=== PATIENT | male | born 1960 | race Caucasian/White ===

== ENCOUNTER 2023-06-03 16:00 | Inpatient (IN) | payer MEDICAID, OTHER, SELFPAY ==
[2023-06-03] VITALS (7 sets, daily range): BP systolic 136–180; BP diastolic 74–108; PULSE 70–84; RESP 14–16; TEMP 36.2–36.4; O2SAT 95–100; BMI 36.8
--- NOTE | ~2023-06-03 | XR_ITS ---
EXAMINATION: XR CHEST CLINICAL INFORMATION: Chest pain COMPARISON: None available. TECHNIQUE: 2 views of the chest were obtained. FINDINGS: The lungs are well-expanded and clear. The heart size and pulmonary vascularity is normal. No gross bony abnormality seen. XR/XR chest 2V IMPRESSION: Unremarkable chest exam.
--- NOTE | ~2023-06-03 | CT_ITS ---
EXAMINATION: CT ANGIOGRAM HEAD CT ANGIOGRAM NECK CLINICAL INFORMATION: Dizziness. COMPARISON: None available. TECHNIQUE: Initial noncontrast shoe laster imaging of the head and neck was performed. Noncontrast head CT was also performed. Test bolus sequences followed by intravenous administration 70 mL of Omnipaque 350. Helical imaging was performed in the axial plane from the aortic arch to the skull vertex. Delayed postcontrast imaging of the head was also performed. The data was processed at the lead technologist in cytogenetics's workstation for generation of MIP sequences. Angled MIPs and volume rendered reformatted images were also generated at an offline 3D workstation. Stenoses are assessed in accordance with NASCET criteria unless otherwise indicated. This CT examination was performed using dose optimization techniques as appropriate, variously including the following: *Automated exposure control. *Adjustment of mA and/or kV according to patient size (this includes techniques or standardized protocols for targeted exams where dose is matched to indication/reason for exam; i.e. extremities or head). *Use of iterative reconstruction technique. DLP: 2266 mGy-cm FINDINGS: CT Head: There is no evidence of acute intracranial hemorrhage or edematous territorial infarction. Lacunar infarct in the left thalamus. No additional loss of machuca-white matter differentiation. A few foci of hypoattenuation in the periventricular and deep white matter are consistent with mild microangiopathy. Proportional prominence of the ventricles and sulcal spaces without evidence of obstructive hydrocephalus. No abnormal mass effect or midline shift. No extra-axial fluid collections. No pathologic intra-axial enhancement or regional oligemia. No acute soft tissue or osseous abnormalities. Mild mucosal thickening of the paranasal sinuses. The mastoid air cells and middle ear cavities are clear. Extensive multifocal odontogenic enamel erosions and periapical lucencies. CT Neck: The thyroid gland and remaining cervical soft tissues are within normal limits. Diffuse demineralization. Reversal the normal cervical lordosis centered on C5-C6. Partial degenerative loss of C5 vertebral body height. Ankylosis of the right-sided C3-C4 facets. Advanced degenerative disc disease at C5-C6 and C6-C7. Mild to moderate degenerative disc disease at all additional cervical levels. CT Upper Chest: The visualized lung apices and upper mediastinum are within normal limits. Neck CTA: Aortic Arch: Normal contour and caliber with mild calcific atherosclerotic disease. Classic 3 vessel branching pattern of the aortic arch. Great Vessel Origins: No significant stenosis of the branch origins. Right Common Carotid Artery: No focal stenosis or occlusion. Cervical Right Internal Carotid Artery: Mild calcific atherosclerotic disease of the carotid bulb and proximal internal carotid artery without flow-limiting stenosis. Ectasia of the proximal internal carotid artery. Left Common Carotid Artery: No focal stenosis or occlusion. Cervical Left Internal Carotid Artery: Mild calcific atherosclerotic disease of the carotid bulb and proximal internal carotid artery without flow-limiting stenosis. Ectasia of the proximal internal carotid artery. Cervical Right Vertebral Artery: Dominant. No focal stenosis or occlusion. Cervical Left Vertebral Artery: Atherosclerotic disease causes mild stenosis of the origin. No focal stenosis or occlusion. Brain CTA: Intracranial Internal Carotid Arteries: Calcific atherosclerotic disease of the intracranial internal carotid arteries without occlusion or flow-limiting stenosis. Right Anterior Cerebral Artery: Normal A1 segment. Normal opacification of the distal JUAN M segments. Left Anterior Cerebral Artery: Normal A1 segment. Normal opacification of the distal JUAN M segments. Anterior Communicating Artery: Normal. Right Middle Cerebral Artery: Mild stenosis of the M1 segment of the MCA without occlusion. Normal arborization of the distal segments. Left Middle Cerebral Artery: Moderate stenosis of the M1 segment of the MCA without occlusion. Normal arborization of the distal segments. Right Vertebral Artery: Normal V4 segment. The posterior inferior cerebellar artery is not well opacified; however, there is no CT evidence of acute occlusion. Left Vertebral Artery: Extradural origin of the posterior inferior cerebellar artery. Normal opacification of the proximal segments of the PICA. There is occlusion of the proximal-mid V4 segment. Partial reconstitution of the distal V4 segment. Basilar Artery: Normal without focal stenosis or occlusion. Normal appearance of the proximal superior cerebellar arteries. Right Posterior Cerebral Artery: Normal P1 segment. Mild irregular stenoses of the distal HUM[employer] segments. Left Posterior Cerebral Artery: Normal P1 segment. Mild irregular stenoses of the distal [employer] segments. Normal opacification of the superior sagittal, straight, transverse, and sigmoid sinuses. CT/CT angio head neck IMPRESSION: 1. No evidence of acute intracranial hemorrhage or edematous territorial infarction. Mild underlying microangiopathy and generalized cerebral volume loss. Lacunar infarct in the left thalamus. 2. Occlusion of the proximal-mid V4 segment of the left vertebral artery. 3. CTA of the head and neck without additional proximal occlusion. 4. Moderate multilevel degenerative spondyloarthropathy of the cervical spine. 5. Extensive odontogenic disease.
--- NOTE | ~2023-06-03 | MR_ITS ---
EXAMINATION: MR BRAIN WITHOUT CONTRAST CLINICAL INFORMATION: Posterior circulation cerebrovascular accident. COMPARISON: CTA head and neck from 06/03/2023. TECHNIQUE: MRI of the brain was obtained using routine sequences without contrast. FINDINGS: Small region of restricted diffusion within the left lateral medullary. Associated T2 FLAIR hyperintensity. No evidence of hemorrhagic transformation. No additional restricted diffusion. No evidence of acute or chronic hemorrhagic products on heme-sensitive imaging. Small region of encephalomalacia in the subcortical white matter of the left parietal lobe. Chronic lacunar infarct within the left thalamus. Scattered periventricular and deep white matter T2 FLAIR hyperintensities consistent with mild underlying microangiopathy. Proportional prominence of the ventricles and sulcal spaces without evidence of obstructive hydrocephalus. No abnormal mass effect. No midline shift. Normal appearance of the pituitary gland. Normal positioning of the cerebellar tonsils. Diminished flow-related signal within the V3 and V4 segments of the left vertebral artery, correlating with finding on recent CTA. Otherwise, normal arterial and venous vascular flow voids are present. Normal, homogeneous marrow signal. Mild mucosal thickening of the paranasal sinuses. No signal abnormalities within the mastoids. MR/MR head/brain wo con IMPRESSION: 1. Small acute infarct of the left lateral medullary. Associated occlusion of the V4 segment of the left vertebral artery. No evidence of hemorrhagic transformation. 2. Small region of encephalomalacia in the subcortical white matter of the left parietal lobe. Chronic lacunar infarct of the left thalamus. Mild underlying microangiopathy and generalized cerebral volume loss.
--- NOTE | 2023-06-03 16:10 | PC.NURSE ---
Patient from [facility] with new onsent htn, received clonadine and lisiopril today with no effect. Patient with unsteady gait d/t dizziness.
--- NOTE | 2023-06-03 16:19 | ED_ITS ---
HPI - General Adult General Chief complaint: General Medical Stated complaint: HYPERTENTION & DIZZY, SECT. 12 SI Time Seen by Provider: 06/03/23 16:06 Source: patient Mode of arrival: EMS History of Present Illness HPI narrative: Pt is a 63yo male who presesnts to the ED with dizziness since last night (approx 8pm). Pt was transfered from [facility] after multiple high BP readings. Pt was treated with lisinopril and clonidine prior to arrival to ED. EMS reported a BP of 189/110. Pt states he suddenly became very dizzy as if he was being pulled and pushed around . He also notes 6-7 episodes of vomiting late last night-cop breaker. He reports no current nausea, diarrhea, fever/chills, or abdominal pain. Pt denies vision changes associated with dizziness and notes the dizziness is better laying down. He notes that the past few nights he has had trouble sleeping as he has been at [facility] since last Saturday for depression w/ SI. Pt denies current SI. States he was started on mirtazipine and melatonin, and denies any other medications. Pt reports having not seen a doctor since childhood. Related Data Home Medications Medication Instructions Recorded Confirmed acetaminophen 325 mg tablet 650 mg PO Q4H PRN Pain (Scale 06/04/23 06/04/23 Score 1-3) benzocaine-menthol lozenges 1 xiao PO Q2H PRN Sore Throat 06/04/23 06/04/23 calcium carbonate 500 mg calcium 500 mg PO Q4H PRN Heartburn 06/04/23 06/04/23 (1,250 mg) chewable tablet hydroxyzine pamoate 50 mg capsule 50 mg PO QID PRN Anxiety 06/04/23 06/04/23 lisinopril 5 mg tablet 5 mg PO DAILY 06/04/23 06/04/23 melatonin 3 mg tablet 6 mg PO BEDTIME PRN Sleep 06/04/23 06/04/23 mirtazapine 7.5 mg tablet 7.5 mg PO BEDTIME 06/04/23 06/04/23 nicotine (polacrilex) 2 mg gum 2 mg buccal Q2H PRN Nicotine 06/04/23 06/04/23 Cravings Allergies Allergy/AdvReac Type Severity Reaction Status Date / Time No Known Allergies Allergy Verified 06/03/23 16:42 Review of Systems 2 Constitutional: Constitutional: Denies chills, Reports difficulty sleeping, Denies fever(s) and Denies headache(s) Eyes: Eyes: Denies change in vision ENT: Reports dizziness, Reports dry mouth and Denies headache(s) Cardiovascular: Cardiovascular: Denies chest pain, Reports leg edema (chronic) and Denies dyspnea Respiratory: Respiratory: Denies cough and Denies dyspnea Gastrointestinal: Gastrointestinal: Denies constipation, Denies diarrhea, Denies nausea, Reports vomiting and Denies hematemesis Neurologic: Reports dizziness, Denies headache(s) and Denies focal weakness Psychiatric: Psychiatric: Denies homicidal ideation and Denies suicidal ideation [facility] Social History Social History Patient Tobacco Use Status: Tobacco use Unknown Physical Exam ED Vital Signs: Vital Signs - 24 hr 06/03/23 16:28 06/03/23 19:29 06/03/23 19:31 Temperature 97.5 F Pulse Rate 77 74 70 Respiratory Rate 14 16 Blood Pressure 142/80 H 136/80 146/74 H Pulse Oximetry 100 99 Oxygen Delivery Method Room Air Room Air 06/03/23 19:32 06/03/23 19:35 06/03/23 21:46 Temperature 97.1 F Pulse Rate 75 84 74 Respiratory Rate 15 Blood Pressure 158/88 H 148/84 H 137/75 Pulse Oximetry 98 Oxygen Delivery Method Room Air 06/04/23 00:16 06/04/23 04:58 Temperature Pulse Rate 68 67 Respiratory Rate 16 17 Blood Pressure 140/69 H 146/81 H Pulse Oximetry 98 98 Oxygen Delivery Method Room Air Room Air BMI result Body Mass Index 36.8 Const General: cooperative, comfortable, no acute distress, alert and awake Orientation/consciousness: patient oriented x3 HENMT Head: Yes normal to inspection Ears: hearing grossly normal bilaterally General nose exam: Normal external nose present Eyes Eyelids: Yes eyelid abnormality (slight upper lid droop of left eye) Pupils: Equal, round and reactive pupils present Direct Ophthalmoscopy: normal light reflex Resp Effort & Inspection: normal respiratory effort Auscultation: clear to auscultation bilaterally Cardio Rate: regular rate Rhythm: regular rhythm Heart sounds: S1 normal heart sound present and S2 normal heart sound present GI Palpation (GI): nontender Neuro General: patient oriented x3 Cranial nerves: Yes CN's II-XII intact bilaterally and Yes Equal, round and reactive pupils present Motor exam (neuro): 5/5 motor strength present throughout and Pronator motor function not present Coordination: [id number] test normal NIH Stroke Scale Internal: Initial- Upon Arrival Time: 16:10 Level of Consciousness: Alert Level of Consciousness Questions: Answers both questions correctly Level of Consciousness Commands: Performs both tasks correctly Best Gaze: Normal Visual: No visual loss Facial Palsy: Minor paralyis Motor Arm (Right): No drift Motor Arm (Left): No drift Motor Leg (Right): No drift Motor Leg (Left): No drift Limb Ataxia: Present in one limb Sensory: Normal Best Language: No aphasia Dysarthia: Normal Extinction and Inattention: No abnormality Score: 2 Course Reevaluation(s) Reevaluation #1: Received call from [facility], the patient has an V4 proximal vertebral artery occlusion. Will discuss with Neurology. Patient is well outside the window for TNK/tPA or large vessel clot evacuation Time: 00:01 Medications Administered Generic Name Dose Route Start Last Admin Trade Name Freq PRN Reason Stop Dose Admin Atorvastatin Calcium 80 mg 06/04/23 09:00 06/04/23 09:53 Atorvastatin Calcium 80 Mg Tablet PO 80 mg DAILY JOE Administration Clopidogrel Bisulfate 75 mg 06/04/23 09:00 06/04/23 09:53 Clopidogrel Bisulfate 75 Mg Tablet PO 75 mg DAILY JOE Administration Enoxaparin Sodium 40 mg 06/04/23 06:00 06/04/23 05:44 Enoxaparin Sodium 40 Mg/0.4 Ml Syringe SUBCUT 40 mg Q24H JOE Administration Sodium Chloride 3 ml 06/04/23 08:00 06/04/23 15:57 0.9 % Sodium Chloride Flush 3 Ml Syringe IVFLUSH 3 ml QSHIFT JOE Administration Discontinued Medications Generic Name Dose Route Start Last Admin Trade Name Freq PRN Reason Stop Dose Admin Aspirin 324 mg 06/04/23 00:01 06/04/23 00:18 Aspirin 81 Mg Tab.Chew PO 06/04/23 00:02 324 mg ONCE ONE Administration Iohexol 70 ml 06/03/23 22:54 06/03/23 22:54 Iohexol 350 Mg/Ml 100 Ml Infus..Btl IV 06/03/23 22:55 70 ml ONCE ONE Administration Meclizine HCl 25 mg 06/03/23 16:42 06/03/23 18:13 Meclizine Hcl 25 Mg Tablet PO 06/03/23 16:43 Not Given ONCE ONE Medical Decision Making Medical Decision Making [facility] Narrative: 63-year-old male presents for evaluation of a complaints of dizziness and vomiting. Weight is describing sounds consistent with peripheral vertigo. He has no difficulty finger to nose testing, no pronator drift. His last known well time is approximately 21 hours prior to presentation. Have a very low suspicion for CVA. Plan for basic labs, will get a CT scan of the head. Get EKG, orthostatic vital signs. His blood pressure improved after receiving clonidine and lisinopril from [facility] to prior to arrival to the ED. Differential Diagnosis Differential Diagnoses: The differential diagnosis associated with the presentation includes (HTN urgency, peripheral vertigo, medication induced dizziness, acute onset CHF, vertebral stroke, orthostatics) Admission/Observation Consideration of admission/observation: Escalation of care including admission/observation considered Patient has vertebral artery occlusion Lab Data [facility] Lab Attestation statement: I reviewed the patient's lab results. Mild leukocytosis to 14.3 K. No evidence of infection. No anemia. No electrolyte abnormalities. Normal renal function 06/04/23 07:58 06/03/23 17:58 Labs: Lab Results 06/03/23 06/03/23 Range/Units 17:58 18:55 WBC 14.3 H (4.8-10.8) X10*3/uL RBC 5.05 (4.60-5.80) X10*6/uL Hgb 14.6 (14.0-18.0) g/dl Hct 43.7 (42.0-52.0) % MCV 86.5 (80.0-98.0) fL MCH 28.9 (27.0-33.0) pg MCHC 33.4 (31.0-36.0) g/dl RDW 14.5 (11.0-16.0) % Plt Count 202 (160-400) X10*3/uL MPV 12.9 H (9.4-12.4) fL Immature Gran % (Auto) 0.4 (0.0-0.4) % Neut % (Auto) 85.9 H (45-73) % Lymph % (Auto) 8.2 L (20-40) % Barber % (Auto) 5.2 (2-11) % Eos % (Auto) 0.1 (0-4) % Baso % (Auto) 0.2 (0-2) % Lymph # (Auto) 1.2 (1.2-4.9) X10*3/uL Barber # (Auto) 0.8 (0.1-1.2) X10*3/uL Eos # (Auto) 0.0 (0.0-0.4) X10*3/uL Baso # (Auto) 0.0 (0.0-0.2) X10*3/uL Abs Immat Gran (auto) 0.06 H (0.00-0.03) X10*3/uL Absolute Neuts (auto) 12.3 H (2.0-8.3) x10*3/uL Absolute Nucleated RBC 0.000 (0.0-0.012) X10*3/uL Nucleated RBC % (auto) 0.0 (0.0-0.2) /100WBC Smear Tech's Comments VERIFIED PT 13.8 H (11.1-13.3) SEC INR 1.1 (0.9-1.1) APTT 32.0 (26.0-36.4) SEC Sodium 136 (135-145) mmol/L Potassium 4.4 (3.3-5.1) mmol/L Chloride 103 (96-108) mmol/L Carbon Dioxide 25 (22-29) mmol/L Anion Gap 12 (12-20) BUN 13 (9-16) mg/dL Creatinine 0.62 (0.5-1.4) mg/dL Estim Creat Clear Calc 149.1 Estimated GFR > 60 Random Glucose 114 (60-115) mg/dL Calcium 9.1 (8.4-10.2) mg/dL Total Bilirubin 0.6 (0.0-1.0) mg/dL AST 22 (5-37) U/L ALT 42 H (0-40) U/L Alkaline Phosphatase 72 (39-117) U/L Troponin I High Sens < 2.7 (<3.5-35.0) ng/L B-Natriuretic Peptide 48 (<100) pg/mL Total Protein 7.4 (6.5-8.0) g/dL Albumin 3.8 (3.5-5.0) g/dL Lipase 11 (8-78) U/L Urine Color Guthrie A Urine Appearance Cloudy Urine pH 7.5 (5.0-9.0) Ur Specific Mcgrath 1.020 (1.005-1.025) Urine Protein Trace (Neg-Trace) mg/dL Urine Glucose (UA) Negative (Negative) mg/dL Urine Ketones Negative (Negative) mg/dL Urine Blood Large (3+) H (Negative) Urine Nitrite Negative (Negative) Ur Leukocyte Esterase Trace H (Negative) Urine RBC >20 H (0-2) /HPF Urine WBC 0-5 (0-5) /HPF Ur Squamous Epith Cells 0-2 (0-2) /HPF Urine Bacteria None Seen (None Seen) Hyaline Casts 0-2 (0-2) /LPF Tests considered The following testing was considered but not selected: MRI, however the patient is well outside the window will be admitted regardless. Critical Care Time Critical Care Time Critical Care Time: Yes Total Critical Care Time: 35 Attestation: Patient presented with dizziness, vomiting, concerning for posterior CVA. DM K/tPA was considered, however by time the patient presented to the ER is way outside the window despite documented occlusion on CT angiography. The time CT angiography was resulted, the patient was well outside the window for clot retrieval or endovascular procedure. Discharge Plan Discharge Clinical Impression: HBP (high blood pressure), Dizziness, Posterior circulation stroke Patient Disposition: Admitted As Inpatient Interventions: Admission Worksheet (ED) Last Done: 06/04/23 15:20 Discharge Date/Time: 06/04/23 15:30
--- NOTE | 2023-06-03 16:42 | ECG_ITS ---
Test Reason : dizziness Blood Pressure : / mmHG Vent. Rate : 072 BPM Atrial Rate : 072 BPM P-R Int : 196 ms QRS Dur : 092 ms QT Int : 412 ms P-R-T Axes : 064 005 014 degrees QTc Int : 451 ms Normal sinus rhythm Normal ECG No previous ECGs available Referred By: Isaac Stewart Electronically Signed By:Jerman Vick
--- NOTE | 2023-06-03 16:42 | PC.NURSE ---
1:1 sitter at bedside for pt safety. pt calm and cooperative. denies SI/HI yeni.
[2023-06-03 18:07] LABS: Basophils Percent Auto 0.2 % (0-2); Eosinophils Percent Auto 0.1 % (0-4); Hematocrit 43.7 % (42.0-52.0); Mean Corpuscular Volume 86.5 fL (80.0-98.0); Red Blood Count 5.05 X10*6/uL (4.60-5.80); Red Cell Distribution Width 14.5 % (11.0-16.0); SCAN SMEAR FLAG 1
[2023-06-03 18:09] LABS: Hemoglobin 14.6 g/dl (14.0-18.0); Imm Gran Abs Auto 0.06 X10*3/uL (0.00-0.03); Imm Gran Pct Auto 0.4 % (0.0-0.4); Lymphocytes Absolute Auto 1.2 X10*3/uL (1.2-4.9); Lymphocytes Percent Auto 8.2 % (20-40); MANUAL DIFF FLAG SCAN; Mean Corpuscular HGB Conc 33.4 g/dl (31.0-36.0); Mean Corpuscular Hemoglobin 28.9 pg (27.0-33.0); Mean Platelet Volume 12.9 fL (9.4-12.4); Monocytes Absolute Auto 0.8 X10*3/uL (0.1-1.2); Monocytes Percent Auto 5.2 % (2-11); Neutrophils Absolute Auto 12.3 x10*3/uL (2.0-8.3); Neutrophils Percent Auto 85.9 % (45-73); Platelet Count 202 X10*3/uL (160-400); White Blood Count 14.3 X10*3/uL (4.8-10.8)
[2023-06-03 18:19] LABS: PLT ABN DIST 1
[2023-06-03 18:21] LABS: INTERNATIONAL NORM RATIO 1.1 (0.9-1.1); Prothrombin Time 13.8 SEC (11.1-13.3)
[2023-06-03 18:25] LABS: SLIDE REVIEW VERIFIED
[2023-06-03 18:36] LABS: Alanine Aminotransferase 42 U/L (0-40); Albumin Level 3.8 g/dL (3.5-5.0); Alkaline Phosphatase 72 U/L (39-117); Anion Gap 12 (12-20); Aspartate Amino Transferase 22 U/L (5-37); Bilirubin Total 0.6 mg/dL (0.0-1.0); Blood Urea Nitrogen 13 mg/dL (9-16); Calcium 9.1 mg/dL (8.4-10.2); Carbon Dioxide 25 mmol/L (22-29); Chloride 103 mmol/L (96-108); Creatinine Clr Calc Pharmacy 149.1; Estimated Glomerular Filt Rate > 60; Glucose Random 114 mg/dL (60-115); Lipase 11 U/L (8-78); Potassium 4.4 mmol/L (3.3-5.1); Sodium 136 mmol/L (135-145); Total Protein 7.4 g/dL (6.5-8.0)
[2023-06-03 18:50] LABS: Troponin-I High Sensitivity < 2.7 ng/L (<3.5-35.0)
[2023-06-03 19:03] LABS: Appearance Urine Cloudy; Color Urine Orange; Glucose Urine UA Negative (Negative); Leukocyte Esterase Urine Trace (Negative); Nitrite Urine Negative (Negative); PH 7.5 (5.0-9.0); UMIC TRIGGER UACC YES; Urine Blood Large (3+) (Negative); Urine Ketones Negative (Negative); Urine Protein Trace mg/dL (Neg-Trace)
[2023-06-03 19:06] LABS: Bacteria Urine None Seen (None Seen); Hyaline Casts Urine 0-2 /LPF (0-2); RBC Urine >20 /HPF (0-2); Squamous Epithelial Cell Urine 0-2 /HPF (0-2); WBC Urine 0-5 /HPF (0-5)
[2023-06-03 19:12] LABS: B Type Natriuretic Peptide 48 pg/mL (<100)
--- NOTE | 2023-06-03 19:31 | PC.NURSE ---
ASSUMED CARE OF PT
[2023-06-03] MEDS: iohexoL 350 MG/ML 100 ML INFUS..BTL 70 ML IV (22:54)
[2023-06-04] VITALS (13 sets, daily range): BP systolic 134–173; BP diastolic 69–90; PULSE 60–86; RESP 8–18; TEMP 36.4–36.8; O2SAT 95–100
[2023-06-04] MEDS: Aspirin 81 MG TAB.CHEW 324 MG PO (00:18)
--- NOTE | 2023-06-04 00:36 | PC.NURSE ---
[facility]
--- NOTE | 2023-06-04 05:00 | PC.NURSE ---
attempt to assist in ambualtion to bathroom, pt is full assist as he still feels weak and dizzy
--- NOTE | 2023-06-04 05:19 | PC.NURSE ---
provider aware of weakness and dizziness. ordered brain MRI and am labs
[2023-06-04] MEDS: Enoxaparin Sodium 40 MG/0.4 ML SYRINGE SUBCUT (05:44)
--- NOTE | 2023-06-04 06:02 | PC.NURSE ---
gave nurse to nurse report to travis cline regarding health update
--- NOTE | 2023-06-04 07:00 | CA_ITS ---
Transthoracic Echocardiogram Patient (Last, First, Middle): Surjit Sanchez, Gender: Male Date of : 1960 Age: 63 Procedure Date: 06/04/2023 Procedure Type: Transthoracic Echocardiogram Location: [facility] [place] Height: 175.26 cm Weight: 112.49 kg BSA: 2.26 m2 Heart Rate: bpm BP: 135 / 73 mmHg Historic Sites Supervisor: Referring MD: Logan Goins MD Symptoms: CVA Study Quality: Fair ECG Rhythm: Sinus Conclusions: - Normal left ventricular size and systolic function. There is mildly increased left ventricular wall thickness. The visually estimated ejection fraction is between 60-65%. - Normal right ventricular cavity size and systolic function. - The left atrium is mildly dilated. There is no evidence of interatrial shunt by agitated saline. Findings Left Ventricle Normal left ventricular size and systolic function. There is mildly increased left ventricular wall thickness. The visually estimated ejection fraction is between 60-65%. There is no evidence of regional wall motion abnormalities. Diastolic function is normal for age. Right Ventricle Normal right ventricular cavity size and systolic function. Atria The left atrium is mildly dilated. There is no evidence of interatrial shunt by agitated saline. Aortic Valve Normal aortic valve structure and function. There is no aortic valve stenosis. There is trace (trivial) aortic valve regurgitation. Mitral Valve The mitral valve appears normal. There is no mitral valve regurgitation. There is no mitral valve stenosis. Pulmonic Valve The pulmonic valve is likely normal. Tricuspid Valve Normal tricuspid valve structure. There is no tricuspid valve regurgitation. The right ventricular systolic pressure is 33 mmHg. Normal right atrial pressure. There is no evidence of pulmonary hypertension. Great Vessels All visible segments of the aorta are normal in size. The visualized portions of the pulmonary artery and branches are normal. Venous The inferior vena cava is normal in size and collapses greater than 50% with inspiration. Prior Study Comparison No prior study available for comparison. Measurements 2D Linear Measurements IVSd: 1.04 0.6-0.9/0.6-1.0 cm LVIDd: 3.34 3.9-5.3/4.2-5.9 cm LVIDd Index: 1.48 2.4-3.2/2.2-3.1 cm/m2 LVIDs: 1.99 2.0-3.6 cm LVPWd: 1.12 0.7-1.1 cm Ao Root: 3.40 2.1-3.5 cm LA Diam: 3.50 2.7-3.8/3.0-4.0 cm LAIDs Index: 1.55 1.5-2.3 cm/m2 LV Mass: 134.28 67-162/88-224 g LV Mass Index: 59.42 43-95/49-115 g/m2 LVOT Diam: 2.10 3.0+(-)1.3 cm Mitral Valve MV Pk E: 0.65 MV PK A: 0.89 MV Decel Time: 245.00 E/A: 0.70 E'Lateral: 11.90 E'Medial: 7.94 E/E' Med: 8.10 E/E' Lat: 5.40 PHT: 72.00 MVA PHT: 3.06 Decel [place]: 2.64 Aortic Valve AoV Pk Austin: 1.54 AoV Mn Austin: 1.04 AoV VTI: 0.35 AoV Pk Grad: 9.00 Aov Mn Grad: 5.00 JAYDEN Cont.VTI: 2.27 LVOT LVOT Pk Austin: 1.04 LVOT Mn Austin: 0.67 LVOT VTI: 0.23 LVOT Pk Grad: 4.00 LVOT Mn Grad: 2.00 LVOT Diam: 2.10 LVOT Area: 3.46 Diastolic Function MV Pk E: 0.65 MV Pk A: 0.89 E/A: 0.70 E'Medial: 7.94 E/E' Med: 8.10 E' Laterial: 11.90 E/E' Lat: 5.40 Right Ventricle TAPSE (mm): 27.00 TVS' Austin: 13.00 Tricuspid Valve TR Pk Austin: 2.80 TR Pk Grad: 31.00 RA Press: 3.00 RVSP: 33.00 Great Vessels Aorta Ao Root-2D: 3.40 2.0-3.7 cm Ao Asc: 3.30 2.1-3.4 cm Pulmonary Valve PV Pk Austin: 1.68 Peak PV Grad: 11.00 Updated in Other Vendor System with Status of Final Jerman Vick MD electronically signed on 06/05/2023 1:29:28 PM with status of Final
--- NOTE | 2023-06-04 07:26 | P.HPHOSP_ITS ---
History of Present Illness Date of Service: 06/04/23 Attending physician on admission: Logan Goins Chief Complaint: Dizziness, unteady gait and nausea/vomiting x1 day 63 year old obese white male with underlying history of depression and suicide attempts leading to hospitalization at [facility] who is brought to the emergency room for evaluation of ongoing dizziness, unsteady gait, nausea and vomiting. These symptoms started last night (06/02/23) at around 7 PM. He reports that he suddenly started experiencing dizziness and was unsteady on his feet.? He was feeling ill with the nausea and dizziness and so he decided to go rest in bed. ?He woke up today, still feeling dizzy and unsteady on his feet and this time also had an episode of nausea and vomited when he tried to drink liquids.? He therefor decided to remain in bed most of the day. This evening, he was still not feeling well so he asked to be brought in for evaluation. Initial work up done on arrival include a normal CT head but a CTA done showed occlusion of the V4 segment of the proximal vertebral artery.? He unfortunately is out of the window for TNK and thrombectomy.? He was therefore started on aspirin and admission requested.? When I saw him, he was still feeling dizzy especially when he tries to move around. Review of Systems 2 Review of Systems: Yes all other systems are reviewed and are negative PMFSH Social History Patient Tobacco Use Status: Tobacco use Unknown Smoked in Last 30 Days: No Use of substances other than those prescribed or required for medical reasons: No Advance Directives: No Advance Directives Information Provided: Yes Nutrition Risks: No Nutritional Risk Meds Allergies Allergy/AdvReac Type Severity Reaction Status Date / Time No Known Allergies Allergy Verified 06/03/23 16:42 Active Medications: Current Medications Acetaminophen (Acetaminophen 325 Mg Tablet) 650 mg PO Q6H PRN PRN Reason: Pain, Mild (Pain Scale 1-3) Acetaminophen (Acetaminophen Supp 650 Mg Supp.Rect) 650 mg PA Q6H PRN PRN Reason: Pain, Mild (Pain Scale 1-3) Al Hydroxide/Mg Hydroxide (Magnesium Hydrox/Alum Hydrox 30 Ml Oral.Susp) 30 ml PO Q4H PRN PRN Reason: Heartburn/Nausea Aspirin (Aspirin Enteric Coated 81 Mg Tablet.) 81 mg PO DAILY [facility] Atorvastatin Calcium (Atorvastatin Calcium 80 Mg Tablet) 80 mg PO DAILY [facility] Clopidogrel Bisulfate (Clopidogrel Bisulfate 75 Mg Tablet) 75 mg PO DAILY [facility] Enoxaparin Sodium (Enoxaparin Sodium 40 Mg/0.4 Ml Syringe) 40 mg SUBCUT Q24H [facility] Last Admin: 06/04/23 05:44 Dose: 40 mg Melatonin (Melatonin 3 Mg Tablet) 6 mg PO BEDTIME PRN PRN Reason: Insomnia Ondansetron HCl (Ondansetron Hcl 4 Mg/2 Ml Vial) 4 mg IVPUSH Q8H PRN PRN Reason: Nausea and Vomiting Sodium Chloride (0.9 % Sodium Chloride Flush 3 Ml Syringe) 3 ml IVFLUSH QSHIFT [facility] Physical Exam 2 Vital Signs and Narrative: Vital Signs: Last Vital Signs Temp 97.1 F 06/03/23 21:46 Pulse 60 06/04/23 06:04 Resp 8 L 06/04/23 06:04 BP 135/73 06/04/23 06:04 Pulse Ox 99 06/04/23 06:04 O2 Del Method Room Air 06/04/23 06:04 BMI result Body Mass Index 36.8 General: Well nourished. Awake, alert and oriented x 4. No apparent distress Eyes: No pallor or jaundice. PERRLA, EOMI HENT: Moist oral mucus membranes. No oropharyngeal lesions. Neck: Supple. No cervical adenopathy. No JVD Cardiovascular: Regular rate and rhythm. Normal heart sounds. No murmurs, rubs or gallops. No JVD. No peripheral edema. Respiratory: Normal respiratory effort with no accessory muscle use. CTAB. Gastrointestinal: Abdomen is soft, non-tender, non-distended. Normoactive bowel sounds. No hepatosplenomegaly Extremities: No edema. No calf tenderness. Good peripheral pulses Skin - Warm/Dry. No rashes. No mottling. Capillary refill is < 2 seconds Neurological: AAOx4. Intact speech & cognition. Gait & balance not assessed as he got very dizzy when he tried to sit up. CN II - XII grossly intact but not individually tested. Hematologic: No bleeding. No ecchymosis. No swollen or tender lymph nodes. Psychiatric: Cooperative. Appropriate mood and affect. Results Labs 06/03/23 17:58 06/03/23 17:58 Labs: Laboratory Results - last 24 hr 06/03/23 06/03/23 17:58 18:55 MCV 86.5 MCH 28.9 MCHC 33.4 RDW 14.5 Plt Count 202 MPV 12.9 H Immature Gran % (Auto) 0.4 Neut % (Auto) 85.9 H Lymph % (Auto) 8.2 L [place] % (Auto) 5.2 Eos % (Auto) 0.1 Baso % (Auto) 0.2 Lymph # (Auto) 1.2 [place] # (Auto) 0.8 Eos # (Auto) 0.0 Baso # (Auto) 0.0 Abs Immat Gran (auto) 0.06 H Absolute Neuts (auto) 12.3 H Absolute Nucleated RBC 0.000 Nucleated RBC % (auto) 0.0 Smear Tech's Comments VERIFIED PT 13.8 H INR 1.1 APTT 32.0 Anion Gap 12 Estim Creat Clear Calc 149.1 Estimated GFR > 60 Random Glucose 114 Calcium 9.1 Total Bilirubin 0.6 AST 22 ALT 42 H Alkaline Phosphatase 72 B-Natriuretic Peptide 48 Total Protein 7.4 Albumin 3.8 Lipase 11 Urine Color [place] A Urine Appearance Cloudy Urine pH 7.5 Ur Specific [place] 1.020 Urine Protein Trace Urine Glucose (UA) Negative Urine Ketones Negative Urine Blood Large (3+) H Urine Nitrite Negative Ur Leukocyte Esterase Trace H Urine RBC >20 H Urine WBC 0-5 Ur Squamous Epith Cells 0-2 Urine Bacteria None Seen Hyaline Casts 0-2 ECG Interpretation: NSR at 72 bpm with normal axis and no acute ischemic changes Imaging Radiologist's Impressions: Impressions Chest X-Ray 06/03/23 17:21 IMPRESSION: Unremarkable chest exam. Head/Neck CTA 06/03/23 22:51 IMPRESSION: 1. No evidence of acute intracranial hemorrhage or edematous territorial infarction. Mild underlying microangiopathy and generalized cerebral volume loss. Lacunar infarct in the left thalamus. 2. Occlusion of the proximal-mid V4 segment of the left vertebral artery. 3. CTA of the head and neck without additional proximal occlusion. 4. Moderate multilevel degenerative spondyloarthropathy of the cervical spine. 5. Extensive odontogenic disease. Assessment and Plan (1) Posterior circulation stroke: Status: Acute (2) HBP (high blood pressure): Status: Acute (3) Suicide attempt: Status: Acute Plan 63 year old obese white male with underlying history of depression and suicide attempts leading to hospitalization at [facility] here with 1. CVA - manifesting with vertiginous symptoms - CTA done showed occlusion of the V4 segment of the proximal vertebral artery - admit for further work up including MRI, 2 D echo and lipid panel - Neurology consult - start aspirin, plavix and atorvastatin 2. Hypertension - BP very mildly elevated - monitor off medications 3. Suicide attempt - reports 2 attempts in as many weeks - currently admitted to [facility] hospital - continue 1:1 close observation 4. Obesity - BMI 6.8 - encourage weight loss Total time managing care of this patient today: 75 minutes. Quality Stroke Does the patient have a stroke diagnosis?: Yes Reason for No Anti-thrombotic by Day Two: N/A - Med Ordered VTE Prior VTE?: No VTE Risk Level:: Medical - moderate - high VTE Device Contraindication: N/A - Device Ordered VTE Drug Contraindication: N/A - Med Ordered
[2023-06-04] MEDS: 0.9 % Sodium Chloride Flush 3 ML SYRINGE IVFLUSH ×3 (07:40→21:18)
--- NOTE | 2023-06-04 07:44 | PC.NURSE ---
Addendum entered by Rosalia Moy 06/04/23 07:48: pt currently denies si, pt is coming from [facility] in [facility] for si, sitter at bedside Original Note: pt is alert and oriented, skin pwd, respirations even and unlabored, ls clear, pt denies pain, all neuro are intact-no visible arm drift, strong and equal hand grasp, no facial drift and able to move all extremities. pt does report that he still has intermittent dizziness-states he feels like he is swaying but only when standing up or moving around not when just resting/laying in bed. pt denies nausea and vs stable, ns on the monitor.
--- NOTE | 2023-06-04 07:47 | PHA.MEDREC ---
Pharmacy Consult ? Medication Reconciliation Pharmacy has completed the medication reconciliation. Pharmacy was sent a medication list from what looks like a facility, ED says patient came in with list. When [facility] went to speak to patient they stated they are not on anything. However, this list says patient is on mirtazapine, lisinopril and hydroxyzine with a end date of 06/27/23. Will leave it up to the provider.
[2023-06-04 08:05] LABS: Hemoglobin 15.3 g/dl (14.0-18.0); Mean Corpuscular HGB Conc 33.3 g/dl (31.0-36.0); Mean Corpuscular Hemoglobin 28.5 pg (27.0-33.0); Mean Corpuscular Volume 85.8 fL (80.0-98.0); Mean Platelet Volume 12.9 fL (9.4-12.4); PLT CLUMP 1; Red Blood Count 5.36 X10*6/uL (4.60-5.80); Red Cell Distribution Width 14.6 % (11.0-16.0)
[2023-06-04 08:07] LABS: Platelet Count 211 X10*3/uL (160-400); WBC ABN SCTR FOR CBC 1
[2023-06-04 08:18] LABS: Cholesterol 172 mg/dL (<200); HDL Cholesterol 46 mg/dL (>40); LDL Cholesterol Calculated 110 mg/dL (<100); Magnesium 2.5 mg/dL (1.6-2.6); Triglycerides 84 mg/dL (<150)
--- NOTE | 2023-06-04 09:50 | MHC.CM.PN ---
CM met with pt in ED, he reports that he was evicted from his apt., had a suicide attempt and went to [facility] and from there to [facility]. He plans to return there. He said that [facility] and [facility] [place] are helping him to find an apt. He does not have a HCP and declined to complete one. CM will follow and assist with DC planning.
[2023-06-04] MEDS: Atorvastatin Calcium 80 MG TABLET PO (09:53)
[2023-06-04] MEDS: Clopidogrel Bisulfate 75 MG TABLET PO (09:53)
--- NOTE | 2023-06-04 09:53 | P.PNIM_ITS ---
Subjective Subjective Date of Service: 06/04/23 Interval History: still dizzy Physical Exam 2 Vital Signs: Vital Signs: Last Vital Signs Temp 97.1 F 06/03/23 21:46 Pulse 73 06/04/23 07:38 Resp 18 06/04/23 07:38 BP 154/76 H 06/04/23 07:38 Pulse Ox 99 06/04/23 07:38 O2 Del Method Room Air 06/04/23 07:38 BMI result Body Mass Index 36.8 General: AO X 3, no acute distress Resp: CTA bilateral, no accessory muscles used CVS: S1,S2,RRR GI: soft, non tender, non distended Neuro: motor grossly intact, alert, left finger to nose abnormal Psych: appropriate affect, appropriate insight Objective Data Active Medications Acetaminophen (Acetaminophen 325 Mg Tablet) 650 mg PO Q6H PRN PRN Reason: Pain, Mild (Pain Scale 1-3) Acetaminophen (Acetaminophen Supp 650 Mg Supp.Rect) 650 mg [place] Q6H PRN PRN Reason: Pain, Mild (Pain Scale 1-3) Al Hydroxide/Mg Hydroxide (Magnesium Hydrox/Alum Hydrox 30 Ml Oral.Susp) 30 ml PO Q4H PRN PRN Reason: Heartburn/Nausea Aspirin (Aspirin Enteric Coated 81 Mg Tablet.) 81 mg PO DAILY [facility] Atorvastatin Calcium (Atorvastatin Calcium 80 Mg Tablet) 80 mg PO DAILY [facility] Last Admin: 06/04/23 09:53 Dose: 80 mg Documented By: ANDRES Clopidogrel Bisulfate (Clopidogrel Bisulfate 75 Mg Tablet) 75 mg PO DAILY [facility] Last Admin: 06/04/23 09:53 Dose: 75 mg Documented By: ANDRES Enoxaparin Sodium (Enoxaparin Sodium 40 Mg/0.4 Ml Syringe) 40 mg SUBCUT Q24H [facility] Last Admin: 06/04/23 05:44 Dose: 40 mg Documented By: OMAR Melatonin (Melatonin 3 Mg Tablet) 6 mg PO BEDTIME PRN PRN Reason: Insomnia Ondansetron HCl (Ondansetron Hcl 4 Mg/2 Ml Vial) 4 mg IVPUSH Q8H PRN PRN Reason: Nausea and Vomiting Sodium Chloride (0.9 % Sodium Chloride Flush 3 Ml Syringe) 3 ml IVFLUSH QSHIFT [facility] Last Admin: 06/04/23 07:40 Dose: 3 ml Documented By: SHARITA Labs 06/04/23 07:58 06/03/23 17:58 Labs: Laboratory Results - last 24 hr 06/03/23 06/03/23 06/04/23 17:58 18:55 07:58 MCV 86.5 85.8 MCH 28.9 28.5 MCHC 33.4 33.3 RDW 14.5 14.6 Plt Count 202 211 MPV 12.9 H 12.9 H Immature Gran % (Auto) 0.4 Neut % (Auto) 85.9 H Lymph % (Auto) 8.2 L [place] % (Auto) 5.2 Eos % (Auto) 0.1 Baso % (Auto) 0.2 Lymph # (Auto) 1.2 [place] # (Auto) 0.8 Eos # (Auto) 0.0 Baso # (Auto) 0.0 Abs Immat Gran (auto) 0.06 H Absolute Neuts (auto) 12.3 H Absolute Nucleated RBC 0.000 0.000 Nucleated RBC % (auto) 0.0 0.0 Smear Tech's Comments VERIFIED PT 13.8 H INR 1.1 APTT 32.0 Anion Gap 12 Estim Creat Clear Calc 149.1 Estimated GFR > 60 Random Glucose 114 Calcium 9.1 Magnesium 2.5 Total Bilirubin 0.6 AST 22 ALT 42 H Alkaline Phosphatase 72 B-Natriuretic Peptide 48 Total Protein 7.4 Albumin 3.8 Triglycerides 84 Cholesterol 172 LDL Cholesterol, Calc 110 H HDL Cholesterol 46 Lipase 11 Urine Color [place] A Urine Appearance Cloudy Urine pH 7.5 Ur Specific [place] 1.020 Urine Protein Trace Urine Glucose (UA) Negative Urine Ketones Negative Urine Blood Large (3+) H Urine Nitrite Negative Ur Leukocyte Esterase Trace H Urine RBC >20 H Urine WBC 0-5 Ur Squamous Epith Cells 0-2 Urine Bacteria None Seen Hyaline Casts 0-2 Assessment and Plan (1) Dizziness: Status: Acute Plan 63M PMH obesity, depression with suicide attempts leading to hospitalization at [facility], [place] emergency department, presented with dizzyness, concern for posterior cva dizziness with concern for posterior cva manifesting with vertiginous symptoms CTA done showed occlusion of the V4 segment of the proximal vertebral artery MRI, 2 D echo and lipid panel Neurology consult aspirin, plavix and atorvastatin Hypertension BP very mildly elevated monitor off medications depression with recent Suicide attempt reports 2 attempts in as many weeks currently admitted to [facility] continue 1:1 close observation Obesity BMI 36.8 encourage weight loss dvt porphylaxis - lovenox full code reason for continued hospitalization:stroke work up pending Quality Stroke Does the patient have a stroke diagnosis?: Yes Reason for No Anti-thrombotic by Day Two: N/A - Med Ordered VTE Prior VTE?: No VTE Risk Level:: Medical - moderate - high VTE Device Contraindication: N/A - Device Ordered VTE Drug Contraindication: N/A - Med Ordered
--- NOTE | 2023-06-04 10:02 | PC.NURSE ---
denies si/hi/sib. no ah/vh/delusions noted/reported. calm, coop. no focal neuro deficits. aox4. clear speech. no numbness/tingling. able to follow finger w eyes all fisher. prrla. able to touch nose and my finger w/o issue. no extremity drifts. no facial palsy/droop/difficulty w vision. no dizziness at rest.
--- NOTE | 2023-06-04 14:20 | PC.NURSE ---
md chahal aware elevated bp continues- no new orders- md chahal states at this time holding bp meds for permissive htn in rule out cva per
--- NOTE | 2023-06-04 15:25 | PC.NURSE ---
pt had rn throw his underpants out as stated thwey were soiled and did not want. denied si/hi. transporting on monitor by director araceli. rosanna aly confirmed receipt of report
--- NOTE | 2023-06-04 16:12 | PC.NURSE ---
Pt admitted to floor. 1:1 sitter in room due to recent suicide attempt. Pt AOx4. Pt reports feeling of numbness/tingling in L side of face. No numbness/tingling in arms or legs. Strength and grasp equal bilaterally. No facial droop observed. Smile symmetrical with tongue midline. Speech clear and appropriate. No concerns at this time. Call cooley in reach.
--- NOTE | 2023-06-04 17:51 | P.CNNE_ITS ---
History of Present Illness Data of Consult Service Date: 06/04/23 Primary Care Provider: Unknown Physician HPI Reason for consult: dizziness 63 year old obese white male with underlying history of depression and suicide attempts leading to hospitalization at [facility] who is brought to the emergency room for evaluation of ongoing dizziness, unsteady gait, nausea and vomiting. These symptoms started last night (06/02/23) at around 7 PM. He reports that he suddenly started experiencing dizziness and was unsteady on his feet like being pulled to the left.? He was feeling ill with the nausea and dizziness and so he decided to go rest in bed. ?He woke up today, still feeling dizzy and unsteady on his feet and this time also had an episode of nausea and vomited when he tried to drink liquids.? He therefor decided to remain in bed most of the day. This evening, he was still not feeling well so he asked to be brought in for evaluation. Initial work up done on arrival include a normal CT head but a CTA done showed occlusion of the V4 segment of the proximal vertebral artery.? He came in out of the window for TNK and thrombectomy.? He was started on aspirin and admission requested.? Review of Systems 2 Review of Systems: Yes all other systems are reviewed and are negative Constitutional: Constitutional: Denies chills, Reports difficulty sleeping, Denies fever(s) and Denies headache(s) Eyes: Eyes: Denies change in vision ENT: Reports dizziness, Reports dry mouth and Denies headache(s) Cardiovascular: Cardiovascular: Denies chest pain, Reports leg edema (chronic) and Denies dyspnea Respiratory: Respiratory: Denies cough and Denies dyspnea Gastrointestinal: Gastrointestinal: Denies constipation, Denies diarrhea, Denies nausea, Reports vomiting and Denies hematemesis Neurologic: Reports dizziness, Denies headache(s) and Denies focal weakness Psychiatric: Psychiatric: Denies homicidal ideation and Denies suicidal ideation PMF Social History Social History Household Members: Friend(s) Housing: Apartment Housing Other:: Recently evicted Patient Tobacco Use Status: Never used Tobacco Meds Allergies Allergy/AdvReac Type Severity Reaction Status Date / Time No Known Allergies Allergy Verified 06/03/23 16:42 Active Medications: Current Medications Acetaminophen (Acetaminophen 325 Mg Tablet) 650 mg PO Q6H PRN PRN Reason: Pain, Mild (Pain Scale 1-3) Acetaminophen (Acetaminophen Supp 650 Mg Supp.Rect) 650 mg [place] Q6H PRN PRN Reason: Pain, Mild (Pain Scale 1-3) Al Hydroxide/Mg Hydroxide (Magnesium Hydrox/Alum Hydrox 30 Ml Oral.Susp) 30 ml PO Q4H PRN PRN Reason: Heartburn/Nausea Aspirin (Aspirin Enteric Coated 81 Mg Tablet.Dr) 81 mg PO DAILY [facility] Atorvastatin Calcium (Atorvastatin Calcium 80 Mg Tablet) 80 mg PO DAILY [facility] Last Admin: 06/04/23 09:53 Dose: 80 mg Clopidogrel Bisulfate (Clopidogrel Bisulfate 75 Mg Tablet) 75 mg PO DAILY [facility] Last Admin: 06/04/23 09:53 Dose: 75 mg Enoxaparin Sodium (Enoxaparin Sodium 40 Mg/0.4 Ml Syringe) 40 mg SUBCUT Q24H [facility] Last Admin: 06/04/23 05:44 Dose: 40 mg Melatonin (Melatonin 3 Mg Tablet) 6 mg PO BEDTIME PRN PRN Reason: Insomnia Ondansetron HCl (Ondansetron Hcl 4 Mg/2 Ml Vial) 4 mg IVPUSH Q8H PRN PRN Reason: Nausea and Vomiting Sodium Chloride (0.9 % Sodium Chloride Flush 3 Ml Syringe) 3 ml IVFLUSH QSHIFT [facility] Last Admin: 06/04/23 15:57 Dose: 3 ml Home Medications Medication Instructions Recorded Confirmed Last Taken Type acetaminophen 325 mg tablet 650 mg PO Q4H PRN Pain (Scale 06/04/23 06/04/23 Unknown History Score 1-3) benzocaine-menthol lozenges 1 xiao PO Q2H PRN Sore Throat 06/04/23 06/04/23 Unknown History calcium carbonate 500 mg calcium 500 mg PO Q4H PRN Heartburn 06/04/23 06/04/23 Unknown History (1,250 mg) chewable tablet hydroxyzine pamoate 50 mg capsule 50 mg PO QID PRN Anxiety 06/04/23 06/04/23 Unknown History lisinopril 5 mg tablet 5 mg PO DAILY 06/04/23 06/04/23 Unknown History melatonin 3 mg tablet 6 mg PO BEDTIME PRN Sleep 06/04/23 06/04/23 Unknown History mirtazapine 7.5 mg tablet 7.5 mg PO BEDTIME 06/04/23 06/04/23 Unknown History nicotine (polacrilex) 2 mg gum 2 mg buccal Q2H PRN Nicotine 06/04/23 06/04/23 Unknown History Cravings Physical Exam 2 Vital Signs: Vital Signs: Last Vital Signs Temp 97.8 F 06/04/23 15:42 Pulse 86 06/04/23 15:42 Resp 12 06/04/23 15:42 BP 140/86 H 06/04/23 15:50 Pulse Ox 98 06/04/23 15:42 O2 Del Method Room Air 06/04/23 15:42 BMI result Body Mass Index 36.8 Const: General: cooperative, comfortable, no acute distress, alert and awake Orientation/consciousness: patient oriented x3 HEENT: Head: Yes normal to inspection Ears: hearing grossly normal bilaterally General nose exam: Normal external nose present Eyes: Eyelids: Yes eyelid abnormality (slight upper lid droop of left eye) Pupils: Equal, round and reactive pupils present Direct Ophthalmoscopy: n ormal light reflex Resp: Effort & Inspection: normal respiratory effort Auscultation: clear to auscultation bilaterally Cardio: Rate: regular rate Rhythm: regular rhythm Heart sounds: S1 normal heart sound present and S2 normal heart sound present GI: Palpation (GI): nontender Neuro: Other: nystagmus in neutral position, increased with up gaze and left gaze. Dysmetria on left heel -knee -alvarado test. left facial numbness General: patient oriented x3 Cranial nerves: Yes CN's II-XII intact bilaterally and Yes Equal, round and reactive pupils present Motor exam (neuro): 5/5 motor strength present throughout Coordination: [id number] test normal Results Labs 06/04/23 07:58 06/03/23 17:58 Labs: Short CBC 06/03/23 06/04/23 Range/Units 17:58 07:58 WBC 14.3 H 13.0 H (4.8-10.8) X10*3/uL Hgb 14.6 15.3 (14.0-18.0) g/dl Hct 43.7 46.0 (42.0-52.0) % Plt Count 202 211 (160-400) X10*3/uL BMP 06/03/23 17:58 Sodium 136 Potassium 4.4 Chloride 103 Carbon Dioxide 25 BUN 13 Creatinine 0.62 Calcium 9.1 Liver Function 06/03/23 Range/Units 17:58 Total Bilirubin 0.6 (0.0-1.0) mg/dL AST 22 (5-37) U/L ALT 42 H (0-40) U/L Alkaline Phosphatase 72 (39-117) U/L Albumin 3.8 (3.5-5.0) g/dL Urine 06/03/23 Range/Units 18:55 Urine Color [place] A Urine Appearance Cloudy Urine pH 7.5 (5.0-9.0) Ur Specific [place] 1.020 (1.005-1.025) Urine Protein Trace (Neg-Trace) mg/dL Urine Glucose (UA) Negative (Negative) mg/dL Assessment and Plan (1) Dizziness: Status: Acute posterior circulation stroke primarily involving left cerebellum and brain stem. Recom. MRI brain. Continue ASA and plavix. PT/OT for gait and balance. Plan 63M PMH obesity, depression with suicide attempts leading to hospitalization at [facility], htn, presented with dizzyness, concern for posterior cva dizziness with concern for posterior cva manifesting with vertiginous symptoms CTA done showed occlusion of the V4 segment of the proximal vertebral artery MRI, 2 D echo and lipid panel Neurology consult aspirin, plavix and atorvastatin Hypertension BP very mildly elevated monitor off medications depression with recent Suicide attempt reports 2 attempts in as many weeks currently admitted to [facility] continue 1:1 close observation Obesity BMI 36.8 encourage weight loss dvt porphylaxis - lovenox full code reason for continued hospitalization:stroke work up pending Procedures Date of Service Date of Service: 06/04/23
[2023-06-04] MEDS: Acetaminophen 325 MG TABLET 650 MG PO (22:39)
[2023-06-05 03:01] VITALS: BP 139/77; PULSE 77; RESP 20; TEMP 36.7; O2SAT 96
[2023-06-05] MEDS: Enoxaparin Sodium 40 MG/0.4 ML SYRINGE SUBCUT (05:34)
[2023-06-05 07:13] VITALS: BP 146/82; PULSE 79; RESP 18; TEMP 36.6; O2SAT 95
[2023-06-05] MEDS: Aspirin Enteric Coated 81 MG TABLET.DR PO (07:36)
[2023-06-05] MEDS: Clopidogrel Bisulfate 75 MG TABLET PO (07:37)
[2023-06-05] MEDS: 0.9 % Sodium Chloride Flush 3 ML SYRINGE IVFLUSH ×3 (07:37→23:48)
[2023-06-05] MEDS: Atorvastatin Calcium 80 MG TABLET PO (07:37)
[2023-06-05 09:41] VITALS: BP 146/82; PULSE 79; O2SAT 95
[2023-06-05] MEDS: lisinopriL 5 MG TABLET PO (09:51)
[2023-06-05 11:11] VITALS: BP 133/69; PULSE 80; RESP 18; TEMP 36.7; O2SAT 95
--- NOTE | 2023-06-05 13:19 | MHC.CARE ---
Patient evaluated by the CARE Team, he denied suicidal thoughts, plan or intention and at this time does not need inpatient psychiatric treatment Provider and CM updated.
--- NOTE | 2023-06-05 13:48 | HO.PM.IMPN ---
Subjective Subjective Date of Service: 06/05/23 Interval History: Seen and evaluated feels comfortable today denies any weakness no suicidal thoughts Review of Systems Review of Systems: Yes all other systems are reviewed and are negative Physical Exam Vital Signs: Vital Signs: Last Vital Signs Temp 98.1 F 06/05/23 11:11 Pulse 80 06/05/23 11:11 Resp 18 06/05/23 11:11 BP 133/69 06/05/23 11:11 Pulse Ox 95 06/05/23 11:11 O2 Del Method Room Air 06/05/23 11:11 BMI result Body Mass Index 36.8 Const: Other: Constitutional : Awake, interactive, not in distress Neck : Normal inspection, Supple Cardiovascular : RRR, no JVP, no lower extremity edema Respiratory : good bilateral air entry, no crackles, wheezes or rhonchi Gastrointestinal: soft, lax, Normal bowel sounds, Non tender Skin : Warm, Dry Neurological : Alert & oriented x3, No focal deficit , CN 2-12 within normal Objective Data Active Medications Acetaminophen (Acetaminophen 325 Mg Tablet) 650 mg PO Q6H PRN PRN Reason: Pain, Mild (Pain Scale 1-3) Last Admin: 06/04/23 22:39 Dose: 650 mg Documented By: VEGA Acetaminophen (Acetaminophen Supp 650 Mg Supp.Rect) 650 mg [place] Q6H PRN PRN Reason: Pain, Mild (Pain Scale 1-3) Al Hydroxide/Mg Hydroxide (Magnesium Hydrox/Alum Hydrox 30 Ml Oral.Susp) 30 ml PO Q4H PRN PRN Reason: Heartburn/Nausea Aspirin (Aspirin Enteric Coated 81 Mg Tablet.) 81 mg PO DAILY [facility] Last Admin: 06/05/23 07:36 Dose: 81 mg Documented By: JAYNA Atorvastatin Calcium (Atorvastatin Calcium 80 Mg Tablet) 80 mg PO DAILY [facility] Last Admin: 06/05/23 07:37 Dose: 80 mg Documented By: JAYNA Clopidogrel Bisulfate (Clopidogrel Bisulfate 75 Mg Tablet) 75 mg PO DAILY [facility] Last Admin: 06/05/23 07:37 Dose: 75 mg Documented By: JAYNA Enoxaparin Sodium (Enoxaparin Sodium 40 Mg/0.4 Ml Syringe) 40 mg SUBCUT Q24H [facility] Last Admin: 06/05/23 05:34 Dose: 40 mg Documented By: HO.THOMPSM Hydroxyzine HCl (Hydroxyzine Hcl 50 Mg Tablet) 50 mg PO QID PRN PRN Reason: Anxiety Lisinopril (Lisinopril 5 Mg Tablet) 5 mg PO DAILY [facility]; Protocol Last Admin: 06/05/23 09:51 Dose: 5 mg Documented By: JAYNA Melatonin (Melatonin 3 Mg Tablet) 6 mg PO BEDTIME PRN PRN Reason: Insomnia Mirtazapine (Mirtazapine 7.5 Mg Tablet) 7.5 mg PO BEDTIME [facility] Nicotine Polacrilex (Nicotine Polacrilex 2 Mg Gum) 2 mg BUCCAL Q2H PRN PRN Reason: Nicotine Cravings Ondansetron HCl (Ondansetron Hcl 4 Mg/2 Ml Vial) 4 mg IVPUSH Q8H PRN PRN Reason: Nausea and Vomiting Sodium Chloride (0.9 % Sodium Chloride Flush 3 Ml Syringe) 3 ml IVFLUSH QSHIFT [facility] Last Admin: 06/05/23 07:37 Dose: 3 ml Documented By: JAYNA Labs 06/04/23 07:58 06/03/23 17:58 Assessment and Plan (1) Posterior circulation stroke: Status: Acute (2) Dizziness: Status: Acute Plan 63M PMH obesity, depression with suicide attempts leading to hospitalization at [facility], [facility], presented with dizzyness, concern for posterior cva Acute stroke w posterior cva improved vertiginous symptoms CTA done showed occlusion of the V4 segment of the proximal vertebral artery MRI showing small infarct in left lateral medullary Echo within normal values Neurology consult aspirin, plavix and atorvastatin PT rec STR\acute rehab Hypertension BP improved, high normal depression with recent Suicide attempt reports 2 attempts in as many weeks, denies any thoughts or plans now was recently admitted to [facility] Careteam did not feel he need psychiatric unit admission Obesity BMI 36.8 encourage weight loss dvt porphylaxis - lovenox full code reason for continued hospitalization: Pending safe discharge plan to SNF per PT recommendations and patient preference Quality Stroke Does the patient have a stroke diagnosis?: Yes Reason for No Anti-thrombotic by Day Two: N/A - Med Ordered VTE Prior VTE?: No VTE Risk Level:: Medical - moderate - high VTE Device Contraindication: N/A - Device Ordered VTE Drug Contraindication: N/A - Med Ordered
--- NOTE | 2023-06-05 14:00 | MHC.CM.PN ---
PT is recommending STR; a broad snf search has been initiated and CM will follow.
[2023-06-05 15:48] VITALS: BP 150/79; PULSE 81; RESP 16; TEMP 36.4; O2SAT 95
[2023-06-05 19:51] VITALS: BP 178/91; PULSE 79; RESP 21; TEMP 36.6; O2SAT 98
[2023-06-05] MEDS: Mirtazapine 7.5 MG TABLET PO (20:57)
[2023-06-06] VITALS (8 sets, daily range): BP systolic 135–164; BP diastolic 71–85; PULSE 69–80; RESP 17–20; TEMP 36.1–36.3; O2SAT 93–99
[2023-06-06] MEDS: Enoxaparin Sodium 40 MG/0.4 ML SYRINGE SUBCUT (06:18)
[2023-06-06] MEDS: lisinopriL 5 MG TABLET PO (09:07)
[2023-06-06] MEDS: 0.9 % Sodium Chloride Flush 3 ML SYRINGE IVFLUSH ×2 (09:07→19:26)
[2023-06-06] MEDS: Clopidogrel Bisulfate 75 MG TABLET PO (09:07)
[2023-06-06] MEDS: Aspirin Enteric Coated 81 MG TABLET.DR PO (09:07)
[2023-06-06] MEDS: Atorvastatin Calcium 80 MG TABLET PO (09:07)
--- NOTE | 2023-06-06 10:25 | MHC.STROKE ---
Stroke Team met with patient this morning. We clarified LKW to be on 06/02/231999. He was walking in the hallway and said his gait became very unsteady. It wasn't until the next day that he was sent to [facility]. We reviewed his diagnosis, and provided him stroke education. Answered his questions. PT is recommending STR, we are consulting with the Care Team to determine if he should return to Inpatient Psych facilty.
--- NOTE | 2023-06-06 11:02 | HO.PM.IMPN ---
Subjective Subjective Date of Service: 06/06/23 Interval History: Seen and evaluated feels comfortable denies any weakness no suicidal thoughts No reported overnight events Review of Systems Review of Systems: Yes all other systems are reviewed and are negative Physical Exam Vital Signs: Vital Signs: Last Vital Signs Temp 97.0 F 06/06/23 07:10 Pulse 71 06/06/23 07:10 Resp 18 06/06/23 07:10 BP 164/85 H 06/06/23 07:10 Pulse Ox 93 06/06/23 07:10 O2 Del Method Room Air 06/06/23 07:10 BMI result Body Mass Index 36.8 Const: Other: Constitutional : Awake, interactive, not in distress Neck : Normal inspection, Supple Cardiovascular : RRR, no JVP, no lower extremity edema Respiratory : good bilateral air entry, no crackles, wheezes or rhonchi Gastrointestinal: soft, lax, Normal bowel sounds, Non tender Skin : Warm, Dry Neurological : Alert & oriented x3, No focal deficit , CN 2-12 within normal Objective Data Active Medications Acetaminophen (Acetaminophen 325 Mg Tablet) 650 mg PO Q6H PRN PRN Reason: Pain, Mild (Pain Scale 1-3) Last Admin: 06/04/23 22:39 Dose: 650 mg Documented By: VEGA Acetaminophen (Acetaminophen Supp 650 Mg Supp.Rect) 650 mg [place] Q6H PRN PRN Reason: Pain, Mild (Pain Scale 1-3) Al Hydroxide/Mg Hydroxide (Magnesium Hydrox/Alum Hydrox 30 Ml Oral.Susp) 30 ml PO Q4H PRN PRN Reason: Heartburn/Nausea Aspirin (Aspirin Enteric Coated 81 Mg Tablet.) 81 mg PO DAILY [facility] Last Admin: 06/06/23 09:07 Dose: 81 mg Documented By: REBEL Atorvastatin Calcium (Atorvastatin Calcium 80 Mg Tablet) 80 mg PO DAILY [facility] Last Admin: 06/06/23 09:07 Dose: 80 mg Documented By: REBEL Clopidogrel Bisulfate (Clopidogrel Bisulfate 75 Mg Tablet) 75 mg PO DAILY [facility] Last Admin: 06/06/23 09:07 Dose: 75 mg Documented By: REBEL Enoxaparin Sodium (Enoxaparin Sodium 40 Mg/0.4 Ml Syringe) 40 mg SUBCUT Q24H [facility] Last Admin: 06/06/23 06:18 Dose: 40 mg Documented By: DEANDRA Hydroxyzine HCl (Hydroxyzine Hcl 50 Mg Tablet) 50 mg PO QID PRN PRN Reason: Anxiety Lisinopril (Lisinopril 5 Mg Tablet) 5 mg PO DAILY [facility]; Protocol Last Admin: 06/06/23 09:07 Dose: 5 mg Documented By: REBEL Melatonin (Melatonin 3 Mg Tablet) 6 mg PO BEDTIME PRN PRN Reason: Insomnia Mirtazapine (Mirtazapine 7.5 Mg Tablet) 7.5 mg PO BEDTIME [facility] Last Admin: 06/05/23 20:57 Dose: 7.5 mg Documented By: LAFLAMTiff Nicotine Polacrilex (Nicotine Polacrilex 2 Mg Gum) 2 mg BUCCAL Q2H PRN PRN Reason: Nicotine Cravings Ondansetron HCl (Ondansetron Hcl 4 Mg/2 Ml Vial) 4 mg IVPUSH Q8H PRN PRN Reason: Nausea and Vomiting Sodium Chloride (0.9 % Sodium Chloride Flush 3 Ml Syringe) 3 ml IVFLUSH QSHIFT [facility] Last Admin: 06/06/23 09:07 Dose: 3 ml Documented By: REBEL Labs 06/04/23 07:58 06/03/23 17:58 Assessment and Plan (1) Posterior circulation stroke: Status: Acute Plan 63M PMH obesity, depression with suicide attempts leading to hospitalization at [facility], [facility], presented with dizzyness, concern for posterior cva Acute stroke w posterior cva improved symptoms, nore steady on his feet CTA done showed occlusion of the V4 segment of the proximal vertebral artery MRI showing small infarct in left lateral medullary Echo within normal values Neurology input appreciated aspirin, plavix and atorvastatin PT rec STR\acute rehab Hypertension BP improved, high normal depression with recent Suicide attempt reports 2 attempts in as many weeks, denies any thoughts or plans now was recently admitted to [facility] Careteam did not feel he need psychiatric unit admission, not suicidal, dc sitter and keep him on camera monitoring Obesity BMI 36.8 encourage weight loss dvt porphylaxis - lovenox full code reason for continued hospitalization: Pending safe discharge plan to SNF per PT recommendations and patient preference Quality Stroke Does the patient have a stroke diagnosis?: Yes Reason for No Anti-thrombotic by Day Two: N/A - Med Ordered VTE Prior VTE?: No VTE Risk Level:: Medical - moderate - high VTE Device Contraindication: N/A - Device Ordered VTE Drug Contraindication: N/A - Med Ordered
[2023-06-06] MEDS: Mirtazapine 7.5 MG TABLET PO (19:25)
[2023-06-07] VITALS (7 sets, daily range): BP systolic 130–160; BP diastolic 74–83; PULSE 70–88; RESP 16–20; TEMP 36.2–36.5; O2SAT 95–98
[2023-06-07] MEDS: Enoxaparin Sodium 40 MG/0.4 ML SYRINGE SUBCUT (05:31)
[2023-06-07] MEDS: 0.9 % Sodium Chloride Flush 3 ML SYRINGE IVFLUSH ×3 (07:58→21:02)
[2023-06-07] MEDS: Aspirin Enteric Coated 81 MG TABLET.DR PO (07:58)
[2023-06-07] MEDS: lisinopriL 5 MG TABLET PO (07:58)
[2023-06-07] MEDS: Atorvastatin Calcium 80 MG TABLET PO (07:59)
[2023-06-07] MEDS: Clopidogrel Bisulfate 75 MG TABLET PO (07:59)
--- NOTE | 2023-06-07 08:25 | MHC.CM.PN ---
EMR REVIEWED, PT S/P CVA IN NEED OF STR/AR HOWEVER PT IS HOMELESS AND HAS PSYCH COMPONENT, NO BED OFFERS FROM [facility] AND STR, CM WILL EXPAND TO [facility] AND CONT TO FOLLOW DC NEEDS.
--- NOTE | 2023-06-07 10:29 | HO.PM.IMPN ---
Subjective Subjective Date of Service: 06/07/23 Interval History: Seen and evaluated feels comfortable denies any weakness but reports breif episodes of lightheadidness no suicidal thoughts No reported overnight events Review of Systems Review of Systems: Yes all other systems are reviewed and are negative Physical Exam Vital Signs: Vital Signs: Last Vital Signs Temp 97.3 F 06/07/23 07:39 Pulse 78 06/07/23 10:10 Resp 16 06/07/23 07:39 BP 136/74 06/07/23 10:10 Pulse Ox 97 06/07/23 10:10 O2 Del Method Room Air 06/07/23 07:39 BMI result Body Mass Index 36.8 Const: Other: Constitutional : Awake, interactive, not in distress Neck : Normal inspection, Supple Cardiovascular : RRR, no JVP, no lower extremity edema Respiratory : good bilateral air entry, no crackles, wheezes or rhonchi Gastrointestinal: soft, lax, Normal bowel sounds, Non tender Skin : Warm, Dry Neurological : Alert & oriented x3, No focal deficit , CN 2-12 within normal Objective Data Active Medications Acetaminophen (Acetaminophen 325 Mg Tablet) 650 mg PO Q6H PRN PRN Reason: Pain, Mild (Pain Scale 1-3) Last Admin: 06/04/23 22:39 Dose: 650 mg Documented By: VEGA Acetaminophen (Acetaminophen Supp 650 Mg Supp.Rect) 650 mg [place] Q6H PRN PRN Reason: Pain, Mild (Pain Scale 1-3) Al Hydroxide/Mg Hydroxide (Magnesium Hydrox/Alum Hydrox 30 Ml Oral.Susp) 30 ml PO Q4H PRN PRN Reason: Heartburn/Nausea Aspirin (Aspirin Enteric Coated 81 Mg Tablet.) 81 mg PO DAILY [facility] Last Admin: 06/07/23 07:58 Dose: 81 mg Documented By: MINGO Atorvastatin Calcium (Atorvastatin Calcium 80 Mg Tablet) 80 mg PO DAILY [facility] Last Admin: 06/07/23 07:59 Dose: 80 mg Documented By: MINGO Clopidogrel Bisulfate (Clopidogrel Bisulfate 75 Mg Tablet) 75 mg PO DAILY [facility] Last Admin: 06/07/23 07:59 Dose: 75 mg Documented By: MINGO Enoxaparin Sodium (Enoxaparin Sodium 40 Mg/0.4 Ml Syringe) 40 mg SUBCUT Q24H [facility] Last Admin: 06/07/23 05:31 Dose: 40 mg Documented By: DEANDRA Hydroxyzine HCl (Hydroxyzine Hcl 50 Mg Tablet) 50 mg PO QID PRN PRN Reason: Anxiety Lisinopril (Lisinopril 5 Mg Tablet) 5 mg PO DAILY [facility]; Protocol Last Admin: 06/07/23 07:58 Dose: 5 mg Documented By: MINGO Melatonin (Melatonin 3 Mg Tablet) 6 mg PO BEDTIME PRN PRN Reason: Insomnia Mirtazapine (Mirtazapine 7.5 Mg Tablet) 7.5 mg PO BEDTIME [facility] Last Admin: 06/06/23 19:25 Dose: 7.5 mg Documented By: DEANDRA Nicotine Polacrilex (Nicotine Polacrilex 2 Mg Gum) 2 mg BUCCAL Q2H PRN PRN Reason: Nicotine Cravings Ondansetron HCl (Ondansetron Hcl 4 Mg/2 Ml Vial) 4 mg IVPUSH Q8H PRN PRN Reason: Nausea and Vomiting Polyethylene Glycol (Polyethylene Glycol 3350 17 Gm Powd.Pack) 17 gm PO BID [facility] Sodium Chloride (0.9 % Sodium Chloride Flush 3 Ml Syringe) 3 ml IVFLUSH QSHIFT [facility] Last Admin: 06/07/23 07:58 Dose: 3 ml Documented By: MINGO Labs 06/04/23 07:58 06/03/23 17:58 Assessment and Plan (1) Posterior circulation stroke: Status: Acute Plan 63M PMH obesity, depression with suicide attempts leading to hospitalization at [facility], [facility], presented with dizzyness, concern for posterior cva Acute stroke w posterior cva improved symptoms, nore steady on his feet CTA done showed occlusion of the V4 segment of the proximal vertebral artery MRI showing small infarct in left lateral medullary Echo within normal values Neurology input appreciated aspirin, plavix and atorvastatin PT/OT rec STR; Psych consult per CM request to facilitate placement Hypertension BP improved, high normal depression with recent Suicide attempt reports 2 attempts in as many weeks, denies any thoughts or plans now was recently admitted to [facility] Careteam did not feel he need psychiatric unit admission, not suicidal, dc sitter and keep him on camera monitoring Obesity BMI 36.8 encourage weight loss dvt porphylaxis - lovenox full code reason for continued hospitalization: Pending safe discharge plan to SNF per PT recommendations pending accepting facility. Quality Stroke Does the patient have a stroke diagnosis?: Yes Reason for No Anti-thrombotic by Day Two: N/A - Med Ordered VTE Prior VTE?: No VTE Risk Level:: Medical - moderate - high VTE Device Contraindication: N/A - Device Ordered VTE Drug Contraindication: N/A - Med Ordered
--- NOTE | 2023-06-07 16:21 | P.CNPS_ITS ---
History of Present Illness Date of Service: 06/07/2023 Chief Complaint: CVA Reason for Consult: Per Sunita Carnes pt is currently in need of STR. He had been admitted from [facility] with SI. Evaluation requested for further assessment of SI. Requesting physician: Deena Gage Discussed with referring provider: Yes (text) Sources of Information: patient interviewed, chart reviewed and crisis/core team assessment reviewed HPI Narrative: 63 yo male, admitted from [facility] where he had been admitted for SI, s/p CVA. Pt reports superficial wrist and chest cuts 05/26 and placing a plastic bag over his head 05/29 in attempts. He reports being sent home 05/26 and going to [facility] on 05/29. While at [facility] he had sx of CVA and was brought to [facility]. He identifies the reason for SI as being overwhelmed as he was evicted from his apartment due to being unable to pay rent. He reports the fear of being homeless and the many difficulties with SSI renewal, the rejections and requests to write letters and do things differently to meet SSI criteria was too overwhelming for him. [place] [facility] [place] [id number]. In 2019 finances were again tight and pt and his neighbor/friend decided to share a larger apartment and costs. Their landlord agreed so they were able to afford housing until his friend in October. All the small stuff just built up and I had a phone interview to increase my benefit for SSI for rent, but it did not work for them, so I did not get a renewal increase. I am not blaming anyone, I just did not know what to do and was scared to be homeless. Reports no history of depression, SI, attempts, plan or intent. While here, pt reflects that he believes he made an error in keeping the family home until it foreclosed in 2007 as if I sold, I would have had money for the rent . Expresses gratitude to his medical team for their help and gratitude to [facility]. Agrees to a comprehensive suicide risk assessment. Pt reports the above attempts in response to his fear of being homeless. He denies any previous attempts, ideation, or planning to end his life. He denies status, history of abuse or family history. He demonstrates no aggressive or impulsive symptoms when seen and denies history of these symptoms. He denies addiction history, denies psychiatric diagnosis history He, as stated does report financial stress, lack of family to help, and loss of housing, however, today is feeling hopeful about a plan of care and assistance he may access for help with his housing issues. He denies sleep, appetite, daily routine/schedule or issues with concentration. He is interested in his rehab plan of care with team. Past Psychiatric History: IP: Denies OP: Denies Med Trials: . Currently on [facility] Medical Evaluation Reviewed: Yes Personal & Social History: Pt reports his father in 1989 and mother in 1995. 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 He has one sister who is local. He reports they have a weak relationship as I made bad decisions regarding my parents home . Other family is on [facility] and in [place]. 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 Review of Systems Review of Systems s/p CVA PMFSH Narrative: CVA HTN Family History: Denies Social History: as previously noted Substance History: Denies Trauma History: Denies, however states the losses of father, mother and friend/room-mate were with grief Diagnostics Vital Signs (24Hr): Vital Signs - 24 hr 06/06/23 19:04 06/06/23 23:14 06/07/23 04:00 Temperature 97.4 F 97.3 F 97.1 F Pulse Rate 80 78 70 Respiratory Rate 17 20 20 Blood Pressure 136/80 138/83 136/83 Pulse Oximetry 95 95 96 Oxygen Delivery Method Room Air Room Air Room Air 06/07/23 07:39 06/07/23 10:10 06/07/23 11:48 Temperature 97.3 F 97.7 F Pulse Rate 78 78 74 Respiratory Rate 16 16 Blood Pressure 136/74 136/74 130/80 Pulse Oximetry 97 97 98 Oxygen Delivery Method Room Air Room Air 06/07/23 15:38 Temperature 97.6 F Pulse Rate 88 Respiratory Rate 16 Blood Pressure 131/80 Pulse Oximetry 97 Oxygen Delivery Method Room Air BMI result Body Mass Index 36.8 Labs 06/04/23 07:58 06/03/23 17:58 Imaging Radiology Impressions: ITS Impressions Chest X-Ray 06/03/23 17:21 IMPRESSION: Unremarkable chest exam. Head/Neck CTA 06/03/23 22:51 IMPRESSION: 1. No evidence of acute intracranial hemorrhage or edematous territorial infarction. Mild underlying microangiopathy and generalized cerebral volume loss. Lacunar infarct in the left thalamus. 2. Occlusion of the proximal-mid V4 segment of the left vertebral artery. 3. CTA of the head and neck without additional proximal occlusion. 4. Moderate multilevel degenerative spondyloarthropathy of the cervical spine. 5. Extensive odontogenic disease. Brain MRI 06/04/23 20:41 IMPRESSION: 1. Small acute infarct of the left lateral medullary. Associated occlusion of the V4 segment of the left vertebral artery. No evidence of hemorrhagic transformation. 2. Small region of encephalomalacia in the subcortical white matter of the left parietal lobe. Chronic lacunar infarct of the left thalamus. Mild underlying microangiopathy and generalized cerebral volume loss. Mental Status Exam Mental Status Exam Patient Appearance: Appropriate Patient Orientation: Person, Place, Time and Situation Level of Consciousness: Alert Patient Behavior: Appropriate, Talkative and Good Eye Contact Mood Description: Apprehensive Affect Description: Apprehensive Patient Cognition Impaired: No Ability to Follow Directions: Good Speech Pattern: Spontaneous Speech Memory Description: Intact Hallucinations: None Delusions: Not Present Thought Process: Intact and Goal Oriented Thought Content: positive for Intact and positive for Goal Oriented Judgement: Good Medications Medications Current Medications Acetaminophen (Acetaminophen 325 Mg Tablet) 650 mg PO Q6H PRN PRN Reason: Pain, Mild (Pain Scale 1-3) Last Admin: 06/04/23 22:39 Dose: 650 mg Acetaminophen (Acetaminophen Supp 650 Mg Supp.Rect) 650 mg [place] Q6H PRN PRN Reason: Pain, Mild (Pain Scale 1-3) Al Hydroxide/Mg Hydroxide (Magnesium Hydrox/Alum Hydrox 30 Ml Oral.Susp) 30 ml PO Q4H PRN PRN Reason: Heartburn/Nausea Aspirin (Aspirin Enteric Coated 81 Mg Tablet.) 81 mg PO DAILY [facility] Last Admin: 06/07/23 07:58 Dose: 81 mg Atorvastatin Calcium (Atorvastatin Calcium 80 Mg Tablet) 80 mg PO DAILY [facility] Last Admin: 06/07/23 07:59 Dose: 80 mg Clopidogrel Bisulfate (Clopidogrel Bisulfate 75 Mg Tablet) 75 mg PO DAILY [facility] Last Admin: 06/07/23 07:59 Dose: 75 mg Enoxaparin Sodium (Enoxaparin Sodium 40 Mg/0.4 Ml Syringe) 40 mg SUBCUT Q24H [facility] Last Admin: 06/07/23 05:31 Dose: 40 mg Hydroxyzine HCl (Hydroxyzine Hcl 50 Mg Tablet) 50 mg PO QID PRN PRN Reason: Anxiety Lisinopril (Lisinopril 5 Mg Tablet) 5 mg PO DAILY [facility]; Protocol Last Admin: 06/07/23 07:58 Dose: 5 mg Melatonin (Melatonin 3 Mg Tablet) 6 mg PO BEDTIME PRN PRN Reason: Insomnia Mirtazapine (Mirtazapine 7.5 Mg Tablet) 7.5 mg PO BEDTIME [facility] Last Admin: 06/06/23 19:25 Dose: 7.5 mg Nicotine Polacrilex (Nicotine Polacrilex 2 Mg Gum) 2 mg BUCCAL Q2H PRN PRN Reason: Nicotine Cravings Ondansetron HCl (Ondansetron Hcl 4 Mg/2 Ml Vial) 4 mg IVPUSH Q8H PRN PRN Reason: Nausea and Vomiting Polyethylene Glycol (Polyethylene Glycol 3350 17 Gm Powd.Pack) 17 gm PO BID [facility] Last Admin: 06/07/23 11:21 Dose: Not Given Sodium Chloride (0.9 % Sodium Chloride Flush 3 Ml Syringe) 3 ml IVFLUSH QSHIFT [facility] Last Admin: 06/07/23 07:58 Dose: 3 ml Allergies Allergies Allergy/AdvReac Type Severity Reaction Status Date / Time No Known Allergies Allergy Verified 06/03/23 16:42 Assessment & Plan Assessment & Plan (1) Suicide attempt: Status: Acute Code(s): T14.91XA - Suicide attempt, initial encounter (2) Posterior circulation stroke: Status: Acute Code(s): I63.50 - Cerebral infarction due to unspecified occlusion or stenosis of unspecified cerebral artery (3) HBP (high blood pressure): Status: Acute Code(s): I10 - Essential (primary) hypertension Plan 63 yo male, transfer from [facility], where he was admitted for a suicide attempt due to loss of housing, for CVA. Per team, pt will need rehab and is a concern due to suicide attempt. Pt has no mental health treatment history, no history of mental health diagnosis. He explains that this attempt was precipitated by homelessness and financial issues as he was fearful of homelessness and for his safety alone on the street. He reports nevery having faced this great challenge. Pt is a good candidate for rehab and will benefit from supports, resources and education offered to help re-enstate his SSI as he reports he does not understand the current issues with these. He presents as very willing to work with the team, with resources to work through current rehab for CVA and re- establish his home in the community. Total time managing care of this patient today ____ minutes. Patient educated on: therapeutic strategies Informed Consent: understands
[2023-06-07] MEDS: Mirtazapine 7.5 MG TABLET PO (21:02)
[2023-06-08] VITALS (7 sets, daily range): BP systolic 120–170; BP diastolic 75–91; PULSE 75–95; RESP 18; TEMP 36.4–36.6; O2SAT 95–97
[2023-06-08] MEDS: Enoxaparin Sodium 40 MG/0.4 ML SYRINGE SUBCUT (06:24)
[2023-06-08] MEDS: Atorvastatin Calcium 80 MG TABLET PO (11:02)
[2023-06-08] MEDS: Clopidogrel Bisulfate 75 MG TABLET PO (11:02)
[2023-06-08] MEDS: Aspirin Enteric Coated 81 MG TABLET.DR PO (11:02)
[2023-06-08] MEDS: lisinopriL 5 MG TABLET PO (11:02)
[2023-06-08] MEDS: 0.9 % Sodium Chloride Flush 3 ML SYRINGE IVFLUSH ×3 (11:03→21:51)
--- NOTE | 2023-06-08 11:23 | HO.PM.IMPN ---
Subjective Subjective Date of Service: 06/08/23 Interval History: Seen and evaluated feels comfortable denies any weakness no suicidal thoughts No reported overnight events Review of Systems Review of Systems: Yes all other systems are reviewed and are negative Physical Exam Vital Signs: Vital Signs: Last Vital Signs Temp 97.5 F 06/08/23 11:09 Pulse 75 06/08/23 11:09 Resp 18 06/08/23 11:09 BP 141/79 H 06/08/23 11:09 Pulse Ox 97 06/08/23 11:09 O2 Del Method Room Air 06/08/23 11:09 BMI result Body Mass Index 36.8 Const: Other: Constitutional : Awake, interactive, not in distress Neck : Normal inspection, Supple Cardiovascular : RRR, no JVP, no lower extremity edema Respiratory : good bilateral air entry, no crackles, wheezes or rhonchi Gastrointestinal: soft, lax, Normal bowel sounds, Non tender Skin : Warm, Dry Neurological : Alert & oriented x3, No focal deficit Objective Data Active Medications Acetaminophen (Acetaminophen 325 Mg Tablet) 650 mg PO Q6H PRN PRN Reason: Pain, Mild (Pain Scale 1-3) Last Admin: 06/04/23 22:39 Dose: 650 mg Documented By: VEGA Acetaminophen (Acetaminophen Supp 650 Mg Supp.Rect) 650 mg [place] Q6H PRN PRN Reason: Pain, Mild (Pain Scale 1-3) Al Hydroxide/Mg Hydroxide (Magnesium Hydrox/Alum Hydrox 30 Ml Oral.Susp) 30 ml PO Q4H PRN PRN Reason: Heartburn/Nausea Aspirin (Aspirin Enteric Coated 81 Mg Tablet.) 81 mg PO DAILY [facility] Last Admin: 06/08/23 11:02 Dose: 81 mg Documented By: TIN Atorvastatin Calcium (Atorvastatin Calcium 80 Mg Tablet) 80 mg PO DAILY [facility] Last Admin: 06/08/23 11:02 Dose: 80 mg Documented By: TIN Clopidogrel Bisulfate (Clopidogrel Bisulfate 75 Mg Tablet) 75 mg PO DAILY [facility] Last Admin: 06/08/23 11:02 Dose: 75 mg Documented By: TIN Enoxaparin Sodium (Enoxaparin Sodium 40 Mg/0.4 Ml Syringe) 40 mg SUBCUT Q24H [facility] Last Admin: 06/08/23 06:24 Dose: 40 mg Documented By: KALLIE Hydroxyzine HCl (Hydroxyzine Hcl 50 Mg Tablet) 50 mg PO QID PRN PRN Reason: Anxiety Lisinopril (Lisinopril 5 Mg Tablet) 5 mg PO DAILY [facility]; Protocol Last Admin: 06/08/23 11:02 Dose: 5 mg Documented By: TIN Melatonin (Melatonin 3 Mg Tablet) 6 mg PO BEDTIME PRN PRN Reason: Insomnia Mirtazapine (Mirtazapine 7.5 Mg Tablet) 7.5 mg PO BEDTIME [facility] Last Admin: 06/07/23 21:02 Dose: 7.5 mg Documented By: KALLIE Nicotine Polacrilex (Nicotine Polacrilex 2 Mg Gum) 2 mg BUCCAL Q2H PRN PRN Reason: Nicotine Cravings Ondansetron HCl (Ondansetron Hcl 4 Mg/2 Ml Vial) 4 mg IVPUSH Q8H PRN PRN Reason: Nausea and Vomiting Polyethylene Glycol (Polyethylene Glycol 3350 17 Gm Powd.Pack) 17 gm PO BID [facility] Last Admin: 06/08/23 11:03 Dose: Not Given Documented By: TIN Non-Admin Reason: Patient Refused Sodium Chloride (0.9 % Sodium Chloride Flush 3 Ml Syringe) 3 ml IVFLUSH QSHIFT [facility] Last Admin: 06/08/23 11:03 Dose: 3 ml Documented By: TIN Labs 06/04/23 07:58 06/03/23 17:58 Assessment and Plan (1) Posterior circulation stroke: Status: Acute (2) Dizziness: Status: Acute Plan 63M PMH obesity, depression with suicide attempts leading to hospitalization at [facility], [facility], presented with dizzyness, concern for posterior cva Acute stroke w posterior cva improved symptoms, nore steady on his feet CTA done showed occlusion of the V4 segment of the proximal vertebral artery MRI showing small infarct in left lateral medullary Echo within normal values Neurology input appreciated aspirin, plavix and atorvastatin PT/OT rec STR; Psych consult per CM request to facilitate placement Hypertension BP improved, high normal depression with recent Suicide attempt reports 2 attempts in as many weeks, denies any thoughts or plans now was recently admitted to [facility] did not feel he need psychiatric unit admission, not suicidal, dc sitter and keep him on camera monitoring Obesity BMI 36.8 encourage weight loss dvt porphylaxis - lovenox full code reason for continued hospitalization: Pending safe discharge plan to SNF per PT recommendations pending accepting facility. Quality Stroke Does the patient have a stroke diagnosis?: Yes Reason for No Anti-thrombotic by Day Two: N/A - Med Ordered VTE Prior VTE?: No VTE Risk Level:: Medical - moderate - high VTE Device Contraindication: N/A - Device Ordered VTE Drug Contraindication: N/A - Med Ordered
[2023-06-08] MEDS: Mirtazapine 7.5 MG TABLET PO (21:51)
[2023-06-09 03:30] VITALS: BP 150/82; PULSE 84; RESP 18; TEMP 36.2; O2SAT 96
[2023-06-09] MEDS: Enoxaparin Sodium 40 MG/0.4 ML SYRINGE SUBCUT (05:46)
[2023-06-09 07:12] VITALS: BP 149/86; PULSE 81; RESP 20; TEMP 36.4; O2SAT 97
[2023-06-09] MEDS: Aspirin Enteric Coated 81 MG TABLET.DR PO (09:37)
[2023-06-09] MEDS: lisinopriL 5 MG TABLET PO (09:37)
[2023-06-09] MEDS: polyethylene glycoL 3350 17 GM POWD.PACK PO (09:37)
[2023-06-09] MEDS: Clopidogrel Bisulfate 75 MG TABLET PO (09:37)
[2023-06-09] MEDS: Atorvastatin Calcium 80 MG TABLET PO (09:37)
[2023-06-09] MEDS: 0.9 % Sodium Chloride Flush 3 ML SYRINGE IVFLUSH ×2 (09:39→14:59)
[2023-06-09 10:55] VITALS: BP 149/78; PULSE 72; RESP 20; TEMP 36.5; O2SAT 97
--- NOTE | 2023-06-09 11:14 | P.PNIM_ITS ---
Subjective Subjective Date of Service: 06/09/23 Interval History: Seen and evaluated feels comfortable , complains of mild sore throat denies any weakness no suicidal thoughts No reported overnight events Review of Systems Review of Systems: Yes all other systems are reviewed and are negative Physical Exam 2 Vital Signs: Vital Signs: Last Vital Signs Temp 97.7 F 06/09/23 10:55 Pulse 72 06/09/23 10:55 Resp 20 06/09/23 10:55 BP 149/78 H 06/09/23 10:55 Pulse Ox 97 06/09/23 10:55 O2 Del Method Room Air 06/09/23 10:55 BMI result Body Mass Index 36.8 Const: Other: Constitutional : Awake, interactive, not in distress Neck : Normal inspection, Supple Cardiovascular : RRR, no JVP, no lower extremity edema Respiratory : good bilateral air entry, no crackles, wheezes or rhonchi Gastrointestinal: soft, lax, Normal bowel sounds, Non tender Skin : Warm, Dry Neurological : Alert & oriented x3, No focal deficit Objective Data Active Medications Acetaminophen (Acetaminophen 325 Mg Tablet) 650 mg PO Q6H PRN PRN Reason: Pain, Mild (Pain Scale 1-3) Last Admin: 06/04/23 22:39 Dose: 650 mg Documented By: VEGA Acetaminophen (Acetaminophen Supp 650 Mg Supp.Rect) 650 mg [place] Q6H PRN PRN Reason: Pain, Mild (Pain Scale 1-3) Al Hydroxide/Mg Hydroxide (Magnesium Hydrox/Alum Hydrox 30 Ml Oral.Susp) 30 ml PO Q4H PRN PRN Reason: Heartburn/Nausea Aspirin (Aspirin Enteric Coated 81 Mg Tablet.) 81 mg PO DAILY [facility] Last Admin: 06/09/23 09:37 Dose: 81 mg Documented By: REMY Atorvastatin Calcium (Atorvastatin Calcium 80 Mg Tablet) 80 mg PO DAILY [facility] Last Admin: 06/09/23 09:37 Dose: 80 mg Documented By: REMY Benzocaine (Throat Lozenge, Medicated Lozenge) 1 lozenge MUCOUS MEM Q2H PRN PRN Reason: Sore Throat Clopidogrel Bisulfate (Clopidogrel Bisulfate 75 Mg Tablet) 75 mg PO DAILY [facility] Last Admin: 06/09/23 09:37 Dose: 75 mg Documented By: REMY Enoxaparin Sodium (Enoxaparin Sodium 40 Mg/0.4 Ml Syringe) 40 mg SUBCUT Q24H [facility] Last Admin: 06/09/23 05:46 Dose: 40 mg Documented By: KALLIE Hydroxyzine HCl (Hydroxyzine Hcl 50 Mg Tablet) 50 mg PO QID PRN PRN Reason: Anxiety Lisinopril (Lisinopril 5 Mg Tablet) 5 mg PO DAILY [facility]; Protocol Last Admin: 06/09/23 09:37 Dose: 5 mg Documented By: REMY Melatonin (Melatonin 3 Mg Tablet) 6 mg PO BEDTIME PRN PRN Reason: Insomnia Mirtazapine (Mirtazapine 7.5 Mg Tablet) 7.5 mg PO BEDTIME [facility] Last Admin: 06/08/23 21:51 Dose: 7.5 mg Documented By: KALLIE Nicotine Polacrilex (Nicotine Polacrilex 2 Mg Gum) 2 mg BUCCAL Q2H PRN PRN Reason: Nicotine Cravings Ondansetron HCl (Ondansetron Hcl 4 Mg/2 Ml Vial) 4 mg IVPUSH Q8H PRN PRN Reason: Nausea and Vomiting Polyethylene Glycol (Polyethylene Glycol 3350 17 Gm Powd.Pack) 17 gm PO BID [facility] Last Admin: 06/09/23 09:37 Dose: 17 gm Documented By: REMY Sodium Chloride (0.9 % Sodium Chloride Flush 3 Ml Syringe) 3 ml IVFLUSH QSHIFT [facility] Last Admin: 06/09/23 09:39 Dose: 3 ml Documented By: REMY Labs 06/04/23 07:58 06/03/23 17:58 Assessment and Plan (1) Posterior circulation stroke: Status: Acute (2) Dizziness: Status: Acute Plan 63M PMH obesity, depression with suicide attempts leading to hospitalization at [facility], presented with dizzyness, concern for posterior cva Acute stroke w posterior cva improved symptoms, more steady on his feet CTA done showed occlusion of the V4 segment of the proximal vertebral artery MRI showing small infarct in left lateral medullary Echo within normal values Neurology input appreciated aspirin, plavix and atorvastatin PT/OT rec STR; Psych consult per CM request to facilitate placement Hypertension BP mildly elevated Increase Lisinopril to 10mg daily sore throat lozenges depression with recent Suicide attempt reports 2 attempts in as many weeks, denies any thoughts or plans now was recently admitted to [facility] did not feel he need psychiatric unit admission, not suicidal, dc sitter and keep him on camera monitoring Obesity BMI 36.8 encourage weight loss dvt porphylaxis - lovenox full code reason for continued hospitalization: Pending safe discharge plan to SNF per PT recommendations pending accepting facility. Quality Stroke Does the patient have a stroke diagnosis?: Yes Reason for No Anti-thrombotic by Day Two: N/A - Med Ordered VTE Prior VTE?: No VTE Risk Level:: Medical - moderate - high VTE Device Contraindication: N/A - Device Ordered VTE Drug Contraindication: N/A - Med Ordered
[2023-06-09] MEDS: Throat Lozenge, Medicated LOZENGE 1 LOZENGE MUCOUS MEM ×2 (14:58→20:52)
[2023-06-09] MEDS: Acetaminophen 325 MG TABLET 650 MG PO (14:58)
[2023-06-09 15:47] VITALS: BP 156/89; PULSE 80; RESP 18; TEMP 36.3; O2SAT 97
[2023-06-09 20:00] VITALS: BP 150/86; PULSE 80; RESP 20; TEMP 36.8; O2SAT 95
[2023-06-09] MEDS: Mirtazapine 7.5 MG TABLET PO (20:52)
[2023-06-09 23:48] VITALS: BP 147/86; PULSE 78; RESP 20; TEMP 36.5; O2SAT 95
[2023-06-10] VITALS (7 sets, daily range): BP systolic 130–161; BP diastolic 64–89; PULSE 66–87; RESP 13–20; TEMP 36–36.4; O2SAT 95–98
[2023-06-10] MEDS: Enoxaparin Sodium 40 MG/0.4 ML SYRINGE SUBCUT (05:53)
[2023-06-10] MEDS: 0.9 % Sodium Chloride Flush 3 ML SYRINGE IVFLUSH ×3 (08:32→23:57)
[2023-06-10] MEDS: Aspirin Enteric Coated 81 MG TABLET.DR PO (08:32)
[2023-06-10] MEDS: Clopidogrel Bisulfate 75 MG TABLET PO (08:32)
[2023-06-10] MEDS: Atorvastatin Calcium 80 MG TABLET PO (08:32)
[2023-06-10] MEDS: lisinopriL 10 MG TABLET PO (08:32)
--- NOTE | 2023-06-10 10:49 | MHC.CM.PN ---
Broad SNF search is ongoing and there are multiple denials; [facility] is following as will CM.
[2023-06-10] MEDS: Acetaminophen 325 MG TABLET 650 MG PO (21:10)
[2023-06-10] MEDS: Mirtazapine 7.5 MG TABLET PO (21:10)
[2023-06-11] VITALS (7 sets, daily range): BP systolic 118–157; BP diastolic 64–87; PULSE 70–91; RESP 14–20; TEMP 36.1–36.7; O2SAT 95–100
[2023-06-11] MEDS: Enoxaparin Sodium 40 MG/0.4 ML SYRINGE SUBCUT (05:46)
[2023-06-11] MEDS: Acetaminophen 325 MG TABLET 650 MG PO ×2 (05:48→14:44)
[2023-06-11] MEDS: Aspirin Enteric Coated 81 MG TABLET.DR PO (08:13)
[2023-06-11] MEDS: 0.9 % Sodium Chloride Flush 3 ML SYRINGE IVFLUSH ×3 (08:13→19:58)
[2023-06-11] MEDS: lisinopriL 10 MG TABLET PO (08:13)
[2023-06-11] MEDS: Clopidogrel Bisulfate 75 MG TABLET PO (08:13)
[2023-06-11] MEDS: Atorvastatin Calcium 80 MG TABLET PO (08:13)
--- NOTE | 2023-06-11 10:17 | HO.PM.IMPN ---
Subjective Subjective Date of Service: 06/11/23 Interval History: Seen and evaluated feels comfortable , denies any weakness no suicidal thoughts No reported overnight events Review of Systems Review of Systems: Yes all other systems are reviewed and are negative Physical Exam Vital Signs: Vital Signs: Last Vital Signs Temp 97.6 F 06/11/23 07:15 Pulse 71 06/11/23 07:58 Resp 20 06/11/23 07:15 BP 137/85 06/11/23 07:58 Pulse Ox 95 06/11/23 07:58 O2 Del Method Room Air 06/11/23 07:15 BMI result Body Mass Index 36.8 Const: Other: Constitutional : Awake, interactive, not in distress Neck : Normal inspection, Supple Cardiovascular : RRR, no JVP, no lower extremity edema Respiratory : good bilateral air entry, no crackles, wheezes or rhonchi Gastrointestinal: soft, lax, Normal bowel sounds, Non tender Skin : Warm, Dry Neurological : Alert & oriented x3, No focal deficit Objective Data Active Medications Acetaminophen (Acetaminophen 325 Mg Tablet) 650 mg PO Q6H PRN PRN Reason: Pain, Mild (Pain Scale 1-3) Last Admin: 06/11/23 05:48 Dose: 650 mg Documented By: NAVJOT Acetaminophen (Acetaminophen Supp 650 Mg Supp.Rect) 650 mg [place] Q6H PRN PRN Reason: Pain, Mild (Pain Scale 1-3) Al Hydroxide/Mg Hydroxide (Magnesium Hydrox/Alum Hydrox 30 Ml Oral.Susp) 30 ml PO Q4H PRN PRN Reason: Heartburn/Nausea Aspirin (Aspirin Enteric Coated 81 Mg Tablet.) 81 mg PO DAILY [facility] Last Admin: 06/11/23 08:13 Dose: 81 mg Documented By: REBEL Atorvastatin Calcium (Atorvastatin Calcium 80 Mg Tablet) 80 mg PO DAILY [facility] Last Admin: 06/11/23 08:13 Dose: 80 mg Documented By: REBEL Benzocaine (Throat Lozenge, Medicated Lozenge) 1 lozenge MUCOUS MEM Q2H PRN PRN Reason: Sore Throat Last Admin: 06/09/23 20:52 Dose: 1 lozenge Documented By: BOB Clopidogrel Bisulfate (Clopidogrel Bisulfate 75 Mg Tablet) 75 mg PO DAILY [facility] Last Admin: 06/11/23 08:13 Dose: 75 mg Documented By: REBEL Enoxaparin Sodium (Enoxaparin Sodium 40 Mg/0.4 Ml Syringe) 40 mg SUBCUT Q24H [facility] Last Admin: 06/11/23 05:46 Dose: 40 mg Documented By: NAVJOT Hydroxyzine HCl (Hydroxyzine Hcl 50 Mg Tablet) 50 mg PO QID PRN PRN Reason: Anxiety Lisinopril (Lisinopril 10 Mg Tablet) 10 mg PO DAILY [facility]; Protocol Last Admin: 06/11/23 08:13 Dose: 10 mg Documented By: REBEL Melatonin (Melatonin 3 Mg Tablet) 6 mg PO BEDTIME PRN PRN Reason: Insomnia Mirtazapine (Mirtazapine 7.5 Mg Tablet) 7.5 mg PO BEDTIME [facility] Last Admin: 06/10/23 21:10 Dose: 7.5 mg Documented By: BOB Nicotine Polacrilex (Nicotine Polacrilex 2 Mg Gum) 2 mg BUCCAL Q2H PRN PRN Reason: Nicotine Cravings Ondansetron HCl (Ondansetron Hcl 4 Mg/2 Ml Vial) 4 mg IVPUSH Q8H PRN PRN Reason: Nausea and Vomiting Polyethylene Glycol (Polyethylene Glycol 3350 17 Gm Powd.Pack) 17 gm PO BID [facility] Last Admin: 06/11/23 08:14 Dose: Not Given Documented By: REBEL Non-Admin Reason: PT MOVING BOWELS Sodium Chloride (0.9 % Sodium Chloride Flush 3 Ml Syringe) 3 ml IVFLUSH QSHIFT [facility] Last Admin: 06/11/23 08:13 Dose: 3 ml Documented By: REBEL Labs 06/04/23 07:58 06/03/23 17:58 Assessment and Plan (1) Posterior circulation stroke: Status: Acute (2) Dizziness: Status: Acute Plan 63M PMH obesity, depression with suicide attempts leading to hospitalization at [facility], presented with dizzyness, concern for posterior cva Acute stroke w posterior cva improved symptoms, more steady on his feet CTA done showed occlusion of the V4 segment of the proximal vertebral artery MRI showing small infarct in left lateral medullary Echo within normal values Neurology input appreciated aspirin, plavix and atorvastatin PT/OT rec STR Hypertension BP mildly elevated Increase Lisinopril to 10mg daily sore throat lozenges depression with recent Suicide attempt reports 2 attempts in as many weeks, denies any thoughts or plans now was recently admitted to [facility] did not feel he need psychiatric unit admission, not suicidal, dc sitter and keep him on camera monitoring Obesity BMI 36.8 encourage weight loss dvt porphylaxis - lovenox full code reason for continued hospitalization: Pending safe discharge plan to SNF per PT recommendations pending accepting facility. Quality Stroke Does the patient have a stroke diagnosis?: Yes Reason for No Anti-thrombotic by Day Two: N/A - Med Ordered VTE Prior VTE?: No VTE Risk Level:: Medical - moderate - high VTE Device Contraindication: N/A - Device Ordered VTE Drug Contraindication: N/A - Med Ordered
[2023-06-11] MEDS: Mirtazapine 7.5 MG TABLET PO (19:58)
[2023-06-11] MEDS: polyethylene glycoL 3350 17 GM POWD.PACK PO (19:58)
[2023-06-11] MEDS: Magnesium Hydrox/Alum Hydrox 30 ML ORAL.SUSP PO (19:58)
[2023-06-12] VITALS (7 sets, daily range): BP systolic 120–137; BP diastolic 62–88; PULSE 72–86; RESP 19–20; TEMP 36.1–36.6; O2SAT 94–100
[2023-06-12] MEDS: Enoxaparin Sodium 40 MG/0.4 ML SYRINGE SUBCUT (05:38)
--- NOTE | 2023-06-12 09:01 | MHC.CM.PN ---
Broad SNF search has been updated; PT continues to recommend STR. CM will follow.
[2023-06-12] MEDS: polyethylene glycoL 3350 17 GM POWD.PACK PO ×2 (09:19→19:57)
[2023-06-12] MEDS: Acetaminophen 325 MG TABLET 650 MG PO ×2 (09:19→17:09)
[2023-06-12] MEDS: Aspirin Enteric Coated 81 MG TABLET.DR PO (09:19)
[2023-06-12] MEDS: 0.9 % Sodium Chloride Flush 3 ML SYRINGE IVFLUSH ×3 (09:20→19:58)
[2023-06-12] MEDS: Atorvastatin Calcium 80 MG TABLET PO (09:20)
[2023-06-12] MEDS: lisinopriL 10 MG TABLET PO (09:20)
[2023-06-12] MEDS: Clopidogrel Bisulfate 75 MG TABLET PO (09:20)
--- NOTE | 2023-06-12 10:22 | HO.PM.IMPN ---
Subjective Subjective Date of Service: 06/12/23 Interval History: Seen and evaluated feels comfortable , denies any weakness no suicidal thoughts No reported overnight events Review of Systems Review of Systems: Yes all other systems are reviewed and are negative Physical Exam Vital Signs: Vital Signs: Last Vital Signs Temp 97.7 F 06/12/23 07:09 Pulse 72 06/12/23 09:51 Resp 20 06/12/23 07:09 BP 132/80 06/12/23 09:51 Pulse Ox 94 06/12/23 09:51 O2 Del Method Room Air 06/12/23 07:09 BMI result Body Mass Index 36.8 Const: Other: Constitutional : Awake, interactive, not in distress Neck : Normal inspection, Supple Cardiovascular : RRR, no JVP, no lower extremity edema Respiratory : good bilateral air entry, no crackles, wheezes or rhonchi Gastrointestinal: soft, lax, Normal bowel sounds, Non tender Skin : Warm, Dry Neurological : Alert & oriented x3, No focal deficit Objective Data Active Medications Acetaminophen (Acetaminophen 325 Mg Tablet) 650 mg PO Q6H PRN PRN Reason: Pain, Mild (Pain Scale 1-3) Last Admin: 06/12/23 09:19 Dose: 650 mg Documented By: JORDAN Acetaminophen (Acetaminophen Supp 650 Mg Supp.Rect) 650 mg [place] Q6H PRN PRN Reason: Pain, Mild (Pain Scale 1-3) Al Hydroxide/Mg Hydroxide (Magnesium Hydrox/Alum Hydrox 30 Ml Oral.Susp) 30 ml PO Q4H PRN PRN Reason: Heartburn/Nausea Last Admin: 06/11/23 19:58 Dose: 30 ml Documented By: NATE Aspirin (Aspirin Enteric Coated 81 Mg Tablet.Dr) 81 mg PO DAILY [facility] Last Admin: 06/12/23 09:19 Dose: 81 mg Documented By: JORDAN Atorvastatin Calcium (Atorvastatin Calcium 80 Mg Tablet) 80 mg PO DAILY [facility] Last Admin: 06/12/23 09:20 Dose: 80 mg Documented By: JORDAN Benzocaine (Throat Lozenge, Medicated Lozenge) 1 lozenge MUCOUS MEM Q2H PRN PRN Reason: Sore Throat Last Admin: 06/09/23 20:52 Dose: 1 lozenge Documented By: BOB Clopidogrel Bisulfate (Clopidogrel Bisulfate 75 Mg Tablet) 75 mg PO DAILY [facility] Last Admin: 06/12/23 09:20 Dose: 75 mg Documented By: JORDAN Enoxaparin Sodium (Enoxaparin Sodium 40 Mg/0.4 Ml Syringe) 40 mg SUBCUT Q24H [facility] Last Admin: 06/12/23 05:38 Dose: 40 mg Documented By: NATE Hydroxyzine HCl (Hydroxyzine Hcl 50 Mg Tablet) 50 mg PO QID PRN PRN Reason: Anxiety Lisinopril (Lisinopril 10 Mg Tablet) 10 mg PO DAILY [facility]; Protocol Last Admin: 06/12/23 09:20 Dose: 10 mg Documented By: JORDAN Melatonin (Melatonin 3 Mg Tablet) 6 mg PO BEDTIME PRN PRN Reason: Insomnia Mirtazapine (Mirtazapine 7.5 Mg Tablet) 7.5 mg PO BEDTIME [facility] Last Admin: 06/11/23 19:58 Dose: 7.5 mg Documented By: NATE Nicotine Polacrilex (Nicotine Polacrilex 2 Mg Gum) 2 mg BUCCAL Q2H PRN PRN Reason: Nicotine Cravings Ondansetron HCl (Ondansetron Hcl 4 Mg/2 Ml Vial) 4 mg IVPUSH Q8H PRN PRN Reason: Nausea and Vomiting Polyethylene Glycol (Polyethylene Glycol 3350 17 Gm Powd.Pack) 17 gm PO BID [facility] Last Admin: 06/12/23 09:19 Dose: 17 gm Documented By: JORDAN Sodium Chloride (0.9 % Sodium Chloride Flush 3 Ml Syringe) 3 ml IVFLUSH QSHIFT [facility] Last Admin: 06/12/23 09:20 Dose: 3 ml Documented By: JORDAN Labs 06/04/23 07:58 06/03/23 17:58 Assessment and Plan (1) Posterior circulation stroke: Status: Acute (2) Dizziness: Status: Acute Plan 63M PMH obesity, depression with suicide attempts leading to hospitalization at [facility], presented with dizziness, concern for posterior cva Acute stroke w posterior cva improved symptoms, more steady on his feet CTA done showed occlusion of the V4 segment of the proximal vertebral artery MRI showing small infarct in left lateral medullary Echo within normal values Neurology input appreciated aspirin, plavix and atorvastatin PT/OT rec STR Hypertension BP mildly elevated Increased Lisinopril to 10mg daily sore throat lozenges depression with recent Suicide attempt reports 2 attempts in as many weeks, denies any thoughts or plans now was recently admitted to [facility] did not feel he need psychiatric unit admission, not suicidal, dced sitter and keep him on camera monitoring Obesity BMI 36.8 encourage weight loss dvt porphylaxis - lovenox full code reason for continued hospitalization: Pending safe discharge plan to SNF per PT recommendations pending accepting facility. Quality Stroke Does the patient have a stroke diagnosis?: Yes Reason for No Anti-thrombotic by Day Two: N/A - Med Ordered VTE Prior VTE?: No VTE Risk Level:: Medical - moderate - high VTE Device Contraindication: N/A - Device Ordered VTE Drug Contraindication: N/A - Med Ordered
[2023-06-12] MEDS: bisacodyL 5 MG TABLET.DR 10 MG PO (17:42)
[2023-06-12] MEDS: Mirtazapine 7.5 MG TABLET PO (19:57)
[2023-06-13] VITALS (7 sets, daily range): BP systolic 129–155; BP diastolic 64–91; PULSE 71–84; RESP 17–20; TEMP 36.1–36.9; O2SAT 96–100
[2023-06-13] MEDS: Enoxaparin Sodium 40 MG/0.4 ML SYRINGE SUBCUT (06:23)
[2023-06-13] MEDS: Clopidogrel Bisulfate 75 MG TABLET PO (07:52)
[2023-06-13] MEDS: Atorvastatin Calcium 80 MG TABLET PO (07:52)
[2023-06-13] MEDS: lisinopriL 10 MG TABLET PO (07:53)
[2023-06-13] MEDS: Aspirin Enteric Coated 81 MG TABLET.DR PO (07:53)
[2023-06-13] MEDS: 0.9 % Sodium Chloride Flush 3 ML SYRINGE IVFLUSH ×3 (07:54→23:54)
--- NOTE | 2023-06-13 08:47 | P.PNIM_ITS ---
Subjective Subjective Date of Service: 06/13/23 Interval History: Seen and evaluated feels comfortable , denies any weakness no suicidal thoughts No reported overnight events Review of Systems Review of Systems: Yes all other systems are reviewed and are negative Physical Exam 2 Vital Signs: Vital Signs: Last Vital Signs Temp 98.5 F 06/13/23 07:16 Pulse 82 06/13/23 07:16 Resp 20 06/13/23 07:16 BP 130/77 06/13/23 07:16 Pulse Ox 96 06/13/23 07:16 O2 Del Method Room Air 06/13/23 07:16 BMI result Body Mass Index 36.8 Const: Other: Constitutional : Awake, interactive, not in distress Neck : Normal inspection, Supple Cardiovascular : RRR, no JVP, no lower extremity edema Respiratory : good bilateral air entry, no crackles, wheezes or rhonchi Gastrointestinal: soft, lax, Normal bowel sounds, Non tender Skin : Warm, Dry Neurological : Alert & oriented x3, No focal deficit Objective Data Active Medications Acetaminophen (Acetaminophen 325 Mg Tablet) 650 mg PO Q6H PRN PRN Reason: Pain, Mild (Pain Scale 1-3) Last Admin: 06/12/23 17:09 Dose: 650 mg Documented By: ADI Acetaminophen (Acetaminophen Supp 650 Mg Supp.Rect) 650 mg [place] Q6H PRN PRN Reason: Pain, Mild (Pain Scale 1-3) Al Hydroxide/Mg Hydroxide (Magnesium Hydrox/Alum Hydrox 30 Ml Oral.Susp) 30 ml PO Q4H PRN PRN Reason: Heartburn/Nausea Last Admin: 06/11/23 19:58 Dose: 30 ml Documented By: NATE Aspirin (Aspirin Enteric Coated 81 Mg Tablet.) 81 mg PO DAILY [facility] Last Admin: 06/13/23 07:53 Dose: 81 mg Documented By: BRIGITTE Atorvastatin Calcium (Atorvastatin Calcium 80 Mg Tablet) 80 mg PO DAILY [facility] Last Admin: 06/13/23 07:52 Dose: 80 mg Documented By: BRIGITTE Benzocaine (Throat Lozenge, Medicated Lozenge) 1 lozenge MUCOUS MEM Q2H PRN PRN Reason: Sore Throat Last Admin: 06/09/23 20:52 Dose: 1 lozenge Documented By: BOB Bisacodyl (Bisacodyl 5 Mg Tablet.) 10 mg PO DAILY PRN PRN Reason: Constipation Last Admin: 06/12/23 17:42 Dose: 10 mg Documented By: ADI Clopidogrel Bisulfate (Clopidogrel Bisulfate 75 Mg Tablet) 75 mg PO DAILY [facility] Last Admin: 06/13/23 07:52 Dose: 75 mg Documented By: BRIGITTE Enoxaparin Sodium (Enoxaparin Sodium 40 Mg/0.4 Ml Syringe) 40 mg SUBCUT Q24H [facility] Last Admin: 06/13/23 06:23 Dose: 40 mg Documented By: NATE Hydroxyzine HCl (Hydroxyzine Hcl 50 Mg Tablet) 50 mg PO QID PRN PRN Reason: Anxiety Lisinopril (Lisinopril 10 Mg Tablet) 10 mg PO DAILY [facility]; Protocol Last Admin: 06/13/23 07:53 Dose: 10 mg Documented By: BRIGITTE Melatonin (Melatonin 3 Mg Tablet) 6 mg PO BEDTIME PRN PRN Reason: Insomnia Mirtazapine (Mirtazapine 7.5 Mg Tablet) 7.5 mg PO BEDTIME [facility] Last Admin: 06/12/23 19:57 Dose: 7.5 mg Documented By: NATE Nicotine Polacrilex (Nicotine Polacrilex 2 Mg Gum) 2 mg BUCCAL Q2H PRN PRN Reason: Nicotine Cravings Ondansetron HCl (Ondansetron Hcl 4 Mg/2 Ml Vial) 4 mg IVPUSH Q8H PRN PRN Reason: Nausea and Vomiting Polyethylene Glycol (Polyethylene Glycol 3350 17 Gm Powd.Pack) 17 gm PO BID [facility] Last Admin: 06/13/23 07:54 Dose: Not Given Documented By: BRIGITTE Non-Admin Reason: Patient Refused Sodium Chloride (0.9 % Sodium Chloride Flush 3 Ml Syringe) 3 ml IVFLUSH QSHIFT [facility] Last Admin: 06/13/23 07:54 Dose: 3 ml Documented By: BRIGITTE Labs 06/04/23 07:58 06/03/23 17:58 Assessment and Plan (1) Posterior circulation stroke: Status: Acute (2) Dizziness: Status: Acute Plan 63M PMH obesity, depression with suicide attempts leading to hospitalization at [facility], presented with dizziness, concern for posterior cva Acute stroke w posterior cva improved symptoms, more steady on his feet CTA done showed occlusion of the V4 segment of the proximal vertebral artery MRI showing small infarct in left lateral medullary Echo within normal values Neurology input appreciated aspirin, plavix and atorvastatin PT/OT rec STR Hypertension BP mildly elevated Increased Lisinopril to 10mg daily sore throat lozenges depression with recent Suicide attempt reports 2 attempts in as many weeks, denies any thoughts or plans now was recently admitted [facility] did not feel he need psychiatric unit admission, not suicidal, dced sitter and keep him on camera monitoring Obesity BMI 36.8 encourage weight loss dvt porphylaxis - lovenox full code reason for continued hospitalization: Pending safe discharge plan to SNF per PT recommendations pending accepting facility. Quality Stroke Does the patient have a stroke diagnosis?: Yes Reason for No Anti-thrombotic by Day Two: N/A - Med Ordered VTE Prior VTE?: No VTE Risk Level:: Medical - moderate - high VTE Device Contraindication: N/A - Device Ordered VTE Drug Contraindication: N/A - Med Ordered
[2023-06-13] MEDS: Acetaminophen 325 MG TABLET 650 MG PO ×2 (14:29→20:54)
[2023-06-13] MEDS: polyethylene glycoL 3350 17 GM POWD.PACK PO (20:54)
[2023-06-13] MEDS: Mirtazapine 7.5 MG TABLET PO (20:54)
[2023-06-13] MEDS: Throat Lozenge, Medicated LOZENGE 1 LOZENGE MUCOUS MEM (20:59)
[2023-06-14] VITALS (7 sets, daily range): BP systolic 124–168; BP diastolic 65–77; PULSE 70–88; RESP 16–20; TEMP 36.1–36.5; O2SAT 92–100
[2023-06-14] MEDS: Enoxaparin Sodium 40 MG/0.4 ML SYRINGE SUBCUT (06:33)
[2023-06-14] MEDS: bisacodyL 5 MG TABLET.DR 10 MG PO (09:21)
[2023-06-14] MEDS: Aspirin Enteric Coated 81 MG TABLET.DR PO (09:21)
[2023-06-14] MEDS: lisinopriL 10 MG TABLET PO (09:21)
[2023-06-14] MEDS: Clopidogrel Bisulfate 75 MG TABLET PO (09:21)
[2023-06-14] MEDS: polyethylene glycoL 3350 17 GM POWD.PACK PO (09:21)
[2023-06-14] MEDS: Atorvastatin Calcium 80 MG TABLET PO (09:22)
[2023-06-14] MEDS: 0.9 % Sodium Chloride Flush 3 ML SYRINGE IVFLUSH ×3 (09:22→21:03)
--- NOTE | 2023-06-14 09:27 | HO.PM.IMPN ---
Subjective Subjective Date of Service: 06/14/23 Interval History: Seen and evaluated feels comfortable , denies any weakness no suicidal thoughts No reported overnight events Review of Systems Review of Systems: Yes all other systems are reviewed and are negative Physical Exam Vital Signs: Vital Signs: Last Vital Signs Temp 97.6 F 06/14/23 07:27 Pulse 78 06/14/23 07:48 Resp 16 06/14/23 07:27 BP 136/76 06/14/23 07:48 Pulse Ox 99 06/14/23 07:48 O2 Del Method Room Air 06/14/23 07:27 BMI result Body Mass Index 36.8 Const: Other: Constitutional : Awake, interactive, not in distress Neck : Normal inspection, Supple Cardiovascular : RRR, no JVP, no lower extremity edema Respiratory : good bilateral air entry, no crackles, wheezes or rhonchi Gastrointestinal: soft, lax, Normal bowel sounds, Non tender Skin : Warm, Dry Neurological : Alert & oriented x3, No focal deficit Objective Data Active Medications Acetaminophen (Acetaminophen 325 Mg Tablet) 650 mg PO Q6H PRN PRN Reason: Pain, Mild (Pain Scale 1-3) Last Admin: 06/13/23 20:54 Dose: 650 mg Documented By: ZAHRA Acetaminophen (Acetaminophen Supp 650 Mg Supp.Rect) 650 mg [place] Q6H PRN PRN Reason: Pain, Mild (Pain Scale 1-3) Al Hydroxide/Mg Hydroxide (Magnesium Hydrox/Alum Hydrox 30 Ml Oral.Susp) 30 ml PO Q4H PRN PRN Reason: Heartburn/Nausea Last Admin: 06/11/23 19:58 Dose: 30 ml Documented By: NATE Aspirin (Aspirin Enteric Coated 81 Mg Tablet.) 81 mg PO DAILY [facility] Last Admin: 06/14/23 09:21 Dose: 81 mg Documented By: DEMETRIO Atorvastatin Calcium (Atorvastatin Calcium 80 Mg Tablet) 80 mg PO DAILY [facility] Last Admin: 06/14/23 09:22 Dose: 80 mg Documented By: DEMETRIO Benzocaine (Throat Lozenge, Medicated Lozenge) 1 lozenge MUCOUS MEM Q2H PRN PRN Reason: Sore Throat Last Admin: 06/13/23 20:59 Dose: 1 lozenge Documented By: ZAHRA Bisacodyl (Bisacodyl 5 Mg Tablet.) 10 mg PO DAILY PRN PRN Reason: Constipation Last Admin: 06/14/23 09:21 Dose: 10 mg Documented By: DEMETRIO Clopidogrel Bisulfate (Clopidogrel Bisulfate 75 Mg Tablet) 75 mg PO DAILY [facility] Last Admin: 06/14/23 09:21 Dose: 75 mg Documented By: DEMETRIO Enoxaparin Sodium (Enoxaparin Sodium 40 Mg/0.4 Ml Syringe) 40 mg SUBCUT Q24H [facility] Last Admin: 06/14/23 06:33 Dose: 40 mg Documented By: MAXIMILIAN Hydroxyzine HCl (Hydroxyzine Hcl 50 Mg Tablet) 50 mg PO QID PRN PRN Reason: Anxiety Lisinopril (Lisinopril 10 Mg Tablet) 10 mg PO DAILY [facility]; Protocol Last Admin: 06/14/23 09:21 Dose: 10 mg Documented By: DEMETRIO Melatonin (Melatonin 3 Mg Tablet) 6 mg PO BEDTIME PRN PRN Reason: Insomnia Mirtazapine (Mirtazapine 7.5 Mg Tablet) 7.5 mg PO BEDTIME [facility] Last Admin: 06/13/23 20:54 Dose: 7.5 mg Documented By: ZAHRA Nicotine Polacrilex (Nicotine Polacrilex 2 Mg Gum) 2 mg BUCCAL Q2H PRN PRN Reason: Nicotine Cravings Ondansetron HCl (Ondansetron Hcl 4 Mg/2 Ml Vial) 4 mg IVPUSH Q8H PRN PRN Reason: Nausea and Vomiting Polyethylene Glycol (Polyethylene Glycol 3350 17 Gm Powd.Pack) 17 gm PO BID [facility] Last Admin: 06/14/23 09:21 Dose: 17 gm Documented By: DEMETRIO Sodium Chloride (0.9 % Sodium Chloride Flush 3 Ml Syringe) 3 ml IVFLUSH QSHIFT [facility] Last Admin: 06/14/23 09:22 Dose: 3 ml Documented By: DEMETRIO Labs 06/04/23 07:58 06/03/23 17:58 Assessment and Plan (1) Posterior circulation stroke: Status: Acute (2) Dizziness: Status: Acute Plan 63M PMH obesity, depression with suicide attempts leading to hospitalization at [facility], presented with dizziness, concern for posterior cva Acute stroke w posterior cva improved symptoms, more steady on his feet CTA done showed occlusion of the V4 segment of the proximal vertebral artery MRI showing small infarct in left lateral medullary Echo within normal values Neurology input appreciated aspirin, plavix and atorvastatin PT/OT rec STR Hypertension BP mildly elevated Increased Lisinopril to 10mg daily sore throat lozenges depression with recent Suicide attempt reports 2 attempts in as many weeks, denies any thoughts or plans now was recently admitted to [facility] did not feel he need psychiatric unit admission, not suicidal, dced sitter and keep him on camera monitoring Obesity BMI 36.8 encourage weight loss dvt porphylaxis - lovenox full code reason for continued hospitalization: Pending safe discharge plan to SNF per PT recommendations pending accepting facility. Quality Stroke Does the patient have a stroke diagnosis?: Yes Reason for No Anti-thrombotic by Day Two: N/A - Med Ordered VTE Prior VTE?: No VTE Risk Level:: Medical - moderate - high VTE Device Contraindication: N/A - Device Ordered VTE Drug Contraindication: N/A - Med Ordered
--- NOTE | 2023-06-14 14:25 | MHC.CM.PN ---
SNF referral updated, CM will continue to follow and assist with DC plan.
--- NOTE | 2023-06-14 16:01 | MHC.CM.PN ---
CM RECIEVED CALL FROM SS, SS PROVIDED W/UPDATE OF PLAN.
[2023-06-14] MEDS: Mirtazapine 7.5 MG TABLET PO (21:03)
[2023-06-14] MEDS: Acetaminophen 325 MG TABLET 650 MG PO (21:03)
[2023-06-15 03:37] VITALS: BP 133/68; PULSE 69; RESP 17; TEMP 36.2; O2SAT 100
[2023-06-15] MEDS: Enoxaparin Sodium 40 MG/0.4 ML SYRINGE SUBCUT (06:01)
[2023-06-15 07:25] VITALS: BP 111/67; PULSE 76; RESP 18; TEMP 36.6; O2SAT 100
--- NOTE | 2023-06-15 09:07 | HO.PM.IMPN ---
Subjective Subjective Date of Service: 06/15/23 Interval History: Seen and evaluated feels comfortable , denies any weakness no suicidal thoughts No reported overnight events Review of Systems Review of Systems: Yes all other systems are reviewed and are negative Physical Exam Vital Signs: Vital Signs: Last Vital Signs Temp 97.9 F 06/15/23 07:25 Pulse 76 06/15/23 07:25 Resp 18 06/15/23 07:25 BP 111/67 06/15/23 07:25 Pulse Ox 100 06/15/23 07:25 O2 Del Method Room Air 06/15/23 07:25 BMI result Body Mass Index 36.8 Const: Other: Constitutional : Awake, interactive, not in distress Neck : Normal inspection, Supple Cardiovascular : RRR, no JVP, no lower extremity edema Respiratory : good bilateral air entry, no crackles, wheezes or rhonchi Gastrointestinal: soft, lax, Normal bowel sounds, Non tender Skin : Warm, Dry Neurological : Alert & oriented x3, No focal deficit Objective Data Active Medications Acetaminophen (Acetaminophen 325 Mg Tablet) 650 mg PO Q6H PRN PRN Reason: Pain, Mild (Pain Scale 1-3) Last Admin: 06/14/23 21:03 Dose: 650 mg Documented By: NATE Acetaminophen (Acetaminophen Supp 650 Mg Supp.Rect) 650 mg [place] Q6H PRN PRN Reason: Pain, Mild (Pain Scale 1-3) Al Hydroxide/Mg Hydroxide (Magnesium Hydrox/Alum Hydrox 30 Ml Oral.Susp) 30 ml PO Q4H PRN PRN Reason: Heartburn/Nausea Last Admin: 06/11/23 19:58 Dose: 30 ml Documented By: NATE Aspirin (Aspirin Enteric Coated 81 Mg Tablet.) 81 mg PO DAILY [facility] Last Admin: 06/14/23 09:21 Dose: 81 mg Documented By: DEMETRIO Atorvastatin Calcium (Atorvastatin Calcium 80 Mg Tablet) 80 mg PO DAILY [facility] Last Admin: 06/14/23 09:22 Dose: 80 mg Documented By: DEMETRIO Benzocaine (Throat Lozenge, Medicated Lozenge) 1 lozenge MUCOUS MEM Q2H PRN PRN Reason: Sore Throat Last Admin: 06/13/23 20:59 Dose: 1 lozenge Documented By: ZAHRA Bisacodyl (Bisacodyl 5 Mg Tablet.) 10 mg PO DAILY PRN PRN Reason: Constipation Last Admin: 06/14/23 09:21 Dose: 10 mg Documented By: DEMETRIO Clopidogrel Bisulfate (Clopidogrel Bisulfate 75 Mg Tablet) 75 mg PO DAILY [facility] Last Admin: 06/14/23 09:21 Dose: 75 mg Documented By: DEMETRIO Enoxaparin Sodium (Enoxaparin Sodium 40 Mg/0.4 Ml Syringe) 40 mg SUBCUT Q24H [facility] Last Admin: 06/15/23 06:01 Dose: 40 mg Documented By: NATE Hydroxyzine HCl (Hydroxyzine Hcl 50 Mg Tablet) 50 mg PO QID PRN PRN Reason: Anxiety Lisinopril (Lisinopril 10 Mg Tablet) 10 mg PO DAILY [facility]; Protocol Last Admin: 06/14/23 09:21 Dose: 10 mg Documented By: DEMETRIO Melatonin (Melatonin 3 Mg Tablet) 6 mg PO BEDTIME PRN PRN Reason: Insomnia Mirtazapine (Mirtazapine 7.5 Mg Tablet) 7.5 mg PO BEDTIME [facility] Last Admin: 06/14/23 21:03 Dose: 7.5 mg Documented By: NATE Nicotine Polacrilex (Nicotine Polacrilex 2 Mg Gum) 2 mg BUCCAL Q2H PRN PRN Reason: Nicotine Cravings Ondansetron HCl (Ondansetron Hcl 4 Mg/2 Ml Vial) 4 mg IVPUSH Q8H PRN PRN Reason: Nausea and Vomiting Polyethylene Glycol (Polyethylene Glycol 3350 17 Gm Powd.Pack) 17 gm PO BID [facility] Last Admin: 06/14/23 21:03 Dose: Not Given Documented By: NATE Non-Admin Reason: multiple BMs this shift. Sodium Chloride (0.9 % Sodium Chloride Flush 3 Ml Syringe) 3 ml IVFLUSH QSHIFT [facility] Last Admin: 06/14/23 21:03 Dose: 3 ml Documented By: NATE Labs 06/04/23 07:58 06/03/23 17:58 Assessment and Plan (1) Posterior circulation stroke: Status: Acute (2) Dizziness: Status: Acute Plan 63M PMH obesity, depression with suicide attempts leading to hospitalization at [facility], presented with dizziness, concern for posterior cva Acute stroke w posterior cva improved symptoms, more steady on his feet CTA done showed occlusion of the V4 segment of the proximal vertebral artery MRI showing small infarct in left lateral medullary Echo within normal values Neurology input appreciated aspirin, plavix and atorvastatin PT/OT rec STR Hypertension BP mildly elevated Increased Lisinopril to 10mg daily sore throat lozenges depression with recent Suicide attempt reports 2 attempts in as many weeks, denies any thoughts or plans now was recently admitted to [facility] did not feel he need psychiatric unit admission, not suicidal, dced sitter and keep him on camera monitoring Obesity BMI 36.8 encourage weight loss dvt porphylaxis - lovenox full code reason for continued hospitalization: Pending safe discharge plan to SNF per PT recommendations pending accepting facility. Quality Stroke Does the patient have a stroke diagnosis?: Yes Reason for No Anti-thrombotic by Day Two: N/A - Med Ordered VTE Prior VTE?: No VTE Risk Level:: Medical - moderate - high VTE Device Contraindication: N/A - Device Ordered VTE Drug Contraindication: N/A - Med Ordered
[2023-06-15] MEDS: Clopidogrel Bisulfate 75 MG TABLET PO (09:57)
[2023-06-15] MEDS: Atorvastatin Calcium 80 MG TABLET PO (09:57)
[2023-06-15] MEDS: lisinopriL 10 MG TABLET PO (09:57)
[2023-06-15] MEDS: polyethylene glycoL 3350 17 GM POWD.PACK PO ×2 (09:57→21:03)
[2023-06-15] MEDS: Aspirin Enteric Coated 81 MG TABLET.DR PO (09:57)
[2023-06-15] MEDS: 0.9 % Sodium Chloride Flush 3 ML SYRINGE IVFLUSH (10:00)
[2023-06-15 11:06] VITALS: BP 132/61; PULSE 68; RESP 18; TEMP 36.2; O2SAT 100
[2023-06-15 15:53] VITALS: BP 147/78; PULSE 79; RESP 18; TEMP 36.5; O2SAT 100
[2023-06-15 19:14] VITALS: BP 139/74; PULSE 82; RESP 20; TEMP 36.6; O2SAT 98
[2023-06-15] MEDS: Mirtazapine 7.5 MG TABLET PO (21:02)
[2023-06-15] MEDS: Acetaminophen 325 MG TABLET 650 MG PO (21:03)
[2023-06-15] MEDS: Melatonin 3 MG TABLET 6 MG PO (21:03)
[2023-06-15 23:05] VITALS: BP 123/70; PULSE 82; RESP 16; TEMP 36.1; O2SAT 97
[2023-06-16 04:00] VITALS: BP 117/71; PULSE 73; RESP 12; TEMP 36.3; O2SAT 99
[2023-06-16] MEDS: Enoxaparin Sodium 40 MG/0.4 ML SYRINGE SUBCUT (06:15)
[2023-06-16 07:21] VITALS: BP 111/61; PULSE 72; RESP 18; TEMP 36.3; O2SAT 100
[2023-06-16] MEDS: Clopidogrel Bisulfate 75 MG TABLET PO (08:46)
[2023-06-16] MEDS: Atorvastatin Calcium 80 MG TABLET PO (08:46)
[2023-06-16] MEDS: Aspirin Enteric Coated 81 MG TABLET.DR PO (08:46)
[2023-06-16] MEDS: 0.9 % Sodium Chloride Flush 3 ML SYRINGE IVFLUSH ×3 (08:46→14:58)
[2023-06-16] MEDS: Acetaminophen 325 MG TABLET 650 MG PO ×2 (08:46→21:10)
[2023-06-16] MEDS: hydrOXYzine HCL 50 MG TABLET PO (08:46)
[2023-06-16] MEDS: lisinopriL 10 MG TABLET PO (08:46)
[2023-06-16] MEDS: polyethylene glycoL 3350 17 GM POWD.PACK PO (08:47)
[2023-06-16] MEDS: Throat Lozenge, Medicated LOZENGE 1 LOZENGE MUCOUS MEM (08:47)
--- NOTE | 2023-06-16 10:11 | P.PNIM_ITS ---
Subjective Subjective Date of Service: 06/16/23 Interval History: Seen and evaluated feels comfortable , denies any weakness no suicidal thoughts No reported overnight events Review of Systems Review of Systems: Yes all other systems are reviewed and are negative Physical Exam 2 Vital Signs: Vital Signs: Last Vital Signs Temp 97.4 F 06/16/23 07:21 Pulse 72 06/16/23 07:21 Resp 18 06/16/23 07:21 BP 111/61 06/16/23 07:21 Pulse Ox 100 06/16/23 07:21 O2 Del Method Room Air 06/16/23 07:21 BMI result Body Mass Index 36.8 Const: Other: Constitutional : Awake, interactive, not in distress Neck : Normal inspection, Supple Cardiovascular : RRR, no JVP, no lower extremity edema Respiratory : good bilateral air entry, no crackles, wheezes or rhonchi Gastrointestinal: soft, lax, Normal bowel sounds, Non tender Skin : Warm, Dry Neurological : Alert & oriented x3, No focal deficit Objective Data Active Medications Acetaminophen (Acetaminophen 325 Mg Tablet) 650 mg PO Q6H PRN PRN Reason: Pain, Mild (Pain Scale 1-3) Last Admin: 06/16/23 08:46 Dose: 650 mg Documented By: PRITESH Acetaminophen (Acetaminophen Supp 650 Mg Supp.Rect) 650 mg [place] Q6H PRN PRN Reason: Pain, Mild (Pain Scale 1-3) Al Hydroxide/Mg Hydroxide (Magnesium Hydrox/Alum Hydrox 30 Ml Oral.Susp) 30 ml PO Q4H PRN PRN Reason: Heartburn/Nausea Last Admin: 06/11/23 19:58 Dose: 30 ml Documented By: NATE Aspirin (Aspirin Enteric Coated 81 Mg Tablet.Dr) 81 mg PO DAILY [facility] Last Admin: 06/16/23 08:46 Dose: 81 mg Documented By: PRITESH Atorvastatin Calcium (Atorvastatin Calcium 80 Mg Tablet) 80 mg PO DAILY [facility] Last Admin: 06/16/23 08:46 Dose: 80 mg Documented By: PRITESH Benzocaine (Throat Lozenge, Medicated Lozenge) 1 lozenge MUCOUS MEM Q2H PRN PRN Reason: Sore Throat Last Admin: 06/16/23 08:47 Dose: 1 lozenge Documented By: PRITESH Bisacodyl (Bisacodyl 5 Mg Tablet.) 10 mg PO DAILY PRN PRN Reason: Constipation Last Admin: 06/14/23 09:21 Dose: 10 mg Documented By: DEMETRIO Clopidogrel Bisulfate (Clopidogrel Bisulfate 75 Mg Tablet) 75 mg PO DAILY [facility] Last Admin: 06/16/23 08:46 Dose: 75 mg Documented By: PRITESH Enoxaparin Sodium (Enoxaparin Sodium 40 Mg/0.4 Ml Syringe) 40 mg SUBCUT Q24H [facility] Last Admin: 06/16/23 06:15 Dose: 40 mg Documented By: RUEL Hydroxyzine HCl (Hydroxyzine Hcl 50 Mg Tablet) 50 mg PO QID PRN PRN Reason: Anxiety Last Admin: 06/16/23 08:46 Dose: 50 mg Documented By: PRITESH Lisinopril (Lisinopril 10 Mg Tablet) 10 mg PO DAILY [facility]; Protocol Last Admin: 06/16/23 08:46 Dose: 10 mg Documented By: PRITESH Melatonin (Melatonin 3 Mg Tablet) 6 mg PO BEDTIME PRN PRN Reason: Insomnia Last Admin: 06/15/23 21:03 Dose: 6 mg Documented By: RUEL Mirtazapine (Mirtazapine 7.5 Mg Tablet) 7.5 mg PO BEDTIME [facility] Last Admin: 06/15/23 21:02 Dose: 7.5 mg Documented By: RUEL Nicotine Polacrilex (Nicotine Polacrilex 2 Mg Gum) 2 mg BUCCAL Q2H PRN PRN Reason: Nicotine Cravings Ondansetron HCl (Ondansetron Hcl 4 Mg/2 Ml Vial) 4 mg IVPUSH Q8H PRN PRN Reason: Nausea and Vomiting Polyethylene Glycol (Polyethylene Glycol 3350 17 Gm Powd.Pack) 17 gm PO BID [facility] Last Admin: 06/16/23 08:47 Dose: 17 gm Documented By: PRITESH Sodium Chloride (0.9 % Sodium Chloride Flush 3 Ml Syringe) 3 ml IVFLUSH QSHIFT [facility] Last Admin: 06/16/23 08:46 Dose: 3 ml Documented By: PRITESH Labs 06/04/23 07:58 06/03/23 17:58 Assessment and Plan (1) Posterior circulation stroke: Status: Acute (2) Dizziness: Status: Acute Plan 63M PMH obesity, depression with suicide attempts leading to hospitalization at [facility], htn, presented with dizziness, concern for posterior cva Acute stroke w posterior cva improved symptoms, more steady on his feet CTA done showed occlusion of the V4 segment of the proximal vertebral artery MRI showing small infarct in left lateral medullary Echo within normal values Neurology input appreciated aspirin, plavix and atorvastatin PT/OT rec STR Hypertension BP mildly elevated Increased Lisinopril to 10mg daily sore throat lozenges depression with recent Suicide attempt reports 2 attempts in as many weeks, denies any thoughts or plans now was recently admitted to [facility] did not feel he need psychiatric unit admission, not suicidal, dced sitter and keep him on camera monitoring Obesity BMI 36.8 encourage weight loss dvt porphylaxis - lovenox full code reason for continued hospitalization: Pending safe discharge plan to SNF per PT recommendations pending accepting facility. Quality Stroke Does the patient have a stroke diagnosis?: Yes Reason for No Anti-thrombotic by Day Two: N/A - Med Ordered VTE Prior VTE?: No VTE Risk Level:: Medical - moderate - high VTE Device Contraindication: N/A - Device Ordered VTE Drug Contraindication: N/A - Med Ordered
[2023-06-16 11:08] VITALS: BP 115/61; PULSE 90; RESP 18; TEMP 36.3; O2SAT 100
[2023-06-16 15:16] VITALS: BP 115/57; PULSE 95; RESP 20; TEMP 36.4; O2SAT 99
[2023-06-16 19:38] VITALS: BP 132/81; PULSE 81; RESP 20; TEMP 36.3; O2SAT 95
[2023-06-16] MEDS: Mirtazapine 7.5 MG TABLET PO (21:08)
[2023-06-17] VITALS (7 sets, daily range): BP systolic 100–151; BP diastolic 64–99; PULSE 72–91; RESP 16–20; TEMP 36.1–36.9; O2SAT 95–100
[2023-06-17] MEDS: Enoxaparin Sodium 40 MG/0.4 ML SYRINGE SUBCUT (06:38)
--- NOTE | 2023-06-17 08:12 | HO.PM.IMPN ---
Subjective Subjective Date of Service: 06/17/23 Interval History: Seen and evaluated feels comfortable , denies any weakness no suicidal thoughts No reported overnight events Review of Systems Review of Systems: Yes all other systems are reviewed and are negative Physical Exam Vital Signs: Vital Signs: Last Vital Signs Temp 97.4 F 06/17/23 07:33 Pulse 82 06/17/23 07:33 Resp 16 06/17/23 07:33 BP 100/75 06/17/23 07:33 Pulse Ox 98 06/17/23 07:33 O2 Del Method Room Air 06/17/23 07:33 BMI result Body Mass Index 36.8 Const: Other: Constitutional : Awake, interactive, not in distress Neck : Normal inspection, Supple Cardiovascular : RRR, no JVP, no lower extremity edema Respiratory : good bilateral air entry, no crackles, wheezes or rhonchi Gastrointestinal: soft, lax, Normal bowel sounds, Non tender Skin : Warm, Dry Neurological : Alert & oriented x3, No focal deficit Objective Data Active Medications Acetaminophen (Acetaminophen 325 Mg Tablet) 650 mg PO Q6H PRN PRN Reason: Pain, Mild (Pain Scale 1-3) Last Admin: 06/16/23 21:10 Dose: 650 mg Documented By: JULIANNE Acetaminophen (Acetaminophen Supp 650 Mg Supp.Rect) 650 mg [place] Q6H PRN PRN Reason: Pain, Mild (Pain Scale 1-3) Al Hydroxide/Mg Hydroxide (Magnesium Hydrox/Alum Hydrox 30 Ml Oral.Susp) 30 ml PO Q4H PRN PRN Reason: Heartburn/Nausea Last Admin: 06/11/23 19:58 Dose: 30 ml Documented By: NATE Aspirin (Aspirin Enteric Coated 81 Mg Tablet.) 81 mg PO DAILY [facility] Last Admin: 06/16/23 08:46 Dose: 81 mg Documented By: PRITESH Atorvastatin Calcium (Atorvastatin Calcium 80 Mg Tablet) 80 mg PO DAILY [facility] Last Admin: 06/16/23 08:46 Dose: 80 mg Documented By: PRITESH Benzocaine (Throat Lozenge, Medicated Lozenge) 1 lozenge MUCOUS MEM Q2H PRN PRN Reason: Sore Throat Last Admin: 06/16/23 08:47 Dose: 1 lozenge Documented By: PRITESH Bisacodyl (Bisacodyl 5 Mg Tablet.) 10 mg PO DAILY PRN PRN Reason: Constipation Last Admin: 06/14/23 09:21 Dose: 10 mg Documented By: DEMETRIO Clopidogrel Bisulfate (Clopidogrel Bisulfate 75 Mg Tablet) 75 mg PO DAILY [facility] Last Admin: 06/16/23 08:46 Dose: 75 mg Documented By: PRITESH Enoxaparin Sodium (Enoxaparin Sodium 40 Mg/0.4 Ml Syringe) 40 mg SUBCUT Q24H [facility] Last Admin: 06/17/23 06:38 Dose: 40 mg Documented By: VANDANA Hydroxyzine HCl (Hydroxyzine Hcl 50 Mg Tablet) 50 mg PO QID PRN PRN Reason: Anxiety Last Admin: 06/16/23 08:46 Dose: 50 mg Documented By: PRITESH Lisinopril (Lisinopril 10 Mg Tablet) 10 mg PO DAILY [facility]; Protocol Last Admin: 06/16/23 08:46 Dose: 10 mg Documented By: PRITESH Melatonin (Melatonin 3 Mg Tablet) 6 mg PO BEDTIME PRN PRN Reason: Insomnia Last Admin: 06/15/23 21:03 Dose: 6 mg Documented By: RUEL Mirtazapine (Mirtazapine 7.5 Mg Tablet) 7.5 mg PO BEDTIME [facility] Last Admin: 06/16/23 21:08 Dose: 7.5 mg Documented By: JULIANNE Nicotine Polacrilex (Nicotine Polacrilex 2 Mg Gum) 2 mg BUCCAL Q2H PRN PRN Reason: Nicotine Cravings Ondansetron HCl (Ondansetron Hcl 4 Mg/2 Ml Vial) 4 mg IVPUSH Q8H PRN PRN Reason: Nausea and Vomiting Polyethylene Glycol (Polyethylene Glycol 3350 17 Gm Powd.Pack) 17 gm PO BID [facility] Last Admin: 06/16/23 21:14 Dose: Not Given Documented By: JULIANNE Non-Admin Reason: Patient Refused Sodium Chloride (0.9 % Sodium Chloride Flush 3 Ml Syringe) 3 ml IVFLUSH QSHIFT [facility] Last Admin: 06/17/23 06:39 Dose: Not Given Documented By: VANDANA Non-Admin Reason: Previously Administered Labs 06/04/23 07:58 06/03/23 17:58 Assessment and Plan (1) Posterior circulation stroke: Status: Acute (2) Dizziness: Status: Acute Plan 63M PMH obesity, depression with suicide attempts leading to hospitalization at [facility], htn, presented with dizziness, concern for posterior cva Acute stroke w posterior cva improved symptoms, more steady on his feet CTA done showed occlusion of the V4 segment of the proximal vertebral artery MRI showing small infarct in left lateral medullary Echo within normal values Neurology input appreciated aspirin, plavix and atorvastatin PT/OT rec STR Hypertension BP mildly elevated Increased Lisinopril to 10mg daily sore throat lozenges depression with recent Suicide attempt reports 2 attempts in as many weeks, denies any thoughts or plans now was recently admitted to [facility] did not feel he need psychiatric unit admission, not suicidal, dced sitter and keep him on camera monitoring Obesity BMI 36.8 encourage weight loss dvt porphylaxis - lovenox full code reason for continued hospitalization: Pending safe discharge plan to SNF per PT recommendations pending accepting facility. Quality Stroke Does the patient have a stroke diagnosis?: Yes Reason for No Anti-thrombotic by Day Two: N/A - Med Ordered VTE Prior VTE?: No VTE Risk Level:: Medical - moderate - high VTE Device Contraindication: N/A - Device Ordered VTE Drug Contraindication: N/A - Med Ordered
[2023-06-17] MEDS: Throat Lozenge, Medicated LOZENGE 1 LOZENGE MUCOUS MEM (08:45)
[2023-06-17] MEDS: 0.9 % Sodium Chloride Flush 3 ML SYRINGE IVFLUSH (08:45)
[2023-06-17] MEDS: hydrOXYzine HCL 50 MG TABLET PO (08:45)
[2023-06-17] MEDS: Aspirin Enteric Coated 81 MG TABLET.DR PO (08:45)
[2023-06-17] MEDS: Clopidogrel Bisulfate 75 MG TABLET PO (08:45)
[2023-06-17] MEDS: Atorvastatin Calcium 80 MG TABLET PO (08:45)
[2023-06-17] MEDS: lisinopriL 10 MG TABLET PO (08:45)
[2023-06-17] MEDS: Mirtazapine 7.5 MG TABLET PO (21:36)
[2023-06-17] MEDS: Acetaminophen 325 MG TABLET 650 MG PO (21:36)
[2023-06-18] VITALS (7 sets, daily range): BP systolic 118–146; BP diastolic 69–80; PULSE 67–98; RESP 18–20; TEMP 36.4–37; O2SAT 96–98
[2023-06-18] MEDS: 0.9 % Sodium Chloride Flush 3 ML SYRINGE IVFLUSH ×4 (00:12→21:03)
[2023-06-18] MEDS: Enoxaparin Sodium 40 MG/0.4 ML SYRINGE SUBCUT (05:40)
--- NOTE | 2023-06-18 08:51 | P.PNIM_ITS ---
Subjective Subjective Date of Service: 06/18/23 Interval History: Seen and evaluated feels comfortable , denies any weakness no suicidal thoughts No reported overnight events Review of Systems Review of Systems: Yes all other systems are reviewed and are negative Physical Exam 2 Vital Signs: Vital Signs: Last Vital Signs Temp 97.8 F 06/18/23 07:19 Pulse 67 06/18/23 07:19 Resp 20 06/18/23 07:19 BP 124/76 06/18/23 07:19 Pulse Ox 97 06/18/23 07:19 O2 Del Method Room Air 06/18/23 07:19 BMI result Body Mass Index 36.8 Const: Other: Constitutional : Awake, interactive, not in distress Neck : Normal inspection, Supple Cardiovascular : RRR, no JVP, no lower extremity edema Respiratory : good bilateral air entry, no crackles, wheezes or rhonchi Gastrointestinal: soft, lax, Normal bowel sounds, Non tender Skin : Warm, Dry Neurological : Alert & oriented x3, No focal deficit Objective Data Active Medications Acetaminophen (Acetaminophen 325 Mg Tablet) 650 mg PO Q6H PRN PRN Reason: Pain, Mild (Pain Scale 1-3) Last Admin: 06/17/23 21:36 Dose: 650 mg Documented By: ABDI Acetaminophen (Acetaminophen Supp 650 Mg Supp.Rect) 650 mg AL Q6H PRN PRN Reason: Pain, Mild (Pain Scale 1-3) Al Hydroxide/Mg Hydroxide (Magnesium Hydrox/Alum Hydrox 30 Ml Oral.Susp) 30 ml PO Q4H PRN PRN Reason: Heartburn/Nausea Last Admin: 06/11/23 19:58 Dose: 30 ml Documented By: NATE Aspirin (Aspirin Enteric Coated 81 Mg Tablet.Dr) 81 mg PO DAILY [facility] Last Admin: 06/17/23 08:45 Dose: 81 mg Documented By: PRITESH Atorvastatin Calcium (Atorvastatin Calcium 80 Mg Tablet) 80 mg PO DAILY [facility] Last Admin: 06/17/23 08:45 Dose: 80 mg Documented By: PRITESH Benzocaine (Throat Lozenge, Medicated Lozenge) 1 lozenge MUCOUS MEM Q2H PRN PRN Reason: Sore Throat Last Admin: 06/17/23 08:45 Dose: 1 lozenge Documented By: PRITESH Bisacodyl (Bisacodyl 5 Mg Tablet.) 10 mg PO DAILY PRN PRN Reason: Constipation Last Admin: 06/14/23 09:21 Dose: 10 mg Documented By: DEMETRIO Clopidogrel Bisulfate (Clopidogrel Bisulfate 75 Mg Tablet) 75 mg PO DAILY [facility] Last Admin: 06/17/23 08:45 Dose: 75 mg Documented By: PRITESH Enoxaparin Sodium (Enoxaparin Sodium 40 Mg/0.4 Ml Syringe) 40 mg SUBCUT Q24H [facility] Last Admin: 06/18/23 05:40 Dose: 40 mg Documented By: ROBINSON Hydroxyzine HCl (Hydroxyzine Hcl 50 Mg Tablet) 50 mg PO QID PRN PRN Reason: Anxiety Last Admin: 06/17/23 08:45 Dose: 50 mg Documented By: PRITESH Lisinopril (Lisinopril 10 Mg Tablet) 10 mg PO DAILY [facility]; Protocol Last Admin: 06/17/23 08:45 Dose: 10 mg Documented By: PRITESH Melatonin (Melatonin 3 Mg Tablet) 6 mg PO BEDTIME PRN PRN Reason: Insomnia Last Admin: 06/15/23 21:03 Dose: 6 mg Documented By: RUEL Mirtazapine (Mirtazapine 7.5 Mg Tablet) 7.5 mg PO BEDTIME [facility] Last Admin: 06/17/23 21:36 Dose: 7.5 mg Documented By: ABDI Nicotine Polacrilex (Nicotine Polacrilex 2 Mg Gum) 2 mg BUCCAL Q2H PRN PRN Reason: Nicotine Cravings Ondansetron HCl (Ondansetron Hcl 4 Mg/2 Ml Vial) 4 mg IVPUSH Q8H PRN PRN Reason: Nausea and Vomiting Polyethylene Glycol (Polyethylene Glycol 3350 17 Gm Powd.Pack) 17 gm PO BID [facility] Last Admin: 06/17/23 21:39 Dose: Not Given Documented By: ABDI Non-Admin Reason: Patient Refused Sodium Chloride (0.9 % Sodium Chloride Flush 3 Ml Syringe) 3 ml IVFLUSH QSHIFT [facility] Last Admin: 06/18/23 00:12 Dose: 3 ml Documented By: ROBINSON Labs 06/04/23 07:58 06/03/23 17:58 Assessment and Plan (1) Posterior circulation stroke: Status: Acute (2) Dizziness: Status: Acute Plan 63M PMH obesity, depression with suicide attempts leading to hospitalization at [facility], htn, presented with dizziness, concern for posterior cva Acute stroke w posterior cva improved symptoms, more steady on his feet CTA done showed occlusion of the V4 segment of the proximal vertebral artery MRI showing small infarct in left lateral medullary Echo within normal values Neurology input appreciated aspirin, plavix and atorvastatin PT/OT rec STR Hypertension BP mildly elevated Increased Lisinopril to 10mg daily sore throat lozenges depression with recent Suicide attempt reports 2 attempts in as many weeks, denies any thoughts or plans now was recently admitted [facility] did not feel he need psychiatric unit admission, not suicidal, dced sitter and keep him on camera monitoring Obesity BMI 36.8 encourage weight loss dvt porphylaxis - lovenox full code reason for continued hospitalization: Pending safe discharge plan to SNF per PT recommendations pending accepting facility. Quality Stroke Does the patient have a stroke diagnosis?: Yes Reason for No Anti-thrombotic by Day Two: N/A - Med Ordered VTE Prior VTE?: No VTE Risk Level:: Medical - moderate - high VTE Device Contraindication: N/A - Device Ordered VTE Drug Contraindication: N/A - Med Ordered
[2023-06-18] MEDS: polyethylene glycoL 3350 17 GM POWD.PACK PO (10:21)
[2023-06-18] MEDS: Aspirin Enteric Coated 81 MG TABLET.DR PO (10:22)
[2023-06-18] MEDS: lisinopriL 10 MG TABLET PO (10:22)
[2023-06-18] MEDS: Atorvastatin Calcium 80 MG TABLET PO (10:22)
[2023-06-18] MEDS: Clopidogrel Bisulfate 75 MG TABLET PO (10:23)
--- NOTE | 2023-06-18 11:29 | MHC.CM.PN ---
CM made aware that pt's belongings, including his cell phone are still at [facility], where he was prior to coming here. CM called [facility] to request his belongings be brought here, awaiting call back. Referral for STR expanded to larger geographic area, 40 more referrals sent. CM to follow and continue to assist with DC plan.
[2023-06-18] MEDS: Mirtazapine 7.5 MG TABLET PO (21:02)
[2023-06-18] MEDS: Acetaminophen 325 MG TABLET 650 MG PO (21:02)
[2023-06-19] VITALS (7 sets, daily range): BP systolic 113–130; BP diastolic 69–79; PULSE 72–86; RESP 16–24; TEMP 36.2–36.6; O2SAT 95–98
[2023-06-19] MEDS: Enoxaparin Sodium 40 MG/0.4 ML SYRINGE SUBCUT (05:33)
[2023-06-19] MEDS: polyethylene glycoL 3350 17 GM POWD.PACK PO (08:52)
[2023-06-19] MEDS: Atorvastatin Calcium 80 MG TABLET PO (08:52)
[2023-06-19] MEDS: Aspirin Enteric Coated 81 MG TABLET.DR PO (08:52)
[2023-06-19] MEDS: Clopidogrel Bisulfate 75 MG TABLET PO (08:52)
[2023-06-19] MEDS: 0.9 % Sodium Chloride Flush 3 ML SYRINGE IVFLUSH (08:52)
[2023-06-19] MEDS: lisinopriL 10 MG TABLET PO (08:52)
--- NOTE | 2023-06-19 09:53 | P.PNIM_ITS ---
Subjective Subjective Date of Service: 06/19/23 Interval History: Seen and evaluated feels comfortable , denies any weakness No reported overnight events Review of Systems Review of Systems: Yes all other systems are reviewed and are negative Physical Exam 2 Vital Signs: Vital Signs: Last Vital Signs Temp 97.3 F 06/19/23 07:11 Pulse 83 06/19/23 09:18 Resp 18 06/19/23 07:11 BP 123/79 06/19/23 09:18 Pulse Ox 95 06/19/23 09:18 O2 Del Method Room Air 06/19/23 07:11 BMI result Body Mass Index 36.8 Const: Other: Constitutional : Awake, interactive, not in distress Neck : Normal inspection, Supple Cardiovascular : RRR, no JVP, no lower extremity edema Respiratory : good bilateral air entry, no crackles, wheezes or rhonchi Gastrointestinal: soft, lax, Normal bowel sounds, Non tender Skin : Warm, Dry Neurological : Alert & oriented x3, No focal deficit Objective Data Active Medications Acetaminophen (Acetaminophen 325 Mg Tablet) 650 mg PO Q6H PRN PRN Reason: Pain, Mild (Pain Scale 1-3) Last Admin: 06/18/23 21:02 Dose: 650 mg Documented By: VÍCTOR Acetaminophen (Acetaminophen Supp 650 Mg Supp.Rect) 650 mg [place] Q6H PRN PRN Reason: Pain, Mild (Pain Scale 1-3) Al Hydroxide/Mg Hydroxide (Magnesium Hydrox/Alum Hydrox 30 Ml Oral.Susp) 30 ml PO Q4H PRN PRN Reason: Heartburn/Nausea Last Admin: 06/11/23 19:58 Dose: 30 ml Documented By: NATE Aspirin (Aspirin Enteric Coated 81 Mg Tablet.) 81 mg PO DAILY [facility] Last Admin: 06/19/23 08:52 Dose: 81 mg Documented By: HELLEN Atorvastatin Calcium (Atorvastatin Calcium 80 Mg Tablet) 80 mg PO DAILY [facility] Last Admin: 06/19/23 08:52 Dose: 80 mg Documented By: HELLEN Benzocaine (Throat Lozenge, Medicated Lozenge) 1 lozenge MUCOUS MEM Q2H PRN PRN Reason: Sore Throat Last Admin: 06/17/23 08:45 Dose: 1 lozenge Documented By: PRITESH Bisacodyl (Bisacodyl 5 Mg Tablet.) 10 mg PO DAILY PRN PRN Reason: Constipation Last Admin: 06/14/23 09:21 Dose: 10 mg Documented By: DEMETRIO Clopidogrel Bisulfate (Clopidogrel Bisulfate 75 Mg Tablet) 75 mg PO DAILY [facility] Last Admin: 06/19/23 08:52 Dose: 75 mg Documented By: HELLEN Enoxaparin Sodium (Enoxaparin Sodium 40 Mg/0.4 Ml Syringe) 40 mg SUBCUT Q24H [facility] Last Admin: 06/19/23 05:33 Dose: 40 mg Documented By: VÍCTOR Hydroxyzine HCl (Hydroxyzine Hcl 50 Mg Tablet) 50 mg PO QID PRN PRN Reason: Anxiety Last Admin: 06/17/23 08:45 Dose: 50 mg Documented By: PONCE-MONICA Lisinopril (Lisinopril 10 Mg Tablet) 10 mg PO DAILY [facility]; Protocol Last Admin: 06/19/23 08:52 Dose: 10 mg Documented By: HELLEN Melatonin (Melatonin 3 Mg Tablet) 6 mg PO BEDTIME PRN PRN Reason: Insomnia Last Admin: 06/15/23 21:03 Dose: 6 mg Documented By: RUEL Mirtazapine (Mirtazapine 7.5 Mg Tablet) 7.5 mg PO BEDTIME [facility] Last Admin: 06/18/23 21:02 Dose: 7.5 mg Documented By: VÍCTOR Nicotine Polacrilex (Nicotine Polacrilex 2 Mg Gum) 2 mg BUCCAL Q2H PRN PRN Reason: Nicotine Cravings Ondansetron HCl (Ondansetron Hcl 4 Mg/2 Ml Vial) 4 mg IVPUSH Q8H PRN PRN Reason: Nausea and Vomiting Polyethylene Glycol (Polyethylene Glycol 3350 17 Gm Powd.Pack) 17 gm PO BID [facility] Last Admin: 06/19/23 08:52 Dose: 17 gm Documented By: HELLEN Sodium Chloride (0.9 % Sodium Chloride Flush 3 Ml Syringe) 3 ml IVFLUSH QSHIFT [facility] Last Admin: 06/19/23 08:52 Dose: 3 ml Documented By: HELLEN Labs 06/04/23 07:58 06/03/23 17:58 Assessment and Plan (1) Physical deconditioning: Status: Acute (2) Posterior circulation stroke: Status: Acute Plan 63M PMH obesity, depression with suicide attempts leading to hospitalization at [facility], htn, presented with dizziness, concern for posterior cva Acute stroke w posterior cva improved symptoms, more steady on his feet CTA done showed occlusion of the V4 segment of the proximal vertebral artery MRI showing small infarct in left lateral medullary Echo within normal values Neurology input appreciated aspirin, plavix and atorvastatin PT/OT rec STR Hypertension BP mildly elevated Increased Lisinopril to 10mg daily sore throat lozenges depression with recent Suicide attempt reports 2 attempts in as many weeks, denies any thoughts or plans now was recently admitted to [facility]team did not feel he need psychiatric unit admission, not suicidal, dced sitter and keep him on camera monitoring Obesity BMI 36.8 encourage weight loss dvt porphylaxis - lovenox full code reason for continued hospitalization: Pending safe discharge plan to SNF per PT recommendations pending accepting facility. Quality Stroke Does the patient have a stroke diagnosis?: Yes Reason for No Anti-thrombotic by Day Two: N/A - Med Ordered VTE Prior VTE?: No VTE Risk Level:: Medical - moderate - high VTE Device Contraindication: N/A - Device Ordered VTE Drug Contraindication: N/A - Med Ordered
[2023-06-19] MEDS: Mirtazapine 7.5 MG TABLET PO (21:53)
[2023-06-20] VITALS (7 sets, daily range): BP systolic 115–138; BP diastolic 61–82; PULSE 77–90; RESP 18–20; TEMP 36.2–36.5; O2SAT 95–100
[2023-06-20] MEDS: 0.9 % Sodium Chloride Flush 3 ML SYRINGE IVFLUSH ×3 (02:08→17:43)
[2023-06-20] MEDS: Enoxaparin Sodium 40 MG/0.4 ML SYRINGE SUBCUT (06:44)
[2023-06-20] MEDS: Clopidogrel Bisulfate 75 MG TABLET PO (09:40)
[2023-06-20] MEDS: polyethylene glycoL 3350 17 GM POWD.PACK PO (09:40)
[2023-06-20] MEDS: lisinopriL 10 MG TABLET PO (09:41)
[2023-06-20] MEDS: Atorvastatin Calcium 80 MG TABLET PO (09:41)
[2023-06-20] MEDS: Aspirin Enteric Coated 81 MG TABLET.DR PO (09:41)
--- NOTE | 2023-06-20 11:52 | HO.PM.IMPN ---
Subjective Subjective Date of Service: 06/20/23 Interval History: Seen and evaluated feels comfortable , denies any weakness No reported overnight events Physical Exam Vital Signs: Vital Signs: Last Vital Signs Temp 97.2 F 06/20/23 11:12 Pulse 80 06/20/23 11:12 Resp 18 06/20/23 11:12 BP 123/73 06/20/23 11:12 Pulse Ox 98 06/20/23 11:12 O2 Del Method Room Air 06/20/23 11:12 BMI result Body Mass Index 36.8 Const: Other: Constitutional : Awake, interactive, not in distress Neck : Normal inspection, Supple Cardiovascular : RRR, no JVP, no lower extremity edema Respiratory : good bilateral air entry, no crackles, wheezes or rhonchi Gastrointestinal: soft, lax, Normal bowel sounds, Non tender Skin : Warm, Dry Neurological : Alert & oriented x3, No focal deficit Objective Data Active Medications Acetaminophen (Acetaminophen 325 Mg Tablet) 650 mg PO Q6H PRN PRN Reason: Pain, Mild (Pain Scale 1-3) Last Admin: 06/18/23 21:02 Dose: 650 mg Documented By: VÍCTOR Acetaminophen (Acetaminophen Supp 650 Mg Supp.Rect) 650 mg [place] Q6H PRN PRN Reason: Pain, Mild (Pain Scale 1-3) Al Hydroxide/Mg Hydroxide (Magnesium Hydrox/Alum Hydrox 30 Ml Oral.Susp) 30 ml PO Q4H PRN PRN Reason: Heartburn/Nausea Last Admin: 06/11/23 19:58 Dose: 30 ml Documented By: NATE Aspirin (Aspirin Enteric Coated 81 Mg Tablet.) 81 mg PO DAILY [facility] Last Admin: 06/20/23 09:41 Dose: 81 mg Documented By: KATE Atorvastatin Calcium (Atorvastatin Calcium 80 Mg Tablet) 80 mg PO DAILY [facility] Last Admin: 06/20/23 09:41 Dose: 80 mg Documented By: KATE Benzocaine (Throat Lozenge, Medicated Lozenge) 1 lozenge MUCOUS MEM Q2H PRN PRN Reason: Sore Throat Last Admin: 06/17/23 08:45 Dose: 1 lozenge Documented By: PONCE-MONICA Bisacodyl (Bisacodyl 5 Mg Tablet.) 10 mg PO DAILY PRN PRN Reason: Constipation Last Admin: 06/14/23 09:21 Dose: 10 mg Documented By: DEMETRIO Clopidogrel Bisulfate (Clopidogrel Bisulfate 75 Mg Tablet) 75 mg PO DAILY [facility] Last Admin: 06/20/23 09:40 Dose: 75 mg Documented By: KATE Enoxaparin Sodium (Enoxaparin Sodium 40 Mg/0.4 Ml Syringe) 40 mg SUBCUT Q24H [facility] Last Admin: 06/20/23 06:44 Dose: 40 mg Documented By: JULIANNE Hydroxyzine HCl (Hydroxyzine Hcl 50 Mg Tablet) 50 mg PO QID PRN PRN Reason: Anxiety Last Admin: 06/17/23 08:45 Dose: 50 mg Documented By: PONCE-RIVSHMUEL Lisinopril (Lisinopril 10 Mg Tablet) 10 mg PO DAILY [facility]; Protocol Last Admin: 06/20/23 09:41 Dose: 10 mg Documented By: KATE Melatonin (Melatonin 3 Mg Tablet) 6 mg PO BEDTIME PRN PRN Reason: Insomnia Last Admin: 06/15/23 21:03 Dose: 6 mg Documented By: RUEL Mirtazapine (Mirtazapine 7.5 Mg Tablet) 7.5 mg PO BEDTIME [facility] Last Admin: 06/19/23 21:53 Dose: 7.5 mg Documented By: JULIANNE Nicotine Polacrilex (Nicotine Polacrilex 2 Mg Gum) 2 mg BUCCAL Q2H PRN PRN Reason: Nicotine Cravings Ondansetron HCl (Ondansetron Hcl 4 Mg/2 Ml Vial) 4 mg IVPUSH Q8H PRN PRN Reason: Nausea and Vomiting Polyethylene Glycol (Polyethylene Glycol 3350 17 Gm Powd.Pack) 17 gm PO BID [facility] Last Admin: 06/20/23 09:40 Dose: 17 gm Documented By: KATE Sodium Chloride (0.9 % Sodium Chloride Flush 3 Ml Syringe) 3 ml IVFLUSH QSHIFT [facility] Last Admin: 06/20/23 09:40 Dose: 3 ml Documented By: KATE Labs 06/04/23 07:58 06/03/23 17:58 Assessment and Plan (1) Physical deconditioning: Status: Acute (2) Suicide attempt: Status: Acute (3) Posterior circulation stroke: Status: Acute Plan 63M PMH obesity, depression with suicide attempts leading to hospitalization at [facility], htn, presented with dizziness, concern for posterior cva Acute stroke w posterior cva improved symptoms, more steady on his feet CTA done showed occlusion of the V4 segment of the proximal vertebral artery MRI showing small infarct in left lateral medullary Echo within normal values Neurology input appreciated aspirin, plavix and atorvastatin PT/OT rec STR Camera monitoring discontinued Hypertension BP mildly elevated Increased Lisinopril to 10mg daily sore throat lozenges depression with recent Suicide attempt reports 2 attempts in as many weeks, denies any thoughts or plans now was recently admitted to [facility]team did not feel he need psychiatric unit admission, not suicidal, dced sitter Camera monitoring discontinued Obesity BMI 36.8 encourage weight loss dvt porphylaxis - lovenox full code reason for continued hospitalization: Pending safe discharge plan to SNF per PT recommendations pending accepting facility. Quality Stroke Does the patient have a stroke diagnosis?: Yes Reason for No Anti-thrombotic by Day Two: N/A - Med Ordered VTE Prior VTE?: No VTE Risk Level:: Medical - moderate - high VTE Device Contraindication: N/A - Device Ordered VTE Drug Contraindication: N/A - Med Ordered
--- NOTE | 2023-06-20 13:28 | MHC.CM.PN ---
Referral updated with info. that Pt no longer needs sitter or camera monitoring. CM again, called [facility] to obtain Pt. belongings, awaiting return call.
[2023-06-20] MEDS: Mirtazapine 7.5 MG TABLET PO (21:57)
[2023-06-21] VITALS (7 sets, daily range): BP systolic 113–137; BP diastolic 56–88; PULSE 81–87; RESP 14–20; TEMP 36.1–36.4; O2SAT 96–100
[2023-06-21] MEDS: Enoxaparin Sodium 40 MG/0.4 ML SYRINGE SUBCUT (06:42)
[2023-06-21] MEDS: Aspirin Enteric Coated 81 MG TABLET.DR PO (08:45)
[2023-06-21] MEDS: Atorvastatin Calcium 80 MG TABLET PO (08:45)
[2023-06-21] MEDS: lisinopriL 10 MG TABLET PO (08:45)
[2023-06-21] MEDS: polyethylene glycoL 3350 17 GM POWD.PACK PO (08:45)
[2023-06-21] MEDS: Clopidogrel Bisulfate 75 MG TABLET PO (08:45)
[2023-06-21] MEDS: 0.9 % Sodium Chloride Flush 3 ML SYRINGE IVFLUSH ×2 (08:47→20:08)
--- NOTE | 2023-06-21 10:14 | P.PNIM_ITS ---
Subjective Subjective Date of Service: 06/21/23 Interval History: Seen and evaluated feels comfortable , denies any weakness No reported overnight events Review of Systems Review of Systems: Yes all other systems are reviewed and are negative Physical Exam 2 Vital Signs: Vital Signs: Last Vital Signs Temp 97.0 F 06/21/23 07:41 Pulse 81 06/21/23 08:54 Resp 20 06/21/23 07:41 BP 135/70 06/21/23 08:54 Pulse Ox 96 06/21/23 08:54 O2 Del Method Room Air 06/21/23 07:41 BMI result Body Mass Index 36.8 Const: Other: Constitutional : Awake, interactive, not in distress Neck : Normal inspection, Supple Cardiovascular : RRR, no JVP, no lower extremity edema Respiratory : good bilateral air entry, no crackles, wheezes or rhonchi Gastrointestinal: soft, lax, Normal bowel sounds, Non tender Skin : Warm, Dry Neurological : Alert & oriented x3, No focal deficit Objective Data Active Medications Acetaminophen (Acetaminophen 325 Mg Tablet) 650 mg PO Q6H PRN PRN Reason: Pain, Mild (Pain Scale 1-3) Last Admin: 06/18/23 21:02 Dose: 650 mg Documented By: VÍCTOR Acetaminophen (Acetaminophen Supp 650 Mg Supp.Rect) 650 mg [place] Q6H PRN PRN Reason: Pain, Mild (Pain Scale 1-3) Al Hydroxide/Mg Hydroxide (Magnesium Hydrox/Alum Hydrox 30 Ml Oral.Susp) 30 ml PO Q4H PRN PRN Reason: Heartburn/Nausea Last Admin: 06/11/23 19:58 Dose: 30 ml Documented By: NATE Aspirin (Aspirin Enteric Coated 81 Mg Tablet.) 81 mg PO DAILY [facility] Last Admin: 06/21/23 08:45 Dose: 81 mg Documented By: TYLER Atorvastatin Calcium (Atorvastatin Calcium 80 Mg Tablet) 80 mg PO DAILY [facility] Last Admin: 06/21/23 08:45 Dose: 80 mg Documented By: TYLER Benzocaine (Throat Lozenge, Medicated Lozenge) 1 lozenge MUCOUS MEM Q2H PRN PRN Reason: Sore Throat Last Admin: 06/17/23 08:45 Dose: 1 lozenge Documented By: PRITESH Bisacodyl (Bisacodyl 5 Mg Tablet.) 10 mg PO DAILY PRN PRN Reason: Constipation Last Admin: 06/14/23 09:21 Dose: 10 mg Documented By: DEMETRIO Clopidogrel Bisulfate (Clopidogrel Bisulfate 75 Mg Tablet) 75 mg PO DAILY [facility] Last Admin: 06/21/23 08:45 Dose: 75 mg Documented By: TYLER Enoxaparin Sodium (Enoxaparin Sodium 40 Mg/0.4 Ml Syringe) 40 mg SUBCUT Q24H [facility] Last Admin: 06/21/23 06:42 Dose: 40 mg Documented By: VANDANA Hydroxyzine HCl (Hydroxyzine Hcl 50 Mg Tablet) 50 mg PO QID PRN PRN Reason: Anxiety Last Admin: 06/17/23 08:45 Dose: 50 mg Documented By: PONCE-MONICA Lisinopril (Lisinopril 10 Mg Tablet) 10 mg PO DAILY [facility]; Protocol Last Admin: 06/21/23 08:45 Dose: 10 mg Documented By: TYLER Melatonin (Melatonin 3 Mg Tablet) 6 mg PO BEDTIME PRN PRN Reason: Insomnia Last Admin: 06/15/23 21:03 Dose: 6 mg Documented By: RUEL Mirtazapine (Mirtazapine 7.5 Mg Tablet) 7.5 mg PO BEDTIME [facility] Last Admin: 06/20/23 21:57 Dose: 7.5 mg Documented By: VANDANA Nicotine Polacrilex (Nicotine Polacrilex 2 Mg Gum) 2 mg BUCCAL Q2H PRN PRN Reason: Nicotine Cravings Ondansetron HCl (Ondansetron Hcl 4 Mg/2 Ml Vial) 4 mg IVPUSH Q8H PRN PRN Reason: Nausea and Vomiting Polyethylene Glycol (Polyethylene Glycol 3350 17 Gm Powd.Pack) 17 gm PO BID [facility] Last Admin: 06/21/23 08:45 Dose: 17 gm Documented By: TYLER Sodium Chloride (0.9 % Sodium Chloride Flush 3 Ml Syringe) 3 ml IVFLUSH QSHIFT [facility] Last Admin: 06/21/23 08:47 Dose: 3 ml Documented By: TYLER Labs 06/04/23 07:58 06/03/23 17:58 Assessment and Plan (1) Posterior circulation stroke: Status: Acute Plan 63M PMH obesity, depression with suicide attempts leading to hospitalization at [facility], htn, presented with dizziness, concern for posterior cva Acute stroke w posterior cva improved symptoms, more steady on his feet CTA done showed occlusion of the V4 segment of the proximal vertebral artery MRI showing small infarct in left lateral medullary Echo within normal values Neurology input appreciated aspirin, plavix and atorvastatin PT/OT rec STR Camera monitoring discontinued Hypertension better controlled Increased Lisinopril to 10mg daily sore throat lozenges depression with recent Suicide attempt reports 2 attempts in as many weeks, denies any thoughts or plans now was recently admitted to [facility] Care team did not feel he need psychiatric unit admission, not suicidal, dc'd sitter Camera monitoring discontinued Obesity BMI 36.8 encourage weight loss dvt porphylaxis - lovenox full code reason for continued hospitalization: Pending safe discharge plan to SNF per PT recommendations pending accepting facility. Quality Stroke Does the patient have a stroke diagnosis?: Yes Reason for No Anti-thrombotic by Day Two: N/A - Med Ordered VTE Prior VTE?: No VTE Risk Level:: Medical - moderate - high VTE Device Contraindication: N/A - Device Ordered VTE Drug Contraindication: N/A - Med Ordered
[2023-06-21] MEDS: Mirtazapine 7.5 MG TABLET PO (20:07)
[2023-06-22 04:00] VITALS: BP 137/69; PULSE 73; RESP 20; TEMP 36.2; O2SAT 95
[2023-06-22] MEDS: Enoxaparin Sodium 40 MG/0.4 ML SYRINGE SUBCUT (05:25)
[2023-06-22 07:30] VITALS: BP 124/78; PULSE 78; RESP 20; TEMP 36.3; O2SAT 96
[2023-06-22] MEDS: Clopidogrel Bisulfate 75 MG TABLET PO (08:49)
[2023-06-22] MEDS: Aspirin Enteric Coated 81 MG TABLET.DR PO (08:49)
[2023-06-22] MEDS: Acetaminophen 325 MG TABLET 650 MG PO (08:49)
[2023-06-22] MEDS: lisinopriL 10 MG TABLET PO (08:50)
[2023-06-22] MEDS: Atorvastatin Calcium 80 MG TABLET PO (08:50)
[2023-06-22] MEDS: 0.9 % Sodium Chloride Flush 3 ML SYRINGE IVFLUSH ×2 (08:50→16:08)
--- NOTE | 2023-06-22 11:02 | HO.PM.IMPN ---
Subjective Subjective Date of Service: 06/22/23 Interval History: Seen and evaluated feels comfortable , denies any weakness LEs edema No reported overnight events Review of Systems Review of Systems: Yes all other systems are reviewed and are negative Physical Exam Vital Signs: Vital Signs: Last Vital Signs Temp 97.3 F 06/22/23 07:30 Pulse 78 06/22/23 07:30 Resp 20 06/22/23 07:30 BP 124/78 06/22/23 07:30 Pulse Ox 96 06/22/23 07:30 O2 Del Method Room Air 06/22/23 07:30 BMI result Body Mass Index 36.8 Const: Other: Constitutional : Awake, interactive, not in distress Neck : Normal inspection, Supple Cardiovascular : RRR, no JVP, +1 bilateral lower extremity edema Respiratory : good bilateral air entry, no crackles, wheezes or rhonchi Gastrointestinal: soft, lax, Normal bowel sounds, Non tender Skin : Warm, Dry Neurological : Alert & oriented x3, No focal deficit Objective Data Active Medications Acetaminophen (Acetaminophen 325 Mg Tablet) 650 mg PO Q6H PRN PRN Reason: Pain, Mild (Pain Scale 1-3) Last Admin: 06/22/23 08:49 Dose: 650 mg Documented By: REBEL Acetaminophen (Acetaminophen Supp 650 Mg Supp.Rect) 650 mg [place] Q6H PRN PRN Reason: Pain, Mild (Pain Scale 1-3) Al Hydroxide/Mg Hydroxide (Magnesium Hydrox/Alum Hydrox 30 Ml Oral.Susp) 30 ml PO Q4H PRN PRN Reason: Heartburn/Nausea Last Admin: 06/11/23 19:58 Dose: 30 ml Documented By: NATE Aspirin (Aspirin Enteric Coated 81 Mg Tablet.) 81 mg PO DAILY [facility] Last Admin: 06/22/23 08:49 Dose: 81 mg Documented By: REBEL Atorvastatin Calcium (Atorvastatin Calcium 80 Mg Tablet) 80 mg PO DAILY [facility] Last Admin: 06/22/23 08:50 Dose: 80 mg Documented By: REBEL Benzocaine (Throat Lozenge, Medicated Lozenge) 1 lozenge MUCOUS MEM Q2H PRN PRN Reason: Sore Throat Last Admin: 06/17/23 08:45 Dose: 1 lozenge Documented By: PRITESH Bisacodyl (Bisacodyl 5 Mg Tablet.) 10 mg PO DAILY PRN PRN Reason: Constipation Last Admin: 06/14/23 09:21 Dose: 10 mg Documented By: DEMETRIO Clopidogrel Bisulfate (Clopidogrel Bisulfate 75 Mg Tablet) 75 mg PO DAILY [facility] Last Admin: 06/22/23 08:49 Dose: 75 mg Documented By: REBEL Enoxaparin Sodium (Enoxaparin Sodium 40 Mg/0.4 Ml Syringe) 40 mg SUBCUT Q24H [facility] Last Admin: 06/22/23 05:25 Dose: 40 mg Documented By: VÍCTOR Hydroxyzine HCl (Hydroxyzine Hcl 50 Mg Tablet) 50 mg PO QID PRN PRN Reason: Anxiety Last Admin: 06/17/23 08:45 Dose: 50 mg Documented By: PRITESH Lisinopril (Lisinopril 10 Mg Tablet) 10 mg PO DAILY [facility]; Protocol Last Admin: 06/22/23 08:50 Dose: 10 mg Documented By: REBEL Melatonin (Melatonin 3 Mg Tablet) 6 mg PO BEDTIME PRN PRN Reason: Insomnia Last Admin: 06/15/23 21:03 Dose: 6 mg Documented By: RULE Mirtazapine (Mirtazapine 7.5 Mg Tablet) 7.5 mg PO BEDTIME [facility] Last Admin: 06/21/23 20:07 Dose: 7.5 mg Documented By: VÍCTOR Nicotine Polacrilex (Nicotine Polacrilex 2 Mg Gum) 2 mg BUCCAL Q2H PRN PRN Reason: Nicotine Cravings Ondansetron HCl (Ondansetron Hcl 4 Mg/2 Ml Vial) 4 mg IVPUSH Q8H PRN PRN Reason: Nausea and Vomiting Polyethylene Glycol (Polyethylene Glycol 3350 17 Gm Powd.Pack) 17 gm PO BID [facility] Last Admin: 06/22/23 08:49 Dose: Not Given Documented By: REBEL Non-Admin Reason: PT REFUSED Sodium Chloride (0.9 % Sodium Chloride Flush 3 Ml Syringe) 3 ml IVFLUSH QSHIFT [facility] Last Admin: 06/22/23 08:50 Dose: 3 ml Documented By: REBEL Labs 06/04/23 07:58 06/03/23 17:58 Assessment and Plan (1) Physical deconditioning: Status: Acute (2) Posterior circulation stroke: Status: Acute Plan 63M PMH obesity, depression with suicide attempts leading to hospitalization at [facility], htn, presented with dizziness, concern for posterior cva Acute stroke w posterior cva improved symptoms, more steady on his feet CTA done showed occlusion of the V4 segment of the proximal vertebral artery MRI showing small infarct in left lateral medullary Echo within normal values Neurology input appreciated aspirin, plavix and atorvastatin Camera monitoring discontinued Lower extremities edema 2/2 Fluid overload Lasix 20 mg once Monitor response Hypertension better controlled Increased Lisinopril to 10mg daily sore throat lozenges depression with recent Suicide attempt reports 2 attempts in as many weeks, denies any thoughts or plans now. was recently admitted to [facility] Care team did not feel he need psychiatric unit admission, not suicidal, dc'd sitter. Camera monitoring discontinued Obesity BMI 36.8 encourage weight loss dvt porphylaxis - lovenox full code reason for continued hospitalization: Pending safe discharge plan to SNF per PT recommendations pending accepting facility. Quality Stroke Does the patient have a stroke diagnosis?: Yes Reason for No Anti-thrombotic by Day Two: N/A - Med Ordered VTE Prior VTE?: No VTE Risk Level:: Medical - moderate - high VTE Device Contraindication: N/A - Device Ordered VTE Drug Contraindication: N/A - Med Ordered
[2023-06-22 11:06] VITALS: BP 115/67; PULSE 76; RESP 20; TEMP 36.1; O2SAT 98
[2023-06-22] MEDS: Furosemide 20 MG TABLET PO (11:17)
[2023-06-22 15:39] VITALS: BP 117/67; PULSE 81; RESP 18; TEMP 36.7; O2SAT 97
[2023-06-22 19:35] VITALS: BP 127/78; PULSE 82; RESP 19; TEMP 36.7; O2SAT 97
[2023-06-23] VITALS (7 sets, daily range): BP systolic 107–136; BP diastolic 61–98; PULSE 67–88; RESP 12–20; TEMP 36–36.6; O2SAT 95–99
[2023-06-23] MEDS: Mirtazapine 7.5 MG TABLET PO ×2 (00:02→20:40)
[2023-06-23] MEDS: 0.9 % Sodium Chloride Flush 3 ML SYRINGE IVFLUSH ×4 (00:03→20:40)
[2023-06-23] MEDS: Enoxaparin Sodium 40 MG/0.4 ML SYRINGE SUBCUT (05:26)
[2023-06-23 06:39] LABS: Anion Gap 13 (12-20); Blood Urea Nitrogen 13 mg/dL (9-16); Calcium 9.2 mg/dL (8.4-10.2); Carbon Dioxide 25 mmol/L (22-29); Chloride 104 mmol/L (96-108); Estimated Glomerular Filt Rate > 60; Glucose Random 96 mg/dL (60-115); Potassium 4.6 mmol/L (3.3-5.1); Sodium 137 mmol/L (135-145)
[2023-06-23 06:58] LABS: B Type Natriuretic Peptide 11 pg/mL (<100)
[2023-06-23] MEDS: lisinopriL 10 MG TABLET PO (08:00)
[2023-06-23] MEDS: Clopidogrel Bisulfate 75 MG TABLET PO (08:00)
[2023-06-23] MEDS: Atorvastatin Calcium 80 MG TABLET PO (08:00)
[2023-06-23] MEDS: Aspirin Enteric Coated 81 MG TABLET.DR PO (08:00)
[2023-06-23] MEDS: polyethylene glycoL 3350 17 GM POWD.PACK PO (08:00)
--- NOTE | 2023-06-23 11:07 | P.PNIM_ITS ---
Subjective Subjective Date of Service: 06/23/23 Interval History: Seen and evaluated feels comfortable , denies any weakness LEs edema No reported overnight events Review of Systems Review of Systems: Yes all other systems are reviewed and are negative Physical Exam 2 Vital Signs: Vital Signs: Last Vital Signs Temp 97.5 F 06/23/23 07:42 Pulse 85 06/23/23 07:42 Resp 20 06/23/23 07:42 BP 130/83 06/23/23 07:42 Pulse Ox 99 06/23/23 07:42 O2 Del Method Room Air 06/23/23 07:42 BMI result Body Mass Index 36.8 Const: Other: Constitutional : Awake, interactive, not in distress Neck : Normal inspection, Supple Cardiovascular : RRR, no JVP, +1 bilateral lower extremity edema Respiratory : good bilateral air entry, no crackles, wheezes or rhonchi Gastrointestinal: soft, lax, Normal bowel sounds, Non tender Skin : Warm, Dry Neurological : Alert & oriented x3, No focal deficit Objective Data Active Medications Acetaminophen (Acetaminophen 325 Mg Tablet) 650 mg PO Q6H PRN PRN Reason: Pain, Mild (Pain Scale 1-3) Last Admin: 06/22/23 08:49 Dose: 650 mg Documented By: REBEL Acetaminophen (Acetaminophen Supp 650 Mg Supp.Rect) 650 mg [place] Q6H PRN PRN Reason: Pain, Mild (Pain Scale 1-3) Al Hydroxide/Mg Hydroxide (Magnesium Hydrox/Alum Hydrox 30 Ml Oral.Susp) 30 ml PO Q4H PRN PRN Reason: Heartburn/Nausea Last Admin: 06/11/23 19:58 Dose: 30 ml Documented By: NATE Aspirin (Aspirin Enteric Coated 81 Mg Tablet.) 81 mg PO DAILY [facility] Last Admin: 06/23/23 08:00 Dose: 81 mg Documented By: REBEL Atorvastatin Calcium (Atorvastatin Calcium 80 Mg Tablet) 80 mg PO DAILY [facility] Last Admin: 06/23/23 08:00 Dose: 80 mg Documented By: REBEL Benzocaine (Throat Lozenge, Medicated Lozenge) 1 lozenge MUCOUS MEM Q2H PRN PRN Reason: Sore Throat Last Admin: 06/17/23 08:45 Dose: 1 lozenge Documented By: PRITSEH Bisacodyl (Bisacodyl 5 Mg Tablet.) 10 mg PO DAILY PRN PRN Reason: Constipation Last Admin: 06/14/23 09:21 Dose: 10 mg Documented By: DEMETRIO Clopidogrel Bisulfate (Clopidogrel Bisulfate 75 Mg Tablet) 75 mg PO DAILY [facility] Last Admin: 06/23/23 08:00 Dose: 75 mg Documented By: REBEL Enoxaparin Sodium (Enoxaparin Sodium 40 Mg/0.4 Ml Syringe) 40 mg SUBCUT Q24H [facility] Last Admin: 06/23/23 05:26 Dose: 40 mg Documented By: VEGA Hydroxyzine HCl (Hydroxyzine Hcl 50 Mg Tablet) 50 mg PO QID PRN PRN Reason: Anxiety Last Admin: 06/17/23 08:45 Dose: 50 mg Documented By: PONCE-MONICA Lisinopril (Lisinopril 10 Mg Tablet) 10 mg PO DAILY [facility]; Protocol Last Admin: 06/23/23 08:00 Dose: 10 mg Documented By: REBEL Melatonin (Melatonin 3 Mg Tablet) 6 mg PO BEDTIME PRN PRN Reason: Insomnia Last Admin: 06/15/23 21:03 Dose: 6 mg Documented By: RUEL Mirtazapine (Mirtazapine 7.5 Mg Tablet) 7.5 mg PO BEDTIME [facility] Last Admin: 06/23/23 00:02 Dose: 7.5 mg Documented By: VEGA Nicotine Polacrilex (Nicotine Polacrilex 2 Mg Gum) 2 mg BUCCAL Q2H PRN PRN Reason: Nicotine Cravings Ondansetron HCl (Ondansetron Hcl 4 Mg/2 Ml Vial) 4 mg IVPUSH Q8H PRN PRN Reason: Nausea and Vomiting Polyethylene Glycol (Polyethylene Glycol 3350 17 Gm Powd.Pack) 17 gm PO BID [facility] Last Admin: 06/23/23 08:00 Dose: 17 gm Documented By: REBEL Sodium Chloride (0.9 % Sodium Chloride Flush 3 Ml Syringe) 3 ml IVFLUSH QSHIFT [facility] Last Admin: 06/23/23 08:00 Dose: 3 ml Documented By: REBEL Labs 06/04/23 07:58 06/23/23 05:56 Labs: Laboratory Results - last 24 hr 06/23/23 05:56 Anion Gap 13 Estim Creat Clear Calc 120.0 Estimated GFR > 60 Random Glucose 96 Calcium 9.2 B-Natriuretic Peptide 11 Assessment and Plan (1) Physical deconditioning: Status: Acute (2) Posterior circulation stroke: Status: Acute Plan 63M PMH obesity, depression with suicide attempts leading to hospitalization at [facility], htn, presented with dizziness, concern for posterior cva Acute stroke w posterior cva improved symptoms, more steady on his feet CTA done showed occlusion of the V4 segment of the proximal vertebral artery MRI showing small infarct in left lateral medullary Echo within normal values Neurology input appreciated aspirin, plavix and atorvastatin Lower extremities edema 2/2 Fluid overload Lasix 20 mg once today Monitor response Hypertension better controlled Increased Lisinopril to 10mg daily sore throat lozenges depression with recent Suicide attempt reports 2 attempts in as many weeks, denies any thoughts or plans now. was recently admitted to [facility] hospital Care team did not feel he need psychiatric unit admission, not suicidal, dc'd sitter. Camera monitoring discontinued Obesity BMI 36.8 encourage weight loss dvt porphylaxis - lovenox full code reason for continued hospitalization: Pending safe discharge plan to SNF per PT recommendations pending accepting facility. Quality Stroke Does the patient have a stroke diagnosis?: Yes Reason for No Anti-thrombotic by Day Two: N/A - Med Ordered VTE Prior VTE?: No VTE Risk Level:: Medical - moderate - high VTE Device Contraindication: N/A - Device Ordered VTE Drug Contraindication: N/A - Med Ordered
[2023-06-23] MEDS: Furosemide 20 MG TABLET PO (11:18)
[2023-06-23] MEDS: Melatonin 3 MG TABLET 6 MG PO (20:40)
[2023-06-24 03:30] VITALS: BP 122/66; PULSE 78; RESP 16; TEMP 36.4; O2SAT 96
[2023-06-24] MEDS: Enoxaparin Sodium 40 MG/0.4 ML SYRINGE SUBCUT (05:05)
[2023-06-24 07:19] VITALS: BP 128/69; PULSE 76; RESP 18; TEMP 36.1; O2SAT 95
[2023-06-24] MEDS: lisinopriL 10 MG TABLET PO (08:30)
[2023-06-24] MEDS: polyethylene glycoL 3350 17 GM POWD.PACK PO (08:31)
[2023-06-24] MEDS: Atorvastatin Calcium 80 MG TABLET PO (08:31)
[2023-06-24] MEDS: 0.9 % Sodium Chloride Flush 3 ML SYRINGE IVFLUSH ×2 (08:31→15:37)
[2023-06-24] MEDS: Clopidogrel Bisulfate 75 MG TABLET PO (08:31)
[2023-06-24] MEDS: Aspirin Enteric Coated 81 MG TABLET.DR PO (08:31)
--- NOTE | 2023-06-24 10:31 | HO.PM.IMPN ---
Subjective Subjective Date of Service: 06/24/23 Interval History: Seen and evaluated feels comfortable , denies any weakness LEs edema No reported overnight events Review of Systems Review of Systems: Yes all other systems are reviewed and are negative Physical Exam Vital Signs: Vital Signs: Last Vital Signs Temp 97.0 F 06/24/23 07:19 Pulse 76 06/24/23 07:19 Resp 18 06/24/23 07:19 BP 128/69 06/24/23 07:19 Pulse Ox 95 06/24/23 07:19 O2 Del Method Room Air 06/24/23 07:19 BMI result Body Mass Index 36.8 Const: Other: Constitutional : Awake, interactive, not in distress Neck : Normal inspection, Supple Cardiovascular : RRR, no JVP, trace bilateral lower extremity edema Respiratory : good bilateral air entry, no crackles, wheezes or rhonchi Gastrointestinal: soft, lax, Normal bowel sounds, Non tender Skin : Warm, Dry Neurological : Alert & oriented x3, No focal deficit Objective Data Active Medications Acetaminophen (Acetaminophen 325 Mg Tablet) 650 mg PO Q6H PRN PRN Reason: Pain, Mild (Pain Scale 1-3) Last Admin: 06/22/23 08:49 Dose: 650 mg Documented By: REBEL Acetaminophen (Acetaminophen Supp 650 Mg Supp.Rect) 650 mg [place] Q6H PRN PRN Reason: Pain, Mild (Pain Scale 1-3) Al Hydroxide/Mg Hydroxide (Magnesium Hydrox/Alum Hydrox 30 Ml Oral.Susp) 30 ml PO Q4H PRN PRN Reason: Heartburn/Nausea Last Admin: 06/11/23 19:58 Dose: 30 ml Documented By: NATE Aspirin (Aspirin Enteric Coated 81 Mg Tablet.) 81 mg PO DAILY [facility] Last Admin: 06/24/23 08:31 Dose: 81 mg Documented By: CLARIBEL Atorvastatin Calcium (Atorvastatin Calcium 80 Mg Tablet) 80 mg PO DAILY [facility] Last Admin: 06/24/23 08:31 Dose: 80 mg Documented By: CLARIBEL Benzocaine (Throat Lozenge, Medicated Lozenge) 1 lozenge MUCOUS MEM Q2H PRN PRN Reason: Sore Throat Last Admin: 06/17/23 08:45 Dose: 1 lozenge Documented By: PRITESH Bisacodyl (Bisacodyl 5 Mg Tablet.) 10 mg PO DAILY PRN PRN Reason: Constipation Last Admin: 06/14/23 09:21 Dose: 10 mg Documented By: DEMETRIO Clopidogrel Bisulfate (Clopidogrel Bisulfate 75 Mg Tablet) 75 mg PO DAILY [facility] Last Admin: 06/24/23 08:31 Dose: 75 mg Documented By: CLARIBEL Enoxaparin Sodium (Enoxaparin Sodium 40 Mg/0.4 Ml Syringe) 40 mg SUBCUT Q24H [facility] Last Admin: 06/24/23 05:05 Dose: 40 mg Documented By: NATE Hydroxyzine HCl (Hydroxyzine Hcl 50 Mg Tablet) 50 mg PO QID PRN PRN Reason: Anxiety Last Admin: 06/17/23 08:45 Dose: 50 mg Documented By: PONCE-MONICA Lisinopril (Lisinopril 10 Mg Tablet) 10 mg PO DAILY [facility]; Protocol Last Admin: 06/24/23 08:30 Dose: 10 mg Documented By: CLARIBEL Melatonin (Melatonin 3 Mg Tablet) 6 mg PO BEDTIME PRN PRN Reason: Insomnia Last Admin: 06/23/23 20:40 Dose: 6 mg Documented By: NATE Mirtazapine (Mirtazapine 7.5 Mg Tablet) 7.5 mg PO BEDTIME [facility] Last Admin: 06/23/23 20:40 Dose: 7.5 mg Documented By: NATE Nicotine Polacrilex (Nicotine Polacrilex 2 Mg Gum) 2 mg BUCCAL Q2H PRN PRN Reason: Nicotine Cravings Ondansetron HCl (Ondansetron Hcl 4 Mg/2 Ml Vial) 4 mg IVPUSH Q8H PRN PRN Reason: Nausea and Vomiting Polyethylene Glycol (Polyethylene Glycol 3350 17 Gm Powd.Pack) 17 gm PO BID [facility] Last Admin: 06/24/23 08:31 Dose: 17 gm Documented By: CLARIBEL Sodium Chloride (0.9 % Sodium Chloride Flush 3 Ml Syringe) 3 ml IVFLUSH QSHIFT [facility] Last Admin: 06/24/23 08:31 Dose: 3 ml Documented By: CLARIBEL Labs 06/04/23 07:58 06/23/23 05:56 Assessment and Plan (1) Physical deconditioning: Status: Acute (2) Posterior circulation stroke: Status: Acute Plan 63M PMH obesity, depression with suicide attempts leading to hospitalization at [facility], htn, presented with dizziness, concern for posterior cva Acute stroke w posterior cva improved symptoms, more steady on his feet CTA done showed occlusion of the V4 segment of the proximal vertebral artery MRI showing small infarct in left lateral medullary Echo within normal values Neurology input appreciated aspirin, plavix and atorvastatin Lower extremities edema 2/2 Fluid overload Improved, Hold on lasx today Monitor response Hypertension better controlled Increased Lisinopril to 10mg daily sore throat lozenges depression with recent Suicide attempt reports 2 attempts in as many weeks, denies any thoughts or plans now. was recently admitted to [facility] Care team did not feel he need psychiatric unit admission, not suicidal, dc'd sitter. Camera monitoring discontinued Obesity BMI 36.8 encourage weight loss dvt porphylaxis - lovenox full code reason for continued hospitalization: Pending safe discharge plan to SNF per PT recommendations pending accepting facility. Quality Stroke Does the patient have a stroke diagnosis?: Yes Reason for No Anti-thrombotic by Day Two: N/A - Med Ordered VTE Prior VTE?: No VTE Risk Level:: Medical - moderate - high VTE Device Contraindication: N/A - Device Ordered VTE Drug Contraindication: N/A - Med Ordered
[2023-06-24 11:07] VITALS: BP 116/58; PULSE 78; RESP 18; TEMP 36.2; O2SAT 98
[2023-06-24 15:39] VITALS: BP 108/75; PULSE 84; RESP 16; TEMP 36.4; O2SAT 96
[2023-06-24 19:37] VITALS: BP 142/75; PULSE 79; RESP 18; TEMP 36.1; O2SAT 97
[2023-06-24] MEDS: Mirtazapine 7.5 MG TABLET PO (20:48)
[2023-06-25] VITALS (8 sets, daily range): BP systolic 102–135; BP diastolic 64–82; PULSE 80–92; RESP 16–20; TEMP 36.1–37; O2SAT 96–99
[2023-06-25] MEDS: Enoxaparin Sodium 40 MG/0.4 ML SYRINGE SUBCUT (06:00)
[2023-06-25] MEDS: Aspirin Enteric Coated 81 MG TABLET.DR PO (09:19)
[2023-06-25] MEDS: lisinopriL 10 MG TABLET PO (09:19)
[2023-06-25] MEDS: Atorvastatin Calcium 80 MG TABLET PO (09:19)
[2023-06-25] MEDS: polyethylene glycoL 3350 17 GM POWD.PACK PO (09:20)
[2023-06-25] MEDS: 0.9 % Sodium Chloride Flush 3 ML SYRINGE IVFLUSH ×2 (09:20→17:09)
[2023-06-25] MEDS: Clopidogrel Bisulfate 75 MG TABLET PO (09:20)
[2023-06-25] MEDS: Furosemide 20 MG TABLET PO (09:20)
--- NOTE | 2023-06-25 10:29 | P.PNIM_ITS ---
Subjective Subjective Date of Service: 06/25/23 Interval History: Seen and evaluated feels comfortable , denies any weakness LEs mild edema No reported overnight events Review of Systems Review of Systems: Yes all other systems are reviewed and are negative Physical Exam 2 Vital Signs: Vital Signs: Last Vital Signs Temp 98.3 F 06/25/23 07:19 Pulse 80 06/25/23 07:19 Resp 18 06/25/23 07:19 BP 127/76 06/25/23 07:19 Pulse Ox 97 06/25/23 07:19 O2 Del Method Room Air 06/25/23 07:19 BMI result Body Mass Index 36.8 Const: Other: Constitutional : Awake, interactive, not in distress Neck : Normal inspection, Supple Cardiovascular : RRR, no JVP, +1 bilateral lower extremity edema Respiratory : good bilateral air entry, no crackles, wheezes or rhonchi Gastrointestinal: soft, lax, Normal bowel sounds, Non tender Skin : Warm, Dry Neurological : Alert & oriented x3, No focal deficit Objective Data Active Medications Acetaminophen (Acetaminophen 325 Mg Tablet) 650 mg PO Q6H PRN PRN Reason: Pain, Mild (Pain Scale 1-3) Last Admin: 06/22/23 08:49 Dose: 650 mg Documented By: REBEL Acetaminophen (Acetaminophen Supp 650 Mg Supp.Rect) 650 mg [place] Q6H PRN PRN Reason: Pain, Mild (Pain Scale 1-3) Al Hydroxide/Mg Hydroxide (Magnesium Hydrox/Alum Hydrox 30 Ml Oral.Susp) 30 ml PO Q4H PRN PRN Reason: Heartburn/Nausea Last Admin: 06/11/23 19:58 Dose: 30 ml Documented By: NATE Aspirin (Aspirin Enteric Coated 81 Mg Tablet.) 81 mg PO DAILY [facility] Last Admin: 06/25/23 09:19 Dose: 81 mg Documented By: TYLER Atorvastatin Calcium (Atorvastatin Calcium 80 Mg Tablet) 80 mg PO DAILY [facility] Last Admin: 06/25/23 09:19 Dose: 80 mg Documented By: TYLER Benzocaine (Throat Lozenge, Medicated Lozenge) 1 lozenge MUCOUS MEM Q2H PRN PRN Reason: Sore Throat Last Admin: 06/17/23 08:45 Dose: 1 lozenge Documented By: PRITESH Bisacodyl (Bisacodyl 5 Mg Tablet.) 10 mg PO DAILY PRN PRN Reason: Constipation Last Admin: 06/14/23 09:21 Dose: 10 mg Documented By: DEMETRIO Clopidogrel Bisulfate (Clopidogrel Bisulfate 75 Mg Tablet) 75 mg PO DAILY [facility] Last Admin: 06/25/23 09:20 Dose: 75 mg Documented By: TYLER Enoxaparin Sodium (Enoxaparin Sodium 40 Mg/0.4 Ml Syringe) 40 mg SUBCUT Q24H [facility] Last Admin: 06/25/23 06:00 Dose: 40 mg Documented By: NATE Furosemide (Furosemide 20 Mg Tablet) 20 mg PO DAILY [facility]; Protocol Last Admin: 06/25/23 09:20 Dose: 20 mg Documented By: TYLER Hydroxyzine HCl (Hydroxyzine Hcl 50 Mg Tablet) 50 mg PO QID PRN PRN Reason: Anxiety Last Admin: 06/17/23 08:45 Dose: 50 mg Documented By: PONCE-MONICA Lisinopril (Lisinopril 10 Mg Tablet) 10 mg PO DAILY [facility]; Protocol Last Admin: 06/25/23 09:19 Dose: 10 mg Documented By: TYLER Melatonin (Melatonin 3 Mg Tablet) 6 mg PO BEDTIME PRN PRN Reason: Insomnia Last Admin: 06/23/23 20:40 Dose: 6 mg Documented By: NATE Mirtazapine (Mirtazapine 7.5 Mg Tablet) 7.5 mg PO BEDTIME [facility] Last Admin: 06/24/23 20:48 Dose: 7.5 mg Documented By: CHANO Nicotine Polacrilex (Nicotine Polacrilex 2 Mg Gum) 2 mg BUCCAL Q2H PRN PRN Reason: Nicotine Cravings Ondansetron HCl (Ondansetron Hcl 4 Mg/2 Ml Vial) 4 mg IVPUSH Q8H PRN PRN Reason: Nausea and Vomiting Polyethylene Glycol (Polyethylene Glycol 3350 17 Gm Powd.Pack) 17 gm PO BID [facility] Last Admin: 06/25/23 09:20 Dose: 17 gm Documented By: TYLER Sodium Chloride (0.9 % Sodium Chloride Flush 3 Ml Syringe) 3 ml IVFLUSH QSHIFT [facility] Last Admin: 06/25/23 09:20 Dose: 3 ml Documented By: TYLER Labs 06/04/23 07:58 06/23/23 05:56 Assessment and Plan (1) Physical deconditioning: Status: Acute (2) Posterior circulation stroke: Status: Acute Plan 63M PMH obesity, depression with suicide attempts leading to hospitalization at [facility], htn, presented with dizziness, concern for posterior cva Acute stroke w posterior cva improved symptoms, more steady on his feet CTA done showed occlusion of the V4 segment of the proximal vertebral artery MRI showing small infarct in left lateral medullary Neurology input appreciated aspirin, plavix and atorvastatin Lower extremities edema 2/2 Fluid overload Echo within normal values, mild LVH start Lasix 20 mg daily Monitor response Hypertension better controlled Increased Lisinopril to 10mg daily sore throat lozenges depression with recent Suicide attempt reports 2 attempts in as many weeks, denies any thoughts or plans now. was recently admitted to [facility] hospital Care team did not feel he need psychiatric unit admission, not suicidal, dc'd sitter. Camera monitoring discontinued Obesity BMI 36.8 encourage weight loss dvt porphylaxis - lovenox full code reason for continued hospitalization: Pending safe discharge plan to SNF per PT recommendations pending accepting facility. Quality Stroke Does the patient have a stroke diagnosis?: Yes Reason for No Anti-thrombotic by Day Two: N/A - Med Ordered VTE Prior VTE?: No VTE Risk Level:: Medical - moderate - high VTE Device Contraindication: N/A - Device Ordered VTE Drug Contraindication: N/A - Med Ordered
--- NOTE | 2023-06-25 11:17 | MHC.CM.PN ---
[facility], [facility] and [facility] have been updated and continue to follow.CM will follow.
[2023-06-25] MEDS: Mirtazapine 7.5 MG TABLET PO (22:00)
[2023-06-26] VITALS (7 sets, daily range): BP systolic 114–130; BP diastolic 69–86; PULSE 73–82; RESP 16–20; TEMP 36.2–36.8; O2SAT 95–100
[2023-06-26] MEDS: Enoxaparin Sodium 40 MG/0.4 ML SYRINGE SUBCUT (06:43)
[2023-06-26] MEDS: Aspirin Enteric Coated 81 MG TABLET.DR PO (09:22)
[2023-06-26] MEDS: lisinopriL 10 MG TABLET PO (09:22)
[2023-06-26] MEDS: Clopidogrel Bisulfate 75 MG TABLET PO (09:22)
[2023-06-26] MEDS: 0.9 % Sodium Chloride Flush 3 ML SYRINGE IVFLUSH ×2 (09:22→17:02)
[2023-06-26] MEDS: Atorvastatin Calcium 80 MG TABLET PO (09:22)
[2023-06-26] MEDS: Furosemide 20 MG TABLET PO (09:22)
[2023-06-26] MEDS: polyethylene glycoL 3350 17 GM POWD.PACK PO (09:22)
--- NOTE | 2023-06-26 10:16 | HO.PM.IMPN ---
Subjective Subjective Date of Service: 06/26/23 Interval History: no complaints Physical Exam Vital Signs: Vital Signs: Last Vital Signs Temp 97.6 F 06/26/23 08:00 Pulse 81 06/26/23 08:00 Resp 20 06/26/23 08:00 BP 117/77 06/26/23 08:00 Pulse Ox 95 06/26/23 04:00 O2 Del Method Room Air 06/26/23 08:00 BMI result Body Mass Index 36.8 Const: Other: Constitutional : Awake, interactive, not in distress Neck : Normal inspection, Supple Cardiovascular : RRR, no JVP, +1 bilateral lower extremity edema Respiratory : good bilateral air entry, no crackles, wheezes or rhonchi Gastrointestinal: soft, lax, Normal bowel sounds, Non tender Skin : Warm, Dry Neurological : Alert & oriented x3, No focal deficit Objective Data Active Medications Acetaminophen (Acetaminophen 325 Mg Tablet) 650 mg PO Q6H PRN PRN Reason: Pain, Mild (Pain Scale 1-3) Last Admin: 06/22/23 08:49 Dose: 650 mg Documented By: REBEL Acetaminophen (Acetaminophen Supp 650 Mg Supp.Rect) 650 mg [place] Q6H PRN PRN Reason: Pain, Mild (Pain Scale 1-3) Al Hydroxide/Mg Hydroxide (Magnesium Hydrox/Alum Hydrox 30 Ml Oral.Susp) 30 ml PO Q4H PRN PRN Reason: Heartburn/Nausea Last Admin: 06/11/23 19:58 Dose: 30 ml Documented By: NATE Aspirin (Aspirin Enteric Coated 81 Mg Tablet.) 81 mg PO DAILY [facility] Last Admin: 06/26/23 09:22 Dose: 81 mg Documented By: BRIGITTE Atorvastatin Calcium (Atorvastatin Calcium 80 Mg Tablet) 80 mg PO DAILY [facility] Last Admin: 06/26/23 09:22 Dose: 80 mg Documented By: BRIGITTE Benzocaine (Throat Lozenge, Medicated Lozenge) 1 lozenge MUCOUS MEM Q2H PRN PRN Reason: Sore Throat Last Admin: 06/17/23 08:45 Dose: 1 lozenge Documented By: PONCE-RIVSHMUEL Bisacodyl (Bisacodyl 5 Mg Tablet.) 10 mg PO DAILY PRN PRN Reason: Constipation Last Admin: 06/14/23 09:21 Dose: 10 mg Documented By: DEMETRIO Clopidogrel Bisulfate (Clopidogrel Bisulfate 75 Mg Tablet) 75 mg PO DAILY [facility] Last Admin: 06/26/23 09:22 Dose: 75 mg Documented By: BRIGITTE Enoxaparin Sodium (Enoxaparin Sodium 40 Mg/0.4 Ml Syringe) 40 mg SUBCUT Q24H [facility] Last Admin: 06/26/23 06:43 Dose: 40 mg Documented By: HARRIET Furosemide (Furosemide 20 Mg Tablet) 20 mg PO DAILY [facility]; Protocol Last Admin: 06/26/23 09:22 Dose: 20 mg Documented By: BRIGITTE Hydroxyzine HCl (Hydroxyzine Hcl 50 Mg Tablet) 50 mg PO QID PRN PRN Reason: Anxiety Last Admin: 06/17/23 08:45 Dose: 50 mg Documented By: PONCE-MONICA Lisinopril (Lisinopril 10 Mg Tablet) 10 mg PO DAILY [facility]; Protocol Last Admin: 06/26/23 09:22 Dose: 10 mg Documented By: BRIGITTE Melatonin (Melatonin 3 Mg Tablet) 6 mg PO BEDTIME PRN PRN Reason: Insomnia Last Admin: 06/23/23 20:40 Dose: 6 mg Documented By: NATE Mirtazapine (Mirtazapine 7.5 Mg Tablet) 7.5 mg PO BEDTIME [facility] Last Admin: 06/25/23 22:00 Dose: 7.5 mg Documented By: CHANO Nicotine Polacrilex (Nicotine Polacrilex 2 Mg Gum) 2 mg BUCCAL Q2H PRN PRN Reason: Nicotine Cravings Ondansetron HCl (Ondansetron Hcl 4 Mg/2 Ml Vial) 4 mg IVPUSH Q8H PRN PRN Reason: Nausea and Vomiting Polyethylene Glycol (Polyethylene Glycol 3350 17 Gm Powd.Pack) 17 gm PO BID [facility] Last Admin: 06/26/23 09:22 Dose: 17 gm Documented By: BRIGITTE Sodium Chloride (0.9 % Sodium Chloride Flush 3 Ml Syringe) 3 ml IVFLUSH QSHIFT [facility] Last Admin: 06/26/23 09:22 Dose: 3 ml Documented By: BRIGITTE Labs 06/04/23 07:58 06/23/23 05:56 Assessment and Plan (1) Physical deconditioning: Status: Acute (2) Posterior circulation stroke: Status: Acute Plan 63M PMH obesity, depression with suicide attempts leading to hospitalization at [facility], htn, presented with dizziness, concern for posterior cva Acute stroke w posterior cva improved symptoms, more steady on his feet CTA done showed occlusion of the V4 segment of the proximal vertebral artery MRI showing small infarct in left lateral medullary Neurology input appreciated aspirin, plavix and atorvastatin Lower extremities edema 2/2 Fluid overload Echo within normal values, mild LVH start Lasix 20 mg daily Monitor response Hypertension better controlled Increased Lisinopril to 10mg daily sore throat lozenges depression with recent Suicide attempt reports 2 attempts in as many weeks, denies any thoughts or plans now. was recently admitted to [facility] Care team did not feel he need psychiatric unit admission, not suicidal, dc'd sitter. Camera monitoring discontinued Obesity BMI 36.8 encourage weight loss dvt porphylaxis - lovenox full code reason for continued hospitalization: Pending safe discharge plan to SNF per PT recommendations pending accepting facility. Quality Stroke Does the patient have a stroke diagnosis?: Yes Reason for No Anti-thrombotic by Day Two: N/A - Med Ordered VTE Prior VTE?: No VTE Risk Level:: Medical - moderate - high VTE Device Contraindication: N/A - Device Ordered VTE Drug Contraindication: N/A - Med Ordered
[2023-06-27 03:48] VITALS: BP 125/79; PULSE 80; RESP 20; TEMP 36.2; O2SAT 98
[2023-06-27 07:27] VITALS: BP 130/78; PULSE 79; RESP 18; TEMP 36.8; O2SAT 95
[2023-06-27] MEDS: Aspirin Enteric Coated 81 MG TABLET.DR PO (07:57)
[2023-06-27] MEDS: polyethylene glycoL 3350 17 GM POWD.PACK PO (07:57)
[2023-06-27] MEDS: Furosemide 20 MG TABLET PO (07:58)
[2023-06-27] MEDS: lisinopriL 10 MG TABLET PO (07:58)
[2023-06-27] MEDS: 0.9 % Sodium Chloride Flush 3 ML SYRINGE IVFLUSH (07:58)
--- NOTE | 2023-06-27 08:54 | HO.PM.IMPN ---
Subjective Subjective Date of Service: 06/27/23 Interval History: no complaints Physical Exam Vital Signs: Vital Signs: Last Vital Signs Temp 98.2 F 06/27/23 07:27 Pulse 79 06/27/23 07:27 Resp 18 06/27/23 07:27 BP 130/78 06/27/23 07:27 Pulse Ox 95 06/27/23 07:27 O2 Del Method Room Air 06/27/23 07:27 BMI result Body Mass Index 36.8 Const: Other: Constitutional : Awake, interactive, not in distress Neck : Normal inspection, Supple Cardiovascular : RRR, no JVP, +1 bilateral lower extremity edema Respiratory : good bilateral air entry, no crackles, wheezes or rhonchi Gastrointestinal: soft, lax, Normal bowel sounds, Non tender Skin : Warm, Dry Neurological : Alert & oriented x3, No focal deficit Objective Data Active Medications Acetaminophen (Acetaminophen 325 Mg Tablet) 650 mg PO Q6H PRN PRN Reason: Pain, Mild (Pain Scale 1-3) Last Admin: 06/22/23 08:49 Dose: 650 mg Documented By: REBEL Acetaminophen (Acetaminophen Supp 650 Mg Supp.Rect) 650 mg [place] Q6H PRN PRN Reason: Pain, Mild (Pain Scale 1-3) Al Hydroxide/Mg Hydroxide (Magnesium Hydrox/Alum Hydrox 30 Ml Oral.Susp) 30 ml PO Q4H PRN PRN Reason: Heartburn/Nausea Last Admin: 06/11/23 19:58 Dose: 30 ml Documented By: NATE Aspirin (Aspirin Enteric Coated 81 Mg Tablet.) 81 mg PO DAILY [facility] Last Admin: 06/27/23 07:57 Dose: 81 mg Documented By: GABO Atorvastatin Calcium (Atorvastatin Calcium 80 Mg Tablet) 80 mg PO DAILY [facility] Last Admin: 06/27/23 07:58 Dose: 80 mg Documented By: GABO Benzocaine (Throat Lozenge, Medicated Lozenge) 1 lozenge MUCOUS MEM Q2H PRN PRN Reason: Sore Throat Last Admin: 06/17/23 08:45 Dose: 1 lozenge Documented By: PRITESH Bisacodyl (Bisacodyl 5 Mg Tablet.) 10 mg PO DAILY PRN PRN Reason: Constipation Last Admin: 06/14/23 09:21 Dose: 10 mg Documented By: DEMETRIO Clopidogrel Bisulfate (Clopidogrel Bisulfate 75 Mg Tablet) 75 mg PO DAILY [facility] Last Admin: 06/27/23 07:58 Dose: 75 mg Documented By: GABO Enoxaparin Sodium (Enoxaparin Sodium 40 Mg/0.4 Ml Syringe) 40 mg SUBCUT Q24H [facility] Last Admin: 06/27/23 05:59 Dose: 40 mg Documented By: ANTOIC Furosemide (Furosemide 20 Mg Tablet) 20 mg PO DAILY [facility]; Protocol Last Admin: 06/27/23 07:58 Dose: 20 mg Documented By: GABO Hydroxyzine HCl (Hydroxyzine Hcl 50 Mg Tablet) 50 mg PO QID PRN PRN Reason: Anxiety Last Admin: 06/17/23 08:45 Dose: 50 mg Documented By: PONCE-RIVSHMUEL Lisinopril (Lisinopril 10 Mg Tablet) 10 mg PO DAILY [facility]; Protocol Last Admin: 06/27/23 07:58 Dose: 10 mg Documented By: GABO Melatonin (Melatonin 3 Mg Tablet) 6 mg PO BEDTIME PRN PRN Reason: Insomnia Last Admin: 06/23/23 20:40 Dose: 6 mg Documented By: NATE Mirtazapine (Mirtazapine 7.5 Mg Tablet) 7.5 mg PO BEDTIME [facility] Last Admin: 06/26/23 20:11 Dose: 7.5 mg Documented By: ZAHRA Nicotine Polacrilex (Nicotine Polacrilex 2 Mg Gum) 2 mg BUCCAL Q2H PRN PRN Reason: Nicotine Cravings Ondansetron HCl (Ondansetron Hcl 4 Mg/2 Ml Vial) 4 mg IVPUSH Q8H PRN PRN Reason: Nausea and Vomiting Polyethylene Glycol (Polyethylene Glycol 3350 17 Gm Powd.Pack) 17 gm PO BID [facility] Last Admin: 06/27/23 07:57 Dose: 17 gm Documented By: GABO Sodium Chloride (0.9 % Sodium Chloride Flush 3 Ml Syringe) 3 ml IVFLUSH QSHIFT [facility] Last Admin: 06/27/23 07:58 Dose: 3 ml Documented By: GABO Labs 06/04/23 07:58 06/23/23 05:56 Assessment and Plan (1) Physical deconditioning: Status: Acute (2) Posterior circulation stroke: Status: Acute Plan 63M PMH obesity, depression with suicide attempts leading to hospitalization at [facility], htn, presented with dizziness, concern for posterior cva Acute stroke w posterior cva improved symptoms, more steady on his feet CTA done showed occlusion of the V4 segment of the proximal vertebral artery MRI showing small infarct in left lateral medullary Neurology input appreciated aspirin, plavix and atorvastatin Lower extremities edema 2/2 Fluid overload Echo within normal values, mild LVH start Lasix 20 mg daily Monitor response Hypertension better controlled Increased Lisinopril to 10mg daily sore throat lozenges depression with recent Suicide attempt reports 2 attempts in as many weeks, denies any thoughts or plans now. was recently admitted to [facility] Care team did not feel he need psychiatric unit admission, not suicidal, dc'd sitter. Camera monitoring discontinued Obesity BMI 36.8 encourage weight loss dvt porphylaxis - lovenox full code reason for continued hospitalization: Pending safe discharge plan to SNF per PT recommendations pending accepting facility. Quality Stroke Does the patient have a stroke diagnosis?: Yes Reason for No Anti-thrombotic by Day Two: N/A - Med Ordered VTE Prior VTE?: No VTE Risk Level:: Medical - moderate - high VTE Device Contraindication: N/A - Device Ordered VTE Drug Contraindication: N/A - Med Ordered
[2023-06-27 11:07] VITALS: BP 104/62; PULSE 86; RESP 18; TEMP 36.2; O2SAT 97
[2023-06-27 11:29] VITALS: BP 104/62; PULSE 86; O2SAT 97
--- NOTE | 2023-06-27 12:14 | MHC.CM.PN ---
CM met with Patient to update him on dc planning. PT is still recommending STR. Patient became homeless after his Roommate of 5 years and he could no longer afford the rent by himself. Patient has no family nor social supports. CM explained the extensive SNF search that is ongoing, yet still no bed offers. CM will continue to follow.
[2023-06-27 15:48] VITALS: BP 117/67; PULSE 88; RESP 16; TEMP 36.1; O2SAT 99
[2023-06-27 19:25] VITALS: BP 135/79; PULSE 91; RESP 18; TEMP 36.4; O2SAT 99
[2023-06-28] VITALS (7 sets, daily range): BP systolic 112–146; BP diastolic 66–83; PULSE 83–87; RESP 17–18; TEMP 36.1–36.6; O2SAT 97–99
[2023-06-28] MEDS: lisinopriL 10 MG TABLET PO (08:03)
[2023-06-28] MEDS: Aspirin Enteric Coated 81 MG TABLET.DR PO (08:03)
[2023-06-28] MEDS: Furosemide 20 MG TABLET PO (08:03)
--- NOTE | 2023-06-28 08:34 | MHC.CM.PN ---
Broad SNF search is ongoing,93 SNF denials. CM will follow.
--- NOTE | 2023-06-28 10:07 | HO.PM.IMPN ---
Subjective Subjective Date of Service: 06/28/23 Interval History: no complaints Physical Exam Vital Signs: Vital Signs: Last Vital Signs Temp 97.0 F 06/28/23 07:15 Pulse 87 06/28/23 07:15 Resp 18 06/28/23 07:15 BP 135/83 06/28/23 07:15 Pulse Ox 98 06/28/23 07:15 O2 Del Method Room Air 06/28/23 07:15 BMI result Body Mass Index 36.8 Const: Other: Constitutional : Awake, interactive, not in distress Neck : Normal inspection, Supple Cardiovascular : RRR, no JVP, +1 bilateral lower extremity edema Respiratory : good bilateral air entry, no crackles, wheezes or rhonchi Gastrointestinal: soft, lax, Normal bowel sounds, Non tender Skin : Warm, Dry Neurological : Alert & oriented x3, No focal deficit Objective Data Active Medications Acetaminophen (Acetaminophen 325 Mg Tablet) 650 mg PO Q6H PRN PRN Reason: Pain, Mild (Pain Scale 1-3) Last Admin: 06/22/23 08:49 Dose: 650 mg Documented By: REBEL Acetaminophen (Acetaminophen Supp 650 Mg Supp.Rect) 650 mg [place] Q6H PRN PRN Reason: Pain, Mild (Pain Scale 1-3) Al Hydroxide/Mg Hydroxide (Magnesium Hydrox/Alum Hydrox 30 Ml Oral.Susp) 30 ml PO Q4H PRN PRN Reason: Heartburn/Nausea Last Admin: 06/11/23 19:58 Dose: 30 ml Documented By: NATE Aspirin (Aspirin Enteric Coated 81 Mg Tablet.) 81 mg PO DAILY [facility] Last Admin: 06/28/23 08:03 Dose: 81 mg Documented By: BRIGITTE Atorvastatin Calcium (Atorvastatin Calcium 80 Mg Tablet) 80 mg PO DAILY [facility] Last Admin: 06/28/23 08:03 Dose: 80 mg Documented By: BRIGITTE Benzocaine (Throat Lozenge, Medicated Lozenge) 1 lozenge MUCOUS MEM Q2H PRN PRN Reason: Sore Throat Last Admin: 06/17/23 08:45 Dose: 1 lozenge Documented By: PONCE-RIVSHMUEL Bisacodyl (Bisacodyl 5 Mg Tablet.) 10 mg PO DAILY PRN PRN Reason: Constipation Last Admin: 06/14/23 09:21 Dose: 10 mg Documented By: DEMETRIO Clopidogrel Bisulfate (Clopidogrel Bisulfate 75 Mg Tablet) 75 mg PO DAILY [facility] Last Admin: 06/28/23 08:03 Dose: 75 mg Documented By: BRIGITTE Enoxaparin Sodium (Enoxaparin Sodium 40 Mg/0.4 Ml Syringe) 40 mg SUBCUT Q24H [facility] Last Admin: 06/28/23 06:21 Dose: 40 mg Documented By: VEGA Furosemide (Furosemide 20 Mg Tablet) 20 mg PO DAILY [facility]; Protocol Last Admin: 06/28/23 08:03 Dose: 20 mg Documented By: BRIGITTE Hydroxyzine HCl (Hydroxyzine Hcl 50 Mg Tablet) 50 mg PO QID PRN PRN Reason: Anxiety Last Admin: 06/17/23 08:45 Dose: 50 mg Documented By: PRITESH Lisinopril (Lisinopril 10 Mg Tablet) 10 mg PO DAILY [facility]; Protocol Last Admin: 06/28/23 08:03 Dose: 10 mg Documented By: BRIGITTE Melatonin (Melatonin 3 Mg Tablet) 6 mg PO BEDTIME PRN PRN Reason: Insomnia Last Admin: 06/23/23 20:40 Dose: 6 mg Documented By: NATE Mirtazapine (Mirtazapine 7.5 Mg Tablet) 7.5 mg PO BEDTIME [facility] Last Admin: 06/27/23 22:08 Dose: 7.5 mg Documented By: VEGA Nicotine Polacrilex (Nicotine Polacrilex 2 Mg Gum) 2 mg BUCCAL Q2H PRN PRN Reason: Nicotine Cravings Ondansetron HCl (Ondansetron Hcl 4 Mg/2 Ml Vial) 4 mg IVPUSH Q8H PRN PRN Reason: Nausea and Vomiting Polyethylene Glycol (Polyethylene Glycol 3350 17 Gm Powd.Pack) 17 gm PO BID [facility] Last Admin: 06/28/23 08:03 Dose: Not Given Documented By: BRIGITTE Non-Admin Reason: Patient Refused Sodium Chloride (0.9 % Sodium Chloride Flush 3 Ml Syringe) 3 ml IVFLUSH QSHIFT [facility] Last Admin: 06/28/23 08:03 Dose: 3 ml Documented By: BRIGITTE Labs 06/04/23 07:58 12/31/23 05:56 Assessment and Plan (1) Physical deconditioning: Status: Acute (2) Posterior circulation stroke: Status: Acute Plan 63M PMH obesity, depression with suicide attempts leading to hospitalization at [facility], htn, presented with dizziness, concern for posterior cva Acute stroke w posterior cva improved symptoms, more steady on his feet CTA done showed occlusion of the V4 segment of the proximal vertebral artery MRI showing small infarct in left lateral medullary Neurology input appreciated aspirin, plavix and atorvastatin Lower extremities edema 2/2 Fluid overload Echo within normal values, mild LVH start Lasix 20 mg daily Monitor response Hypertension better controlled Increased Lisinopril to 10mg daily sore throat lozenges depression with recent Suicide attempt reports 2 attempts in as many weeks, denies any thoughts or plans now. was recently admitted to [facility] Care team did not feel he need psychiatric unit admission, not suicidal, dc'd sitter. Camera monitoring discontinued Obesity BMI 36.8 encourage weight loss dvt porphylaxis - lovenox full code reason for continued hospitalization: Pending safe discharge plan to SNF per PT recommendations pending accepting facility. Quality Stroke Does the patient have a stroke diagnosis?: Yes Reason for No Anti-thrombotic by Day Two: N/A - Med Ordered VTE Prior VTE?: No VTE Risk Level:: Medical - moderate - high VTE Device Contraindication: N/A - Device Ordered VTE Drug Contraindication: N/A - Med Ordered
[2023-06-28] MEDS: Melatonin 3 MG TABLET 6 MG PO (20:32)
[2023-06-29] VITALS: BP 132/82; PULSE 78; RESP 20; TEMP 36.1; O2SAT 99
[2023-06-29 03:26] VITALS: BP 126/77; PULSE 84; RESP 20; TEMP 36.1; O2SAT 96
[2023-06-29 08:27] VITALS: BP 120/64; PULSE 77; RESP 20; TEMP 36.1; O2SAT 97
[2023-06-29] MEDS: lisinopriL 10 MG TABLET PO (09:54)
--- NOTE | 2023-06-29 11:04 | HO.PM.IMPN ---
Subjective Subjective Date of Service: 06/29/23 Interval History: no complaints Physical Exam Vital Signs: Vital Signs: Last Vital Signs Temp 97 F 06/29/23 08:27 Pulse 77 06/29/23 08:27 Resp 20 06/29/23 08:27 BP 120/64 06/29/23 08:27 Pulse Ox 97 06/29/23 08:27 O2 Del Method Room Air 06/29/23 08:27 BMI result Body Mass Index 36.8 Const: Other: Constitutional : Awake, interactive, not in distress Neck : Normal inspection, Supple Cardiovascular : RRR, no JVP, +1 bilateral lower extremity edema Respiratory : good bilateral air entry, no crackles, wheezes or rhonchi Gastrointestinal: soft, lax, Normal bowel sounds, Non tender Skin : Warm, Dry Neurological : Alert & oriented x3, No focal deficit Objective Data Active Medications Acetaminophen (Acetaminophen 325 Mg Tablet) 650 mg PO Q6H PRN PRN Reason: Pain, Mild (Pain Scale 1-3) Last Admin: 06/22/23 08:49 Dose: 650 mg Documented By: REBEL Acetaminophen (Acetaminophen Supp 650 Mg Supp.Rect) 650 mg [place] Q6H PRN PRN Reason: Pain, Mild (Pain Scale 1-3) Al Hydroxide/Mg Hydroxide (Magnesium Hydrox/Alum Hydrox 30 Ml Oral.Susp) 30 ml PO Q4H PRN PRN Reason: Heartburn/Nausea Last Admin: 06/11/23 19:58 Dose: 30 ml Documented By: NATE Aspirin (Aspirin Enteric Coated 81 Mg Tablet.) 81 mg PO DAILY [facility] Last Admin: 06/29/23 09:45 Dose: 81 mg Documented By: CLARIBEL Atorvastatin Calcium (Atorvastatin Calcium 80 Mg Tablet) 80 mg PO DAILY [facility] Last Admin: 06/29/23 09:45 Dose: 80 mg Documented By: CLARIBEL Benzocaine (Throat Lozenge, Medicated Lozenge) 1 lozenge MUCOUS MEM Q2H PRN PRN Reason: Sore Throat Last Admin: 06/17/23 08:45 Dose: 1 lozenge Documented By: PRITESH Bisacodyl (Bisacodyl 5 Mg Tablet.) 10 mg PO DAILY PRN PRN Reason: Constipation Last Admin: 06/14/23 09:21 Dose: 10 mg Documented By: DEMETRIO Clopidogrel Bisulfate (Clopidogrel Bisulfate 75 Mg Tablet) 75 mg PO DAILY [facility] Last Admin: 06/29/23 09:45 Dose: 75 mg Documented By: CLARIBEL Enoxaparin Sodium (Enoxaparin Sodium 40 Mg/0.4 Ml Syringe) 40 mg SUBCUT Q24H [facility] Last Admin: 06/29/23 05:37 Dose: 40 mg Documented By: NATE Furosemide (Furosemide 20 Mg Tablet) 20 mg PO DAILY [facility]; Protocol Last Admin: 06/29/23 09:45 Dose: 20 mg Documented By: CLARIBEL Hydroxyzine HCl (Hydroxyzine Hcl 50 Mg Tablet) 50 mg PO QID PRN PRN Reason: Anxiety Last Admin: 06/17/23 08:45 Dose: 50 mg Documented By: PRITESH Lisinopril (Lisinopril 10 Mg Tablet) 10 mg PO DAILY [facility]; Protocol Last Admin: 06/29/23 09:54 Dose: 10 mg Documented By: CLARIBEL Melatonin (Melatonin 3 Mg Tablet) 6 mg PO BEDTIME PRN PRN Reason: Insomnia Last Admin: 06/28/23 20:32 Dose: 6 mg Documented By: NATE Mirtazapine (Mirtazapine 7.5 Mg Tablet) 7.5 mg PO BEDTIME [facility] Last Admin: 06/28/23 20:32 Dose: 7.5 mg Documented By: NATE Nicotine Polacrilex (Nicotine Polacrilex 2 Mg Gum) 2 mg BUCCAL Q2H PRN PRN Reason: Nicotine Cravings Ondansetron HCl (Ondansetron Hcl 4 Mg/2 Ml Vial) 4 mg IVPUSH Q8H PRN PRN Reason: Nausea and Vomiting Polyethylene Glycol (Polyethylene Glycol 3350 17 Gm Powd.Pack) 17 gm PO BID [facility] Last Admin: 06/29/23 09:49 Dose: Not Given Documented By: CLARIBEL Non-Admin Reason: Patient Refused Sodium Chloride (0.9 % Sodium Chloride Flush 3 Ml Syringe) 3 ml IVFLUSH QSHIFT [facility] Last Admin: 06/29/23 09:45 Dose: Not Given Documented By: CLARIBEL Non-Admin Reason: No Access Labs 06/04/23 07:58 06/23/23 05:56 Assessment and Plan (1) Physical deconditioning: Status: Acute (2) Posterior circulation stroke: Status: Acute Plan 63M PMH obesity, depression with suicide attempts leading to hospitalization at [facility], htn, presented with dizziness, concern for posterior cva Acute stroke w posterior cva improved symptoms, more steady on his feet CTA done showed occlusion of the V4 segment of the proximal vertebral artery MRI showing small infarct in left lateral medullary Neurology input appreciated aspirin, plavix and atorvastatin Lower extremities edema 2/2 Fluid overload Echo within normal values, mild LVH start Lasix 20 mg daily Monitor response Hypertension better controlled Increased Lisinopril to 10mg daily sore throat lozenges depression with recent Suicide attempt reports 2 attempts in as many weeks, denies any thoughts or plans now. was recently admitted to [facility] hospital Care team did not feel he need psychiatric unit admission, not suicidal, dc'd sitter. Camera monitoring discontinued Obesity BMI 36.8 encourage weight loss dvt porphylaxis - lovenox full code reason for continued hospitalization: Pending safe discharge plan to SNF per PT recommendations pending accepting facility. Quality Stroke Does the patient have a stroke diagnosis?: Yes Reason for No Anti-thrombotic by Day Two: N/A - Med Ordered VTE Prior VTE?: No VTE Risk Level:: Medical - moderate - high VTE Device Contraindication: N/A - Device Ordered VTE Drug Contraindication: N/A - Med Ordered
[2023-06-29 13:45] VITALS: BP 111/65; PULSE 88; RESP 16; TEMP 36.1; O2SAT 98
[2023-06-29 16:00] VITALS: BP 120/73; PULSE 79; RESP 16; TEMP 36.6; O2SAT 98
[2023-06-29 20:00] VITALS: BP 112/66; PULSE 81; RESP 18; TEMP 36.7; O2SAT 96
[2023-06-29] MEDS: Melatonin 3 MG TABLET 6 MG PO (20:20)
[2023-06-30] VITALS (7 sets, daily range): BP systolic 109–134; BP diastolic 67–77; PULSE 66–93; RESP 16–20; TEMP 35.9–36.9; O2SAT 96–99
[2023-06-30] MEDS: lisinopriL 10 MG TABLET PO (08:32)
--- NOTE | 2023-06-30 09:45 | HO.PM.IMPN ---
Subjective Subjective Date of Service: 06/30/23 Interval History: no complaints Physical Exam Vital Signs: Vital Signs: Last Vital Signs Temp 97.9 F 06/30/23 07:26 Pulse 79 06/30/23 07:26 Resp 20 06/30/23 07:26 BP 125/74 06/30/23 07:26 Pulse Ox 99 06/30/23 07:26 O2 Del Method Room Air 06/30/23 07:26 BMI result Body Mass Index 36.8 Const: Other: Constitutional : Awake, interactive, not in distress Neck : Normal inspection, Supple Cardiovascular : RRR, no JVP, +1 bilateral lower extremity edema Respiratory : good bilateral air entry, no crackles, wheezes or rhonchi Gastrointestinal: soft, lax, Normal bowel sounds, Non tender Skin : Warm, Dry Neurological : Alert & oriented x3, No focal deficit Objective Data Active Medications Acetaminophen (Acetaminophen 325 Mg Tablet) 650 mg PO Q6H PRN PRN Reason: Pain, Mild (Pain Scale 1-3) Last Admin: 06/22/23 08:49 Dose: 650 mg Documented By: REBEL Acetaminophen (Acetaminophen Supp 650 Mg Supp.Rect) 650 mg HI Q6H PRN PRN Reason: Pain, Mild (Pain Scale 1-3) Al Hydroxide/Mg Hydroxide (Magnesium Hydrox/Alum Hydrox 30 Ml Oral.Susp) 30 ml PO Q4H PRN PRN Reason: Heartburn/Nausea Last Admin: 06/11/23 19:58 Dose: 30 ml Documented By: NATE Aspirin (Aspirin Enteric Coated 81 Mg Tablet.) 81 mg PO DAILY [facility] Last Admin: 06/30/23 08:32 Dose: 81 mg Documented By: JULIANA Atorvastatin Calcium (Atorvastatin Calcium 80 Mg Tablet) 80 mg PO DAILY [facility] Last Admin: 06/30/23 08:32 Dose: 80 mg Documented By: JULIANA Benzocaine (Throat Lozenge, Medicated Lozenge) 1 lozenge MUCOUS MEM Q2H PRN PRN Reason: Sore Throat Last Admin: 06/17/23 08:45 Dose: 1 lozenge Documented By: PRITESH Bisacodyl (Bisacodyl 5 Mg Tablet.) 10 mg PO DAILY PRN PRN Reason: Constipation Last Admin: 06/14/23 09:21 Dose: 10 mg Documented By: DEMETRIO Clopidogrel Bisulfate (Clopidogrel Bisulfate 75 Mg Tablet) 75 mg PO DAILY [facility] Last Admin: 06/30/23 08:32 Dose: 75 mg Documented By: JULIANA Enoxaparin Sodium (Enoxaparin Sodium 40 Mg/0.4 Ml Syringe) 40 mg SUBCUT Q24H [facility] Last Admin: 06/30/23 05:41 Dose: 40 mg Documented By: NATE Furosemide (Furosemide 20 Mg Tablet) 20 mg PO DAILY [facility]; Protocol Last Admin: 06/30/23 08:32 Dose: 20 mg Documented By: JULIANA Hydroxyzine HCl (Hydroxyzine Hcl 50 Mg Tablet) 50 mg PO QID PRN PRN Reason: Anxiety Last Admin: 06/17/23 08:45 Dose: 50 mg Documented By: PRITESH Lisinopril (Lisinopril 10 Mg Tablet) 10 mg PO DAILY [facility]; Protocol Last Admin: 06/30/23 08:32 Dose: 10 mg Documented By: JULIANA Melatonin (Melatonin 3 Mg Tablet) 6 mg PO BEDTIME PRN PRN Reason: Insomnia Last Admin: 06/29/23 20:20 Dose: 6 mg Documented By: NATE Mirtazapine (Mirtazapine 7.5 Mg Tablet) 7.5 mg PO BEDTIME [facility] Last Admin: 06/29/23 20:20 Dose: 7.5 mg Documented By: NATE Nicotine Polacrilex (Nicotine Polacrilex 2 Mg Gum) 2 mg BUCCAL Q2H PRN PRN Reason: Nicotine Cravings Ondansetron HCl (Ondansetron Hcl 4 Mg/2 Ml Vial) 4 mg IVPUSH Q8H PRN PRN Reason: Nausea and Vomiting Polyethylene Glycol (Polyethylene Glycol 3350 17 Gm Powd.Pack) 17 gm PO BID [facility] Last Admin: 06/30/23 08:34 Dose: Not Given Documented By: JULIANA Non-Admin Reason: Patient Refused Sodium Chloride (0.9 % Sodium Chloride Flush 3 Ml Syringe) 3 ml IVFLUSH QSHIFT [facility] Last Admin: 06/30/23 08:32 Dose: Not Given Documented By: JULIANA Non-Admin Reason: No Access Labs 06/04/23 07:58 12/31/23 05:56 Assessment and Plan (1) Physical deconditioning: Status: Acute (2) Posterior circulation stroke: Status: Acute Plan 63M PMH obesity, depression with suicide attempts leading to hospitalization at [facility], htn, presented with dizziness, concern for posterior cva Acute stroke w posterior cva improved symptoms, more steady on his feet CTA done showed occlusion of the V4 segment of the proximal vertebral artery MRI showing small infarct in left lateral medullary Neurology input appreciated aspirin, plavix and atorvastatin Lower extremities edema 2/2 Fluid overload Echo within normal values, mild LVH start Lasix 20 mg daily Monitor response Hypertension better controlled Increased Lisinopril to 10mg daily sore throat lozenges depression with recent Suicide attempt reports 2 attempts in as many weeks, denies any thoughts or plans now. was recently admitted to [facility] Care team did not feel he need psychiatric unit admission, not suicidal, dc'd sitter. Camera monitoring discontinued Obesity BMI 36.8 encourage weight loss dvt porphylaxis - lovenox full code reason for continued hospitalization: Pending safe discharge plan to SNF per PT recommendations pending accepting facility. Quality Stroke Does the patient have a stroke diagnosis?: Yes Reason for No Anti-thrombotic by Day Two: N/A - Med Ordered VTE Prior VTE?: No VTE Risk Level:: Medical - moderate - high VTE Device Contraindication: N/A - Device Ordered VTE Drug Contraindication: N/A - Med Ordered
[2023-06-30] MEDS: Melatonin 3 MG TABLET 6 MG PO (22:45)
[2023-07-01 03:34] VITALS: BP 121/70; PULSE 82; RESP 15; TEMP 36.2; O2SAT 95
[2023-07-01 07:47] VITALS: BP 117/76; PULSE 78; RESP 19; TEMP 36.3; O2SAT 96
[2023-07-01] MEDS: lisinopriL 10 MG TABLET PO (08:47)
--- NOTE | 2023-07-01 10:10 | HO.PM.IMPN ---
Subjective Subjective Date of Service: 07/01/23 Interval History: no complaints Physical Exam Vital Signs: Vital Signs: Last Vital Signs Temp 97.4 F 07/01/23 07:47 Pulse 78 07/01/23 07:47 Resp 19 07/01/23 07:47 BP 117/76 07/01/23 07:47 Pulse Ox 96 07/01/23 07:47 O2 Del Method Room Air 07/01/23 07:47 BMI result Body Mass Index 36.8 Const: Other: Constitutional : Awake, interactive, not in distress Neck : Normal inspection, Supple Cardiovascular : RRR, no JVP, +1 bilateral lower extremity edema Respiratory : good bilateral air entry, no crackles, wheezes or rhonchi Gastrointestinal: soft, lax, Normal bowel sounds, Non tender Skin : Warm, Dry Neurological : Alert & oriented x3, No focal deficit Objective Data Active Medications Acetaminophen (Acetaminophen 325 Mg Tablet) 650 mg PO Q6H PRN PRN Reason: Pain, Mild (Pain Scale 1-3) Last Admin: 06/22/23 08:49 Dose: 650 mg Documented By: REBEL Acetaminophen (Acetaminophen Supp 650 Mg Supp.Rect) 650 mg [place] Q6H PRN PRN Reason: Pain, Mild (Pain Scale 1-3) Al Hydroxide/Mg Hydroxide (Magnesium Hydrox/Alum Hydrox 30 Ml Oral.Susp) 30 ml PO Q4H PRN PRN Reason: Heartburn/Nausea Last Admin: 06/11/23 19:58 Dose: 30 ml Documented By: NATE Aspirin (Aspirin Enteric Coated 81 Mg Tablet.) 81 mg PO DAILY [facility] Last Admin: 07/01/23 08:47 Dose: 81 mg Documented By: ADI Atorvastatin Calcium (Atorvastatin Calcium 80 Mg Tablet) 80 mg PO DAILY [facility] Last Admin: 07/01/23 08:47 Dose: 80 mg Documented By: ADI Benzocaine (Throat Lozenge, Medicated Lozenge) 1 lozenge MUCOUS MEM Q2H PRN PRN Reason: Sore Throat Last Admin: 06/17/23 08:45 Dose: 1 lozenge Documented By: PRITESH Bisacodyl (Bisacodyl 5 Mg Tablet.) 10 mg PO DAILY PRN PRN Reason: Constipation Last Admin: 06/14/23 09:21 Dose: 10 mg Documented By: DEMETRIO Clopidogrel Bisulfate (Clopidogrel Bisulfate 75 Mg Tablet) 75 mg PO DAILY [facility] Last Admin: 07/01/23 08:47 Dose: 75 mg Documented By: ADI Enoxaparin Sodium (Enoxaparin Sodium 40 Mg/0.4 Ml Syringe) 40 mg SUBCUT Q24H [facility] Last Admin: 07/01/23 06:01 Dose: 40 mg Documented By: VANDANA Furosemide (Furosemide 20 Mg Tablet) 20 mg PO DAILY [facility]; Protocol Last Admin: 07/01/23 08:47 Dose: 20 mg Documented By: ADI Hydroxyzine HCl (Hydroxyzine Hcl 50 Mg Tablet) 50 mg PO QID PRN PRN Reason: Anxiety Last Admin: 06/17/23 08:45 Dose: 50 mg Documented By: PRITESH Lisinopril (Lisinopril 10 Mg Tablet) 10 mg PO DAILY [facility]; Protocol Last Admin: 07/01/23 08:47 Dose: 10 mg Documented By: ADI Melatonin (Melatonin 3 Mg Tablet) 6 mg PO BEDTIME PRN PRN Reason: Insomnia Last Admin: 06/30/23 22:45 Dose: 6 mg Documented By: VANDANA Mirtazapine (Mirtazapine 7.5 Mg Tablet) 7.5 mg PO BEDTIME [facility] Last Admin: 06/30/23 22:45 Dose: 7.5 mg Documented By: VANDANA Nicotine Polacrilex (Nicotine Polacrilex 2 Mg Gum) 2 mg BUCCAL Q2H PRN PRN Reason: Nicotine Cravings Ondansetron HCl (Ondansetron Hcl 4 Mg/2 Ml Vial) 4 mg IVPUSH Q8H PRN PRN Reason: Nausea and Vomiting Polyethylene Glycol (Polyethylene Glycol 3350 17 Gm Powd.Pack) 17 gm PO BID [facility] Last Admin: 07/01/23 08:27 Dose: Not Given Documented By: ADI Non-Admin Reason: Patient Refused Sodium Chloride (0.9 % Sodium Chloride Flush 3 Ml Syringe) 3 ml IVFLUSH QSHIFT [facility] Last Admin: 07/01/23 08:48 Dose: Not Given Documented By: ADI Non-Admin Reason: No Access Labs 06/04/23 07:58 12/31/23 05:56 Assessment and Plan (1) Physical deconditioning: Status: Acute (2) Posterior circulation stroke: Status: Acute Plan 63M PMH obesity, depression with suicide attempts leading to hospitalization at [facility], htn, presented with dizziness, concern for posterior cva Acute stroke w posterior cva improved symptoms, more steady on his feet CTA done showed occlusion of the V4 segment of the proximal vertebral artery MRI showing small infarct in left lateral medullary Neurology input appreciated aspirin, plavix and atorvastatin Lower extremities edema 2/2 Fluid overload Echo within normal values, mild LVH start Lasix 20 mg daily Monitor response Hypertension better controlled Increased Lisinopril to 10mg daily sore throat lozenges depression with recent Suicide attempt reports 2 attempts in as many weeks, denies any thoughts or plans now. was recently admitted to [facility] Care team did not feel he need psychiatric unit admission, not suicidal, dc'd sitter. Camera monitoring discontinued Obesity BMI 36.8 encourage weight loss dvt porphylaxis - lovenox full code reason for continued hospitalization: Pending safe discharge plan to SNF per PT recommendations pending accepting facility. Quality Stroke Does the patient have a stroke diagnosis?: Yes Reason for No Anti-thrombotic by Day Two: N/A - Med Ordered VTE Prior VTE?: No VTE Risk Level:: Medical - moderate - high VTE Device Contraindication: N/A - Device Ordered VTE Drug Contraindication: N/A - Med Ordered
--- NOTE | 2023-07-01 10:34 | MHC.CM.PN ---
Broad SNF search is ongoing; CM will follow.
[2023-07-01 11:15] VITALS: BP 127/67; PULSE 80; RESP 20; TEMP 36.6; O2SAT 97
[2023-07-01 15:19] VITALS: BP 96/63; PULSE 81; RESP 20; TEMP 36.3; O2SAT 99
[2023-07-01 19:32] VITALS: BP 120/69; PULSE 84; RESP 20; TEMP 36.3; O2SAT 98
[2023-07-01] MEDS: Mirtazapine 7.5 MG TABLET PO (22:49)
[2023-07-01 23:30] VITALS: BP 120/74; PULSE 75; RESP 20; TEMP 36.6; O2SAT 95
[2023-07-02 04:00] VITALS: BP 124/72; PULSE 75; RESP 20; TEMP 36.5; O2SAT 94
[2023-07-02] MEDS: Enoxaparin Sodium 40 MG/0.4 ML SYRINGE SUBCUT (04:45)
[2023-07-02 07:13] VITALS: BP 126/70; PULSE 74; RESP 18; TEMP 36.4; O2SAT 97
[2023-07-02] MEDS: lisinopriL 10 MG TABLET PO (07:46)
[2023-07-02] MEDS: Aspirin Enteric Coated 81 MG TABLET.DR PO (07:46)
[2023-07-02] MEDS: Clopidogrel Bisulfate 75 MG TABLET PO (07:46)
[2023-07-02] MEDS: Furosemide 20 MG TABLET PO (07:46)
[2023-07-02] MEDS: Atorvastatin Calcium 80 MG TABLET PO (07:46)
--- NOTE | 2023-07-02 09:18 | P.PNIM_ITS ---
Subjective Subjective Date of Service: 07/02/23 Interval History: no complaints Physical Exam 2 Vital Signs: Vital Signs: Last Vital Signs Temp 97.6 F 07/02/23 07:13 Pulse 74 07/02/23 07:13 Resp 18 07/02/23 07:13 BP 126/70 07/02/23 07:13 Pulse Ox 97 07/02/23 07:13 O2 Del Method Room Air 07/02/23 07:13 BMI result Body Mass Index 36.8 Const: Other: Constitutional : Awake, interactive, not in distress Neck : Normal inspection, Supple Cardiovascular : RRR, no JVP, +1 bilateral lower extremity edema Respiratory : good bilateral air entry, no crackles, wheezes or rhonchi Gastrointestinal: soft, lax, Normal bowel sounds, Non tender Skin : Warm, Dry Neurological : Alert & oriented x3, No focal deficit Objective Data Active Medications Acetaminophen (Acetaminophen 325 Mg Tablet) 650 mg PO Q6H PRN PRN Reason: Pain, Mild (Pain Scale 1-3) Last Admin: 06/22/23 08:49 Dose: 650 mg Documented By: REBEL Acetaminophen (Acetaminophen Supp 650 Mg Supp.Rect) 650 mg SD Q6H PRN PRN Reason: Pain, Mild (Pain Scale 1-3) Al Hydroxide/Mg Hydroxide (Magnesium Hydrox/Alum Hydrox 30 Ml Oral.Susp) 30 ml PO Q4H PRN PRN Reason: Heartburn/Nausea Last Admin: 06/11/23 19:58 Dose: 30 ml Documented By: NATE Aspirin (Aspirin Enteric Coated 81 Mg Tablet.) 81 mg PO DAILY [facility] Last Admin: 07/02/23 07:46 Dose: 81 mg Documented By: ADI Atorvastatin Calcium (Atorvastatin Calcium 80 Mg Tablet) 80 mg PO DAILY [facility] Last Admin: 07/02/23 07:46 Dose: 80 mg Documented By: ADI Benzocaine (Throat Lozenge, Medicated Lozenge) 1 lozenge MUCOUS MEM Q2H PRN PRN Reason: Sore Throat Last Admin: 06/17/23 08:45 Dose: 1 lozenge Documented By: PRITESH Bisacodyl (Bisacodyl 5 Mg Tablet.) 10 mg PO DAILY PRN PRN Reason: Constipation Last Admin: 06/14/23 09:21 Dose: 10 mg Documented By: DEMETRIO Clopidogrel Bisulfate (Clopidogrel Bisulfate 75 Mg Tablet) 75 mg PO DAILY [facility] Last Admin: 07/02/23 07:46 Dose: 75 mg Documented By: ADI Enoxaparin Sodium (Enoxaparin Sodium 40 Mg/0.4 Ml Syringe) 40 mg SUBCUT Q24H [facility] Last Admin: 07/02/23 04:45 Dose: 40 mg Documented By: VEGA Furosemide (Furosemide 20 Mg Tablet) 20 mg PO DAILY [facility]; Protocol Last Admin: 07/02/23 07:46 Dose: 20 mg Documented By: ADI Hydroxyzine HCl (Hydroxyzine Hcl 50 Mg Tablet) 50 mg PO QID PRN PRN Reason: Anxiety Last Admin: 06/17/23 08:45 Dose: 50 mg Documented By: PRITESH Lisinopril (Lisinopril 10 Mg Tablet) 10 mg PO DAILY [facility]; Protocol Last Admin: 07/02/23 07:46 Dose: 10 mg Documented By: ADI Melatonin (Melatonin 3 Mg Tablet) 6 mg PO BEDTIME PRN PRN Reason: Insomnia Last Admin: 06/30/23 22:45 Dose: 6 mg Documented By: VANDANA Mirtazapine (Mirtazapine 7.5 Mg Tablet) 7.5 mg PO BEDTIME [facility] Last Admin: 07/01/23 22:49 Dose: 7.5 mg Documented By: VEGA Nicotine Polacrilex (Nicotine Polacrilex 2 Mg Gum) 2 mg BUCCAL Q2H PRN PRN Reason: Nicotine Cravings Ondansetron HCl (Ondansetron Hcl 4 Mg/2 Ml Vial) 4 mg IVPUSH Q8H PRN PRN Reason: Nausea and Vomiting Polyethylene Glycol (Polyethylene Glycol 3350 17 Gm Powd.Pack) 17 gm PO BID [facility] Last Admin: 07/02/23 07:45 Dose: Not Given Documented By: ADI Non-Admin Reason: Patient Refused Sodium Chloride (0.9 % Sodium Chloride Flush 3 Ml Syringe) 3 ml IVFLUSH QSHIFT [facility] Last Admin: 07/02/23 07:45 Dose: Not Given Documented By: ADI Non-Admin Reason: No Access Labs 06/04/23 07:58 06/23/23 05:56 Assessment and Plan (1) Physical deconditioning: Status: Acute (2) Posterior circulation stroke: Status: Acute Plan 63M PMH obesity, depression with suicide attempts leading to hospitalization at [facility], htn, presented with dizziness, concern for posterior cva Acute stroke w posterior cva improved symptoms, more steady on his feet CTA done showed occlusion of the V4 segment of the proximal vertebral artery MRI showing small infarct in left lateral medullary Neurology input appreciated aspirin, plavix and atorvastatin Lower extremities edema 2/2 Fluid overload Echo within normal values, mild LVH start Lasix 20 mg daily Monitor response Hypertension better controlled Increased Lisinopril to 10mg daily sore throat lozenges depression with recent Suicide attempt reports 2 attempts in as many weeks, denies any thoughts or plans now. was recently admitted to [facility] Care team did not feel he need psychiatric unit admission, not suicidal, dc'd sitter. Camera monitoring discontinued Obesity BMI 36.8 encourage weight loss dvt porphylaxis - lovenox full code reason for continued hospitalization: Pending safe discharge plan to SNF per PT recommendations pending accepting facility. Quality Stroke Does the patient have a stroke diagnosis?: Yes Reason for No Anti-thrombotic by Day Two: N/A - Med Ordered VTE Prior VTE?: No VTE Risk Level:: Medical - moderate - high VTE Device Contraindication: N/A - Device Ordered VTE Drug Contraindication: N/A - Med Ordered
--- NOTE | 2023-07-02 10:26 | MHC.CM.PN ---
CM has left a detailed message for [facility] in the area ([facility] Woodson @ [phone], [facility] (Gloria Bran @ [phone]), and [facility] @ [phone]. CM awaits a return call.
[2023-07-02 10:55] VITALS: BP 105/59; PULSE 80; RESP 18; TEMP 36.2; O2SAT 98
[2023-07-02 15:36] VITALS: BP 116/72; PULSE 85; RESP 18; TEMP 36.3; O2SAT 98
[2023-07-02 19:09] VITALS: BP 122/77; PULSE 92; RESP 18; TEMP 36.3; O2SAT 96
[2023-07-02] MEDS: Mirtazapine 7.5 MG TABLET PO (21:17)
[2023-07-03] VITALS (7 sets, daily range): BP systolic 115–123; BP diastolic 69–77; PULSE 71–90; RESP 18–19; TEMP 36.6–37.2; O2SAT 96–100
[2023-07-03] MEDS: Enoxaparin Sodium 40 MG/0.4 ML SYRINGE SUBCUT (06:04)
[2023-07-03] MEDS: Aspirin Enteric Coated 81 MG TABLET.DR PO (07:54)
[2023-07-03] MEDS: Atorvastatin Calcium 80 MG TABLET PO (07:54)
[2023-07-03] MEDS: Clopidogrel Bisulfate 75 MG TABLET PO (07:54)
[2023-07-03] MEDS: lisinopriL 10 MG TABLET PO (07:54)
[2023-07-03] MEDS: Furosemide 20 MG TABLET PO (07:54)
--- NOTE | 2023-07-03 09:37 | MHC.CM.PN ---
CM left another message for Admissions at [facility] and CM awaits a return call. CM spoke with Admissions at [facility] @ [phone]; Patient will need to be at least 12 weeks out from his most recent suicide attempt and there is a small waiting list. Mortgage Advisor from [employer] is going to ask their CARMINA/Mariah to meet Patient in person; CM awaits a return call from Mariah. CM will follow.
--- NOTE | 2023-07-03 09:43 | MHC.CM.PN ---
CM left a detailed message for Admissions @ [facility]; CM awaits a return call.
--- NOTE | 2023-07-03 09:46 | MHC.CM.PN ---
CM left a detailed message for Admissions @ [facility] @ [phone];CM awaits a return call.
--- NOTE | 2023-07-03 12:06 | MHC.CM.PN ---
DEBBIE received a return call from Micki @ [facility] and per her request, DEBBIE has faxed a referral to her at [phone].DEBBIE will follow.
--- NOTE | 2023-07-03 13:24 | HO.PM.IMPN ---
Subjective Subjective Date of Service: 07/03/23 Interval History: Seen and evaluated feels comfortable , denies any weakness No reported overnight events Review of Systems Review of Systems: Yes all other systems are reviewed and are negative Physical Exam Vital Signs: Vital Signs: Last Vital Signs Temp 97.9 F 07/03/23 10:51 Pulse 75 07/03/23 10:51 Resp 18 07/03/23 10:51 BP 115/69 07/03/23 10:51 Pulse Ox 98 07/03/23 10:51 O2 Del Method Room Air 07/03/23 10:51 BMI result Body Mass Index 36.8 Const: Other: Constitutional : Awake, interactive, not in distress Neck : Normal inspection, Supple Cardiovascular : RRR, no JVP, No lower extremity edema Respiratory : good bilateral air entry, no crackles, wheezes or rhonchi Gastrointestinal: soft, lax, Normal bowel sounds, Non tender Skin : Warm, Dry Neurological : Alert & oriented x3, No focal deficit Objective Data Active Medications Acetaminophen (Acetaminophen 325 Mg Tablet) 650 mg PO Q6H PRN PRN Reason: Pain, Mild (Pain Scale 1-3) Last Admin: 06/22/23 08:49 Dose: 650 mg Documented By: REBEL Acetaminophen (Acetaminophen Supp 650 Mg Supp.Rect) 650 mg [place] Q6H PRN PRN Reason: Pain, Mild (Pain Scale 1-3) Al Hydroxide/Mg Hydroxide (Magnesium Hydrox/Alum Hydrox 30 Ml Oral.Susp) 30 ml PO Q4H PRN PRN Reason: Heartburn/Nausea Last Admin: 06/11/23 19:58 Dose: 30 ml Documented By: NATE Aspirin (Aspirin Enteric Coated 81 Mg Tablet.) 81 mg PO DAILY [facility] Last Admin: 07/03/23 07:54 Dose: 81 mg Documented By: ANA M Atorvastatin Calcium (Atorvastatin Calcium 80 Mg Tablet) 80 mg PO DAILY [facility] Last Admin: 07/03/23 07:54 Dose: 80 mg Documented By: ANA M Benzocaine (Throat Lozenge, Medicated Lozenge) 1 lozenge MUCOUS MEM Q2H PRN PRN Reason: Sore Throat Last Admin: 06/17/23 08:45 Dose: 1 lozenge Documented By: PRITESH Bisacodyl (Bisacodyl 5 Mg Tablet.) 10 mg PO DAILY PRN PRN Reason: Constipation Last Admin: 06/14/23 09:21 Dose: 10 mg Documented By: DEMETRIO Clopidogrel Bisulfate (Clopidogrel Bisulfate 75 Mg Tablet) 75 mg PO DAILY [facility] Last Admin: 07/03/23 07:54 Dose: 75 mg Documented By: ANA M Enoxaparin Sodium (Enoxaparin Sodium 40 Mg/0.4 Ml Syringe) 40 mg SUBCUT Q24H [facility] Last Admin: 07/03/23 06:04 Dose: 40 mg Documented By: VEGA Furosemide (Furosemide 20 Mg Tablet) 20 mg PO DAILY [facility]; Protocol Last Admin: 07/03/23 07:54 Dose: 20 mg Documented By: ANA M Hydroxyzine HCl (Hydroxyzine Hcl 50 Mg Tablet) 50 mg PO QID PRN PRN Reason: Anxiety Last Admin: 06/17/23 08:45 Dose: 50 mg Documented By: PRITESH Lisinopril (Lisinopril 10 Mg Tablet) 10 mg PO DAILY [facility]; Protocol Last Admin: 07/03/23 07:54 Dose: 10 mg Documented By: ANA M Melatonin (Melatonin 3 Mg Tablet) 6 mg PO BEDTIME PRN PRN Reason: Insomnia Last Admin: 06/30/23 22:45 Dose: 6 mg Documented By: VANDANA Mirtazapine (Mirtazapine 7.5 Mg Tablet) 7.5 mg PO BEDTIME [facility] Last Admin: 07/02/23 21:17 Dose: 7.5 mg Documented By: VEGA Nicotine Polacrilex (Nicotine Polacrilex 2 Mg Gum) 2 mg BUCCAL Q2H PRN PRN Reason: Nicotine Cravings Ondansetron HCl (Ondansetron Hcl 4 Mg/2 Ml Vial) 4 mg IVPUSH Q8H PRN PRN Reason: Nausea and Vomiting Polyethylene Glycol (Polyethylene Glycol 3350 17 Gm Powd.Pack) 17 gm PO BID [facility] Last Admin: 07/03/23 07:55 Dose: Not Given Documented By: ANA M Non-Admin Reason: Patient Refused Sodium Chloride (0.9 % Sodium Chloride Flush 3 Ml Syringe) 3 ml IVFLUSH QSHIFT [facility] Last Admin: 07/03/23 07:54 Dose: Not Given Documented By: ANA M Non-Admin Reason: No Access Labs 06/04/23 07:58 06/23/23 05:56 Assessment and Plan (1) Physical deconditioning: Status: Acute (2) Posterior circulation stroke: Status: Acute Plan 63M PMH obesity, depression with suicide attempts leading to hospitalization at [facility], htn, presented with dizziness, concern for posterior cva Acute stroke w posterior cva improved symptoms, more steady on his feet CTA done showed occlusion of the V4 segment of the proximal vertebral artery MRI showing small infarct in left lateral medullary Neurology input appreciated aspirin, plavix and atorvastatin Lower extremities edema 2/2 Fluid overload Echo within normal values, mild LVH Lasix 20 mg daily Monitor response Hypertension controlled Lisinopril to 10mg daily depression with recent Suicide attempt reports 2 attempts in as many weeks, denies any thoughts or plans now. was recently admitted to [facility] Care team did not feel he need psychiatric unit admission, not suicidal, dc'd sitter. Camera monitoring discontinued Obesity BMI 36.8 encourage weight loss dvt porphylaxis - lovenox full code reason for continued hospitalization: Pending safe discharge plan to SNF per PT recommendations pending accepting facility. Quality Stroke Does the patient have a stroke diagnosis?: Yes Reason for No Anti-thrombotic by Day Two: N/A - Med Ordered VTE Prior VTE?: No VTE Risk Level:: Medical - moderate - high VTE Device Contraindication: N/A - Device Ordered VTE Drug Contraindication: N/A - Med Ordered
--- NOTE | 2023-07-03 13:26 | MHC.CM.PN ---
DEBBIE received a return call from [facility]; she has no bed availability but she agreed to check back if anything becomes available. DEBBIE will follow.
[2023-07-03] MEDS: Mirtazapine 7.5 MG TABLET PO (19:27)
[2023-07-04 03:15] VITALS: BP 131/79; PULSE 83; RESP 20; TEMP 36.1; O2SAT 99
[2023-07-04] MEDS: Enoxaparin Sodium 40 MG/0.4 ML SYRINGE SUBCUT (05:45)
[2023-07-04 07:59] VITALS: BP 136/77; PULSE 77; RESP 18; TEMP 36.2; O2SAT 99
[2023-07-04] MEDS: lisinopriL 10 MG TABLET PO (08:49)
[2023-07-04] MEDS: Atorvastatin Calcium 80 MG TABLET PO (08:49)
[2023-07-04] MEDS: Aspirin Enteric Coated 81 MG TABLET.DR PO (08:49)
[2023-07-04] MEDS: Clopidogrel Bisulfate 75 MG TABLET PO (08:49)
[2023-07-04] MEDS: Furosemide 20 MG TABLET PO (08:49)
--- NOTE | 2023-07-04 09:50 | HO.PM.IMPN ---
Subjective Subjective Date of Service: 07/04/23 Interval History: Seen and evaluated feels comfortable , denies any weakness No reported overnight events Review of Systems Review of Systems: Yes all other systems are reviewed and are negative Physical Exam Vital Signs: Vital Signs: Last Vital Signs Temp 97.1 F 07/04/23 07:59 Pulse 77 07/04/23 07:59 Resp 18 07/04/23 07:59 BP 136/77 07/04/23 07:59 Pulse Ox 99 07/04/23 07:59 O2 Del Method Room Air 07/04/23 07:59 BMI result Body Mass Index 36.8 Const: Other: Constitutional : Awake, interactive, not in distress Neck : Normal inspection, Supple Cardiovascular : RRR, no JVP, No lower extremity edema Respiratory : good bilateral air entry, no crackles, wheezes or rhonchi Gastrointestinal: soft, lax, Normal bowel sounds, Non tender Skin : Warm, Dry Neurological : Alert & oriented x3, No focal deficit Objective Data Active Medications Acetaminophen (Acetaminophen 325 Mg Tablet) 650 mg PO Q6H PRN PRN Reason: Pain, Mild (Pain Scale 1-3) Last Admin: 06/22/23 08:49 Dose: 650 mg Documented By: REBEL Acetaminophen (Acetaminophen Supp 650 Mg Supp.Rect) 650 mg MD Q6H PRN PRN Reason: Pain, Mild (Pain Scale 1-3) Al Hydroxide/Mg Hydroxide (Magnesium Hydrox/Alum Hydrox 30 Ml Oral.Susp) 30 ml PO Q4H PRN PRN Reason: Heartburn/Nausea Last Admin: 06/11/23 19:58 Dose: 30 ml Documented By: NATE Aspirin (Aspirin Enteric Coated 81 Mg Tablet.) 81 mg PO DAILY [facility] Last Admin: 07/04/23 08:49 Dose: 81 mg Documented By: ANA M Atorvastatin Calcium (Atorvastatin Calcium 80 Mg Tablet) 80 mg PO DAILY [facility] Last Admin: 07/04/23 08:49 Dose: 80 mg Documented By: ANA M Benzocaine (Throat Lozenge, Medicated Lozenge) 1 lozenge MUCOUS MEM Q2H PRN PRN Reason: Sore Throat Last Admin: 06/17/23 08:45 Dose: 1 lozenge Documented By: PRITESH Bisacodyl (Bisacodyl 5 Mg Tablet.) 10 mg PO DAILY PRN PRN Reason: Constipation Last Admin: 06/14/23 09:21 Dose: 10 mg Documented By: DEMETRIO Clopidogrel Bisulfate (Clopidogrel Bisulfate 75 Mg Tablet) 75 mg PO DAILY [facility] Last Admin: 07/04/23 08:49 Dose: 75 mg Documented By: ANA M Enoxaparin Sodium (Enoxaparin Sodium 40 Mg/0.4 Ml Syringe) 40 mg SUBCUT Q24H [facility] Last Admin: 07/04/23 05:45 Dose: 40 mg Documented By: VEGA Furosemide (Furosemide 20 Mg Tablet) 20 mg PO DAILY [facility]; Protocol Last Admin: 07/04/23 08:49 Dose: 20 mg Documented By: ANA M Hydroxyzine HCl (Hydroxyzine Hcl 50 Mg Tablet) 50 mg PO QID PRN PRN Reason: Anxiety Last Admin: 06/17/23 08:45 Dose: 50 mg Documented By: PRITESH Lisinopril (Lisinopril 10 Mg Tablet) 10 mg PO DAILY [facility]; Protocol Last Admin: 07/04/23 08:49 Dose: 10 mg Documented By: ANA M Melatonin (Melatonin 3 Mg Tablet) 6 mg PO BEDTIME PRN PRN Reason: Insomnia Last Admin: 06/30/23 22:45 Dose: 6 mg Documented By: VANDANA Mirtazapine (Mirtazapine 7.5 Mg Tablet) 7.5 mg PO BEDTIME [facility] Last Admin: 07/03/23 19:27 Dose: 7.5 mg Documented By: VEGA Nicotine Polacrilex (Nicotine Polacrilex 2 Mg Gum) 2 mg BUCCAL Q2H PRN PRN Reason: Nicotine Cravings Ondansetron HCl (Ondansetron Hcl 4 Mg/2 Ml Vial) 4 mg IVPUSH Q8H PRN PRN Reason: Nausea and Vomiting Polyethylene Glycol (Polyethylene Glycol 3350 17 Gm Powd.Pack) 17 gm PO BID [facility] Last Admin: 07/04/23 08:49 Dose: Not Given Documented By: ANA M Non-Admin Reason: Patient Refused Sodium Chloride (0.9 % Sodium Chloride Flush 3 Ml Syringe) 3 ml IVFLUSH QSHIFT [facility] Last Admin: 07/04/23 08:49 Dose: Not Given Documented By: ANA M Non-Admin Reason: No Access Labs 06/04/23 07:58 06/23/23 05:56 Assessment and Plan (1) Posterior circulation stroke: Status: Acute Plan 63M PMH obesity, depression with suicide attempts leading to hospitalization at [facility], htn, presented with dizziness, concern for posterior cva Acute stroke w posterior cva improved symptoms, more steady on his feet CTA done showed occlusion of the V4 segment of the proximal vertebral artery MRI showing small infarct in left lateral medullary Neurology input appreciated aspirin, plavix and atorvastatin Lower extremities edema 2/2 Fluid overload Echo within normal values, mild LVH Lasix 20 mg daily Monitor response Hypertension controlled Lisinopril to 10mg daily depression with recent Suicide attempt reports 2 attempts in as many weeks, denies any thoughts or plans now. was recently admitted to [facility] hospital Care team did not feel he need psychiatric unit admission, not suicidal, dc'd sitter. Camera monitoring discontinued Obesity BMI 36.8 encourage weight loss dvt porphylaxis - lovenox full code reason for continued hospitalization: Pending safe discharge plan to SNF per PT recommendations pending accepting facility. Quality Stroke Does the patient have a stroke diagnosis?: Yes Reason for No Anti-thrombotic by Day Two: N/A - Med Ordered VTE Prior VTE?: No VTE Risk Level:: Medical - moderate - high VTE Device Contraindication: N/A - Device Ordered VTE Drug Contraindication: N/A - Med Ordered
[2023-07-04 11:55] VITALS: BP 125/68; PULSE 83; RESP 18; TEMP 36.8; O2SAT 100
[2023-07-04 15:56] VITALS: BP 124/72; PULSE 82; RESP 18; TEMP 36.3; O2SAT 100
[2023-07-04 19:16] VITALS: BP 125/74; PULSE 78; RESP 20; TEMP 36.4; O2SAT 99
[2023-07-04] MEDS: Mirtazapine 7.5 MG TABLET PO (21:54)
[2023-07-05] VITALS (7 sets, daily range): BP systolic 113–141; BP diastolic 65–73; PULSE 71–90; RESP 18–20; TEMP 36.6–37.2; O2SAT 96–99
[2023-07-05] MEDS: Enoxaparin Sodium 40 MG/0.4 ML SYRINGE SUBCUT (05:15)
[2023-07-05] MEDS: Atorvastatin Calcium 80 MG TABLET PO (08:52)
[2023-07-05] MEDS: Furosemide 20 MG TABLET PO (08:52)
[2023-07-05] MEDS: lisinopriL 10 MG TABLET PO (08:52)
[2023-07-05] MEDS: Clopidogrel Bisulfate 75 MG TABLET PO (08:52)
[2023-07-05] MEDS: Aspirin Enteric Coated 81 MG TABLET.DR PO (08:52)
--- NOTE | 2023-07-05 09:01 | P.PNIM_ITS ---
Subjective Subjective Date of Service: 07/05/23 Interval History: Seen and evaluated feels comfortable , denies any weakness No reported overnight events Review of Systems Review of Systems: Yes all other systems are reviewed and are negative Physical Exam 2 Vital Signs: Vital Signs: Last Vital Signs Temp 97.8 F 07/05/23 07:52 Pulse 71 07/05/23 07:52 Resp 18 07/05/23 07:52 BP 141/72 H 07/05/23 07:52 Pulse Ox 99 07/05/23 07:52 O2 Del Method Room Air 07/05/23 07:52 BMI result Body Mass Index 36.8 Const: Other: Constitutional : Awake, interactive, not in distress Neck : Normal inspection, Supple Cardiovascular : RRR, no JVP, No lower extremity edema Respiratory : good bilateral air entry, no crackles, wheezes or rhonchi Gastrointestinal: soft, lax, Normal bowel sounds, Non tender Skin : Warm, Dry Neurological : Alert & oriented x3, No focal deficit Objective Data Active Medications Acetaminophen (Acetaminophen 325 Mg Tablet) 650 mg PO Q6H PRN PRN Reason: Pain, Mild (Pain Scale 1-3) Last Admin: 06/22/23 08:49 Dose: 650 mg Documented By: REBEL Acetaminophen (Acetaminophen Supp 650 Mg Supp.Rect) 650 mg [place] Q6H PRN PRN Reason: Pain, Mild (Pain Scale 1-3) Al Hydroxide/Mg Hydroxide (Magnesium Hydrox/Alum Hydrox 30 Ml Oral.Susp) 30 ml PO Q4H PRN PRN Reason: Heartburn/Nausea Last Admin: 06/11/23 19:58 Dose: 30 ml Documented By: NATE Aspirin (Aspirin Enteric Coated 81 Mg Tablet.) 81 mg PO DAILY [facility] Last Admin: 07/05/23 08:52 Dose: 81 mg Documented By: REBEL Atorvastatin Calcium (Atorvastatin Calcium 80 Mg Tablet) 80 mg PO DAILY [facility] Last Admin: 07/05/23 08:52 Dose: 80 mg Documented By: REBEL Benzocaine (Throat Lozenge, Medicated Lozenge) 1 lozenge MUCOUS MEM Q2H PRN PRN Reason: Sore Throat Last Admin: 06/17/23 08:45 Dose: 1 lozenge Documented By: PRITESH Bisacodyl (Bisacodyl 5 Mg Tablet.) 10 mg PO DAILY PRN PRN Reason: Constipation Last Admin: 06/14/23 09:21 Dose: 10 mg Documented By: DEMETRIO Clopidogrel Bisulfate (Clopidogrel Bisulfate 75 Mg Tablet) 75 mg PO DAILY [facility] Last Admin: 07/05/23 08:52 Dose: 75 mg Documented By: REBEL Enoxaparin Sodium (Enoxaparin Sodium 40 Mg/0.4 Ml Syringe) 40 mg SUBCUT Q24H [facility] Last Admin: 07/05/23 05:15 Dose: 40 mg Documented By: VEGA Furosemide (Furosemide 20 Mg Tablet) 20 mg PO DAILY [facility]; Protocol Last Admin: 07/05/23 08:52 Dose: 20 mg Documented By: REBEL Hydroxyzine HCl (Hydroxyzine Hcl 50 Mg Tablet) 50 mg PO QID PRN PRN Reason: Anxiety Last Admin: 06/17/23 08:45 Dose: 50 mg Documented By: PONCE-MONICA Lisinopril (Lisinopril 10 Mg Tablet) 10 mg PO DAILY [facility]; Protocol Last Admin: 07/05/23 08:52 Dose: 10 mg Documented By: REBEL Melatonin (Melatonin 3 Mg Tablet) 6 mg PO BEDTIME PRN PRN Reason: Insomnia Last Admin: 06/30/23 22:45 Dose: 6 mg Documented By: VANDANA Mirtazapine (Mirtazapine 7.5 Mg Tablet) 7.5 mg PO BEDTIME [facility] Last Admin: 07/04/23 21:54 Dose: 7.5 mg Documented By: VEGA Nicotine Polacrilex (Nicotine Polacrilex 2 Mg Gum) 2 mg BUCCAL Q2H PRN PRN Reason: Nicotine Cravings Ondansetron HCl (Ondansetron Hcl 4 Mg/2 Ml Vial) 4 mg IVPUSH Q8H PRN PRN Reason: Nausea and Vomiting Polyethylene Glycol (Polyethylene Glycol 3350 17 Gm Powd.Pack) 17 gm PO BID [facility] Last Admin: 07/05/23 08:56 Dose: Not Given Documented By: REBEL Non-Admin Reason: Patient Refused Sodium Chloride (0.9 % Sodium Chloride Flush 3 Ml Syringe) 3 ml IVFLUSH QSHIFT [facility] Last Admin: 07/05/23 08:56 Dose: Not Given Documented By: REBEL Non-Admin Reason: No Access Labs 06/04/23 07:58 06/23/23 05:56 Assessment and Plan (1) Posterior circulation stroke: Status: Acute Plan 63M PMH obesity, depression with suicide attempts leading to hospitalization at [facility], htn, presented with dizziness, concern for posterior cva Acute stroke w posterior cva improved symptoms, more steady on his feet CTA done showed occlusion of the V4 segment of the proximal vertebral artery MRI showing small infarct in left lateral medullary Neurology input appreciated aspirin, plavix and atorvastatin Lower extremities edema 2/2 Fluid overload Echo within normal values, mild LVH Lasix 20 mg daily Monitor response Hypertension controlled Lisinopril to 10mg daily depression with recent Suicide attempt reports 2 attempts in as many weeks, denies any thoughts or plans now. was recently admitted to [facility] Care team did not feel he need psychiatric unit admission, not suicidal, dc'd sitter. Camera monitoring discontinued Obesity BMI 36.8 encourage weight loss dvt porphylaxis - lovenox full code reason for continued hospitalization: Pending safe discharge plan to SNF per PT recommendations pending accepting facility. Quality Stroke Does the patient have a stroke diagnosis?: Yes Reason for No Anti-thrombotic by Day Two: N/A - Med Ordered VTE Prior VTE?: No VTE Risk Level:: Medical - moderate - high VTE Device Contraindication: N/A - Device Ordered VTE Drug Contraindication: N/A - Med Ordered
--- NOTE | 2023-07-05 09:04 | MHC.CM.PN ---
CM has had no response from [facility] and [facility] is full. CM made follow up calls to Gloria @ [facility] @ [phone] and to /Lucia/Micki @ [phone], but was only able to leave detailed messages. CM awaits return calls from both [facility] and [facility]. CM will follow.
--- NOTE | 2023-07-05 10:36 | MHC.CM.PN ---
DEBBIE spoke with Dariana from [facility] @ [phone]), who has 1 male bed opening and is faxing an application to DEBBIE. CM will follow.
--- NOTE | 2023-07-05 12:05 | MHC.CM.PN ---
Application for [facility] has been faxed to Dariana @ [phone].
[2023-07-05] MEDS: Mirtazapine 7.5 MG TABLET PO (20:24)
[2023-07-06 03:28] VITALS: BP 133/74; PULSE 83; RESP 18; TEMP 37.3; O2SAT 98
[2023-07-06] MEDS: Enoxaparin Sodium 40 MG/0.4 ML SYRINGE SUBCUT (05:43)
[2023-07-06 07:21] VITALS: BP 133/76; PULSE 84; RESP 18; TEMP 36.9; O2SAT 97
[2023-07-06] MEDS: Aspirin Enteric Coated 81 MG TABLET.DR PO (08:25)
[2023-07-06] MEDS: lisinopriL 10 MG TABLET PO (08:25)
[2023-07-06] MEDS: Atorvastatin Calcium 80 MG TABLET PO (08:25)
[2023-07-06] MEDS: Clopidogrel Bisulfate 75 MG TABLET PO (08:25)
[2023-07-06] MEDS: Furosemide 20 MG TABLET PO (08:25)
[2023-07-06] MEDS: Acetaminophen 325 MG TABLET 650 MG PO (08:26)
--- NOTE | 2023-07-06 10:21 | P.PNIM_ITS ---
Subjective Subjective Date of Service: 07/06/23 Interval History: Seen and evaluated feels comfortable , denies any weakness No reported overnight events Review of Systems Review of Systems: Yes all other systems are reviewed and are negative Physical Exam 2 Vital Signs: Vital Signs: Last Vital Signs Temp 98.4 F 07/06/23 07:21 Pulse 84 07/06/23 07:21 Resp 18 07/06/23 07:21 BP 133/76 07/06/23 07:21 Pulse Ox 97 07/06/23 07:21 O2 Del Method Room Air 07/06/23 07:21 BMI result Body Mass Index 36.8 Const: Other: Constitutional : Awake, interactive, not in distress Neck : Normal inspection, Supple Cardiovascular : RRR, no JVP, No lower extremity edema Respiratory : good bilateral air entry, no crackles, wheezes or rhonchi Gastrointestinal: soft, lax, Normal bowel sounds, Non tender Skin : Warm, Dry Neurological : Alert & oriented x3, No focal deficit Objective Data Active Medications Acetaminophen (Acetaminophen 325 Mg Tablet) 650 mg PO Q6H PRN PRN Reason: Pain, Mild (Pain Scale 1-3) Last Admin: 07/06/23 08:26 Dose: 650 mg Documented By: REBEL Acetaminophen (Acetaminophen Supp 650 Mg Supp.Rect) 650 mg [place] Q6H PRN PRN Reason: Pain, Mild (Pain Scale 1-3) Al Hydroxide/Mg Hydroxide (Magnesium Hydrox/Alum Hydrox 30 Ml Oral.Susp) 30 ml PO Q4H PRN PRN Reason: Heartburn/Nausea Last Admin: 06/11/23 19:58 Dose: 30 ml Documented By: NATE Aspirin (Aspirin Enteric Coated 81 Mg Tablet.) 81 mg PO DAILY [facility] Last Admin: 07/06/23 08:25 Dose: 81 mg Documented By: REBEL Atorvastatin Calcium (Atorvastatin Calcium 80 Mg Tablet) 80 mg PO DAILY [facility] Last Admin: 07/06/23 08:25 Dose: 80 mg Documented By: REBEL Benzocaine (Throat Lozenge, Medicated Lozenge) 1 lozenge MUCOUS MEM Q2H PRN PRN Reason: Sore Throat Last Admin: 06/17/23 08:45 Dose: 1 lozenge Documented By: PRITESH Bisacodyl (Bisacodyl 5 Mg Tablet.) 10 mg PO DAILY PRN PRN Reason: Constipation Last Admin: 06/14/23 09:21 Dose: 10 mg Documented By: DEMETRIO Clopidogrel Bisulfate (Clopidogrel Bisulfate 75 Mg Tablet) 75 mg PO DAILY [facility] Last Admin: 07/06/23 08:25 Dose: 75 mg Documented By: REBEL Enoxaparin Sodium (Enoxaparin Sodium 40 Mg/0.4 Ml Syringe) 40 mg SUBCUT Q24H [facility] Last Admin: 07/06/23 05:43 Dose: 40 mg Documented By: VÍCTOR Furosemide (Furosemide 20 Mg Tablet) 20 mg PO DAILY [facility]; Protocol Last Admin: 07/06/23 08:25 Dose: 20 mg Documented By: REBEL Hydroxyzine HCl (Hydroxyzine Hcl 50 Mg Tablet) 50 mg PO QID PRN PRN Reason: Anxiety Last Admin: 06/17/23 08:45 Dose: 50 mg Documented By: PRITESH Lisinopril (Lisinopril 10 Mg Tablet) 10 mg PO DAILY [facility]; Protocol Last Admin: 07/06/23 08:25 Dose: 10 mg Documented By: REBEL Melatonin (Melatonin 3 Mg Tablet) 6 mg PO BEDTIME PRN PRN Reason: Insomnia Last Admin: 06/30/23 22:45 Dose: 6 mg Documented By: VANDANA Mirtazapine (Mirtazapine 7.5 Mg Tablet) 7.5 mg PO BEDTIME [facility] Last Admin: 07/05/23 20:24 Dose: 7.5 mg Documented By: VÍCTOR Nicotine Polacrilex (Nicotine Polacrilex 2 Mg Gum) 2 mg BUCCAL Q2H PRN PRN Reason: Nicotine Cravings Ondansetron HCl (Ondansetron Hcl 4 Mg/2 Ml Vial) 4 mg IVPUSH Q8H PRN PRN Reason: Nausea and Vomiting Polyethylene Glycol (Polyethylene Glycol 3350 17 Gm Powd.Pack) 17 gm PO BID [facility] Last Admin: 07/06/23 08:25 Dose: Not Given Documented By: REBEL Non-Admin Reason: Patient Refused Sodium Chloride (0.9 % Sodium Chloride Flush 3 Ml Syringe) 3 ml IVFLUSH QSHIFT [facility] Last Admin: 07/06/23 08:25 Dose: Not Given Documented By: REBEL Non-Admin Reason: No Access Labs 06/04/23 07:58 06/23/23 05:56 Assessment and Plan (1) Posterior circulation stroke: Status: Acute (2) Physical deconditioning: Status: Acute Plan 63M PMH obesity, depression with suicide attempts leading to hospitalization at [facility], htn, presented with dizziness, concern for posterior cva Acute stroke w posterior cva improved symptoms, more steady on his feet CTA done showed occlusion of the V4 segment of the proximal vertebral artery MRI showing small infarct in left lateral medullary Neurology input appreciated aspirin, plavix and atorvastatin Lower extremities edema 2/2 Fluid overload Echo within normal values, mild LVH Lasix 20 mg daily Monitor response Hypertension controlled Lisinopril to 10mg daily depression with recent Suicide attempt reports 2 attempts in as many weeks, denies any thoughts or plans now. was recently admitted to [facility] hospital Care team did not feel he need psychiatric unit admission, not suicidal, dc'd sitter. Camera monitoring discontinued Obesity BMI 36.8 encourage weight loss dvt porphylaxis - lovenox full code reason for continued hospitalization: Pending safe discharge plan to SNF per PT recommendations pending accepting facility. Quality Stroke Does the patient have a stroke diagnosis?: Yes Reason for No Anti-thrombotic by Day Two: N/A - Med Ordered VTE Prior VTE?: No VTE Risk Level:: Medical - moderate - high VTE Device Contraindication: N/A - Device Ordered VTE Drug Contraindication: N/A - Med Ordered
[2023-07-06 11:04] VITALS: BP 114/72; PULSE 73; RESP 20; TEMP 36.7; O2SAT 99
[2023-07-06 15:55] VITALS: BP 107/56; PULSE 78; RESP 16; TEMP 36.8; O2SAT 100
[2023-07-06 19:41] VITALS: BP 119/75; PULSE 77; RESP 20; TEMP 36.9; O2SAT 96
[2023-07-06] MEDS: Mirtazapine 7.5 MG TABLET PO (20:04)
[2023-07-06 23:20] VITALS: BP 120/71; PULSE 71; RESP 20; TEMP 36.8; O2SAT 96
[2023-07-07 03:07] VITALS: BP 108/70; PULSE 65; RESP 20; TEMP 36.9; O2SAT 94
[2023-07-07] MEDS: Enoxaparin Sodium 40 MG/0.4 ML SYRINGE SUBCUT (06:05)
[2023-07-07 07:12] VITALS: BP 141/75; PULSE 74; RESP 18; TEMP 36.7; O2SAT 100
[2023-07-07] MEDS: Clopidogrel Bisulfate 75 MG TABLET PO (08:14)
[2023-07-07] MEDS: Aspirin Enteric Coated 81 MG TABLET.DR PO (08:14)
[2023-07-07] MEDS: Furosemide 20 MG TABLET PO (08:14)
[2023-07-07] MEDS: lisinopriL 10 MG TABLET PO (08:14)
[2023-07-07] MEDS: Atorvastatin Calcium 80 MG TABLET PO (08:14)
[2023-07-07] MEDS: polyethylene glycoL 3350 17 GM POWD.PACK PO (08:14)
[2023-07-07 11:02] VITALS: BP 105/62; PULSE 79; RESP 18; TEMP 36.4; O2SAT 100
--- NOTE | 2023-07-07 11:22 | P.PNIM_ITS ---
Subjective Subjective Date of Service: 07/07/23 Interval History: Seen and evaluated feels comfortable , denies any weakness No reported overnight events Physical Exam 2 Vital Signs: Vital Signs: Last Vital Signs Temp 97.5 F 07/07/23 11:02 Pulse 79 07/07/23 11:02 Resp 18 07/07/23 11:02 BP 105/62 07/07/23 11:02 Pulse Ox 100 07/07/23 11:02 O2 Del Method Room Air 07/07/23 11:02 BMI result Body Mass Index 36.8 Const: Other: Constitutional : Awake, interactive, not in distress Neck : Normal inspection, Supple Cardiovascular : RRR, no JVP, No lower extremity edema Respiratory : good bilateral air entry, no crackles, wheezes or rhonchi Gastrointestinal: soft, lax, Normal bowel sounds, Non tender Skin : Warm, Dry Neurological : Alert & oriented x3, No focal deficit Objective Data Active Medications Acetaminophen (Acetaminophen 325 Mg Tablet) 650 mg PO Q6H PRN PRN Reason: Pain, Mild (Pain Scale 1-3) Last Admin: 07/06/23 08:26 Dose: 650 mg Documented By: REBEL Acetaminophen (Acetaminophen Supp 650 Mg Supp.Rect) 650 mg [place] Q6H PRN PRN Reason: Pain, Mild (Pain Scale 1-3) Al Hydroxide/Mg Hydroxide (Magnesium Hydrox/Alum Hydrox 30 Ml Oral.Susp) 30 ml PO Q4H PRN PRN Reason: Heartburn/Nausea Last Admin: 06/11/23 19:58 Dose: 30 ml Documented By: NATE Aspirin (Aspirin Enteric Coated 81 Mg Tablet.) 81 mg PO DAILY [facility] Last Admin: 07/07/23 08:14 Dose: 81 mg Documented By: REBEL Atorvastatin Calcium (Atorvastatin Calcium 80 Mg Tablet) 80 mg PO DAILY [facility] Last Admin: 07/07/23 08:14 Dose: 80 mg Documented By: REBEL Benzocaine (Throat Lozenge, Medicated Lozenge) 1 lozenge MUCOUS MEM Q2H PRN PRN Reason: Sore Throat Last Admin: 06/17/23 08:45 Dose: 1 lozenge Documented By: PONCE-MONICA Bisacodyl (Bisacodyl 5 Mg Tablet.) 10 mg PO DAILY PRN PRN Reason: Constipation Last Admin: 06/14/23 09:21 Dose: 10 mg Documented By: DEMETRIO Clopidogrel Bisulfate (Clopidogrel Bisulfate 75 Mg Tablet) 75 mg PO DAILY [facility] Last Admin: 07/07/23 08:14 Dose: 75 mg Documented By: REEBL Enoxaparin Sodium (Enoxaparin Sodium 40 Mg/0.4 Ml Syringe) 40 mg SUBCUT Q24H [facility] Last Admin: 07/07/23 06:05 Dose: 40 mg Documented By: VÍCTOR Furosemide (Furosemide 20 Mg Tablet) 20 mg PO DAILY [facility]; Protocol Last Admin: 07/07/23 08:14 Dose: 20 mg Documented By: REBEL Hydroxyzine HCl (Hydroxyzine Hcl 50 Mg Tablet) 50 mg PO QID PRN PRN Reason: Anxiety Last Admin: 06/17/23 08:45 Dose: 50 mg Documented By: PRITESH Lisinopril (Lisinopril 10 Mg Tablet) 10 mg PO DAILY [facility]; Protocol Last Admin: 07/07/23 08:14 Dose: 10 mg Documented By: REBEL Melatonin (Melatonin 3 Mg Tablet) 6 mg PO BEDTIME PRN PRN Reason: Insomnia Last Admin: 06/30/23 22:45 Dose: 6 mg Documented By: VANDANA Mirtazapine (Mirtazapine 7.5 Mg Tablet) 7.5 mg PO BEDTIME [facility] Last Admin: 07/06/23 20:04 Dose: 7.5 mg Documented By: VÍCTOR Nicotine Polacrilex (Nicotine Polacrilex 2 Mg Gum) 2 mg BUCCAL Q2H PRN PRN Reason: Nicotine Cravings Ondansetron HCl (Ondansetron Hcl 4 Mg/2 Ml Vial) 4 mg IVPUSH Q8H PRN PRN Reason: Nausea and Vomiting Polyethylene Glycol (Polyethylene Glycol 3350 17 Gm Powd.Pack) 17 gm PO BID [facility] Last Admin: 07/07/23 08:14 Dose: 17 gm Documented By: REBEL Sodium Chloride (0.9 % Sodium Chloride Flush 3 Ml Syringe) 3 ml IVFLUSH QSHIFT [facility] Last Admin: 07/07/23 08:14 Dose: Not Given Documented By: REBEL Non-Admin Reason: No Access Labs 06/04/23 07:58 06/23/23 05:56 Assessment and Plan (1) Posterior circulation stroke: Status: Acute Plan 63M PMH obesity, depression with suicide attempts leading to hospitalization at [facility], htn, presented with dizziness, concern for posterior cva Acute stroke w posterior cva improved symptoms, more steady on his feet CTA done showed occlusion of the V4 segment of the proximal vertebral artery MRI showing small infarct in left lateral medullary Neurology input appreciated aspirin, plavix and atorvastatin Lower extremities edema 2/2 Fluid overload Echo within normal values, mild LVH Lasix 20 mg daily Monitor response Hypertension controlled Lisinopril to 10mg daily depression with recent Suicide attempt reports 2 attempts in as many weeks, denies any thoughts or plans now. was recently admitted to [facility] Care team did not feel he need psychiatric unit admission, not suicidal, dc'd sitter. Camera monitoring discontinued Obesity BMI 36.8 encourage weight loss dvt porphylaxis - lovenox full code reason for continued hospitalization: Pending safe discharge plan to SNF per PT recommendations pending accepting facility. Quality Stroke Does the patient have a stroke diagnosis?: Yes Reason for No Anti-thrombotic by Day Two: N/A - Med Ordered VTE Prior VTE?: No VTE Risk Level:: Medical - moderate - high VTE Device Contraindication: N/A - Device Ordered VTE Drug Contraindication: N/A - Med Ordered
[2023-07-07 15:10] VITALS: BP 132/74; PULSE 76; RESP 18; TEMP 36.3; O2SAT 99
[2023-07-07 20:00] VITALS: BP 120/67; PULSE 78; RESP 18; TEMP 36.4; O2SAT 95
[2023-07-07] MEDS: Mirtazapine 7.5 MG TABLET PO (22:19)
[2023-07-08] VITALS (7 sets, daily range): BP systolic 112–128; BP diastolic 69–83; PULSE 71–84; RESP 14–97; TEMP 36.1–37.1; O2SAT 96–100
[2023-07-08] MEDS: Enoxaparin Sodium 40 MG/0.4 ML SYRINGE SUBCUT (06:45)
--- NOTE | 2023-07-08 09:18 | MHC.CM.PN ---
DEBBIE spoke with Dariana from [facility] @ [phone] to determine if Patient has been accepted there; Dariana needs to check with Cindy from [facility] and will get back to CM. CM will follow.
[2023-07-08] MEDS: Clopidogrel Bisulfate 75 MG TABLET PO (09:26)
[2023-07-08] MEDS: Atorvastatin Calcium 80 MG TABLET PO (09:26)
[2023-07-08] MEDS: lisinopriL 10 MG TABLET PO (09:27)
[2023-07-08] MEDS: Furosemide 20 MG TABLET PO (09:27)
[2023-07-08] MEDS: Aspirin Enteric Coated 81 MG TABLET.DR PO (09:27)
[2023-07-08] MEDS: polyethylene glycoL 3350 17 GM POWD.PACK PO (09:27)
--- NOTE | 2023-07-08 10:16 | MHC.CM.PN ---
CM has updated the SNF referrals,informing them that Patient has a bed offer at [facility] (available on 07/25/23), and inquiring if anyone can offer a respite bed until 07/25/23. CM will follow.
--- NOTE | 2023-07-08 10:30 | MHC.CM.PN ---
DEBBIE met with Patient, who indicated that the balance in his account is $2,200.00 and this information was relayed to Dariana at [facility]. CM will follow.
--- NOTE | 2023-07-08 10:51 | P.PNIM_ITS ---
Subjective Subjective Date of Service: 07/08/23 Interval History: Seen and evaluated feels comfortable , denies any weakness No reported overnight events Review of Systems Review of Systems: Yes all other systems are reviewed and are negative Physical Exam 2 Vital Signs: Vital Signs: Last Vital Signs Temp 96.9 F 07/08/23 07:13 Pulse 74 07/08/23 07:13 Resp 20 07/08/23 07:13 BP 119/72 07/08/23 07:13 Pulse Ox 96 07/08/23 07:13 O2 Del Method Room Air 07/08/23 07:13 BMI result Body Mass Index 36.8 Const: Other: Constitutional : Awake, interactive, not in distress Neck : Normal inspection, Supple Cardiovascular : RRR, no JVP, No lower extremity edema Respiratory : good bilateral air entry, no crackles, wheezes or rhonchi Gastrointestinal: soft, lax, Normal bowel sounds, Non tender Skin : Warm, Dry Neurological : Alert & oriented x3, No focal deficit Objective Data Active Medications Acetaminophen (Acetaminophen 325 Mg Tablet) 650 mg PO Q6H PRN PRN Reason: Pain, Mild (Pain Scale 1-3) Last Admin: 07/06/23 08:26 Dose: 650 mg Documented By: REBEL Acetaminophen (Acetaminophen Supp 650 Mg Supp.Rect) 650 mg [place] Q6H PRN PRN Reason: Pain, Mild (Pain Scale 1-3) Al Hydroxide/Mg Hydroxide (Magnesium Hydrox/Alum Hydrox 30 Ml Oral.Susp) 30 ml PO Q4H PRN PRN Reason: Heartburn/Nausea Last Admin: 06/11/23 19:58 Dose: 30 ml Documented By: NATE Aspirin (Aspirin Enteric Coated 81 Mg Tablet.) 81 mg PO DAILY [facility] Last Admin: 07/08/23 09:27 Dose: 81 mg Documented By: MICHELLE Atorvastatin Calcium (Atorvastatin Calcium 80 Mg Tablet) 80 mg PO DAILY [facility] Last Admin: 07/08/23 09:26 Dose: 80 mg Documented By: MICHELLE Benzocaine (Throat Lozenge, Medicated Lozenge) 1 lozenge MUCOUS MEM Q2H PRN PRN Reason: Sore Throat Last Admin: 06/17/23 08:45 Dose: 1 lozenge Documented By: PRITESH Bisacodyl (Bisacodyl 5 Mg Tablet.) 10 mg PO DAILY PRN PRN Reason: Constipation Last Admin: 06/14/23 09:21 Dose: 10 mg Documented By: DEMETRIO Clopidogrel Bisulfate (Clopidogrel Bisulfate 75 Mg Tablet) 75 mg PO DAILY [facility] Last Admin: 07/08/23 09:26 Dose: 75 mg Documented By: MICHELLE Enoxaparin Sodium (Enoxaparin Sodium 40 Mg/0.4 Ml Syringe) 40 mg SUBCUT Q24H [facility] Last Admin: 07/08/23 06:45 Dose: 40 mg Documented By: ESTRELLA Furosemide (Furosemide 20 Mg Tablet) 20 mg PO DAILY [facility]; Protocol Last Admin: 07/08/23 09:27 Dose: 20 mg Documented By: MICHELLE Hydroxyzine HCl (Hydroxyzine Hcl 50 Mg Tablet) 50 mg PO QID PRN PRN Reason: Anxiety Last Admin: 06/17/23 08:45 Dose: 50 mg Documented By: PONCE-MONICA Lisinopril (Lisinopril 10 Mg Tablet) 10 mg PO DAILY [facility]; Protocol Last Admin: 07/08/23 09:27 Dose: 10 mg Documented By: MICHELLE Melatonin (Melatonin 3 Mg Tablet) 6 mg PO BEDTIME PRN PRN Reason: Insomnia Last Admin: 06/30/23 22:45 Dose: 6 mg Documented By: VANDANA Mirtazapine (Mirtazapine 7.5 Mg Tablet) 7.5 mg PO BEDTIME [facility] Last Admin: 07/07/23 22:19 Dose: 7.5 mg Documented By: ESTRELLA Nicotine Polacrilex (Nicotine Polacrilex 2 Mg Gum) 2 mg BUCCAL Q2H PRN PRN Reason: Nicotine Cravings Ondansetron HCl (Ondansetron Hcl 4 Mg/2 Ml Vial) 4 mg IVPUSH Q8H PRN PRN Reason: Nausea and Vomiting Polyethylene Glycol (Polyethylene Glycol 3350 17 Gm Powd.Pack) 17 gm PO BID [facility] Last Admin: 07/08/23 09:27 Dose: 17 gm Documented By: MICHELLE Sodium Chloride (0.9 % Sodium Chloride Flush 3 Ml Syringe) 3 ml IVFLUSH QSHIFT [facility] Last Admin: 07/08/23 08:52 Dose: Not Given Documented By: HO.SOFFAA Non-Admin Reason: See Note Labs 12/12/23 07:58 06/23/23 05:56 Assessment and Plan (1) Posterior circulation stroke: Status: Acute Plan 63M PMH obesity, depression with suicide attempts leading to hospitalization at [facility], htn, presented with dizziness, concern for posterior cva Acute stroke w posterior cva improved symptoms, more steady on his feet and ambulating in halls CTA done showed occlusion of the V4 segment of the proximal vertebral artery MRI showing small infarct in left lateral medullary Neurology input appreciated aspirin, plavix and atorvastatin Lower extremities edema 2/2 Fluid overload Echo within normal values, mild LVH Lasix 20 mg daily Monitor response Hypertension controlled Lisinopril to 10mg daily depression with recent Suicide attempt reports 2 attempts in as many weeks, denies any thoughts or plans now. was recently admitted to [facility] Care team did not feel he need psychiatric unit admission, not suicidal, dc'd sitter. Camera monitoring discontinued Obesity BMI 36.8 encourage weight loss dvt porphylaxis - lovenox full code reason for continued hospitalization: Pending safe discharge plan to SNF per PT recommendations pending accepting facility. Quality Stroke Does the patient have a stroke diagnosis?: Yes Reason for No Anti-thrombotic by Day Two: N/A - Med Ordered VTE Prior VTE?: No VTE Risk Level:: Medical - moderate - high VTE Device Contraindication: N/A - Device Ordered VTE Drug Contraindication: N/A - Med Ordered
[2023-07-08] MEDS: Melatonin 3 MG TABLET 6 MG PO (19:58)
[2023-07-08] MEDS: Mirtazapine 7.5 MG TABLET PO (19:58)
[2023-07-09] VITALS (7 sets, daily range): BP systolic 120–134; BP diastolic 69–85; PULSE 74–83; RESP 16–20; TEMP 36.1–37.1; O2SAT 97–98
[2023-07-09] MEDS: Enoxaparin Sodium 40 MG/0.4 ML SYRINGE SUBCUT (05:59)
[2023-07-09] MEDS: Atorvastatin Calcium 80 MG TABLET PO (09:39)
[2023-07-09] MEDS: polyethylene glycoL 3350 17 GM POWD.PACK PO (09:39)
[2023-07-09] MEDS: Furosemide 20 MG TABLET PO (09:39)
[2023-07-09] MEDS: Aspirin Enteric Coated 81 MG TABLET.DR PO (09:40)
[2023-07-09] MEDS: lisinopriL 10 MG TABLET PO (09:40)
[2023-07-09] MEDS: Clopidogrel Bisulfate 75 MG TABLET PO (09:40)
--- NOTE | 2023-07-09 12:31 | P.PNIM_ITS ---
Subjective Subjective Date of Service: 07/09/23 Interval History: Seen and evaluated comfortable , denies any weakness No reported overnight events Review of Systems Review of Systems: Yes all other systems are reviewed and are negative Physical Exam 2 Vital Signs: Vital Signs: Last Vital Signs Temp 97.5 F 07/09/23 11:13 Pulse 74 07/09/23 11:13 Resp 18 07/09/23 11:13 BP 131/85 07/09/23 11:13 Pulse Ox 98 07/09/23 11:13 O2 Del Method Room Air 07/09/23 11:13 BMI result Body Mass Index 36.8 Const: Other: Constitutional : Awake, interactive, not in distress Neck : Normal inspection, Supple Cardiovascular : RRR, no JVP, No lower extremity edema Respiratory : good bilateral air entry, no crackles, wheezes or rhonchi Gastrointestinal: soft, lax, Normal bowel sounds, Non tender Skin : Warm, Dry Neurological : Alert & oriented x3, No focal deficit Objective Data Active Medications Acetaminophen (Acetaminophen 325 Mg Tablet) 650 mg PO Q6H PRN PRN Reason: Pain, Mild (Pain Scale 1-3) Last Admin: 07/06/23 08:26 Dose: 650 mg Documented By: REBEL Acetaminophen (Acetaminophen Supp 650 Mg Supp.Rect) 650 mg [place] Q6H PRN PRN Reason: Pain, Mild (Pain Scale 1-3) Al Hydroxide/Mg Hydroxide (Magnesium Hydrox/Alum Hydrox 30 Ml Oral.Susp) 30 ml PO Q4H PRN PRN Reason: Heartburn/Nausea Last Admin: 06/11/23 19:58 Dose: 30 ml Documented By: NATE Aspirin (Aspirin Enteric Coated 81 Mg Tablet.) 81 mg PO DAILY [facility] Last Admin: 07/09/23 09:40 Dose: 81 mg Documented By: TYLER Atorvastatin Calcium (Atorvastatin Calcium 80 Mg Tablet) 80 mg PO DAILY [facility] Last Admin: 07/09/23 09:39 Dose: 80 mg Documented By: TYLER Benzocaine (Throat Lozenge, Medicated Lozenge) 1 lozenge MUCOUS MEM Q2H PRN PRN Reason: Sore Throat Last Admin: 06/17/23 08:45 Dose: 1 lozenge Documented By: PRITESH Bisacodyl (Bisacodyl 5 Mg Tablet.) 10 mg PO DAILY PRN PRN Reason: Constipation Last Admin: 06/14/23 09:21 Dose: 10 mg Documented By: DEMETRIO Clopidogrel Bisulfate (Clopidogrel Bisulfate 75 Mg Tablet) 75 mg PO DAILY [facility] Last Admin: 07/09/23 09:40 Dose: 75 mg Documented By: TYLER Enoxaparin Sodium (Enoxaparin Sodium 40 Mg/0.4 Ml Syringe) 40 mg SUBCUT Q24H [facility] Last Admin: 07/09/23 05:59 Dose: 40 mg Documented By: NATE Furosemide (Furosemide 20 Mg Tablet) 20 mg PO DAILY [facility]; Protocol Last Admin: 07/09/23 09:39 Dose: 20 mg Documented By: TYLER Hydroxyzine HCl (Hydroxyzine Hcl 50 Mg Tablet) 50 mg PO QID PRN PRN Reason: Anxiety Last Admin: 06/17/23 08:45 Dose: 50 mg Documented By: PONCE-MONICA Lisinopril (Lisinopril 10 Mg Tablet) 10 mg PO DAILY [facility]; Protocol Last Admin: 07/09/23 09:40 Dose: 10 mg Documented By: TYLER Melatonin (Melatonin 3 Mg Tablet) 6 mg PO BEDTIME PRN PRN Reason: Insomnia Last Admin: 07/08/23 19:58 Dose: 6 mg Documented By: NATE Mirtazapine (Mirtazapine 7.5 Mg Tablet) 7.5 mg PO BEDTIME [facility] Last Admin: 07/08/23 19:58 Dose: 7.5 mg Documented By: NATE Nicotine Polacrilex (Nicotine Polacrilex 2 Mg Gum) 2 mg BUCCAL Q2H PRN PRN Reason: Nicotine Cravings Ondansetron HCl (Ondansetron Hcl 4 Mg/2 Ml Vial) 4 mg IVPUSH Q8H PRN PRN Reason: Nausea and Vomiting Polyethylene Glycol (Polyethylene Glycol 3350 17 Gm Powd.Pack) 17 gm PO BID [facility] Last Admin: 07/09/23 09:39 Dose: 17 gm Documented By: TYLER Sodium Chloride (0.9 % Sodium Chloride Flush 3 Ml Syringe) 3 ml IVFLUSH QSHIFT [facility] Last Admin: 07/09/23 09:40 Dose: Not Given Documented By: TYLER Non-Admin Reason: No IV access Labs 06/04/23 07:58 06/23/23 05:56 Assessment and Plan (1) Physical deconditioning: Status: Acute (2) Posterior circulation stroke: Status: Acute Plan 63M PMH obesity, depression with suicide attempts leading to hospitalization at [facility], htn, presented with dizziness, concern for posterior cva Acute stroke w posterior cva improved , steady on his feet and ambulating CTA done showed occlusion of the V4 segment of the proximal vertebral artery MRI showing small infarct in left lateral medullary Neurology input appreciated aspirin, plavix and atorvastatin Lower extremities edema 2/2 Fluid overload Echo within normal values, mild LVH Lasix 20 mg daily Monitor response Hypertension controlled Lisinopril to 10mg daily depression with recent Suicide attempt reports 2 attempts in as many weeks, denies any thoughts or plans now. was recently admitted to [facility] Care team did not feel he need psychiatric unit admission, not suicidal, dc'd sitter. Camera monitoring discontinued Obesity BMI 36.8 encourage weight loss dvt porphylaxis - lovenox full code reason for continued hospitalization: Pending safe discharge plan to SNF per PT recommendations pending accepting facility. [facility] but meanwhile looking for short term placement for PT. Quality Stroke Does the patient have a stroke diagnosis?: Yes Reason for No Anti-thrombotic by Day Two: N/A - Med Ordered VTE Prior VTE?: No VTE Risk Level:: Medical - moderate - high VTE Device Contraindication: N/A - Device Ordered VTE Drug Contraindication: N/A - Med Ordered
--- NOTE | 2023-07-09 13:50 | MHC.CM.PN ---
CM received a call from [facility], who may be able to accept Patient for the time period up to 07/25/23, when Patient will have a bed at [facility]. CM awaits a definite answer from [facility].
[2023-07-09] MEDS: Mirtazapine 7.5 MG TABLET PO (20:27)
[2023-07-10 04:00] VITALS: BP 128/64; PULSE 74; RESP 18; TEMP 37.1; O2SAT 98
[2023-07-10] MEDS: Enoxaparin Sodium 40 MG/0.4 ML SYRINGE SUBCUT (06:22)
[2023-07-10 08:00] VITALS: BP 133/62; PULSE 71; RESP 18; TEMP 36.3; O2SAT 97
[2023-07-10] MEDS: lisinopriL 10 MG TABLET PO (08:13)
[2023-07-10] MEDS: polyethylene glycoL 3350 17 GM POWD.PACK PO (08:13)
[2023-07-10] MEDS: Atorvastatin Calcium 80 MG TABLET PO (08:13)
[2023-07-10] MEDS: Furosemide 20 MG TABLET PO (08:13)
[2023-07-10] MEDS: Clopidogrel Bisulfate 75 MG TABLET PO (08:13)
[2023-07-10] MEDS: Aspirin Enteric Coated 81 MG TABLET.DR PO (08:13)
--- NOTE | 2023-07-10 11:58 | HO.PM.IMPN ---
Subjective Subjective Date of Service: 07/10/23 Interval History: Seen and evaluated comfortable , denies any weakness No reported overnight events Review of Systems Review of Systems: Yes all other systems are reviewed and are negative Physical Exam Vital Signs: Vital Signs: Last Vital Signs Temp 97.3 F 07/10/23 08:00 Pulse 71 07/10/23 08:00 Resp 18 07/10/23 08:00 BP 133/62 07/10/23 08:00 Pulse Ox 97 07/10/23 08:00 O2 Del Method Room Air 07/10/23 08:00 BMI result Body Mass Index 36.8 Const: Other: Constitutional : Awake, interactive, not in distress Neck : Normal inspection, Supple Cardiovascular : RRR, no JVP, No lower extremity edema Respiratory : good bilateral air entry, no crackles, wheezes or rhonchi Gastrointestinal: soft, lax, Normal bowel sounds, Non tender Skin : Warm, Dry Neurological : Alert & oriented x3, No focal deficit Objective Data Active Medications Acetaminophen (Acetaminophen 325 Mg Tablet) 650 mg PO Q6H PRN PRN Reason: Pain, Mild (Pain Scale 1-3) Last Admin: 07/06/23 08:26 Dose: 650 mg Documented By: REBEL Acetaminophen (Acetaminophen Supp 650 Mg Supp.Rect) 650 mg [place] Q6H PRN PRN Reason: Pain, Mild (Pain Scale 1-3) Al Hydroxide/Mg Hydroxide (Magnesium Hydrox/Alum Hydrox 30 Ml Oral.Susp) 30 ml PO Q4H PRN PRN Reason: Heartburn/Nausea Last Admin: 06/11/23 19:58 Dose: 30 ml Documented By: NATE Aspirin (Aspirin Enteric Coated 81 Mg Tablet.) 81 mg PO DAILY [facility] Last Admin: 07/10/23 08:13 Dose: 81 mg Documented By: HELLEN Atorvastatin Calcium (Atorvastatin Calcium 80 Mg Tablet) 80 mg PO DAILY [facility] Last Admin: 07/10/23 08:13 Dose: 80 mg Documented By: HELLEN Benzocaine (Throat Lozenge, Medicated Lozenge) 1 lozenge MUCOUS MEM Q2H PRN PRN Reason: Sore Throat Last Admin: 06/17/23 08:45 Dose: 1 lozenge Documented By: PRITESH Bisacodyl (Bisacodyl 5 Mg Tablet.) 10 mg PO DAILY PRN PRN Reason: Constipation Last Admin: 06/14/23 09:21 Dose: 10 mg Documented By: DEMETRIO Clopidogrel Bisulfate (Clopidogrel Bisulfate 75 Mg Tablet) 75 mg PO DAILY [facility] Last Admin: 07/10/23 08:13 Dose: 75 mg Documented By: HELLEN Enoxaparin Sodium (Enoxaparin Sodium 40 Mg/0.4 Ml Syringe) 40 mg SUBCUT Q24H [facility] Last Admin: 07/10/23 06:22 Dose: 40 mg Documented By: HUGO Furosemide (Furosemide 20 Mg Tablet) 20 mg PO DAILY [facility]; Protocol Last Admin: 07/10/23 08:13 Dose: 20 mg Documented By: HELLEN Hydroxyzine HCl (Hydroxyzine Hcl 50 Mg Tablet) 50 mg PO QID PRN PRN Reason: Anxiety Last Admin: 06/17/23 08:45 Dose: 50 mg Documented By: PONCE-RIVSHMUEL Lisinopril (Lisinopril 10 Mg Tablet) 10 mg PO DAILY [facility]; Protocol Last Admin: 07/10/23 08:13 Dose: 10 mg Documented By: HELLEN Melatonin (Melatonin 3 Mg Tablet) 6 mg PO BEDTIME PRN PRN Reason: Insomnia Last Admin: 07/08/23 19:58 Dose: 6 mg Documented By: NATE Mirtazapine (Mirtazapine 7.5 Mg Tablet) 7.5 mg PO BEDTIME [facility] Last Admin: 07/09/23 20:27 Dose: Not Given Documented By: VÍCTOR Non-Admin Reason: No Access Nicotine Polacrilex (Nicotine Polacrilex 2 Mg Gum) 2 mg BUCCAL Q2H PRN PRN Reason: Nicotine Cravings Ondansetron HCl (Ondansetron Hcl 4 Mg/2 Ml Vial) 4 mg IVPUSH Q8H PRN PRN Reason: Nausea and Vomiting Polyethylene Glycol (Polyethylene Glycol 3350 17 Gm Powd.Pack) 17 gm PO BID [facility] Last Admin: 07/10/23 08:13 Dose: 17 gm Documented By: HELLEN Sodium Chloride (0.9 % Sodium Chloride Flush 3 Ml Syringe) 3 ml IVFLUSH QSHIFT [facility] Last Admin: 07/10/23 08:15 Dose: Not Given Documented By: HELLEN Non-Admin Reason: No Access Labs 06/04/23 07:58 06/23/23 05:56 Assessment and Plan (1) Physical deconditioning: Status: Acute (2) Posterior circulation stroke: Status: Acute Plan 63M PMH obesity, depression with suicide attempts leading to hospitalization at [facility], htn, presented with dizziness, concern for posterior cva Acute stroke w posterior cva improved , steady on his feet and ambulating CTA done showed occlusion of the V4 segment of the proximal vertebral artery MRI showing small infarct in left lateral medullary Neurology input appreciated aspirin, plavix and atorvastatin Lower extremities edema 2/2 Fluid overload Echo within normal values, mild LVH Lasix 20 mg daily Monitor response Hypertension controlled Lisinopril to 10mg daily depression with recent Suicide attempt reports 2 attempts in as many weeks, denies any thoughts or plans now. was recently admitted to [facility] Care team did not feel he need psychiatric unit admission, not suicidal, dc'd sitter. Camera monitoring discontinued Obesity BMI 36.8 encourage weight loss dvt porphylaxis - lovenox full code reason for continued hospitalization: Pending safe discharge plan to SNF per PT recommendations pending accepting facility. [facility] but meanwhile looking for short term placement for PT. Quality Stroke Does the patient have a stroke diagnosis?: Yes Reason for No Anti-thrombotic by Day Two: N/A - Med Ordered VTE Prior VTE?: No VTE Risk Level:: Medical - moderate - high VTE Device Contraindication: N/A - Device Ordered VTE Drug Contraindication: N/A - Med Ordered
[2023-07-10 12:00] VITALS: BP 119/68; PULSE 75; RESP 20; TEMP 36.5; O2SAT 99
--- NOTE | 2023-07-10 13:40 | MHC.CM.PN ---
Per rounds, D/C plan is [facility] 07/25/23, unless a SNF accepts for STR prior to this date. This RNCM checked [facility], and no SNFs have accepted Pt as of yet. CM to follow.
[2023-07-10 15:24] VITALS: BP 130/74; PULSE 81; RESP 18; TEMP 36.6; O2SAT 99
[2023-07-10 19:28] VITALS: BP 140/78; PULSE 78; RESP 20; TEMP 36.4; O2SAT 98
[2023-07-10] MEDS: Mirtazapine 7.5 MG TABLET PO (21:55)
[2023-07-10 23:48] VITALS: BP 124/74; PULSE 75; RESP 18; TEMP 37.1; O2SAT 94
[2023-07-11] VITALS (7 sets, daily range): BP systolic 116–130; BP diastolic 60–87; PULSE 69–105; RESP 17–20; TEMP 36.1–37; O2SAT 93–99
[2023-07-11] MEDS: Enoxaparin Sodium 40 MG/0.4 ML SYRINGE SUBCUT (05:54)
[2023-07-11] MEDS: Atorvastatin Calcium 80 MG TABLET PO (08:32)
[2023-07-11] MEDS: lisinopriL 10 MG TABLET PO (08:32)
[2023-07-11] MEDS: Furosemide 20 MG TABLET PO (08:32)
[2023-07-11] MEDS: Clopidogrel Bisulfate 75 MG TABLET PO (08:32)
[2023-07-11] MEDS: Aspirin Enteric Coated 81 MG TABLET.DR PO (08:33)
--- NOTE | 2023-07-11 10:53 | HO.PM.IMPN ---
Subjective Subjective Date of Service: 07/11/23 Interval History: Seen and evaluated comfortable , denies any weakness No reported overnight events Review of Systems Review of Systems: Yes all other systems are reviewed and are negative Physical Exam Vital Signs: Vital Signs: Last Vital Signs Temp 97.6 F 07/11/23 07:37 Pulse 76 07/11/23 07:37 Resp 20 07/11/23 07:37 BP 130/87 07/11/23 07:37 Pulse Ox 96 07/11/23 07:37 O2 Del Method Room Air 07/11/23 07:37 BMI result Body Mass Index 36.8 Const: Other: Constitutional : Awake, interactive, not in distress Neck : Normal inspection, Supple Cardiovascular : RRR, no JVP, No lower extremity edema Respiratory : good bilateral air entry, no crackles, wheezes or rhonchi Gastrointestinal: soft, lax, Normal bowel sounds, Non tender Skin : Warm, Dry Neurological : Alert & oriented x3, No focal deficit Objective Data Active Medications Acetaminophen (Acetaminophen 325 Mg Tablet) 650 mg PO Q6H PRN PRN Reason: Pain, Mild (Pain Scale 1-3) Last Admin: 07/06/23 08:26 Dose: 650 mg Documented By: REBEL Acetaminophen (Acetaminophen Supp 650 Mg Supp.Rect) 650 mg [place] Q6H PRN PRN Reason: Pain, Mild (Pain Scale 1-3) Al Hydroxide/Mg Hydroxide (Magnesium Hydrox/Alum Hydrox 30 Ml Oral.Susp) 30 ml PO Q4H PRN PRN Reason: Heartburn/Nausea Last Admin: 06/11/23 19:58 Dose: 30 ml Documented By: NATE Aspirin (Aspirin Enteric Coated 81 Mg Tablet.) 81 mg PO DAILY [facility] Last Admin: 07/11/23 08:33 Dose: 81 mg Documented By: REBEL Atorvastatin Calcium (Atorvastatin Calcium 80 Mg Tablet) 80 mg PO DAILY [facility] Last Admin: 07/11/23 08:32 Dose: 80 mg Documented By: REBEL Benzocaine (Throat Lozenge, Medicated Lozenge) 1 lozenge MUCOUS MEM Q2H PRN PRN Reason: Sore Throat Last Admin: 06/17/23 08:45 Dose: 1 lozenge Documented By: PRITESH Bisacodyl (Bisacodyl 5 Mg Tablet.) 10 mg PO DAILY PRN PRN Reason: Constipation Last Admin: 06/14/23 09:21 Dose: 10 mg Documented By: DEMETRIO Clopidogrel Bisulfate (Clopidogrel Bisulfate 75 Mg Tablet) 75 mg PO DAILY [facility] Last Admin: 07/11/23 08:32 Dose: 75 mg Documented By: REBEL Enoxaparin Sodium (Enoxaparin Sodium 40 Mg/0.4 Ml Syringe) 40 mg SUBCUT Q24H [facility] Last Admin: 07/11/23 05:54 Dose: 40 mg Documented By: VÍCTOR Furosemide (Furosemide 20 Mg Tablet) 20 mg PO DAILY [facility]; Protocol Last Admin: 07/11/23 08:32 Dose: 20 mg Documented By: REBEL Hydroxyzine HCl (Hydroxyzine Hcl 50 Mg Tablet) 50 mg PO QID PRN PRN Reason: Anxiety Last Admin: 06/17/23 08:45 Dose: 50 mg Documented By: PONCE-MONICA Lisinopril (Lisinopril 10 Mg Tablet) 10 mg PO DAILY [facility]; Protocol Last Admin: 07/11/23 08:32 Dose: 10 mg Documented By: REBEL Melatonin (Melatonin 3 Mg Tablet) 6 mg PO BEDTIME PRN PRN Reason: Insomnia Last Admin: 07/08/23 19:58 Dose: 6 mg Documented By: NATE Mirtazapine (Mirtazapine 7.5 Mg Tablet) 7.5 mg PO BEDTIME [facility] Last Admin: 07/10/23 21:55 Dose: 7.5 mg Documented By: VÍCTOR Nicotine Polacrilex (Nicotine Polacrilex 2 Mg Gum) 2 mg BUCCAL Q2H PRN PRN Reason: Nicotine Cravings Ondansetron HCl (Ondansetron Hcl 4 Mg/2 Ml Vial) 4 mg IVPUSH Q8H PRN PRN Reason: Nausea and Vomiting Polyethylene Glycol (Polyethylene Glycol 3350 17 Gm Powd.Pack) 17 gm PO BID [facility] Last Admin: 07/11/23 08:33 Dose: Not Given Documented By: REBEL Non-Admin Reason: Patient Refused Sodium Chloride (0.9 % Sodium Chloride Flush 3 Ml Syringe) 3 ml IVFLUSH QSHIFT [facility] Last Admin: 07/11/23 08:33 Dose: Not Given Documented By: REBEL Non-Admin Reason: No Access Labs 06/04/23 07:58 06/23/23 05:56 Assessment and Plan (1) Physical deconditioning: Status: Acute (2) Posterior circulation stroke: Status: Acute Plan 63M PMH obesity, depression with suicide attempts leading to hospitalization at [facility], htn, presented with dizziness, concern for posterior cva Acute stroke w posterior cva improved , steady on his feet and ambulating CTA done showed occlusion of the V4 segment of the proximal vertebral artery MRI showing small infarct in left lateral medullary Neurology input appreciated aspirin, plavix and atorvastatin Lower extremities edema 2/2 Fluid overload Echo within normal values, mild LVH Lasix 20 mg daily Monitor response Hypertension controlled Lisinopril to 10mg daily depression with recent Suicide attempt reports 2 attempts in as many weeks, denies any thoughts or plans now. was recently admitted to [facility] Care team did not feel he need psychiatric unit admission, not suicidal, dc'd sitter. Camera monitoring discontinued Obesity BMI 36.8 encourage weight loss dvt porphylaxis - lovenox full code reason for continued hospitalization: Pending safe discharge plan to SNF per PT recommendations pending accepting facility. [facility] but meanwhile looking for short term placement for PT. Quality Stroke Does the patient have a stroke diagnosis?: Yes Reason for No Anti-thrombotic by Day Two: N/A - Med Ordered VTE Prior VTE?: No VTE Risk Level:: Medical - moderate - high VTE Device Contraindication: N/A - Device Ordered VTE Drug Contraindication: N/A - Med Ordered
[2023-07-11] MEDS: Acetaminophen 325 MG TABLET 650 MG PO (19:48)
[2023-07-11] MEDS: Mirtazapine 7.5 MG TABLET PO (19:49)
[2023-07-12] VITALS (7 sets, daily range): BP systolic 107–135; BP diastolic 57–76; PULSE 72–99; RESP 17–20; TEMP 36.1–37; O2SAT 96–100
[2023-07-12] MEDS: Enoxaparin Sodium 40 MG/0.4 ML SYRINGE SUBCUT (06:00)
[2023-07-12] MEDS: polyethylene glycoL 3350 17 GM POWD.PACK PO (07:46)
[2023-07-12] MEDS: Aspirin Enteric Coated 81 MG TABLET.DR PO (07:47)
[2023-07-12] MEDS: Furosemide 20 MG TABLET PO (07:47)
[2023-07-12] MEDS: Atorvastatin Calcium 80 MG TABLET PO (07:47)
[2023-07-12] MEDS: Clopidogrel Bisulfate 75 MG TABLET PO (07:47)
[2023-07-12] MEDS: lisinopriL 10 MG TABLET PO (07:47)
--- NOTE | 2023-07-12 09:36 | HO.PM.IMPN ---
Subjective Subjective Date of Service: 07/12/23 Interval History: Seen and evaluated comfortable , denies any weakness No reported overnight events Review of Systems Review of Systems: Yes all other systems are reviewed and are negative Physical Exam Vital Signs: Vital Signs: Last Vital Signs Temp 98.6 F 07/12/23 07:51 Pulse 99 07/12/23 07:51 Resp 18 07/12/23 07:51 BP 131/73 07/12/23 07:51 Pulse Ox 100 07/12/23 07:51 O2 Del Method Room Air 07/12/23 07:51 BMI result Body Mass Index 36.8 Const: Other: Constitutional : Awake, interactive, not in distress Neck : Normal inspection, Supple Cardiovascular : RRR, no JVP, No lower extremity edema Respiratory : good bilateral air entry, no crackles, wheezes or rhonchi Gastrointestinal: soft, lax, Normal bowel sounds, Non tender Skin : Warm, Dry Neurological : Alert & oriented x3, No focal deficit Objective Data Active Medications Acetaminophen (Acetaminophen 325 Mg Tablet) 650 mg PO Q6H PRN PRN Reason: Pain, Mild (Pain Scale 1-3) Last Admin: 07/11/23 19:48 Dose: 650 mg Documented By: VÍCTOR Acetaminophen (Acetaminophen Supp 650 Mg Supp.Rect) 650 mg SC Q6H PRN PRN Reason: Pain, Mild (Pain Scale 1-3) Al Hydroxide/Mg Hydroxide (Magnesium Hydrox/Alum Hydrox 30 Ml Oral.Susp) 30 ml PO Q4H PRN PRN Reason: Heartburn/Nausea Last Admin: 06/11/23 19:58 Dose: 30 ml Documented By: NATE Aspirin (Aspirin Enteric Coated 81 Mg Tablet.) 81 mg PO DAILY COUNTS INCLUDE 234 BEDS AT THE [facility] Last Admin: 07/12/23 07:47 Dose: 81 mg Documented By: HELLEN Atorvastatin Calcium (Atorvastatin Calcium 80 Mg Tablet) 80 mg PO DAILY COUNTS INCLUDE 234 BEDS AT THE [facility] Last Admin: 07/12/23 07:47 Dose: 80 mg Documented By: HELLEN Benzocaine (Throat Lozenge, Medicated Lozenge) 1 lozenge MUCOUS MEM Q2H PRN PRN Reason: Sore Throat Last Admin: 06/17/23 08:45 Dose: 1 lozenge Documented By: PRITESH Bisacodyl (Bisacodyl 5 Mg Tablet.) 10 mg PO DAILY PRN PRN Reason: Constipation Last Admin: 06/14/23 09:21 Dose: 10 mg Documented By: DEMETRIO Clopidogrel Bisulfate (Clopidogrel Bisulfate 75 Mg Tablet) 75 mg PO DAILY COUNTS INCLUDE 234 BEDS AT THE [facility] Last Admin: 07/12/23 07:47 Dose: 75 mg Documented By: HELLEN Enoxaparin Sodium (Enoxaparin Sodium 40 Mg/0.4 Ml Syringe) 40 mg SUBCUT Q24H COUNTS INCLUDE 234 BEDS AT THE [facility] Last Admin: 07/12/23 06:00 Dose: 40 mg Documented By: ABDI Furosemide (Furosemide 20 Mg Tablet) 20 mg PO DAILY COUNTS INCLUDE 234 BEDS AT THE [facility]; Protocol Last Admin: 07/12/23 07:47 Dose: 20 mg Documented By: HELLEN Hydroxyzine HCl (Hydroxyzine Hcl 50 Mg Tablet) 50 mg PO QID PRN PRN Reason: Anxiety Last Admin: 06/17/23 08:45 Dose: 50 mg Documented By: PONCE-RIVSHMUEL Lisinopril (Lisinopril 10 Mg Tablet) 10 mg PO DAILY COUNTS INCLUDE 234 BEDS AT THE [facility]; Protocol Last Admin: 07/12/23 07:47 Dose: 10 mg Documented By: HELLEN Melatonin (Melatonin 3 Mg Tablet) 6 mg PO BEDTIME PRN PRN Reason: Insomnia Last Admin: 07/08/23 19:58 Dose: 6 mg Documented By: NATE Mirtazapine (Mirtazapine 7.5 Mg Tablet) 7.5 mg PO BEDTIME COUNTS INCLUDE 234 BEDS AT THE [facility] Last Admin: 07/11/23 19:49 Dose: 7.5 mg Documented By: VÍCTOR Nicotine Polacrilex (Nicotine Polacrilex 2 Mg Gum) 2 mg BUCCAL Q2H PRN PRN Reason: Nicotine Cravings Ondansetron HCl (Ondansetron Hcl 4 Mg/2 Ml Vial) 4 mg IVPUSH Q8H PRN PRN Reason: Nausea and Vomiting Polyethylene Glycol (Polyethylene Glycol 3350 17 Gm Powd.Pack) 17 gm PO BID COUNTS INCLUDE 234 BEDS AT THE [facility] Last Admin: 07/12/23 07:46 Dose: 17 gm Documented By: HELLEN Sodium Chloride (0.9 % Sodium Chloride Flush 3 Ml Syringe) 3 ml IVFLUSH QSHIFT COUNTS INCLUDE 234 BEDS AT THE [facility] Last Admin: 07/12/23 07:47 Dose: Not Given Documented By: HELLEN Non-Admin Reason: No Access Labs 06/04/23 07:58 06/23/23 05:56 Assessment and Plan (1) Physical deconditioning: Status: Acute (2) Posterior circulation stroke: Status: Acute Plan 63M PMH obesity, depression with suicide attempts leading to hospitalization at [facility], htn, presented with dizziness, concern for posterior cva Acute stroke w posterior cva improved , steady on his feet and ambulating CTA done showed occlusion of the V4 segment of the proximal vertebral artery MRI showing small infarct in left lateral medullary Neurology input appreciated aspirin, plavix and atorvastatin Lower extremities edema 2/2 Fluid overload Echo within normal values, mild LVH Lasix 20 mg daily Monitor response Hypertension controlled Lisinopril to 10mg daily depression with recent Suicide attempt reports 2 attempts in as many weeks, denies any thoughts or plans now. was recently admitted to [facility] hospital Care team did not feel he need psychiatric unit admission, not suicidal, dc'd sitter. Camera monitoring discontinued Obesity BMI 36.8 encourage weight loss dvt porphylaxis - lovenox full code reason for continued hospitalization: Pending safe discharge plan to SNF per PT recommendations pending accepting facility. [facility] but meanwhile looking for short term placement for PT. Quality Stroke Does the patient have a stroke diagnosis?: Yes Reason for No Anti-thrombotic by Day Two: N/A - Med Ordered VTE Prior VTE?: No VTE Risk Level:: Medical - moderate - high VTE Device Contraindication: N/A - Device Ordered VTE Drug Contraindication: N/A - Med Ordered
--- NOTE | 2023-07-12 11:06 | MHC.CM.PN ---
PT MEDICALLY CLEARED TO DC HOWEVER THERE ARE NO SNFS ACCEPTING PER CM NOTES, PLAN IS FOR PT TO DC TO [facility] ON 07/25/23 UNLESS A SNF CAN BE FOUND BEFORE THEN
[2023-07-12] MEDS: Mirtazapine 7.5 MG TABLET PO (20:34)
[2023-07-12] MEDS: Acetaminophen 325 MG TABLET 650 MG PO (20:34)
[2023-07-13 03:02] VITALS: BP 130/78; PULSE 66; RESP 18; TEMP 36.2; O2SAT 97
[2023-07-13] MEDS: Enoxaparin Sodium 40 MG/0.4 ML SYRINGE SUBCUT (05:27)
[2023-07-13 07:21] VITALS: BP 137/72; PULSE 72; RESP 18; TEMP 36.6; O2SAT 96
[2023-07-13] MEDS: Clopidogrel Bisulfate 75 MG TABLET PO (07:53)
[2023-07-13] MEDS: Aspirin Enteric Coated 81 MG TABLET.DR PO (07:53)
[2023-07-13] MEDS: Furosemide 20 MG TABLET PO (07:53)
[2023-07-13] MEDS: lisinopriL 10 MG TABLET PO (07:53)
[2023-07-13] MEDS: Atorvastatin Calcium 80 MG TABLET PO (07:53)
[2023-07-13] MEDS: polyethylene glycoL 3350 17 GM POWD.PACK PO (07:54)
[2023-07-13] MEDS: Acetaminophen 325 MG TABLET 650 MG PO ×2 (07:56→20:11)
--- NOTE | 2023-07-13 09:12 | HO.PM.IMPN ---
Subjective Subjective Date of Service: 07/13/23 Interval History: Seen and evaluated comfortable , denies any weakness No reported overnight events Review of Systems Review of Systems: Yes all other systems are reviewed and are negative Physical Exam Vital Signs: Vital Signs: Last Vital Signs Temp 97.8 F 07/13/23 07:21 Pulse 72 07/13/23 07:21 Resp 18 07/13/23 07:21 BP 137/72 07/13/23 07:21 Pulse Ox 96 07/13/23 07:21 O2 Del Method Room Air 07/13/23 07:21 BMI result Body Mass Index 36.8 Const: Other: Constitutional : Awake, interactive, not in distress Neck : Normal inspection, Supple Cardiovascular : RRR, no JVP, No lower extremity edema Respiratory : good bilateral air entry, no crackles, wheezes or rhonchi Gastrointestinal: soft, lax, Normal bowel sounds, Non tender Skin : Warm, Dry Neurological : Alert & oriented x3, No focal deficit Objective Data Active Medications Acetaminophen (Acetaminophen 325 Mg Tablet) 650 mg PO Q6H PRN PRN Reason: Pain, Mild (Pain Scale 1-3) Last Admin: 07/13/23 07:56 Dose: 650 mg Documented By: HELLEN Acetaminophen (Acetaminophen Supp 650 Mg Supp.Rect) 650 mg [place] Q6H PRN PRN Reason: Pain, Mild (Pain Scale 1-3) Al Hydroxide/Mg Hydroxide (Magnesium Hydrox/Alum Hydrox 30 Ml Oral.Susp) 30 ml PO Q4H PRN PRN Reason: Heartburn/Nausea Last Admin: 06/11/23 19:58 Dose: 30 ml Documented By: NATE Aspirin (Aspirin Enteric Coated 81 Mg Tablet.) 81 mg PO DAILY [facility] Last Admin: 07/13/23 07:53 Dose: 81 mg Documented By: HELLEN Atorvastatin Calcium (Atorvastatin Calcium 80 Mg Tablet) 80 mg PO DAILY [facility] Last Admin: 07/13/23 07:53 Dose: 80 mg Documented By: HELLEN Benzocaine (Throat Lozenge, Medicated Lozenge) 1 lozenge MUCOUS MEM Q2H PRN PRN Reason: Sore Throat Last Admin: 06/17/23 08:45 Dose: 1 lozenge Documented By: PRITESH Bisacodyl (Bisacodyl 5 Mg Tablet.) 10 mg PO DAILY PRN PRN Reason: Constipation Last Admin: 06/14/23 09:21 Dose: 10 mg Documented By: DEMETRIO Clopidogrel Bisulfate (Clopidogrel Bisulfate 75 Mg Tablet) 75 mg PO DAILY [facility] Last Admin: 07/13/23 07:53 Dose: 75 mg Documented By: HELLEN Enoxaparin Sodium (Enoxaparin Sodium 40 Mg/0.4 Ml Syringe) 40 mg SUBCUT Q24H [facility] Last Admin: 07/13/23 05:27 Dose: 40 mg Documented By: VIANEY Furosemide (Furosemide 20 Mg Tablet) 20 mg PO DAILY [facility]; Protocol Last Admin: 07/13/23 07:53 Dose: 20 mg Documented By: HELLEN Hydroxyzine HCl (Hydroxyzine Hcl 50 Mg Tablet) 50 mg PO QID PRN PRN Reason: Anxiety Last Admin: 06/17/23 08:45 Dose: 50 mg Documented By: PONCE-RIVSHMUEL Lisinopril (Lisinopril 10 Mg Tablet) 10 mg PO DAILY [facility]; Protocol Last Admin: 07/13/23 07:53 Dose: 10 mg Documented By: HELLEN Melatonin (Melatonin 3 Mg Tablet) 6 mg PO BEDTIME PRN PRN Reason: Insomnia Last Admin: 07/08/23 19:58 Dose: 6 mg Documented By: NATE Mirtazapine (Mirtazapine 7.5 Mg Tablet) 7.5 mg PO BEDTIME [facility] Last Admin: 07/12/23 20:34 Dose: 7.5 mg Documented By: CHANCE Nicotine Polacrilex (Nicotine Polacrilex 2 Mg Gum) 2 mg BUCCAL Q2H PRN PRN Reason: Nicotine Cravings Ondansetron HCl (Ondansetron Hcl 4 Mg/2 Ml Vial) 4 mg IVPUSH Q8H PRN PRN Reason: Nausea and Vomiting Polyethylene Glycol (Polyethylene Glycol 3350 17 Gm Powd.Pack) 17 gm PO BID [facility] Last Admin: 07/13/23 07:54 Dose: 17 gm Documented By: HELLEN Sodium Chloride (0.9 % Sodium Chloride Flush 3 Ml Syringe) 3 ml IVFLUSH QSHIFT [facility] Last Admin: 07/13/23 07:58 Dose: Not Given Documented By: HELLEN Non-Admin Reason: No Access Labs 06/04/23 07:58 06/23/23 05:56 Assessment and Plan (1) Physical deconditioning: Status: Acute (2) Posterior circulation stroke: Status: Acute Plan 63M PMH obesity, depression with suicide attempts leading to hospitalization at [facility], presented with dizziness, concern for posterior cva Acute stroke w posterior cva improved , steady on his feet and ambulating CTA done showed occlusion of the V4 segment of the proximal vertebral artery MRI showing small infarct in left lateral medullary Neurology input appreciated aspirin, plavix and atorvastatin Lower extremities edema 2/2 Fluid overload Echo within normal values, mild LVH Lasix 20 mg daily Monitor response Hypertension controlled Lisinopril to 10mg daily depression with recent Suicide attempt reports 2 attempts in as many weeks, denies any thoughts or plans now. was recently admitted to [facility] Care team did not feel he need psychiatric unit admission, not suicidal, dc'd sitter. Camera monitoring discontinued Obesity BMI 36.8 encourage weight loss dvt porphylaxis - lovenox full code reason for continued hospitalization: Pending safe discharge plan to SNF per PT recommendations pending accepting facility. [facility] but meanwhile looking for short term placement for PT. Quality Stroke Does the patient have a stroke diagnosis?: Yes Reason for No Anti-thrombotic by Day Two: N/A - Med Ordered VTE Prior VTE?: No VTE Risk Level:: Medical - moderate - high VTE Device Contraindication: N/A - Device Ordered VTE Drug Contraindication: N/A - Med Ordered
[2023-07-13 11:22] VITALS: BP 112/64; PULSE 71; RESP 18; TEMP 36.3; O2SAT 97
[2023-07-13 15:13] VITALS: BP 120/62; PULSE 75; RESP 18; TEMP 36.3; O2SAT 97
[2023-07-13 19:23] VITALS: BP 119/71; PULSE 87; RESP 18; TEMP 36.4; O2SAT 96
[2023-07-13] MEDS: Mirtazapine 7.5 MG TABLET PO (20:11)
[2023-07-13 23:42] VITALS: BP 105/66; PULSE 79; RESP 18; TEMP 36.2; O2SAT 96
[2023-07-14 03:50] VITALS: BP 114/69; PULSE 69; RESP 18; TEMP 36.6; O2SAT 95
[2023-07-14] MEDS: Enoxaparin Sodium 40 MG/0.4 ML SYRINGE SUBCUT (06:10)
[2023-07-14 07:18] VITALS: BP 127/66; PULSE 72; RESP 18; TEMP 36.1; O2SAT 95
[2023-07-14] MEDS: Furosemide 20 MG TABLET PO (07:52)
[2023-07-14] MEDS: polyethylene glycoL 3350 17 GM POWD.PACK PO (07:52)
[2023-07-14] MEDS: Atorvastatin Calcium 80 MG TABLET PO (07:52)
[2023-07-14] MEDS: Aspirin Enteric Coated 81 MG TABLET.DR PO (07:52)
[2023-07-14] MEDS: lisinopriL 10 MG TABLET PO (07:52)
[2023-07-14] MEDS: Clopidogrel Bisulfate 75 MG TABLET PO (07:52)
--- NOTE | 2023-07-14 09:14 | P.PNIM_ITS ---
Subjective Subjective Date of Service: 07/14/23 Interval History: Seen and evaluated comfortable , denies any weakness No reported overnight events Review of Systems Review of Systems: Yes all other systems are reviewed and are negative Physical Exam 2 Vital Signs: Vital Signs: Last Vital Signs Temp 96.9 F 07/14/23 07:18 Pulse 72 07/14/23 07:18 Resp 18 07/14/23 07:18 BP 127/66 07/14/23 07:18 Pulse Ox 95 07/14/23 07:18 O2 Del Method Room Air 07/14/23 07:18 BMI result Body Mass Index 36.8 Const: Other: Constitutional : Awake, interactive, not in distress Neck : Normal inspection, Supple Cardiovascular : RRR, no JVP, No lower extremity edema Respiratory : good bilateral air entry, no crackles, wheezes or rhonchi Gastrointestinal: soft, lax, Normal bowel sounds, Non tender Skin : Warm, Dry Neurological : Alert & oriented x3, No focal deficit Objective Data Active Medications Acetaminophen (Acetaminophen 325 Mg Tablet) 650 mg PO Q6H PRN PRN Reason: Pain, Mild (Pain Scale 1-3) Last Admin: 07/13/23 20:11 Dose: 650 mg Documented By: NATE Acetaminophen (Acetaminophen Supp 650 Mg Supp.Rect) 650 mg [place] Q6H PRN PRN Reason: Pain, Mild (Pain Scale 1-3) Al Hydroxide/Mg Hydroxide (Magnesium Hydrox/Alum Hydrox 30 Ml Oral.Susp) 30 ml PO Q4H PRN PRN Reason: Heartburn/Nausea Last Admin: 06/11/23 19:58 Dose: 30 ml Documented By: NATE Aspirin (Aspirin Enteric Coated 81 Mg Tablet.) 81 mg PO DAILY [facility] Last Admin: 07/14/23 07:52 Dose: 81 mg Documented By: HELLEN Atorvastatin Calcium (Atorvastatin Calcium 80 Mg Tablet) 80 mg PO DAILY [facility] Last Admin: 07/14/23 07:52 Dose: 80 mg Documented By: HELLEN Benzocaine (Throat Lozenge, Medicated Lozenge) 1 lozenge MUCOUS MEM Q2H PRN PRN Reason: Sore Throat Last Admin: 06/17/23 08:45 Dose: 1 lozenge Documented By: PRITESH Bisacodyl (Bisacodyl 5 Mg Tablet.) 10 mg PO DAILY PRN PRN Reason: Constipation Last Admin: 06/14/23 09:21 Dose: 10 mg Documented By: DEMETRIO Clopidogrel Bisulfate (Clopidogrel Bisulfate 75 Mg Tablet) 75 mg PO DAILY [facility] Last Admin: 07/14/23 07:52 Dose: 75 mg Documented By: HELLEN Enoxaparin Sodium (Enoxaparin Sodium 40 Mg/0.4 Ml Syringe) 40 mg SUBCUT Q24H [facility] Last Admin: 07/14/23 06:10 Dose: 40 mg Documented By: NATE Furosemide (Furosemide 20 Mg Tablet) 20 mg PO DAILY [facility]; Protocol Last Admin: 07/14/23 07:52 Dose: 20 mg Documented By: HELLEN Hydroxyzine HCl (Hydroxyzine Hcl 50 Mg Tablet) 50 mg PO QID PRN PRN Reason: Anxiety Last Admin: 06/17/23 08:45 Dose: 50 mg Documented By: PONCE-RIVSHMUEL Lisinopril (Lisinopril 10 Mg Tablet) 10 mg PO DAILY [facility]; Protocol Last Admin: 07/14/23 07:52 Dose: 10 mg Documented By: HELLEN Melatonin (Melatonin 3 Mg Tablet) 6 mg PO BEDTIME PRN PRN Reason: Insomnia Last Admin: 07/08/23 19:58 Dose: 6 mg Documented By: NATE Mirtazapine (Mirtazapine 7.5 Mg Tablet) 7.5 mg PO BEDTIME [facility] Last Admin: 07/13/23 20:11 Dose: 7.5 mg Documented By: NATE Nicotine Polacrilex (Nicotine Polacrilex 2 Mg Gum) 2 mg BUCCAL Q2H PRN PRN Reason: Nicotine Cravings Ondansetron HCl (Ondansetron Hcl 4 Mg/2 Ml Vial) 4 mg IVPUSH Q8H PRN PRN Reason: Nausea and Vomiting Polyethylene Glycol (Polyethylene Glycol 3350 17 Gm Powd.Pack) 17 gm PO BID [facility] Last Admin: 07/14/23 07:52 Dose: 17 gm Documented By: HELLEN Sodium Chloride (0.9 % Sodium Chloride Flush 3 Ml Syringe) 3 ml IVFLUSH QSHIFT [facility] Last Admin: 07/14/23 07:53 Dose: Not Given Documented By: HELLEN Non-Admin Reason: No Access Labs 06/04/23 07:58 06/23/23 05:56 Assessment and Plan (1) Physical deconditioning: Status: Acute (2) Posterior circulation stroke: Status: Acute Plan 63M PMH obesity, depression with suicide attempts leading to hospitalization at [facility], htn, presented with dizziness, concern for posterior cva Acute stroke w posterior cva improved , steady on his feet and ambulating CTA done showed occlusion of the V4 segment of the proximal vertebral artery MRI showing small infarct in left lateral medullary Neurology input appreciated aspirin, plavix and atorvastatin Lower extremities edema 2/2 Fluid overload Echo within normal values, mild LVH Lasix 20 mg daily Monitor response Hypertension controlled Lisinopril to 10mg daily depression with recent Suicide attempt reports 2 attempts in as many weeks, denies any thoughts or plans now. was recently admitted to [facility] hospital Care team did not feel he need psychiatric unit admission, not suicidal, dc'd sitter. Camera monitoring discontinued Obesity BMI 36.8 encourage weight loss dvt porphylaxis - lovenox full code reason for continued hospitalization: Pending safe discharge plan to SNF per PT recommendations pending accepting facility. [facility] but meanwhile looking for short term placement for PT. Quality Stroke Does the patient have a stroke diagnosis?: Yes Reason for No Anti-thrombotic by Day Two: N/A - Med Ordered VTE Prior VTE?: No VTE Risk Level:: Medical - moderate - high VTE Device Contraindication: N/A - Device Ordered VTE Drug Contraindication: N/A - Med Ordered
[2023-07-14 11:30] VITALS: BP 136/68; PULSE 85; RESP 19; TEMP 36.2; O2SAT 93
[2023-07-14 15:46] VITALS: BP 112/74; PULSE 80; RESP 18; TEMP 36.6; O2SAT 100
[2023-07-14 19:21] VITALS: BP 144/85; PULSE 82; RESP 18; TEMP 36.7; O2SAT 96
[2023-07-14] MEDS: Mirtazapine 7.5 MG TABLET PO (19:58)
[2023-07-14] MEDS: Acetaminophen 325 MG TABLET 650 MG PO (20:00)
[2023-07-14 23:39] VITALS: BP 107/76; PULSE 75; RESP 18; TEMP 36.4; O2SAT 97
[2023-07-15] VITALS (9 sets, daily range): BP systolic 118–174; BP diastolic 60–83; PULSE 70–90; RESP 16–20; TEMP 36.2–36.7; O2SAT 95–99
[2023-07-15] MEDS: Enoxaparin Sodium 40 MG/0.4 ML SYRINGE SUBCUT (05:50)
[2023-07-15] MEDS: Furosemide 20 MG TABLET PO (08:46)
[2023-07-15] MEDS: polyethylene glycoL 3350 17 GM POWD.PACK PO ×2 (08:46→20:11)
[2023-07-15] MEDS: Clopidogrel Bisulfate 75 MG TABLET PO (08:46)
[2023-07-15] MEDS: Atorvastatin Calcium 80 MG TABLET PO (08:46)
[2023-07-15] MEDS: Aspirin Enteric Coated 81 MG TABLET.DR PO (08:46)
[2023-07-15] MEDS: lisinopriL 10 MG TABLET PO (08:47)
--- NOTE | 2023-07-15 09:05 | MHC.CM.PN ---
Patient has a bed available to him on 07/25/2023 at [facility]; No snf bed offers for the time period before 07/25/2023. CM will follow.
[2023-07-15] MEDS: Mirtazapine 7.5 MG TABLET PO (20:11)
[2023-07-15] MEDS: Acetaminophen 325 MG TABLET 650 MG PO (20:11)
[2023-07-16 03:23] VITALS: BP 130/78; PULSE 50; RESP 18; TEMP 37.1; O2SAT 96
[2023-07-16] MEDS: Enoxaparin Sodium 40 MG/0.4 ML SYRINGE SUBCUT (06:14)
[2023-07-16 07:19] VITALS: BP 131/79; PULSE 83; RESP 18; TEMP 36.4; O2SAT 97
[2023-07-16] MEDS: lisinopriL 10 MG TABLET PO (07:42)
[2023-07-16] MEDS: Atorvastatin Calcium 80 MG TABLET PO (07:42)
[2023-07-16] MEDS: Clopidogrel Bisulfate 75 MG TABLET PO (07:42)
[2023-07-16] MEDS: Aspirin Enteric Coated 81 MG TABLET.DR PO (07:42)
[2023-07-16] MEDS: Furosemide 20 MG TABLET PO (07:42)
[2023-07-16] MEDS: Acetaminophen 325 MG TABLET 650 MG PO ×2 (07:49→20:51)
--- NOTE | 2023-07-16 09:49 | P.PNIM_ITS ---
Subjective Subjective Date of Service: 07/16/23 Interval History: Seen and evaluated comfortable , denies any weakness No reported overnight events Review of Systems Review of Systems: Yes all other systems are reviewed and are negative Physical Exam 2 Vital Signs: Vital Signs: Last Vital Signs Temp 97.6 F 07/16/23 07:19 Pulse 83 07/16/23 07:19 Resp 18 07/16/23 07:19 BP 131/79 07/16/23 07:19 Pulse Ox 97 07/16/23 07:19 O2 Del Method Room Air 07/16/23 07:19 O2 Flow Rate 2 07/15/23 07:47 BMI result Body Mass Index 36.8 Const: Other: Constitutional : Awake, interactive, not in distress Neck : Normal inspection, Supple Cardiovascular : RRR, no JVP, No lower extremity edema Respiratory : good bilateral air entry, no crackles, wheezes or rhonchi Gastrointestinal: soft, lax, Normal bowel sounds, Non tender Skin : Warm, Dry Neurological : Alert & oriented x3, No focal deficit Objective Data Active Medications Acetaminophen (Acetaminophen 325 Mg Tablet) 650 mg PO Q6H PRN PRN Reason: Pain, Mild (Pain Scale 1-3) Last Admin: 07/16/23 07:49 Dose: 650 mg Documented By: REBEL Acetaminophen (Acetaminophen Supp 650 Mg Supp.Rect) 650 mg NC Q6H PRN PRN Reason: Pain, Mild (Pain Scale 1-3) Al Hydroxide/Mg Hydroxide (Magnesium Hydrox/Alum Hydrox 30 Ml Oral.Susp) 30 ml PO Q4H PRN PRN Reason: Heartburn/Nausea Last Admin: 06/11/23 19:58 Dose: 30 ml Documented By: NATE Aspirin (Aspirin Enteric Coated 81 Mg Tablet.Dr) 81 mg PO DAILY [facility] Last Admin: 07/16/23 07:42 Dose: 81 mg Documented By: REBEL Atorvastatin Calcium (Atorvastatin Calcium 80 Mg Tablet) 80 mg PO DAILY [facility] Last Admin: 07/16/23 07:42 Dose: 80 mg Documented By: REBEL Benzocaine (Throat Lozenge, Medicated Lozenge) 1 lozenge MUCOUS MEM Q2H PRN PRN Reason: Sore Throat Last Admin: 06/17/23 08:45 Dose: 1 lozenge Documented By: PRITESH Bisacodyl (Bisacodyl 5 Mg Tablet.Dr) 10 mg PO DAILY PRN PRN Reason: Constipation Last Admin: 06/14/23 09:21 Dose: 10 mg Documented By: DEMETRIO Clopidogrel Bisulfate (Clopidogrel Bisulfate 75 Mg Tablet) 75 mg PO DAILY [facility] Last Admin: 07/16/23 07:42 Dose: 75 mg Documented By: REBEL Enoxaparin Sodium (Enoxaparin Sodium 40 Mg/0.4 Ml Syringe) 40 mg SUBCUT Q24H [facility] Last Admin: 07/16/23 06:14 Dose: 40 mg Documented By: VÍCTOR Furosemide (Furosemide 20 Mg Tablet) 20 mg PO DAILY [facility]; Protocol Last Admin: 07/16/23 07:42 Dose: 20 mg Documented By: REBEL Hydroxyzine HCl (Hydroxyzine Hcl 50 Mg Tablet) 50 mg PO QID PRN PRN Reason: Anxiety Last Admin: 06/17/23 08:45 Dose: 50 mg Documented By: RPITESH Lisinopril (Lisinopril 10 Mg Tablet) 10 mg PO DAILY [facility]; Protocol Last Admin: 07/16/23 07:42 Dose: 10 mg Documented By: REBEL Melatonin (Melatonin 3 Mg Tablet) 6 mg PO BEDTIME PRN PRN Reason: Insomnia Last Admin: 07/08/23 19:58 Dose: 6 mg Documented By: NATE Mirtazapine (Mirtazapine 7.5 Mg Tablet) 7.5 mg PO BEDTIME [facility] Last Admin: 07/15/23 20:11 Dose: 7.5 mg Documented By: VÍCTOR Nicotine Polacrilex (Nicotine Polacrilex 2 Mg Gum) 2 mg BUCCAL Q2H PRN PRN Reason: Nicotine Cravings Ondansetron HCl (Ondansetron Hcl 4 Mg/2 Ml Vial) 4 mg IVPUSH Q8H PRN PRN Reason: Nausea and Vomiting Polyethylene Glycol (Polyethylene Glycol 3350 17 Gm Powd.Pack) 17 gm PO BID [facility] Last Admin: 07/16/23 07:46 Dose: Not Given Documented By: REBEL Non-Admin Reason: Patient Refused Sodium Chloride (0.9 % Sodium Chloride Flush 3 Ml Syringe) 3 ml IVFLUSH QSHIFT [facility] Last Admin: 07/16/23 07:43 Dose: Not Given Documented By: REBEL Non-Admin Reason: No Access Labs 06/04/23 07:58 06/23/23 05:56 Assessment and Plan (1) Physical deconditioning: Status: Acute (2) Posterior circulation stroke: Status: Acute Plan 63M PMH obesity, depression with suicide attempts leading to hospitalization at [facility], htn, presented with dizziness, concern for posterior cva Acute stroke w posterior cva improved , steady on his feet and ambulating CTA done showed occlusion of the V4 segment of the proximal vertebral artery MRI showing small infarct in left lateral medullary Neurology input appreciated aspirin, plavix and atorvastatin Lower extremities edema 2/2 Fluid overload Echo within normal values, mild LVH Lasix 20 mg daily Monitor response Hypertension controlled Lisinopril to 10mg daily depression with recent Suicide attempt reports 2 attempts in as many weeks, denies any thoughts or plans now. was recently admitted to [facility] Care team did not feel he need psychiatric unit admission, not suicidal, dc'd sitter. Camera monitoring discontinued Obesity BMI 36.8 encourage weight loss dvt porphylaxis - lovenox full code reason for continued hospitalization: Pending safe discharge plan to SNF per PT recommendations pending accepting facility. [facility] but meanwhile looking for short term placement for PT. Quality Stroke Does the patient have a stroke diagnosis?: Yes Reason for No Anti-thrombotic by Day Two: N/A - Med Ordered VTE Prior VTE?: No VTE Risk Level:: Medical - moderate - high VTE Device Contraindication: N/A - Device Ordered VTE Drug Contraindication: N/A - Med Ordered
--- NOTE | 2023-07-16 10:35 | MHC.CM.PN ---
A Muck Miner(Dariana) from [facility] will be here tomorrow at 11AM to meet Patient and to answer any questions that he may have. Patient and RN to be made aware. dc date is 07/25/2023, anticipate 9:30 Shuttle belt picker.CM will follow.
[2023-07-16 11:11] VITALS: BP 116/63; PULSE 78; RESP 18; TEMP 36.3; O2SAT 99
[2023-07-16 15:08] VITALS: BP 118/55; PULSE 80; RESP 20; TEMP 36.7; O2SAT 100
[2023-07-16 19:35] VITALS: BP 121/73; PULSE 82; RESP 20; TEMP 36; O2SAT 96
[2023-07-16] MEDS: polyethylene glycoL 3350 17 GM POWD.PACK PO (20:51)
[2023-07-16] MEDS: Mirtazapine 7.5 MG TABLET PO (20:52)
[2023-07-17] VITALS (7 sets, daily range): BP systolic 110–134; BP diastolic 56–79; PULSE 70–82; RESP 18–20; TEMP 36.3–36.9; O2SAT 93–99
[2023-07-17] MEDS: Enoxaparin Sodium 40 MG/0.4 ML SYRINGE SUBCUT (05:54)
[2023-07-17] MEDS: Furosemide 20 MG TABLET PO (07:20)
[2023-07-17] MEDS: Clopidogrel Bisulfate 75 MG TABLET PO (07:21)
[2023-07-17] MEDS: polyethylene glycoL 3350 17 GM POWD.PACK PO ×2 (07:21→20:38)
[2023-07-17] MEDS: Atorvastatin Calcium 80 MG TABLET PO (07:21)
[2023-07-17] MEDS: Aspirin Enteric Coated 81 MG TABLET.DR PO (07:21)
[2023-07-17] MEDS: lisinopriL 10 MG TABLET PO (07:21)
[2023-07-17] MEDS: Acetaminophen 325 MG TABLET 650 MG PO ×2 (07:21→20:41)
--- NOTE | 2023-07-17 10:38 | P.PNIM_ITS ---
Subjective Subjective Date of Service: 07/17/23 Interval History: Seen and evaluated comfortable , denies any weakness No reported overnight events Review of Systems Review of Systems: Yes all other systems are reviewed and are negative Physical Exam 2 Vital Signs: Vital Signs: Last Vital Signs Temp 97.6 F 07/17/23 07:15 Pulse 78 07/17/23 07:15 Resp 18 07/17/23 07:15 BP 125/67 07/17/23 07:15 Pulse Ox 97 07/17/23 07:15 O2 Del Method Room Air 07/17/23 07:15 O2 Flow Rate 2 07/15/23 07:47 BMI result Body Mass Index 36.8 Const: Other: Constitutional : Awake, interactive, not in distress Neck : Normal inspection, Supple Cardiovascular : RRR, no JVP, No lower extremity edema Respiratory : good bilateral air entry, no crackles, wheezes or rhonchi Gastrointestinal: soft, lax, Normal bowel sounds, Non tender Skin : Warm, Dry Neurological : Alert & oriented x3, No focal deficit Objective Data Active Medications Acetaminophen (Acetaminophen 325 Mg Tablet) 650 mg PO Q6H PRN PRN Reason: Pain, Mild (Pain Scale 1-3) Last Admin: 07/17/23 07:21 Dose: 650 mg Documented By: REBEL Acetaminophen (Acetaminophen Supp 650 Mg Supp.Rect) 650 mg [place] Q6H PRN PRN Reason: Pain, Mild (Pain Scale 1-3) Al Hydroxide/Mg Hydroxide (Magnesium Hydrox/Alum Hydrox 30 Ml Oral.Susp) 30 ml PO Q4H PRN PRN Reason: Heartburn/Nausea Last Admin: 06/11/23 19:58 Dose: 30 ml Documented By: NATE Aspirin (Aspirin Enteric Coated 81 Mg Tablet.Dr) 81 mg PO DAILY [facility] Last Admin: 07/17/23 07:21 Dose: 81 mg Documented By: REBEL Atorvastatin Calcium (Atorvastatin Calcium 80 Mg Tablet) 80 mg PO DAILY [facility] Last Admin: 07/17/23 07:21 Dose: 80 mg Documented By: REBEL Benzocaine (Throat Lozenge, Medicated Lozenge) 1 lozenge MUCOUS MEM Q2H PRN PRN Reason: Sore Throat Last Admin: 06/17/23 08:45 Dose: 1 lozenge Documented By: PRITESH Bisacodyl (Bisacodyl 5 Mg Tablet.Dr) 10 mg PO DAILY PRN PRN Reason: Constipation Last Admin: 06/14/23 09:21 Dose: 10 mg Documented By: DEMETRIO Clopidogrel Bisulfate (Clopidogrel Bisulfate 75 Mg Tablet) 75 mg PO DAILY [facility] Last Admin: 07/17/23 07:21 Dose: 75 mg Documented By: REBEL Enoxaparin Sodium (Enoxaparin Sodium 40 Mg/0.4 Ml Syringe) 40 mg SUBCUT Q24H [facility] Last Admin: 07/17/23 05:54 Dose: 40 mg Documented By: JULIANNE Furosemide (Furosemide 20 Mg Tablet) 20 mg PO DAILY [facility]; Protocol Last Admin: 07/17/23 07:20 Dose: 20 mg Documented By: REBEL Hydroxyzine HCl (Hydroxyzine Hcl 50 Mg Tablet) 50 mg PO QID PRN PRN Reason: Anxiety Last Admin: 06/17/23 08:45 Dose: 50 mg Documented By: PRITESH Lisinopril (Lisinopril 10 Mg Tablet) 10 mg PO DAILY [facility]; Protocol Last Admin: 07/17/23 07:21 Dose: 10 mg Documented By: REBEL Melatonin (Melatonin 3 Mg Tablet) 6 mg PO BEDTIME PRN PRN Reason: Insomnia Last Admin: 07/08/23 19:58 Dose: 6 mg Documented By: NATE Mirtazapine (Mirtazapine 7.5 Mg Tablet) 7.5 mg PO BEDTIME [facility] Last Admin: 07/16/23 20:52 Dose: 7.5 mg Documented By: FERNANDO Nicotine Polacrilex (Nicotine Polacrilex 2 Mg Gum) 2 mg BUCCAL Q2H PRN PRN Reason: Nicotine Cravings Ondansetron HCl (Ondansetron Hcl 4 Mg/2 Ml Vial) 4 mg IVPUSH Q8H PRN PRN Reason: Nausea and Vomiting Polyethylene Glycol (Polyethylene Glycol 3350 17 Gm Powd.Pack) 17 gm PO BID [facility] Last Admin: 07/17/23 07:21 Dose: 17 gm Documented By: REBEL Sodium Chloride (0.9 % Sodium Chloride Flush 3 Ml Syringe) 3 ml IVFLUSH QSHIFT [facility] Last Admin: 07/17/23 07:21 Dose: Not Given Documented By: REBEL Non-Admin Reason: No Access Labs 06/04/23 07:58 06/23/23 05:56 Assessment and Plan (1) Posterior circulation stroke: Status: Acute Plan 63M PMH obesity, depression with suicide attempts leading to hospitalization at [facility], htn, presented with dizziness, concern for posterior cva Acute stroke w posterior cva improved , steady on his feet and ambulating CTA done showed occlusion of the V4 segment of the proximal vertebral artery MRI showing small infarct in left lateral medullary Neurology input appreciated aspirin, plavix and atorvastatin Lower extremities edema 2/2 Fluid overload Echo within normal values, mild LVH Lasix 20 mg daily Monitor response Hypertension controlled Lisinopril to 10mg daily depression with recent Suicide attempt reports 2 attempts in as many weeks, denies any thoughts or plans now. was recently admitted to [facility] hospital Care team did not feel he need psychiatric unit admission, not suicidal. Obesity BMI 36.8 encourage weight loss dvt porphylaxis - lovenox full code reason for continued hospitalization: Pending safe discharge plan to SNF per PT recommendations pending accepting facility. [facility] but meanwhile looking for short term placement for PT. Quality Stroke Does the patient have a stroke diagnosis?: Yes Reason for No Anti-thrombotic by Day Two: N/A - Med Ordered VTE Prior VTE?: No VTE Risk Level:: Medical - moderate - high VTE Device Contraindication: N/A - Device Ordered VTE Drug Contraindication: N/A - Med Ordered
--- NOTE | 2023-07-17 11:42 | MHC.CM.PN ---
The Meat Puller from [facility], scheduled to meet with Patient today at 11 has rescheduled her visit to 07/19/2023 at 11AM(RN has been made aware).
[2023-07-17] MEDS: Mirtazapine 7.5 MG TABLET PO (20:38)
[2023-07-18 03:02] VITALS: BP 106/71; PULSE 62; RESP 20; TEMP 36.7; O2SAT 97
[2023-07-18] MEDS: Enoxaparin Sodium 40 MG/0.4 ML SYRINGE SUBCUT (05:41)
[2023-07-18 07:53] VITALS: BP 110/67; PULSE 77; RESP 18; TEMP 36.6; O2SAT 96
[2023-07-18] MEDS: Furosemide 20 MG TABLET PO (09:04)
[2023-07-18] MEDS: Atorvastatin Calcium 80 MG TABLET PO (09:04)
[2023-07-18] MEDS: Clopidogrel Bisulfate 75 MG TABLET PO (09:04)
[2023-07-18] MEDS: lisinopriL 10 MG TABLET PO (09:04)
[2023-07-18] MEDS: polyethylene glycoL 3350 17 GM POWD.PACK PO (09:05)
[2023-07-18] MEDS: Acetaminophen 325 MG TABLET 650 MG PO ×2 (09:05→20:12)
[2023-07-18] MEDS: Aspirin Enteric Coated 81 MG TABLET.DR PO (09:05)
[2023-07-18 11:46] VITALS: BP 127/58; PULSE 75; RESP 20; TEMP 36.5; O2SAT 97
[2023-07-18 14:32] LABS: Appearance Urine Hazy; Color Urine Yellow; Glucose Urine UA Negative (Negative); Leukocyte Esterase Urine Negative (Negative); Nitrite Urine Negative (Negative); Specific Gravity - Urine 1.025 (1.005-1.025); UMIC TRIGGER UACC YES; Urine Blood Large (3+) (Negative); Urine Ketones Negative (Negative); Urine Protein 300 (3+) mg/dL (Neg-Trace)
[2023-07-18 14:35] LABS: Bacteria Urine None Seen (None Seen); RBC Urine >20 /HPF (0-2); UACC Culture Trigger YES
--- NOTE | 2023-07-18 14:37 | HO.PM.IMPN ---
Subjective Subjective Date of Service: 07/18/23 Interval History: Seen and evaluated comfortable , denies any weakness No reported overnight events burning and hesitancy in urine Review of Systems Review of Systems: Yes all other systems are reviewed and are negative Physical Exam Vital Signs: Vital Signs: Last Vital Signs Temp 97.7 F 07/18/23 11:46 Pulse 75 07/18/23 11:46 Resp 20 07/18/23 11:46 BP 127/58 L 07/18/23 11:46 Pulse Ox 97 07/18/23 11:46 O2 Del Method Room Air 07/18/23 11:46 O2 Flow Rate 2 07/15/23 07:47 BMI result Body Mass Index 36.8 Const: Other: Constitutional : Awake, interactive, not in distress Neck : Normal inspection, Supple Cardiovascular : RRR, no JVP, No lower extremity edema Respiratory : good bilateral air entry, no crackles, wheezes or rhonchi Gastrointestinal: soft, lax, Normal bowel sounds, Non tender Skin : Warm, Dry Neurological : Alert & oriented x3, No focal deficit Objective Data Active Medications Acetaminophen (Acetaminophen 325 Mg Tablet) 650 mg PO Q6H PRN PRN Reason: Pain, Mild (Pain Scale 1-3) Last Admin: 07/18/23 09:05 Dose: 650 mg Documented By: TYLER Acetaminophen (Acetaminophen Supp 650 Mg Supp.Rect) 650 mg [place] Q6H PRN PRN Reason: Pain, Mild (Pain Scale 1-3) Al Hydroxide/Mg Hydroxide (Magnesium Hydrox/Alum Hydrox 30 Ml Oral.Susp) 30 ml PO Q4H PRN PRN Reason: Heartburn/Nausea Last Admin: 06/11/23 19:58 Dose: 30 ml Documented By: NATE Aspirin (Aspirin Enteric Coated 81 Mg Tablet.) 81 mg PO DAILY [facility] Last Admin: 07/18/23 09:05 Dose: 81 mg Documented By: TYLER Atorvastatin Calcium (Atorvastatin Calcium 80 Mg Tablet) 80 mg PO DAILY [facility] Last Admin: 07/18/23 09:04 Dose: 80 mg Documented By: TYLER Benzocaine (Throat Lozenge, Medicated Lozenge) 1 lozenge MUCOUS MEM Q2H PRN PRN Reason: Sore Throat Last Admin: 06/17/23 08:45 Dose: 1 lozenge Documented By: HO.N-RIVLA Bisacodyl (Bisacodyl 5 Mg Tablet.) 10 mg PO DAILY PRN PRN Reason: Constipation Last Admin: 06/14/23 09:21 Dose: 10 mg Documented By: DEMETRIO Clopidogrel Bisulfate (Clopidogrel Bisulfate 75 Mg Tablet) 75 mg PO DAILY [facility] Last Admin: 07/18/23 09:04 Dose: 75 mg Documented By: TYLER Enoxaparin Sodium (Enoxaparin Sodium 40 Mg/0.4 Ml Syringe) 40 mg SUBCUT Q24H [facility] Last Admin: 07/18/23 05:41 Dose: 40 mg Documented By: ROBINSON Furosemide (Furosemide 20 Mg Tablet) 20 mg PO DAILY [facility]; Protocol Last Admin: 07/18/23 09:04 Dose: 20 mg Documented By: TYLER Hydroxyzine HCl (Hydroxyzine Hcl 50 Mg Tablet) 50 mg PO QID PRN PRN Reason: Anxiety Last Admin: 06/17/23 08:45 Dose: 50 mg Documented By: PRITESH Lisinopril (Lisinopril 10 Mg Tablet) 10 mg PO DAILY [facility]; Protocol Last Admin: 07/18/23 09:04 Dose: 10 mg Documented By: TYLER Melatonin (Melatonin 3 Mg Tablet) 6 mg PO BEDTIME PRN PRN Reason: Insomnia Last Admin: 07/08/23 19:58 Dose: 6 mg Documented By: NATE Mirtazapine (Mirtazapine 7.5 Mg Tablet) 7.5 mg PO BEDTIME [facility] Last Admin: 07/17/23 20:38 Dose: 7.5 mg Documented By: FERNANDO Nicotine Polacrilex (Nicotine Polacrilex 2 Mg Gum) 2 mg BUCCAL Q2H PRN PRN Reason: Nicotine Cravings Ondansetron HCl (Ondansetron Hcl 4 Mg/2 Ml Vial) 4 mg IVPUSH Q8H PRN PRN Reason: Nausea and Vomiting Polyethylene Glycol (Polyethylene Glycol 3350 17 Gm Powd.Pack) 17 gm PO BID [facility] Last Admin: 07/18/23 09:05 Dose: 17 gm Documented By: TYLER Sodium Chloride (0.9 % Sodium Chloride Flush 3 Ml Syringe) 3 ml IVFLUSH QSHIFT [facility] Last Admin: 07/18/23 09:07 Dose: Not Given Documented By: TYLER Non-Admin Reason: No IV access Labs 06/04/23 07:58 06/23/23 05:56 Labs: Laboratory Results - last 24 hr 07/18/23 14:15 Urine Color Yellow Urine Appearance Hazy Urine pH 6.0 Ur Specific [place] 1.025 Urine Protein 300 (3+) H Urine Glucose (UA) Negative Urine Ketones Negative Urine Blood Large (3+) H Urine Nitrite Negative Ur Leukocyte Esterase Negative Assessment and Plan (1) Physical deconditioning: Status: Acute (2) Posterior circulation stroke: Status: Acute Plan 63M PMH obesity, depression with suicide attempts leading to hospitalization at [facility], htn, presented with dizziness, concern for posterior cva Acute stroke w posterior cva improved , steady on his feet and ambulating CTA done showed occlusion of the V4 segment of the proximal vertebral artery MRI showing small infarct in left lateral medullary Neurology input appreciated aspirin, plavix and atorvastatin Urine problem check UA and PSA Lower extremities edema 2/2 Fluid overload Echo within normal values, mild LVH Lasix 20 mg daily Monitor response Hypertension controlled Lisinopril to 10mg daily depression with recent Suicide attempt reports 2 attempts in as many weeks, denies any thoughts or plans now. was recently admitted to [facility] hospital Care team did not feel he need psychiatric unit admission, not suicidal. Obesity BMI 36.8 encourage weight loss dvt porphylaxis - lovenox full code reason for continued hospitalization: Pending safe discharge plan to SNF per PT recommendations pending accepting facility. [facility] but meanwhile looking for short term placement for PT. Quality Stroke Does the patient have a stroke diagnosis?: Yes Reason for No Anti-thrombotic by Day Two: N/A - Med Ordered VTE Prior VTE?: No VTE Risk Level:: Medical - moderate - high VTE Device Contraindication: N/A - Device Ordered VTE Drug Contraindication: N/A - Med Ordered
[2023-07-18 15:20] VITALS: BP 119/72; PULSE 77; RESP 18; TEMP 36.4; O2SAT 99
[2023-07-18 16:08] LABS: Prostate Specific Antigen 2.64 ng/mL (<0.05-4.0)
[2023-07-18 19:13] VITALS: BP 128/67; PULSE 72; RESP 18; TEMP 36.3; O2SAT 100
[2023-07-18] MEDS: Mirtazapine 7.5 MG TABLET PO (20:12)
[2023-07-18 23:26] VITALS: BP 113/67; PULSE 63; RESP 18; TEMP 36.4; O2SAT 96
[2023-07-19 03:53] VITALS: BP 119/73; PULSE 70; RESP 18; TEMP 36.6; O2SAT 95
[2023-07-19] MEDS: Enoxaparin Sodium 40 MG/0.4 ML SYRINGE SUBCUT (05:08)
[2023-07-19 07:36] VITALS: BP 122/74; PULSE 65; RESP 20; TEMP 36.3; O2SAT 100
[2023-07-19] MEDS: polyethylene glycoL 3350 17 GM POWD.PACK PO (08:54)
[2023-07-19] MEDS: Aspirin Enteric Coated 81 MG TABLET.DR PO (08:54)
[2023-07-19] MEDS: lisinopriL 10 MG TABLET PO (08:55)
[2023-07-19] MEDS: Atorvastatin Calcium 80 MG TABLET PO (08:55)
[2023-07-19] MEDS: Clopidogrel Bisulfate 75 MG TABLET PO (08:55)
[2023-07-19] MEDS: Furosemide 20 MG TABLET PO (08:55)
--- NOTE | 2023-07-19 09:15 | MHC.CM.PN ---
A It Security Project Manager from [facility] is expected to visit Patient today to meet him and address any questions he may have; Patient and RN are aware.
[2023-07-19 09:57] VITALS: BP 122/74; PULSE 65; O2SAT 100
--- NOTE | 2023-07-19 11:14 | P.PNIM_ITS ---
Subjective Subjective Date of Service: 07/19/23 Interval History: Seen and evaluated comfortable , No reported overnight events Review of Systems Review of Systems: Yes all other systems are reviewed and are negative Physical Exam 2 Vital Signs: Vital Signs: Last Vital Signs Temp 97.3 F 07/19/23 07:36 Pulse 65 07/19/23 09:57 Resp 20 07/19/23 07:36 BP 122/74 07/19/23 09:57 Pulse Ox 100 07/19/23 09:57 O2 Del Method Room Air 07/19/23 07:36 O2 Flow Rate 2 07/15/23 07:47 BMI result Body Mass Index 36.8 Const: Other: Constitutional : Awake, interactive, not in distress Neck : Normal inspection, Supple Cardiovascular : RRR, no JVP, No lower extremity edema Respiratory : good bilateral air entry, no crackles, wheezes or rhonchi Gastrointestinal: soft, lax, Normal bowel sounds, Non tender Skin : Warm, Dry Neurological : Alert & oriented x3, No focal deficit Objective Data Active Medications Acetaminophen (Acetaminophen 325 Mg Tablet) 650 mg PO Q6H PRN PRN Reason: Pain, Mild (Pain Scale 1-3) Last Admin: 07/18/23 20:12 Dose: 650 mg Documented By: NATE Acetaminophen (Acetaminophen Supp 650 Mg Supp.Rect) 650 mg [place] Q6H PRN PRN Reason: Pain, Mild (Pain Scale 1-3) Al Hydroxide/Mg Hydroxide (Magnesium Hydrox/Alum Hydrox 30 Ml Oral.Susp) 30 ml PO Q4H PRN PRN Reason: Heartburn/Nausea Last Admin: 06/11/23 19:58 Dose: 30 ml Documented By: NATE Aspirin (Aspirin Enteric Coated 81 Mg Tablet.Dr) 81 mg PO DAILY [facility] Last Admin: 07/19/23 08:54 Dose: 81 mg Documented By: TYLER Atorvastatin Calcium (Atorvastatin Calcium 80 Mg Tablet) 80 mg PO DAILY [facility] Last Admin: 07/19/23 08:55 Dose: 80 mg Documented By: TYLER Benzocaine (Throat Lozenge, Medicated Lozenge) 1 lozenge MUCOUS MEM Q2H PRN PRN Reason: Sore Throat Last Admin: 06/17/23 08:45 Dose: 1 lozenge Documented By: PRITESH Bisacodyl (Bisacodyl 5 Mg Tablet.) 10 mg PO DAILY PRN PRN Reason: Constipation Last Admin: 06/14/23 09:21 Dose: 10 mg Documented By: DEMETRIO Clopidogrel Bisulfate (Clopidogrel Bisulfate 75 Mg Tablet) 75 mg PO DAILY [facility] Last Admin: 07/19/23 08:55 Dose: 75 mg Documented By: TYLER Enoxaparin Sodium (Enoxaparin Sodium 40 Mg/0.4 Ml Syringe) 40 mg SUBCUT Q24H [facility] Last Admin: 07/19/23 05:08 Dose: 40 mg Documented By: NATE Furosemide (Furosemide 20 Mg Tablet) 20 mg PO DAILY [facility]; Protocol Last Admin: 07/19/23 08:55 Dose: 20 mg Documented By: TYLER Hydroxyzine HCl (Hydroxyzine Hcl 50 Mg Tablet) 50 mg PO QID PRN PRN Reason: Anxiety Last Admin: 06/17/23 08:45 Dose: 50 mg Documented By: PONCE-MONICA Lisinopril (Lisinopril 10 Mg Tablet) 10 mg PO DAILY [facility]; Protocol Last Admin: 07/19/23 08:55 Dose: 10 mg Documented By: TYLER Melatonin (Melatonin 3 Mg Tablet) 6 mg PO BEDTIME PRN PRN Reason: Insomnia Last Admin: 07/08/23 19:58 Dose: 6 mg Documented By: NATE Mirtazapine (Mirtazapine 7.5 Mg Tablet) 7.5 mg PO BEDTIME [facility] Last Admin: 07/18/23 20:12 Dose: 7.5 mg Documented By: NATE Nicotine Polacrilex (Nicotine Polacrilex 2 Mg Gum) 2 mg BUCCAL Q2H PRN PRN Reason: Nicotine Cravings Ondansetron HCl (Ondansetron Hcl 4 Mg/2 Ml Vial) 4 mg IVPUSH Q8H PRN PRN Reason: Nausea and Vomiting Phenazopyridine HCl (Phenazopyridine Hcl 100 Mg Tablet) 100 mg PO TIDWM PRN PRN Reason: Dysurea Stop: 07/20/23 17:01 Polyethylene Glycol (Polyethylene Glycol 3350 17 Gm Powd.Pack) 17 gm PO BID [facility] Last Admin: 07/19/23 08:54 Dose: 17 gm Documented By: TYLER Sodium Chloride (0.9 % Sodium Chloride Flush 3 Ml Syringe) 3 ml IVFLUSH QSHIFT [facility] Last Admin: 07/19/23 08:58 Dose: Not Given Documented By: TYLER Non-Admin Reason: No IV access Labs 06/04/23 07:58 06/23/23 05:56 Labs: Laboratory Results - last 24 hr 07/18/23 07/18/23 14:15 15:00 Prostate Specific Ag 2.64 Urine Color Yellow Urine Appearance Hazy Urine pH 6.0 Ur Specific [place] 1.025 Urine Protein 300 (3+) H Urine Glucose (UA) Negative Urine Ketones Negative Urine Blood Large (3+) H Urine Nitrite Negative Ur Leukocyte Esterase Negative Urine RBC >20 H Urine WBC 6-10 H Ur Squamous Epith Cells 3-5 Urine Bacteria None Seen Hyaline Casts 3-5 Assessment and Plan (1) Posterior circulation stroke: Status: Acute Plan 63M PMH obesity, depression with suicide attempts leading to hospitalization at [facility], htn, presented with dizziness, concern for posterior cva Acute stroke w posterior cva improved , steady on his feet and ambulating CTA done showed occlusion of the V4 segment of the proximal vertebral artery MRI showing small infarct in left lateral medullary Neurology input appreciated aspirin, plavix and atorvastatin Urine problem negative UA and normal PSA Lower extremities edema 2/2 Fluid overload Echo within normal values, mild LVH Lasix 20 mg daily Monitor response Hypertension controlled Lisinopril to 10mg daily depression with recent Suicide attempt reports 2 attempts in as many weeks, denies any thoughts or plans now. was recently admitted to [facility] hospital Care team did not feel he need psychiatric unit admission, not suicidal. Obesity BMI 36.8 encourage weight loss dvt porphylaxis - lovenox full code reason for continued hospitalization: Pending safe discharge plan to SNF per PT recommendations pending accepting facility. [facility] but meanwhile looking for short term placement for PT. Quality Stroke Does the patient have a stroke diagnosis?: Yes Reason for No Anti-thrombotic by Day Two: N/A - Med Ordered VTE Prior VTE?: No VTE Risk Level:: Medical - moderate - high VTE Device Contraindication: N/A - Device Ordered VTE Drug Contraindication: N/A - Med Ordered
[2023-07-19 12:00] VITALS: BP 116/86; PULSE 74; RESP 18; TEMP 36.7; O2SAT 98
[2023-07-19 15:24] VITALS: BP 111/63; PULSE 80; RESP 18; TEMP 36; O2SAT 100
[2023-07-19 19:45] VITALS: BP 111/60; PULSE 71; RESP 18; TEMP 35.9; O2SAT 98
[2023-07-19] MEDS: Mirtazapine 7.5 MG TABLET PO (20:42)
[2023-07-20] VITALS (7 sets, daily range): BP systolic 108–133; BP diastolic 65–76; PULSE 68–95; RESP 16–18; TEMP 36.6–37.1; O2SAT 94–100
[2023-07-20] MEDS: Enoxaparin Sodium 40 MG/0.4 ML SYRINGE SUBCUT (05:26)
[2023-07-20] MEDS: lisinopriL 10 MG TABLET PO (08:51)
[2023-07-20] MEDS: Atorvastatin Calcium 80 MG TABLET PO (08:51)
[2023-07-20] MEDS: Aspirin Enteric Coated 81 MG TABLET.DR PO (08:51)
[2023-07-20] MEDS: Furosemide 20 MG TABLET PO (08:51)
[2023-07-20] MEDS: Clopidogrel Bisulfate 75 MG TABLET PO (08:51)
[2023-07-20] MEDS: polyethylene glycoL 3350 17 GM POWD.PACK PO (08:51)
--- NOTE | 2023-07-20 08:54 | P.PNIM_ITS ---
Subjective Subjective Date of Service: 07/20/23 Interval History: Seen and evaluated comfortable , No reported overnight events Review of Systems Review of Systems: Yes all other systems are reviewed and are negative Physical Exam 2 Vital Signs: Vital Signs: Last Vital Signs Temp 97.9 F 07/20/23 07:33 Pulse 76 07/20/23 07:33 Resp 16 07/20/23 07:33 BP 126/76 07/20/23 07:33 Pulse Ox 97 07/20/23 07:33 O2 Del Method Room Air 07/20/23 07:33 O2 Flow Rate 2 07/15/23 07:47 BMI result Body Mass Index 36.8 Const: Other: Constitutional : Awake, interactive, not in distress Neck : Normal inspection, Supple Cardiovascular : RRR, no JVP, No lower extremity edema Respiratory : good bilateral air entry, no crackles, wheezes or rhonchi Gastrointestinal: soft, lax, Normal bowel sounds, Non tender Skin : Warm, Dry Neurological : Alert & oriented x3, No focal deficit Objective Data Active Medications Acetaminophen (Acetaminophen 325 Mg Tablet) 650 mg PO Q6H PRN PRN Reason: Pain, Mild (Pain Scale 1-3) Last Admin: 07/18/23 20:12 Dose: 650 mg Documented By: NATE Acetaminophen (Acetaminophen Supp 650 Mg Supp.Rect) 650 mg [place] Q6H PRN PRN Reason: Pain, Mild (Pain Scale 1-3) Al Hydroxide/Mg Hydroxide (Magnesium Hydrox/Alum Hydrox 30 Ml Oral.Susp) 30 ml PO Q4H PRN PRN Reason: Heartburn/Nausea Last Admin: 06/11/23 19:58 Dose: 30 ml Documented By: NATE Aspirin (Aspirin Enteric Coated 81 Mg Tablet.Dr) 81 mg PO DAILY [facility] Last Admin: 07/19/23 08:54 Dose: 81 mg Documented By: TYLER Atorvastatin Calcium (Atorvastatin Calcium 80 Mg Tablet) 80 mg PO DAILY [facility] Last Admin: 07/19/23 08:55 Dose: 80 mg Documented By: TYLER Benzocaine (Throat Lozenge, Medicated Lozenge) 1 lozenge MUCOUS MEM Q2H PRN PRN Reason: Sore Throat Last Admin: 06/17/23 08:45 Dose: 1 lozenge Documented By: PRITESH Bisacodyl (Bisacodyl 5 Mg Tablet.) 10 mg PO DAILY PRN PRN Reason: Constipation Last Admin: 06/14/23 09:21 Dose: 10 mg Documented By: DEMETRIO Clopidogrel Bisulfate (Clopidogrel Bisulfate 75 Mg Tablet) 75 mg PO DAILY [facility] Last Admin: 07/19/23 08:55 Dose: 75 mg Documented By: TYLER Enoxaparin Sodium (Enoxaparin Sodium 40 Mg/0.4 Ml Syringe) 40 mg SUBCUT Q24H [facility] Last Admin: 07/20/23 05:26 Dose: 40 mg Documented By: VÍCTOR Furosemide (Furosemide 20 Mg Tablet) 20 mg PO DAILY [facility]; Protocol Last Admin: 07/19/23 08:55 Dose: 20 mg Documented By: TYLER Hydroxyzine HCl (Hydroxyzine Hcl 50 Mg Tablet) 50 mg PO QID PRN PRN Reason: Anxiety Last Admin: 06/17/23 08:45 Dose: 50 mg Documented By: PRITESH Lisinopril (Lisinopril 10 Mg Tablet) 10 mg PO DAILY [facility]; Protocol Last Admin: 07/19/23 08:55 Dose: 10 mg Documented By: TYLER Melatonin (Melatonin 3 Mg Tablet) 6 mg PO BEDTIME PRN PRN Reason: Insomnia Last Admin: 07/08/23 19:58 Dose: 6 mg Documented By: NATE Mirtazapine (Mirtazapine 7.5 Mg Tablet) 7.5 mg PO BEDTIME [facility] Last Admin: 07/19/23 20:42 Dose: 7.5 mg Documented By: VÍCTOR Nicotine Polacrilex (Nicotine Polacrilex 2 Mg Gum) 2 mg BUCCAL Q2H PRN PRN Reason: Nicotine Cravings Ondansetron HCl (Ondansetron Hcl 4 Mg/2 Ml Vial) 4 mg IVPUSH Q8H PRN PRN Reason: Nausea and Vomiting Phenazopyridine HCl (Phenazopyridine Hcl 100 Mg Tablet) 100 mg PO TIDWM PRN PRN Reason: Dysurea Stop: 07/20/23 17:01 Polyethylene Glycol (Polyethylene Glycol 3350 17 Gm Powd.Pack) 17 gm PO BID [facility] Last Admin: 07/19/23 20:42 Dose: Not Given Documented By: VÍCTOR Non-Admin Reason: Patient Refused Sodium Chloride (0.9 % Sodium Chloride Flush 3 Ml Syringe) 3 ml IVFLUSH QSHIFT [facility] Last Admin: 07/19/23 20:43 Dose: Not Given Documented By: VÍCTOR Non-Admin Reason: No Access Labs 06/04/23 07:58 06/23/23 05:56 Microbiology Microbiology Results: Microbiology 07/18/23 Unknown Urine Culture - Preliminary Urine clean catch - Urine machuca top Culture too young to evaluate. Assessment and Plan (1) Posterior circulation stroke: Status: Acute Plan 63M PMH obesity, depression with suicide attempts leading to hospitalization at [facility], htn, presented with dizziness, concern for posterior cva Acute stroke w posterior cva improved , steady on his feet and ambulating CTA done showed occlusion of the V4 segment of the proximal vertebral artery MRI showing small infarct in left lateral medullary Neurology input appreciated aspirin, plavix and atorvastatin Urine problem negative UA and normal PSA Lower extremities edema 2/2 Fluid overload Echo within normal values, mild LVH Lasix 20 mg daily Monitor response Hypertension controlled Lisinopril to 10mg daily depression with recent Suicide attempt reports 2 attempts in as many weeks, denies any thoughts or plans now. was recently admitted to [facility] hospital Care team did not feel he need psychiatric unit admission, not suicidal. Obesity BMI 36.8 encourage weight loss dvt porphylaxis - lovenox full code reason for continued hospitalization: Pending safe discharge plan to respite facility on 07/25/2023. Quality Stroke Does the patient have a stroke diagnosis?: Yes Reason for No Anti-thrombotic by Day Two: N/A - Med Ordered VTE Prior VTE?: No VTE Risk Level:: Medical - moderate - high VTE Device Contraindication: N/A - Device Ordered VTE Drug Contraindication: N/A - Med Ordered
[2023-07-20] MEDS: Mirtazapine 7.5 MG TABLET PO (20:01)
[2023-07-21 04:00] VITALS: BP 117/75; PULSE 74; RESP 18; TEMP 36.8; O2SAT 95
[2023-07-21] MEDS: Enoxaparin Sodium 40 MG/0.4 ML SYRINGE SUBCUT (06:14)
[2023-07-21 07:34] VITALS: BP 110/63; PULSE 67; RESP 16; TEMP 36.7; O2SAT 98
[2023-07-21] MEDS: Aspirin Enteric Coated 81 MG TABLET.DR PO (08:47)
[2023-07-21] MEDS: polyethylene glycoL 3350 17 GM POWD.PACK PO (08:47)
[2023-07-21] MEDS: Clopidogrel Bisulfate 75 MG TABLET PO (08:47)
[2023-07-21] MEDS: Atorvastatin Calcium 80 MG TABLET PO (08:47)
[2023-07-21] MEDS: Furosemide 20 MG TABLET PO (08:47)
[2023-07-21] MEDS: lisinopriL 10 MG TABLET PO (08:47)
--- NOTE | 2023-07-21 11:21 | HO.PM.IMPN ---
Subjective Subjective Date of Service: 07/21/23 Interval History: Seen and evaluated comfortable , No reported overnight events Review of Systems Review of Systems: Yes all other systems are reviewed and are negative Physical Exam Vital Signs: Vital Signs: Last Vital Signs Temp 98.0 F 07/21/23 07:34 Pulse 67 07/21/23 07:34 Resp 16 07/21/23 07:34 BP 110/63 07/21/23 07:34 Pulse Ox 98 07/21/23 07:34 O2 Del Method Room Air 07/21/23 07:34 O2 Flow Rate 2 07/15/23 07:47 BMI result Body Mass Index 36.8 Const: Other: Constitutional : Awake, interactive, not in distress Neck : Normal inspection, Supple Cardiovascular : RRR, no JVP, No lower extremity edema Respiratory : good bilateral air entry, no crackles, wheezes or rhonchi Gastrointestinal: soft, lax, Normal bowel sounds, Non tender Skin : Warm, Dry Neurological : Alert & oriented x3, No focal deficit Objective Data Active Medications Acetaminophen (Acetaminophen 325 Mg Tablet) 650 mg PO Q6H PRN PRN Reason: Pain, Mild (Pain Scale 1-3) Last Admin: 07/18/23 20:12 Dose: 650 mg Documented By: NATE Acetaminophen (Acetaminophen Supp 650 Mg Supp.Rect) 650 mg [place] Q6H PRN PRN Reason: Pain, Mild (Pain Scale 1-3) Al Hydroxide/Mg Hydroxide (Magnesium Hydrox/Alum Hydrox 30 Ml Oral.Susp) 30 ml PO Q4H PRN PRN Reason: Heartburn/Nausea Last Admin: 06/11/23 19:58 Dose: 30 ml Documented By: NATE Aspirin (Aspirin Enteric Coated 81 Mg Tablet.) 81 mg PO DAILY [facility] Last Admin: 07/21/23 08:47 Dose: 81 mg Documented By: TYLER Atorvastatin Calcium (Atorvastatin Calcium 80 Mg Tablet) 80 mg PO DAILY [facility] Last Admin: 07/21/23 08:47 Dose: 80 mg Documented By: TYLER Benzocaine (Throat Lozenge, Medicated Lozenge) 1 lozenge MUCOUS MEM Q2H PRN PRN Reason: Sore Throat Last Admin: 06/17/23 08:45 Dose: 1 lozenge Documented By: PRITESH Bisacodyl (Bisacodyl 5 Mg Tablet.) 10 mg PO DAILY PRN PRN Reason: Constipation Last Admin: 06/14/23 09:21 Dose: 10 mg Documented By: DEMETRIO Clopidogrel Bisulfate (Clopidogrel Bisulfate 75 Mg Tablet) 75 mg PO DAILY [facility] Last Admin: 07/21/23 08:47 Dose: 75 mg Documented By: TYLER Furosemide (Furosemide 20 Mg Tablet) 20 mg PO DAILY [facility]; Protocol Last Admin: 07/21/23 08:47 Dose: 20 mg Documented By: TYLER Hydroxyzine HCl (Hydroxyzine Hcl 50 Mg Tablet) 50 mg PO QID PRN PRN Reason: Anxiety Last Admin: 06/17/23 08:45 Dose: 50 mg Documented By: PONCE-RIVSHMUEL Lisinopril (Lisinopril 10 Mg Tablet) 10 mg PO DAILY [facility]; Protocol Last Admin: 07/21/23 08:47 Dose: 10 mg Documented By: TYLER Melatonin (Melatonin 3 Mg Tablet) 6 mg PO BEDTIME PRN PRN Reason: Insomnia Last Admin: 07/08/23 19:58 Dose: 6 mg Documented By: NATE Mirtazapine (Mirtazapine 7.5 Mg Tablet) 7.5 mg PO BEDTIME [facility] Last Admin: 07/20/23 20:01 Dose: 7.5 mg Documented By: VÍCTOR Nicotine Polacrilex (Nicotine Polacrilex 2 Mg Gum) 2 mg BUCCAL Q2H PRN PRN Reason: Nicotine Cravings Ondansetron HCl (Ondansetron Hcl 4 Mg/2 Ml Vial) 4 mg IVPUSH Q8H PRN PRN Reason: Nausea and Vomiting Polyethylene Glycol (Polyethylene Glycol 3350 17 Gm Powd.Pack) 17 gm PO BID [facility] Last Admin: 07/21/23 08:47 Dose: 17 gm Documented By: TYLER Sodium Chloride (0.9 % Sodium Chloride Flush 3 Ml Syringe) 3 ml IVFLUSH QSHIFT [facility] Last Admin: 07/21/23 08:50 Dose: Not Given Documented By: TYLER Non-Admin Reason: No IV access Labs 06/04/23 07:58 06/23/23 05:56 Microbiology Microbiology Results: Microbiology 07/18/23 Unknown Urine Culture - Final Urine clean catch - Urine machuca top Assessment and Plan (1) Posterior circulation stroke: Status: Acute Plan 63M PMH obesity, depression with suicide attempts leading to hospitalization at [facility], htn, presented with dizziness, concern for posterior cva Acute stroke w posterior cva improved , steady on his feet and ambulating CTA done showed occlusion of the V4 segment of the proximal vertebral artery MRI showing small infarct in left lateral medullary Neurology input appreciated aspirin, plavix and atorvastatin Urine problem negative UA and normal PSA Lower extremities edema 2/2 Fluid overload Echo within normal values, mild LVH Lasix 20 mg daily Monitor response Hypertension controlled Lisinopril to 10mg daily depression with recent Suicide attempt reports 2 attempts in as many weeks, denies any thoughts or plans now. was recently admitted to [facility] Care team did not feel he need psychiatric unit admission, not suicidal. Obesity BMI 36.8 encourage weight loss dvt porphylaxis - lovenox full code reason for continued hospitalization: Pending safe discharge plan to respite facility on 07/25/2023. Quality Stroke Does the patient have a stroke diagnosis?: Yes Reason for No Anti-thrombotic by Day Two: N/A - Med Ordered VTE Prior VTE?: No VTE Risk Level:: Medical - moderate - high VTE Device Contraindication: N/A - Device Ordered VTE Drug Contraindication: N/A - Med Ordered
[2023-07-21 12:00] VITALS: BP 130/83; PULSE 80; RESP 16; TEMP 36.7; O2SAT 98
[2023-07-21 16:00] VITALS: BP 130/83; PULSE 80; RESP 16; TEMP 36.7; O2SAT 98
[2023-07-21 19:09] VITALS: BP 121/72; PULSE 79; RESP 20; TEMP 36.6; O2SAT 99
[2023-07-21] MEDS: Mirtazapine 7.5 MG TABLET PO (20:17)
[2023-07-21 23:54] VITALS: BP 116/74; PULSE 67; RESP 20; TEMP 36.9; O2SAT 95
[2023-07-22 03:06] VITALS: BP 114/69; PULSE 68; RESP 20; TEMP 37.5; O2SAT 96
[2023-07-22 07:42] VITALS: BP 121/71; PULSE 67; RESP 18; TEMP 36.5; O2SAT 96
[2023-07-22] MEDS: polyethylene glycoL 3350 17 GM POWD.PACK PO (08:10)
[2023-07-22] MEDS: Aspirin Enteric Coated 81 MG TABLET.DR PO (08:11)
[2023-07-22] MEDS: Atorvastatin Calcium 80 MG TABLET PO (08:11)
[2023-07-22] MEDS: Clopidogrel Bisulfate 75 MG TABLET PO (08:11)
[2023-07-22] MEDS: lisinopriL 10 MG TABLET PO (08:11)
[2023-07-22] MEDS: Furosemide 20 MG TABLET PO (08:12)
--- NOTE | 2023-07-22 11:04 | MHC.CM.PN ---
Goal is dc to [facility] on 07/25/2023. CM will follow.
[2023-07-22 12:00] VITALS: BP 126/67; PULSE 65; RESP 18; TEMP 36.5; O2SAT 99
--- NOTE | 2023-07-22 12:46 | HO.PM.IMPN ---
Subjective Subjective Date of Service: 07/22/23 Interval History: Seen and evaluated comfortable , No reported overnight events Review of Systems Review of Systems: Yes all other systems are reviewed and are negative Physical Exam Vital Signs: Vital Signs: Last Vital Signs Temp 97.7 F 07/22/23 12:00 Pulse 65 07/22/23 12:00 Resp 18 07/22/23 12:00 BP 126/67 07/22/23 12:00 Pulse Ox 99 07/22/23 12:00 O2 Del Method Room Air 07/22/23 12:00 O2 Flow Rate 2 07/15/23 07:47 BMI result Body Mass Index 36.8 Const: Other: Constitutional : Awake, interactive, not in distress Neck : Normal inspection, Supple Cardiovascular : RRR, no JVP, No lower extremity edema Respiratory : good bilateral air entry, no crackles, wheezes or rhonchi Gastrointestinal: soft, lax, Normal bowel sounds, Non tender Skin : Warm, Dry Neurological : Alert & oriented x3, No focal deficit Objective Data Active Medications Acetaminophen (Acetaminophen 325 Mg Tablet) 650 mg PO Q6H PRN PRN Reason: Pain, Mild (Pain Scale 1-3) Last Admin: 07/18/23 20:12 Dose: 650 mg Documented By: NATE Acetaminophen (Acetaminophen Supp 650 Mg Supp.Rect) 650 mg [place] Q6H PRN PRN Reason: Pain, Mild (Pain Scale 1-3) Al Hydroxide/Mg Hydroxide (Magnesium Hydrox/Alum Hydrox 30 Ml Oral.Susp) 30 ml PO Q4H PRN PRN Reason: Heartburn/Nausea Last Admin: 06/11/23 19:58 Dose: 30 ml Documented By: NATE Aspirin (Aspirin Enteric Coated 81 Mg Tablet.) 81 mg PO DAILY [facility] Last Admin: 07/22/23 08:11 Dose: 81 mg Documented By: TYLER Atorvastatin Calcium (Atorvastatin Calcium 80 Mg Tablet) 80 mg PO DAILY [facility] Last Admin: 07/22/23 08:11 Dose: 80 mg Documented By: TYLER Benzocaine (Throat Lozenge, Medicated Lozenge) 1 lozenge MUCOUS MEM Q2H PRN PRN Reason: Sore Throat Last Admin: 06/17/23 08:45 Dose: 1 lozenge Documented By: PRITESH Bisacodyl (Bisacodyl 5 Mg Tablet.) 10 mg PO DAILY PRN PRN Reason: Constipation Last Admin: 06/14/23 09:21 Dose: 10 mg Documented By: DEMETRIO Clopidogrel Bisulfate (Clopidogrel Bisulfate 75 Mg Tablet) 75 mg PO DAILY [facility] Last Admin: 07/22/23 08:11 Dose: 75 mg Documented By: TYLER Furosemide (Furosemide 20 Mg Tablet) 20 mg PO DAILY [facility]; Protocol Last Admin: 07/22/23 08:12 Dose: 20 mg Documented By: TYLER Hydroxyzine HCl (Hydroxyzine Hcl 50 Mg Tablet) 50 mg PO QID PRN PRN Reason: Anxiety Last Admin: 06/17/23 08:45 Dose: 50 mg Documented By: PONCE-RIVSHMUEL Lisinopril (Lisinopril 10 Mg Tablet) 10 mg PO DAILY [facility]; Protocol Last Admin: 07/22/23 08:11 Dose: 10 mg Documented By: TYLER Melatonin (Melatonin 3 Mg Tablet) 6 mg PO BEDTIME PRN PRN Reason: Insomnia Last Admin: 07/08/23 19:58 Dose: 6 mg Documented By: NATE Mirtazapine (Mirtazapine 7.5 Mg Tablet) 7.5 mg PO BEDTIME [facility] Last Admin: 07/21/23 20:17 Dose: 7.5 mg Documented By: VÍCTOR Nicotine Polacrilex (Nicotine Polacrilex 2 Mg Gum) 2 mg BUCCAL Q2H PRN PRN Reason: Nicotine Cravings Ondansetron HCl (Ondansetron Hcl 4 Mg/2 Ml Vial) 4 mg IVPUSH Q8H PRN PRN Reason: Nausea and Vomiting Polyethylene Glycol (Polyethylene Glycol 3350 17 Gm Powd.Pack) 17 gm PO BID [facility] Last Admin: 07/22/23 08:10 Dose: 17 gm Documented By: TYLER Sodium Chloride (0.9 % Sodium Chloride Flush 3 Ml Syringe) [facility] Last Admin: 07/22/23 08:13 Dose: Not Given Documented By: TYLER Non-Admin Reason: No IV access Labs 06/04/23 07:58 06/23/23 05:56 Assessment and Plan (1) Posterior circulation stroke: Status: Acute Plan 63M PMH obesity, depression with suicide attempts leading to hospitalization at [facility], presented with dizziness, concern for posterior cva Acute stroke w posterior cva improved , steady on his feet and ambulating CTA done showed occlusion of the V4 segment of the proximal vertebral artery MRI showing small infarct in left lateral medullary Neurology input appreciated aspirin, plavix and atorvastatin Urine problem negative UA and normal PSA Lower extremities edema 2/2 Fluid overload Echo within normal values, mild LVH Lasix 20 mg daily Monitor response Hypertension controlled Lisinopril to 10mg daily depression with recent Suicide attempt reports 2 attempts in as many weeks, denies any thoughts or plans now. was recently admitted to [facility] Care team did not feel he need psychiatric unit admission, not suicidal. Obesity BMI 36.8 encourage weight loss dvt porphylaxis changed to early ambulation 07/21, patient active and walking in halls full code reason for continued hospitalization: Pending safe discharge plan to respite facility on 07/25/2023. Quality Stroke Does the patient have a stroke diagnosis?: Yes Reason for No Anti-thrombotic by Day Two: N/A - Med Ordered VTE Prior VTE?: No VTE Risk Level:: Medical - moderate - high VTE Device Contraindication: N/A - Device Ordered VTE Drug Contraindication: N/A - Med Ordered
[2023-07-22 15:33] VITALS: BP 119/72; PULSE 75; RESP 15; TEMP 36.4; O2SAT 97
[2023-07-22 19:06] VITALS: BP 120/66; PULSE 79; RESP 20; TEMP 36.6; O2SAT 99
[2023-07-22] MEDS: Mirtazapine 7.5 MG TABLET PO (20:24)
[2023-07-22 23:10] VITALS: BP 110/72; PULSE 71; RESP 20; TEMP 36.7; O2SAT 96
[2023-07-23 03:34] VITALS: BP 110/74; PULSE 71; RESP 20; TEMP 37.2; O2SAT 96
[2023-07-23 07:22] VITALS: BP 122/65; PULSE 66; RESP 18; TEMP 36.6; O2SAT 98
[2023-07-23] MEDS: Clopidogrel Bisulfate 75 MG TABLET PO (07:51)
[2023-07-23] MEDS: Aspirin Enteric Coated 81 MG TABLET.DR PO (07:51)
[2023-07-23] MEDS: lisinopriL 10 MG TABLET PO (07:52)
[2023-07-23] MEDS: Atorvastatin Calcium 80 MG TABLET PO (07:52)
[2023-07-23] MEDS: Furosemide 20 MG TABLET PO (07:52)
[2023-07-23] MEDS: polyethylene glycoL 3350 17 GM POWD.PACK PO (07:52)
[2023-07-23 10:23] VITALS: BP 122/65; PULSE 66; O2SAT 98
--- NOTE | 2023-07-23 10:39 | HO.PM.IMPN ---
Subjective Subjective Date of Service: 07/23/23 Interval History: no complaints Physical Exam Vital Signs: Vital Signs: Last Vital Signs Temp 97.9 F 07/23/23 07:22 Pulse 66 07/23/23 10:23 Resp 18 07/23/23 07:22 BP 122/65 07/23/23 10:23 Pulse Ox 98 07/23/23 10:23 O2 Del Method Room Air 07/23/23 07:22 O2 Flow Rate 2 07/15/23 07:47 BMI result Body Mass Index 36.8 Const: Other: Constitutional : Awake, interactive, not in distress Neck : Normal inspection, Supple Cardiovascular : RRR, no JVP, No lower extremity edema Respiratory : good bilateral air entry, no crackles, wheezes or rhonchi Gastrointestinal: soft, lax, Normal bowel sounds, Non tender Skin : Warm, Dry Neurological : Alert & oriented x3, No focal deficit Objective Data Active Medications Acetaminophen (Acetaminophen 325 Mg Tablet) 650 mg PO Q6H PRN PRN Reason: Pain, Mild (Pain Scale 1-3) Last Admin: 07/18/23 20:12 Dose: 650 mg Documented By: NATE Acetaminophen (Acetaminophen Supp 650 Mg Supp.Rect) 650 mg [place] Q6H PRN PRN Reason: Pain, Mild (Pain Scale 1-3) Al Hydroxide/Mg Hydroxide (Magnesium Hydrox/Alum Hydrox 30 Ml Oral.Susp) 30 ml PO Q4H PRN PRN Reason: Heartburn/Nausea Last Admin: 06/11/23 19:58 Dose: 30 ml Documented By: NATE Aspirin (Aspirin Enteric Coated 81 Mg Tablet.) 81 mg PO DAILY [facility] Last Admin: 07/23/23 07:51 Dose: 81 mg Documented By: ANA M Atorvastatin Calcium (Atorvastatin Calcium 80 Mg Tablet) 80 mg PO DAILY [facility] Last Admin: 07/23/23 07:52 Dose: 80 mg Documented By: ANA M Benzocaine (Throat Lozenge, Medicated Lozenge) 1 lozenge MUCOUS MEM Q2H PRN PRN Reason: Sore Throat Last Admin: 06/17/23 08:45 Dose: 1 lozenge Documented By: PRITESH Bisacodyl (Bisacodyl 5 Mg Tablet.) 10 mg PO DAILY PRN PRN Reason: Constipation Last Admin: 06/14/23 09:21 Dose: 10 mg Documented By: DEMETRIO Clopidogrel Bisulfate (Clopidogrel Bisulfate 75 Mg Tablet) 75 mg PO DAILY [facility] Last Admin: 07/23/23 07:51 Dose: 75 mg Documented By: ANA M Furosemide (Furosemide 20 Mg Tablet) 20 mg PO DAILY [facility]; Protocol Last Admin: 07/23/23 07:52 Dose: 20 mg Documented By: ANA M Hydroxyzine HCl (Hydroxyzine Hcl 50 Mg Tablet) 50 mg PO QID PRN PRN Reason: Anxiety Last Admin: 06/17/23 08:45 Dose: 50 mg Documented By: PRITESH Lisinopril (Lisinopril 10 Mg Tablet) 10 mg PO DAILY [facility]; Protocol Last Admin: 07/23/23 07:52 Dose: 10 mg Documented By: ANA M Melatonin (Melatonin 3 Mg Tablet) 6 mg PO BEDTIME PRN PRN Reason: Insomnia Last Admin: 07/08/23 19:58 Dose: 6 mg Documented By: NATE Mirtazapine (Mirtazapine 7.5 Mg Tablet) 7.5 mg PO BEDTIME [facility] Last Admin: 07/22/23 20:24 Dose: 7.5 mg Documented By: NATE Nicotine Polacrilex (Nicotine Polacrilex 2 Mg Gum) 2 mg BUCCAL Q2H PRN PRN Reason: Nicotine Cravings Ondansetron HCl (Ondansetron Hcl 4 Mg/2 Ml Vial) 4 mg IVPUSH Q8H PRN PRN Reason: Nausea and Vomiting Polyethylene Glycol (Polyethylene Glycol 3350 17 Gm Powd.Pack) 17 gm PO BID [facility] Last Admin: 07/23/23 07:52 Dose: 17 gm Documented By: ANA M Sodium Chloride (0.9 % Sodium Chloride Flush 3 Ml Syringe) 3 ml IVFLUSH QSHIFT [facility] Last Admin: 07/23/23 07:42 Dose: Not Given Documented By: ANA M Non-Admin Reason: No Access Labs 06/04/23 07:58 06/23/23 05:56 Assessment and Plan (1) Posterior circulation stroke: Status: Acute Plan 63M PMH obesity, depression with suicide attempts leading to hospitalization at [facility], presented with dizziness, concern for posterior cva Acute stroke w posterior cva improved , steady on his feet and ambulating CTA done showed occlusion of the V4 segment of the proximal vertebral artery MRI showing small infarct in left lateral medullary Neurology input appreciated aspirin, plavix and atorvastatin Urine problem negative UA and normal PSA Lower extremities edema 2/2 Fluid overload Echo within normal values, mild LVH Lasix 20 mg daily Monitor response Hypertension controlled Lisinopril to 10mg daily depression with recent Suicide attempt reports 2 attempts in as many weeks, denies any thoughts or plans now. was recently admitted to [facility] Care team did not feel he need psychiatric unit admission, not suicidal. Obesity BMI 36.8 encourage weight loss dvt porphylaxis changed to early ambulation 07/21, patient active and walking in halls full code reason for continued hospitalization: Pending safe discharge plan to respite facility on 07/25/2023. Quality Stroke Does the patient have a stroke diagnosis?: Yes Reason for No Anti-thrombotic by Day Two: N/A - Med Ordered VTE Prior VTE?: No VTE Risk Level:: Medical - moderate - high VTE Device Contraindication: N/A - Device Ordered VTE Drug Contraindication: N/A - Med Ordered
[2023-07-23 11:48] VITALS: BP 134/62; PULSE 72; RESP 18; TEMP 36.8; O2SAT 97
[2023-07-23 15:41] VITALS: BP 136/63; PULSE 71; RESP 18; TEMP 36.6; O2SAT 99
[2023-07-23 19:38] VITALS: BP 112/65; PULSE 77; RESP 20; TEMP 36.5; O2SAT 91
[2023-07-23] MEDS: Mirtazapine 7.5 MG TABLET PO (20:18)
[2023-07-24] VITALS (7 sets, daily range): BP systolic 112–135; BP diastolic 66–75; PULSE 67–79; RESP 14–19; TEMP 36.1–36.8; O2SAT 95–99
[2023-07-24] MEDS: Clopidogrel Bisulfate 75 MG TABLET PO (08:27)
[2023-07-24] MEDS: Furosemide 20 MG TABLET PO (08:27)
[2023-07-24] MEDS: Atorvastatin Calcium 80 MG TABLET PO (08:27)
[2023-07-24] MEDS: Aspirin Enteric Coated 81 MG TABLET.DR PO (08:27)
[2023-07-24] MEDS: lisinopriL 10 MG TABLET PO (08:27)
--- NOTE | 2023-07-24 08:50 | P.PNIM_ITS ---
Subjective Subjective Date of Service: 07/24/23 Interval History: no complaints Physical Exam 2 Vital Signs: Vital Signs: Last Vital Signs Temp 98.2 F 07/24/23 07:28 Pulse 71 07/24/23 07:28 Resp 18 07/24/23 07:28 BP 112/66 07/24/23 07:28 Pulse Ox 96 07/24/23 07:28 O2 Del Method Room Air 07/24/23 07:28 O2 Flow Rate 2 07/15/23 07:47 BMI result Body Mass Index 36.8 Const: Other: Constitutional : Awake, interactive, not in distress Neck : Normal inspection, Supple Cardiovascular : RRR, no JVP, No lower extremity edema Respiratory : good bilateral air entry, no crackles, wheezes or rhonchi Gastrointestinal: soft, lax, Normal bowel sounds, Non tender Skin : Warm, Dry Neurological : Alert & oriented x3, No focal deficit Objective Data Active Medications Acetaminophen (Acetaminophen 325 Mg Tablet) 650 mg PO Q6H PRN PRN Reason: Pain, Mild (Pain Scale 1-3) Last Admin: 07/18/23 20:12 Dose: 650 mg Documented By: NATE Acetaminophen (Acetaminophen Supp 650 Mg Supp.Rect) 650 mg [place] Q6H PRN PRN Reason: Pain, Mild (Pain Scale 1-3) Al Hydroxide/Mg Hydroxide (Magnesium Hydrox/Alum Hydrox 30 Ml Oral.Susp) 30 ml PO Q4H PRN PRN Reason: Heartburn/Nausea Last Admin: 06/11/23 19:58 Dose: 30 ml Documented By: NATE Aspirin (Aspirin Enteric Coated 81 Mg Tablet.) 81 mg PO DAILY [facility] Last Admin: 07/24/23 08:27 Dose: 81 mg Documented By: BOB Atorvastatin Calcium (Atorvastatin Calcium 80 Mg Tablet) 80 mg PO DAILY [facility] Last Admin: 07/24/23 08:27 Dose: 80 mg Documented By: BOB Benzocaine (Throat Lozenge, Medicated Lozenge) 1 lozenge MUCOUS MEM Q2H PRN PRN Reason: Sore Throat Last Admin: 06/17/23 08:45 Dose: 1 lozenge Documented By: PRITESH Bisacodyl (Bisacodyl 5 Mg Tablet.) 10 mg PO DAILY PRN PRN Reason: Constipation Last Admin: 06/14/23 09:21 Dose: 10 mg Documented By: DEMETRIO Clopidogrel Bisulfate (Clopidogrel Bisulfate 75 Mg Tablet) 75 mg PO DAILY [facility] Last Admin: 07/24/23 08:27 Dose: 75 mg Documented By: BOB Furosemide (Furosemide 20 Mg Tablet) 20 mg PO DAILY [facility]; Protocol Last Admin: 07/24/23 08:27 Dose: 20 mg Documented By: BOB Hydroxyzine HCl (Hydroxyzine Hcl 50 Mg Tablet) 50 mg PO QID PRN PRN Reason: Anxiety Last Admin: 06/17/23 08:45 Dose: 50 mg Documented By: PONCE-RIVSHMUEL Lisinopril (Lisinopril 10 Mg Tablet) 10 mg PO DAILY [facility]; Protocol Last Admin: 07/24/23 08:27 Dose: 10 mg Documented By: BOB Melatonin (Melatonin 3 Mg Tablet) 6 mg PO BEDTIME PRN PRN Reason: Insomnia Last Admin: 07/08/23 19:58 Dose: 6 mg Documented By: NATE Mirtazapine (Mirtazapine 7.5 Mg Tablet) 7.5 mg PO BEDTIME [facility] Last Admin: 07/23/23 20:18 Dose: 7.5 mg Documented By: ZAHRA Nicotine Polacrilex (Nicotine Polacrilex 2 Mg Gum) 2 mg BUCCAL Q2H PRN PRN Reason: Nicotine Cravings Ondansetron HCl (Ondansetron Hcl 4 Mg/2 Ml Vial) 4 mg IVPUSH Q8H PRN PRN Reason: Nausea and Vomiting Polyethylene Glycol (Polyethylene Glycol 3350 17 Gm Powd.Pack) 17 gm PO BID [facility] Last Admin: 07/24/23 08:28 Dose: Not Given Documented By: BOB Non-Admin Reason: Patient Refused Sodium Chloride (0.9 % Sodium Chloride Flush 3 Ml Syringe) 3 ml IVFLUSH QSHIFT [facility] Last Admin: 07/24/23 08:28 Dose: Not Given Documented By: BOB Non-Admin Reason: No Access Labs 06/04/23 07:58 06/23/23 05:56 Assessment and Plan (1) Posterior circulation stroke: Status: Acute Plan 63M PMH obesity, depression with suicide attempts leading to hospitalization at [facility], htn, presented with dizziness, concern for posterior cva Acute stroke w posterior cva improved , steady on his feet and ambulating CTA done showed occlusion of the V4 segment of the proximal vertebral artery MRI showing small infarct in left lateral medullary Neurology input appreciated aspirin, plavix and atorvastatin Urine problem negative UA and normal PSA Lower extremities edema 2/2 Fluid overload Echo within normal values, mild LVH Lasix 20 mg daily Monitor response Hypertension controlled Lisinopril to 10mg daily depression with recent Suicide attempt reports 2 attempts in as many weeks, denies any thoughts or plans now. was recently admitted to [facility] Care team did not feel he need psychiatric unit admission, not suicidal. Obesity BMI 36.8 encourage weight loss dvt porphylaxis changed to early ambulation 07/21, patient active and walking in halls full code reason for continued hospitalization: Pending safe discharge plan to respite facility on 07/25/2023. Quality Stroke Does the patient have a stroke diagnosis?: Yes Reason for No Anti-thrombotic by Day Two: N/A - Med Ordered VTE Prior VTE?: No VTE Risk Level:: Medical - moderate - high VTE Device Contraindication: N/A - Device Ordered VTE Drug Contraindication: N/A - Med Ordered
--- NOTE | 2023-07-24 09:46 | MHC.CM.PN ---
Plan is for Patient to dc to [facility] tomorrow. CM will follow.
[2023-07-24] MEDS: Mirtazapine 7.5 MG TABLET PO (20:26)
[2023-07-25 04:00] VITALS: BP 121/71; PULSE 68; RESP 19; TEMP 36.4; O2SAT 93
[2023-07-25 08:00] VITALS: BP 116/80; PULSE 80; RESP 16; TEMP 36.6; O2SAT 99
--- NOTE | 2023-07-25 08:07 | MHC.CM.PN ---
Patient will dc to [facility] today at 10 AM via [facility] [place] [facility] Shuttle.
[2023-07-25] MEDS: Atorvastatin Calcium 80 MG TABLET PO (08:30)
[2023-07-25] MEDS: Clopidogrel Bisulfate 75 MG TABLET PO (08:30)
[2023-07-25] MEDS: Aspirin Enteric Coated 81 MG TABLET.DR PO (08:30)
[2023-07-25] MEDS: lisinopriL 10 MG TABLET PO (08:31)
[2023-07-25] MEDS: Furosemide 20 MG TABLET PO (08:31)
--- NOTE | 2023-07-25 08:32 | P.DS_ITS ---
DS: Providers Provider Date of Service: 07/25/23 Date of admission: 06/04/23 05:06 Primary care physician: Unknown Physician Consults: 06/04/23 05:09 Consult to Neurology Routine Consulting Provider: [facility] Reason for consultation: CVA Has provider been notified: Yes 06/05/23 10:23 Consult to Care Team Stat Comment: Reason for consultation: Medically clear, denies SI at this point. for eval and rec. 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 Hx of suicidal attempt and ideas DS: Diagnosis Discharge Diagnosis (1) Posterior circulation stroke: Status: Acute DS: Summary Hospital Course Hospital Course: from initial hpi: 63 year old obese white male with underlying history of depression and suicide attempts leading to hospitalization at [facility] who is brought to the emergency room for evaluation of ongoing dizziness, unsteady gait, nausea and vomiting. These symptoms started last night (06/02/23) at around 7 PM. He reports that he suddenly started experiencing dizziness and was unsteady on his feet.? He was feeling ill with the nausea and dizziness and so he decided to go rest in bed. ?He woke up today, still feeling dizzy and unsteady on his feet and this time also had an episode of nausea and vomited when he tried to drink liquids.? He therefor decided to remain in bed most of the day. This evening, he was still not feeling well so he asked to be brought in for evaluation. Initial work up done on arrival include a normal CT head but a CTA done showed occlusion of the V4 segment of the proximal vertebral artery.? He unfortunately is out of the window for TNK and thrombectomy.? He was therefore started on aspirin and admission requested.? When I saw him, he was still feeling dizzy especially when he tries to move around. hospital course: Patient was admitted for acute posterior CVA. He was seen by neurology recommended dual antiplatelet and statin. Course complicated by acute diastolic CHF started on Lasix 20 mg daily. For hypertension his lisinopril was increased to 10 mg daily. For depression with suicidal ideation, suicidal ideation resolved. For obesity weight loss recommended. Patient will be discharged to respite. Time Attestation Discharge coordination time: Greater than 30 minutes Quality: Safe Use of Opioids Does Pt have an Active Cancer Diagnosis on the Problem List?: No Quality: Stroke Does the patient have a stroke diagnosis?: Yes Reason for No Anti-thrombotic at DC: N/A - Med Ordered Reason for No Anticoagulant at DC: Drug treatment not indicated Reason Not Initiating IV-Tpa: Drug treatment not indicated Reason for No Anti-thrombotic by Day Two: N/A - Med Ordered Reason for No Statin at DC: N/A - Med Ordered Physical Exam Vital Signs: Vital Signs: Last Vital Signs Temp 97.6 F 07/25/23 04:00 Pulse 68 07/25/23 04:00 Resp 19 07/25/23 04:00 BP 121/71 07/25/23 04:00 Pulse Ox 93 07/25/23 04:00 O2 Del Method Room Air 07/25/23 04:00 O2 Flow Rate 2 07/15/23 07:47 BMI result Body Mass Index 36.8 Const: Other: Constitutional : Awake, interactive, not in distress Neck : Normal inspection, Supple Cardiovascular : RRR, no JVP, No lower extremity edema Respiratory : good bilateral air entry, no crackles, wheezes or rhonchi Gastrointestinal: soft, lax, Normal bowel sounds, Non tender Skin : Warm, Dry Neurological : Alert & oriented x3, No focal deficit Discharge Plan Discharge Anticipated Discharge Date/Time: 07/25/23 08:25 Patient Disposition: Xfer to Respite Facility Discharge Diagnosis: cva Referrals: [facility] [Other] - 1 Week Physician,Unknown J [Primary Care Provider] - 1 Week Discharge Medications: New atorvastatin 80 mg Tablet 80 mg PO DAILY Qty: 30 0RF clopidogrel 75 mg Tablet 75 mg PO DAILY Qty: 30 0RF aspirin 81 mg Tablet,Delayed Release (Dr/Ec) 81 mg PO DAILY Qty: 30 0RF lisinopril 10 mg Tablet 10 mg PO DAILY Qty: 30 0RF Protocol: Hold for SBP< HOLD for SBP < : 90 furosemide 20 mg Tablet 20 mg PO DAILY Qty: 30 0RF Protocol: Hold for SBP< HOLD for SBP < : 90 Continued acetaminophen 325 mg Tablet 650 mg PO Q4H PRN (Reason: Pain (Scale Score 1-3)) nicotine (polacrilex) 2 mg Gum 2 mg BUCCAL Q2H PRN (Reason: Nicotine Cravings) hydroxyzine pamoate 50 mg Capsule 50 mg PO QID PRN (Reason: Anxiety) melatonin 3 mg Tablet 6 mg PO BEDTIME PRN (Reason: Sleep) calcium carbonate 500 mg calcium (1,250 mg) Tablet,Chewable 500 mg PO Q4H PRN (Reason: Heartburn) benzocaine-menthol Lozenge 1 xiao PO Q2H PRN (Reason: Sore Throat) mirtazapine 7.5 mg Tablet 7.5 mg PO BEDTIME Discontinued lisinopril 5 mg Tablet 5 mg PO DAILY Discharge Orders: Discharge Order (Routine); Ordered 07/25/23 Ordered By: Medardo Garcia Diet: Advance to usual diet Activity on Discharge: As tolerated Stand Alone Forms: Patient Portal Discharge page Care Plan Goals: prevent further strokes Health Concerns: cva Plan of Treatment: asa, plavix, lipitor, Assessment: see above
== END 2023-07-25 10:00 | DRG 45 ==
LOC: HO.ED 06-04 00:34 → HO.EDOVER 06-04 05:20 → HO.IMC 06-04 14:40
PROVIDERS: Physician Assistant; Student in an Organized Health Care Education/Training Program; Admitting Provider Internal Medicine; Emergency Provider Emergency Medicine; Visit Provider Internal Medicine
DX: I63.212 Cerebral infarction due to unspecified occlusion or stenosis of left vertebral artery (principal); I50.31 Acute diastolic (congestive) heart failure; I11.0 Hypertensive heart disease with heart failure; E66.9 Obesity, unspecified; F32.A Depression, unspecified; R42 Dizziness and giddiness; J02.9 Acute pharyngitis, unspecified; Z75.1 Person awaiting admission to adequate facility elsewhere; Z68.36 Body mass index [BMI] 36.0-36.9, adult; R29.702 NIHSS score 2; Z91.51 Personal history of suicidal behavior; Z79.899 Other long term (current) drug therapy
CPT/HCPCS: 36415; 70496; 70498; 70551; 71046; 80048; 80053; 80061; 81001; 83690; 83735; 83880; 84153; 84484; 85025; 85027; 85610; 85730; 87086; 93005; 93306; 97110; 97112; 97116; 97162; 97166; 97530; 97535; 99285; J1650; Q9967; S9485

== ENCOUNTER → 2023-06-03 16:42 | Outpatient (BNV) | payer MEDICAID, SELFPAY | PROVIDERS: Admitting Provider Internal Medicine; Emergency Provider Emergency Medicine; Visit Provider Internal Medicine Cardiovascular Disease | DX: R42 Dizziness and giddiness (principal) | CPT/HCPCS: 93010 ==

== ENCOUNTER 2023-06-04 05:06 | Outpatient (BNV) | payer MEDICAID, SELFPAY | END 2023-06-04 07:00 | PROVIDERS: Admitting Provider Internal Medicine; Emergency Provider Emergency Medicine; Visit Provider Internal Medicine Cardiovascular Disease | DX: I63.9 Cerebral infarction, unspecified (principal) | CPT/HCPCS: 93306 ==

== ENCOUNTER → 2023-06-04 05:06 | Outpatient (BNV) | payer MEDICAID, SELFPAY | PROVIDERS: Admitting Provider Internal Medicine; Emergency Provider Emergency Medicine; Visit Provider Internal Medicine | DX: I63.50 Cerebral infarction due to unspecified occlusion or stenosis of unspecified cerebral artery (principal); I10 Essential (primary) hypertension; T14.91XA Suicide attempt, initial encounter; R42 Dizziness and giddiness | CPT/HCPCS: 99223; 99231; 99232; 99239; 99499 ==

== ENCOUNTER → 2023-06-04 05:06 | Outpatient (BNV) | payer OTHER, SELFPAY | PROVIDERS: Admitting Provider Internal Medicine; Emergency Provider Emergency Medicine; Visit Provider Clinical Nurse Specialist Psychiatric/Mental Health, Adult | DX: T14.91XA Suicide attempt, initial encounter (principal); I63.50 Cerebral infarction due to unspecified occlusion or stenosis of unspecified cerebral artery; I10 Essential (primary) hypertension | CPT/HCPCS: 99232 ==